=== PATIENT | male | born 1965 | race Caucasian/White ===

== ENCOUNTER 2017-11-23 19:12 | Emergency (ER) | payer BC, SELFPAY ==
--- NOTE | 2017-11-23 19:29 | XR_ITS ---
XR shoulder LT min 2V HISTORY: Post traumatic pain ITS.REASON: FELL OFF LADDER ORDERING PHYSICIAN: Tyshawn Pike PATIENT AGE: 52 years COMPARISON: None FINDINGS: No fracture or dislocation. No lytic or blastic change. There is normal mineralization. Superior bony spur versus old fracture at the tip of the clavicle at the AC joint. There is bowing of the distal clavicle inferiorly which may be due to an old fracture. IMPRESSION: 1. No acute finding. 2. Possible old clavicular fracture.
[2017-11-23 22:43] VITALS: BP 123/71; PULSE 60; RESP 20; TEMP 36.7; O2SAT 97; BMI 25.4
--- NOTE | 2017-11-23 23:13 | HMH.EDUTC ---
[facility] [place] Disposition Clinical Impression: Sprain of left shoulder Qualifiers: Encounter type: initial encounter Shoulder sprain type: unspecified sprain Qualified Code(s): S43.402A - Unspecified sprain of left shoulder joint, initial encounter Disposition: Home, Self-Care Condition on Discharge: Good Instructions: How to Use a Sling, How To Perform RICE (Rest, Ice, Compress, Elevate), DI for Shoulder Sprain Additional Instructions: * use/movement as tolerated. If painful, stop. Remember what we discussed about frozen shoulder. ROM important but if pain, could indicate more damage. Means follow up more important. * Rest * ice 15-20 mins 3-4 times a day * sling for support * Ibuprofen every 6 hours as needed for pain and inflammation. If you need something more, you can take tylenol every 4 hours as needed as long as your primary care provider has told you it is ok to take both. Referrals: Raffaele Escalante MD [Primary Care Provider] - (IMMEDIATELY for new or worsening symptoms OR no noticeable improvement over the next 3-4 days) Time of Disposition: 23:30 Medical Decision Making Vital Signs: 11/23/17 22:43 Temperature 98.1 F Temperature Source Temporal Artery Scan Pulse Rate [Right Radial] 60 Respiratory Rate 20 Blood Pressure [Right Arm] 123/71 Blood Pressure Mean [Right Arm] 88 Blood Pressure Source [Right Arm] Automatic Cuff Blood Pressure Position [Right Arm] Sitting 02 Sat by Pulse Oximetry 97 Oxygen Delivery Method Room Air Orders (Tests/Meds): ORDERS Category Date Time Status Shoulder XR left minimum 2 views [XR shoulder LT min 2V Exams 11/23/17 19:29 Taken ] Stat - Radiology Data #1 Image(s): Shoulder Image Reviewed: Yes I have reviewed radiologist's interpretation Preliminary Findings: Normal/NAD vrad - Graeme Inquiry Pt receiving controlled substance: No [facility] [place] HPI - General Stated complaint: ao [id number] @1730 injured left arm Time Seen by Provider: 11/23/17 23:13 Mode of Arrival: Family Vehicle Source of Information: Patient Limitations: No Limitations Description of Symptoms (Recalled from Triage Doc. by RN): PT STATES HE FELL 4 FT FROM A LADDER AND C/O LEFT SHOULDER PAIN. PT DENIES NECK,HEAD,ABDOMINAL PAIN. HEENT Symptoms (Recalled from RN notes): No Resp Symptoms (Recalled from RN notes): No Skin Symptoms (Recalled from RN notes): No MS Symptoms (Recalled from RN notes): Yes (LEFT SHOULDER PAIN) Functional Status (Recalled from RN notes): NA - History of Present Illness Provider Complaint: c/o left shoulder pain since falling approx 4 foot off a ladder out in the yard. Reports shoulder started to tip and he landed on left side. Denies hitting head. No neck, head, abdomen, back pain. Only shoulder. No pain at rest. pain only with rom. No treatment before arrival. - Related Data Allergies Allergy/AdvReac Type Severity Reaction Status Date / Time Penicillins Allergy Unknown I-HIVES Unverified 09/28/17 14:36 - Worker's Comp Is this a Worker's Comp case?: No [facility] History I have reviewed the patient's past medical history: Yes (denies PMHx, reports healthy. Last saw PCP one year ago) Medical History: Denies:: Cancer, Diabetes Mellitus Type 1, Diabetes Mellitus Type 2, Hypertension, MRSA Other Surgeries: Yes: No Previous Surgery Amputation: No Fractures: No - *Social History Smoking Status: Never smoker Alcohol Intake: never - Psychiatric History Expresses thoughts of harming self/others: None Suicide Plan Description: No Plan ROS Obtained: Yes Systems reviewed as appropriate & no additional complaints - Constitutional Constitutional: Denies fever(s) - Cardiovascular Cardiovascular: Denies chest pain - Respiratory Respiratory: No dyspnea - Gastrointestinal Gastrointestingal: Denies: abdominal pain - Musculoskeletal Musculoskeletal: Reports as per HPI, Denies abnormal gait, Denies back pain, Denies joint swelling, Reports limited range of motion ( due
--- NOTE | 2017-11-23 23:28 | ED_ITS ---
[facility] [place] Disposition Clinical Impression: Sprain of left shoulder Qualifiers: Encounter type: initial encounter Shoulder sprain type: unspecified sprain Qualified Code(s): S43.402A - Unspecified sprain of left shoulder joint, initial encounter Disposition: Home, Self-Care Condition on Discharge: Good Instructions: How to Use a Sling, How To Perform RICE (Rest, Ice, Compress, Elevate), DI for Shoulder Sprain Additional Instructions: * use/movement as tolerated. If painful, stop. Remember what we discussed about frozen shoulder. ROM important but if pain, could indicate more damage. Means follow up more important. * Rest * ice 15-20 mins 3-4 times a day * sling for support * Ibuprofen every 6 hours as needed for pain and inflammation. If you need something more, you can take tylenol every 4 hours as needed as long as your primary care provider has told you it is ok to take both. Referrals: Raffaele Escalante MD [Primary Care Provider] - (IMMEDIATELY for new or worsening symptoms OR no noticeable improvement over the next 3-4 days) Time of Disposition: 23:30 Medical Decision Making Vital Signs: 11/23/17 22:43 Temperature 98.1 F Temperature Source Temporal Artery Scan Pulse Rate [Right Radial] 60 Respiratory Rate 20 Blood Pressure [Right Arm] 123/71 Blood Pressure Mean [Right Arm] 88 Blood Pressure Source [Right Arm] Automatic Cuff Blood Pressure Position [Right Arm] Sitting 02 Sat by Pulse Oximetry 97 Oxygen Delivery Method Room Air Orders (Tests/Meds): ORDERS Category Date Time Status Shoulder XR left minimum 2 views [XR shoulder LT min 2V Exams 11/23/17 19:29 Taken ] Stat - Radiology Data #1 Image(s): Shoulder Image Reviewed: Yes I have reviewed radiologist's interpretation Preliminary Findings: Normal/NAD vrad - Graeme Inquiry Pt receiving controlled substance: No [facility] [place] HPI - General Stated complaint: ao [id number] @1730 injured left arm Time Seen by Provider: 11/23/17 23:13 Mode of Arrival: Family Vehicle Source of Information: Patient Limitations: No Limitations Description of Symptoms (Recalled from Triage Doc. by RN): PT STATES HE FELL 4 FT FROM A LADDER AND C/O LEFT SHOULDER PAIN. PT DENIES NECK,HEAD,ABDOMINAL PAIN. HEENT Symptoms (Recalled from RN notes): No Resp Symptoms (Recalled from RN notes): No Skin Symptoms (Recalled from RN notes): No MS Symptoms (Recalled from RN notes): Yes (LEFT SHOULDER PAIN) Functional Status (Recalled from RN notes): NA - History of Present Illness Provider Complaint: c/o left shoulder pain since falling approx 4 foot off a ladder out in the yard. Reports shoulder started to tip and he landed on left side. Denies hitting head. No neck, head, abdomen, back pain. Only shoulder. No pain at rest. pain only with rom. No treatment before arrival. - Related Data Allergies Allergy/AdvReac Type Severity Reaction Status Date / Time Penicillins Allergy Unknown I-HIVES Unverified 09/28/17 14:36 - Worker's Comp Is this a Worker's Comp case?: No [facility] History I have reviewed the patient's past medical history: Yes (denies PMHx, reports healthy. Last saw PCP one year ago) Medical History: Denies:: Cancer, Diabetes Mellitus Type 1, Diabetes Mellitus Type 2, Hypertension, MRSA Other Surgeries: Yes: No Previous Surgery Amputation: No Fractures: No - *Social History Smoking Status: Ne
[2017-11-23 23:30] VITALS: BP 118/75; PULSE 62; RESP 18; TEMP 36.7; O2SAT 98
== END 2017-11-23 23:31 | disposition home or self-care (01) ==
PROVIDERS: Emergency Provider Nurse Practitioner Family; Family Provider Family Medicine; PCP Family Medicine
DX: S43.402A Unspecified sprain of left shoulder joint, initial encounter (principal); W11.XXXA Fall on and from ladder, initial encounter; Y92.017 Garden or yard in single-family (private) house as the place of occurrence of the external cause; Z88.0 Allergy status to penicillin
CPT/HCPCS: 73030; 99202

== ENCOUNTER 2019-07-12 12:29 | Outpatient (CLI) | payer BC, SELFPAY ==
[2019-07-12 12:50] LABS: Basophils % 0.1 % (0.1-2.0); Eosinophils % 0.1 % (0.1-12.0); Hematocrit 42.6 % (42.0-52.0); Hemoglobin 13.5 g/dL (14.1-18.0); Lymphocytes % 4.1 % (10-50); Mean Corpuscular HGB Conc 31.6 g/dL (31.8-35.4); Mean Corpuscular Hemoglobin 29.7 pg (27.0-31.2); Mean Corpuscular Volume 93.9 fl (80-94); Mean Platelet Volume 7.9 fl (7.4-10.4); Monocytes # 0.6 K/mm3 (0.1-1.0); Monocytes % 2.4 % (1.7-9.3); Neutrophils # 23.5 K/mm3 (1.8-7.8); Neutrophils % 93.3 % (37.0-80.0); Platelet Count 161 K/mm3 (142-424); Red Blood Count 4.54 M/mm3 (4.60-6.20); Red Cell Distribution Width 14.3 % (11.5-17.5); White Blood Count 25.2 K/mm3 (4.8-10.8)
[2019-07-12 13:01] LABS: MANUAL DIFFERENTIAL MANUAL DIFFERENTIAL (MANUAL DIFF)
[2019-07-12 13:16] LABS: Lymphocytes % 6 % (10-50); Monocytes % 1 % (2-9); Neutrophils % 93 % (42-76); Total Cells Counted 100
[2019-07-12 13:17] LABS: Platelet Estimate Normal; RBC Morphology Normal
== END 2019-07-12 15:45 | disposition home or self-care (01) ==
LOC: LAB.DROPOF 12:30 → INF 15:15
PROVIDERS: PCP Family Medicine; Referring Provider Internal Medicine; Visit Provider Internal Medicine
DX: Z45.2 Encounter for adjustment and management of vascular access device (principal)
CPT/HCPCS: 85007; 85025; 96523

== ENCOUNTER 2019-11-13 16:08 | Outpatient (CLI) | payer BC, SELFPAY ==
--- NOTE | 2019-11-13 16:15 | PC.NURSE ---
1615-changed right chest permacath dressing using sterile technique; rn and pt both wore masks;rn took off old dressing;donned sterile gloves;cleansed area and site with chloraprep; applied new bandaid to top suture; applied new stat loc, algidex patch, and covered site with sorba view window dressing and dated dressing; pt discharged home.
== END 2019-11-13 16:25 | disposition home or self-care (01) ==
LOC: INF 16:08
PROVIDERS: Visit Provider Internal Medicine
DX: Z45.2 Encounter for adjustment and management of vascular access device (principal); Z48.00 Encounter for change or removal of nonsurgical wound dressing
CPT/HCPCS: 96523

== ENCOUNTER → 2021-03-10 14:15 | Outpatient (CLI) | payer BC, SELFPAY ==
--- NOTE | 2021-03-10 18:00 | PC.NURSE ---
spoke with patient to notify him of positive covid results. Informed him colonoscopy would be cancelled. i informed him i would notify dr. venegas's office in the AM and they would notify him of reschedule date.
== END ==
PROVIDERS: PCP Family Medicine; Visit Provider Surgery
DX: Z11.52 Encounter for screening for COVID-19 (principal); U07.1 COVID-19; Z01.812 Encounter for preprocedural laboratory examination; Z12.11 Encounter for screening for malignant neoplasm of colon
CPT/HCPCS: U0003

== ENCOUNTER 2021-04-02 06:32 | Day surgery (SDC) | payer BC, SELFPAY ==
[2021-03-04 12:15] VITALS: BMI 32.5
[2021-04-02 06:49] VITALS: BP 163/103; PULSE 100; RESP 18; TEMP 36.3; O2SAT 95
--- NOTE | 2021-04-02 07:04 | P.PN_ITS ---
[facility] Anesthesia Checklist - Patient Identification Patient Identification: Arm Band - Structural Data Admitted From: Home Planned Operative Procedure/s: Colonoscopy Consent for Planned Operative Procedure(s) Verified: Yes - NPO Status Verified Time NPO: 00:00 - Airway Assessment C-Spine Mobility Assessed: Yes TMJ Mobility Assessed: Yes Dentition: Good Dentition - Neurological Assessment Level of Consciousness: Awake Hx Seizures: No Numbness or tingling in extremities: No - Anesthesia Plan Anesthesia Risk discussed: Yes Anesthesia Plan: Verified ASA Class: III Anesthesia Type: MAC [facility] History I have reviewed the patient's past medical history: Yes Medical History: Reports:: Cancer (lymphoma), Gastroesophageal Reflux Disease(GERD), Hypertension Denies:: Diabetes Mellitus Type 1, Diabetes Mellitus Type 2, Internal Pacemaker, MRSA, Seizures *Have you ever received a pneumonia vaccine?: Yes *Have you received a flu vaccine this season?: Yes Other Medical History: Reports: Other (Hx of PE - On Xarelto - Stopped 5 days ago) Anesthesia experience/problems:: N/V Laterality Cases: Left: Arthroscopy Shoulder Other Surgeries: Yes: No Previous Surgery, Colonoscopy. No: Pacemaker Amputation: No Fractures: No - *Social History Last grade of school completed: High school graduate Smoking Status: Never smoker Alcohol Intake: never Substance Use Type: denies use *Occupational Status:: employed Housing: house Household Members: spouse *Travel in the last 8 weeks: None Family Hx:: Cancer
--- NOTE | 2021-04-02 07:44 | HMH.SCOPE ---
- Procedure: Date: 04/02/21 Patient Date of :: 1965 Procedure Performed:: Colonoscopy to terminal ileum with biopsy Indications:: Patient is a 55-year-old male who presents for follow-up colonoscopy. He is under the care of Dr. Pearson. I had previously performed colonoscopy on him on 09/30/2016 as an initial screen. His father did have colorectal cancer in his early 80s. Patient states that he is past due. He did have a small rectal polyp at the time of his colonoscopy. 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 He is also on Xarelto for pulmonary embolism. He denies any change in his bowel habits or rectal bleeding. Performing Provider:: Taj Neves MD Referring Provider:: Tru Pearson MD Sedation:: MAC sedation Procedure:: Patient was taken to endoscopy procedure room. He was positioned in lateral decubitus position. Adequate intravenous sedation was achieved with anesthesia titration of propofol. Variable stiffness Olympus colonoscope was inserted via the anus and advanced to the cecum. Colonic preparation was good. Ileocecal valve and appendiceal orifice were clearly identified. Colonoscope was advanced very briefly short distance into the ileocecal valve which appeared unremarkable. Within the cecum there was some minor mucosal atypical appearing pigmentation. Biopsy was obtained. Colonoscope was withdrawn through the remainder of the colon with careful surveillance. He had a few sigmoid diverticuli. Retroflexion within the rectum revealed no evidence of any pathologic internal hemorrhoids. Colonoscope was withdrawn. Findings:: Patchy mucosal pigmentation of the cecum likely inconsequential, biopsy performed Rare diverticuli sigmoid colon Recommendations:: Likely repeat colonoscopy 5 years given prior history of polyp and family history of colon cancer Complications:: None immediate Estimated blood obtained (mL): 1
[2021-04-02 07:45] VITALS: BP 86/54; PULSE 86; RESP 16; TEMP 36.3; O2SAT 94
[2021-04-02 07:55] VITALS: BP 90/55; PULSE 74; RESP 16; O2SAT 95
[2021-04-02 08:05] VITALS: BP 96/58; PULSE 80; RESP 16; O2SAT 96
[2021-04-02 08:15] VITALS: BP 94/64; PULSE 77; RESP 16; O2SAT 94
[2021-04-02 08:45] VITALS: BP 96/57; PULSE 72; RESP 18; O2SAT 93
== END 2021-04-02 08:45 | disposition home or self-care (01) ==
LOC: OUTP 06:34
PROVIDERS: PCP Family Medicine; Visit Provider Surgery
PROC: 0DJD8ZZ Inspection of Lower Intestinal Tract, Via Natural or Artificial Opening Endoscopic (ICD-10-PCS; CPT 45380; principal; 2021-04-02 07:30)
DX: Z12.11 Encounter for screening for malignant neoplasm of colon (principal); K57.30 Diverticulosis of large intestine without perforation or abscess without bleeding; K63.9 Disease of intestine, unspecified; Z87.19 Personal history of other diseases of the digestive system; Z80.0 Family history of malignant neoplasm of digestive organs; Z86.711 Personal history of pulmonary embolism; Z79.01 Long term (current) use of anticoagulants; Z85.72 Personal history of non-Hodgkin lymphomas; K21.9 Gastro-esophageal reflux disease without esophagitis; I10 Essential (primary) hypertension; Z87.39 Personal history of other diseases of the musculoskeletal system and connective tissue; Z88.0 Allergy status to penicillin
CPT/HCPCS: 45380

== ENCOUNTER → 2021-09-17 12:40 | Outpatient (CLI) | payer BC, SELFPAY | PROVIDERS: PCP Family Medicine; Visit Provider Nurse Practitioner | DX: Z20.822 Contact with and (suspected) exposure to COVID-19 (principal) | CPT/HCPCS: C9803; U0003; U0005 ==

== ENCOUNTER → 2022-04-28 15:27 | Outpatient (CLI) | payer BC, SELFPAY ==
[2022-04-28 16:27] LABS: Basophils # 0.1 K/mm3 (0-0.2); Basophils % 0.6 % (0.1-2.0); Eosinophils # 0.1 K/mm3 (0.0-0.4); Eosinophils % 0.9 % (0.1-12.0); Hematocrit 41.8 % (42.0-52.0); Hemoglobin 14.1 g/dL (14.1-18.0); Lymphocytes # 1.9 K/mm3 (0.7-4.5); Lymphocytes % 22.9 % (10-50); Mean Corpuscular HGB Conc 33.8 g/dL (31.8-35.4); Mean Corpuscular Hemoglobin 30.6 pg (27.0-31.2); Mean Corpuscular Volume 90.6 fl (80-94); Monocytes # 0.5 K/mm3 (0.1-1.0); Monocytes % 6.1 % (1.7-9.3); Neutrophils # 5.7 K/mm3 (1.8-7.8); Neutrophils % 69.5 % (37.0-80.0); Platelet Count 196 K/mm3 (142-424); Red Blood Count 4.61 M/mm3 (4.60-6.20); Red Cell Distribution Width 14.1 % (11.5-17.5); White Blood Count 8.2 K/mm3 (4.8-10.8)
[2022-04-28 17:15] LABS: Alanine Aminotransferase 34 U/L (12-78); Albumin Level 3.6 g/dl (3.5-5.0); Albumin/Globulin Ratio 1.4 (1.1-1.8); Alkaline Phosphatase 94 U/L (38-126); Anion Gap 9.9 mEq/L (5-15); Aspartate Amino Transferase 23 U/L (17-59); Blood Urea Nitrogen 18 mg/dl (9-20); Calcium 9.2 mg/dl (8.4-10.2); Carbon Dioxide 30 mmol/L (22.0-30.0); Chloride 98 mmol/L (98-107); Estimated Glomerular Filt Rate 87 ml/min (>60); GFR (African American) 106 ML/MIN (>60); Globulin 2.6 g/dL (1.3-3.2); Glucose 253 mg/dl (74-100); Lactate Dehydrogenase 210 U/L (313-618); Potassium 3.9 mmoL/L (3.5-5.1); Sodium 134 mmol/L (136-145); Total Protein,Serum 6.2 g/dl (6.3-8.2)
[2022-04-28 17:16] LABS: Bilirubin,Total < 0.1 mg/dl (0.2-1.3)
== END ==
PROVIDERS: Nurse Practitioner Family; PCP Family Medicine; Visit Provider Internal Medicine
DX: C83.30 Diffuse large B-cell lymphoma, unspecified site (principal)
CPT/HCPCS: 36415; 80053; 83615; 85025

== ENCOUNTER 2022-07-19 16:47 | Emergency (ER) | payer BC, SELFPAY ==
[2022-07-19 17:20] VITALS: BP 165/102; PULSE 67; RESP 16; TEMP 37.7; O2SAT 97; BMI 32.5
--- NOTE | 2022-07-19 17:26 | EXP.UTC ---
Discharge Plan Disposition Patient Disposition: Home, Self-Care Condition: Good Prescriptions Prescriptions: New azithromycin [Zithromax] 250 mg tablet 250 mg PO UD DOSE PK Qty: 6 0RF Rx Instructions: Take two (2) tablets today, then one (1) tablet days #2 thru #5 benzonatate [benzonatate] 100 mg capsule 100 mg PO TIDP PRN (Reason: Cough) Qty: 30 0RF No Action metoprolol tartrate 25 mg tablet 25 mg PO DAILY Label Comments: TAKE 1 TABLET BY MOUTH TWICE DAILY losartan 50 mg tablet 50 mg PO DAILY Label Comments: TAKE 1 TABLET BY MOUTH EVERY DAY rivaroxaban 20 mg tablet 20 mg PO DAILY Label Comments: TAKE 1 TABLET BY MOUTH EVERY DAY IN THE EVENING sodium,potassium,mag sulfates 177 ML recon soln See Rx Instructions PO .COMPLEX Rx Instructions: DILUTE; drink full amount early evening before AND next morning at least 2 hr before procedure; follow w 960 mL water PO Referrals Follow up/Referrals: Nahid Pearson MD [Primary Care Provider] - See instructions Activity Restrictions/Add. Instructions Additional Instructions/Restrictions: Drink plenty of fluids. Take tylenol or ibuprofen for pain or fever. Take the medications as directed. Follow up with your regular doctor. GO TO THE ER FOR ANY WORSENING SYMPTOMS Quarantine until you know the results of your covid-19 test. Notify your school or workplace of your results and follow their instructions regarding return to work/school. Clinical Impressions Clinical Impression: Viral syndrome, Sinusitis Instructions Patient Instructions: DI for Viral Syndrome, Coronavirus Disease 2019, Preventing the Spread of Coronavirus Discharge Instructions Discharge ED Provider: Bill Storm [facility] General Stated complaint: COVID TEST Mode of Arrival: Ambulatory Source of Information: Patient Limitations: No Limitations Time Seen by Provider: 07/19/22 17:26 HEENT Symptoms (Recalled from RN notes): Yes Resp Symptoms (Recalled from RN notes): Yes Skin Symptoms (Recalled from RN notes): No MS Symptoms (Recalled from RN notes): No Functional Status (Recalled from RN notes): n/a History of Present Illness Provider Complaint: pt comes in with c/o sneezing, fever. symptoms began yesterday. Related Data Home Medications Medication Instructions Recorded Confirmed losartan 50 mg tablet 50 mg PO DAILY bp 02/28/21 02/28/21 metoprolol tartrate 25 mg tablet 25 mg PO DAILY bp 02/28/21 02/28/21 rivaroxaban 20 mg tablet 20 mg PO DAILY Blood thinner 02/28/21 02/28/21 sodium,potassium,mag sulfates 17.5 See Rx Instructions PO .COMPLEX 04/02/21 gram-3.13 gram-1.6 gram oral soln prep Previous Rx's Medication Instructions Recorded azithromycin 250 mg tablet 250 mg PO UD DOSE PK #6 tabs 07/19/22 (Zithromax) benzonatate 100 mg capsule 100 mg PO TIDP PRN Cough #30 caps 07/19/22 Allergies Allergy/AdvReac Type Severity Reaction Status Date / Time Penicillins Allergy Unknown I-HIVES Verified 07/19/22 17:23 Worker's Comp Is this a Worker's Comp case?: No PFSH PFSH Social History Smoking Status: Never smoker second hand exposure: No alcohol intake: never substance use type: denies use current occupational status: employed Travel in the last 8 weeks: None household members: spouse housing: house current occupation: [employer] current occupational exposures/hazards: No caffeine: Yes ROS Obtained: Yes All systems reviewed & no additional complaints except as documented Constitutional Constitutional: Reports chills and Reports fever(s) Eyes Eyes: Denies eye discharge ENT Ears, Nose, Mouth, and Throat: Reports as per HPI Cardiovascular Cardiovascular: Denies chest pain Respiratory Respiratory: Denies chest congestion and Reports cough Gastrointestinal Gastrointestingal: Reports nausea; Denies abdominal pain, const
[2022-07-19 18:01] VITALS: BP 165/102; PULSE 67; RESP 16; TEMP 37.2
== END 2022-07-19 18:02 | disposition home or self-care (01) ==
PROVIDERS: Emergency Provider Nurse Practitioner Family; PCP Family Medicine
DX: U07.1 COVID-19 (principal); J32.9 Chronic sinusitis, unspecified
CPT/HCPCS: 99212; C9803; G0463; U0003; U0005

== ENCOUNTER → 2022-08-08 08:48 | Outpatient (CLI) | payer BC, SELFPAY ==
[2022-08-08 10:35] LABS: Hemoglobin A1C 9.9 % (4.0-6.0)
[2022-08-08 10:51] LABS: Chloride 100 mmol/L (98-107); Potassium 4.2 mmoL/L (3.5-5.1); Sodium 139 mmol/L (136-145)
[2022-08-08 10:54] LABS: Alanine Aminotransferase 33 U/L (12-78); Albumin Level 3.9 g/dl (3.5-5.0); Albumin/Globulin Ratio 1.5 (1.1-1.8); Alkaline Phosphatase 110 U/L (38-126); Anion Gap 11.2 mEq/L (5-15); Aspartate Amino Transferase 25 U/L (17-59); Bilirubin,Total 0.3 mg/dl (0.2-1.3); Blood Urea Nitrogen 21 mg/dl (9-20); Calcium 8.4 mg/dl (8.4-10.2); Carbon Dioxide 32 mmol/L (22.0-30.0); Chol/HDL Ratio 4.4 (1-3.5); Cholesterol 211 mg/dl (140-200); Estimated Glomerular Filt Rate 87 ml/min (>60); GFR (African American) 106 ML/MIN (>60); Globulin 2.6 g/dL (1.3-3.2); Glucose 250 mg/dl (74-100); HDL Cholesterol 48 mg/dl (40-60); Total Protein,Serum 6.5 g/dl (6.3-8.2); Triglycerides 81 mg/dl (30-150); VLDL Cholesterol 16 mg/dL (0-40)
[2022-08-08 11:05] LABS: Direct LDL Cholesterol 132.39 mg/dL (100-129)
== END ==
PROVIDERS: PCP Family Medicine; Visit Provider Family Medicine
DX: E11.9 Type 2 diabetes mellitus without complications (principal); E78.5 Hyperlipidemia, unspecified
CPT/HCPCS: 36415; 80053; 80061; 83036

== ENCOUNTER 2022-08-19 18:30 | Emergency (ER) | payer BC, SELFPAY ==
--- NOTE | 2022-08-19 18:34 | EXP.UTC ---
Discharge Plan Disposition Patient Disposition: Home, Self-Care Condition: Good Prescriptions Prescriptions: No Action metoprolol tartrate 25 mg tablet 25 mg PO DAILY Label Comments: TAKE 1 TABLET BY MOUTH TWICE DAILY losartan 50 mg tablet 50 mg PO DAILY Label Comments: TAKE 1 TABLET BY MOUTH EVERY DAY rivaroxaban 20 mg tablet 20 mg PO DAILY Label Comments: TAKE 1 TABLET BY MOUTH EVERY DAY IN THE EVENING azithromycin [Zithromax] 250 mg tablet 250 mg PO UD DOSE PK Qty: 6 0RF Rx Instructions: Take two (2) tablets today, then one (1) tablet days #2 thru #5 benzonatate [benzonatate] 100 mg capsule 100 mg PO TIDP PRN (Reason: Cough) Qty: 30 0RF sodium,potassium,mag sulfates 177 ML recon soln See Rx Instructions PO .COMPLEX Rx Instructions: DILUTE; drink full amount early evening before AND next morning at least 2 hr before procedure; follow w 960 mL water PO Referrals Follow up/Referrals: Nahid Pearson MD [Primary Care Provider] - See instructions Activity Restrictions/Add. Instructions Additional Instructions/Restrictions: Drink plenty of fluids. Take tylenol for pain or fever. Follow up with your regular doctor. GO TO THE ER FOR ANY WORSENING SYMPTOMS Clinical Impressions Clinical Impression: Exposure to viral disease Instructions Patient Instructions: DI for Viral Syndrome Discharge ED Provider: Bill Storm [facility] General Stated complaint: RSV,poss Flue Time Seen by Provider: 08/19/22 19:47 History of Present Illness Provider Complaint: He denies any symptoms. He has a new grand baby that he is going to see and he doesn't want to pack rsv in on it. Related Data Home Medications Medication Instructions Recorded Confirmed losartan 50 mg tablet 50 mg PO DAILY bp 02/28/21 02/28/21 metoprolol tartrate 25 mg tablet 25 mg PO DAILY bp 02/28/21 02/28/21 rivaroxaban 20 mg tablet 20 mg PO DAILY Blood thinner 02/28/21 02/28/21 sodium,potassium,mag sulfates 17.5 See Rx Instructions PO .COMPLEX 04/02/21 gram-3.13 gram-1.6 gram oral soln prep Previous Rx's Medication Instructions Recorded azithromycin 250 mg tablet 250 mg PO UD DOSE PK #6 tabs 07/19/22 (Zithromax) benzonatate 100 mg capsule 100 mg PO TIDP PRN Cough #30 caps 07/19/22 Allergies Allergy/AdvReac Type Severity Reaction Status Date / Time Penicillins Allergy Unknown I-HIVES Verified 08/19/22 19:56 [facility] Social History Smoking Status: Never smoker second hand exposure: No alcohol intake: never substance use type: denies use current occupational status: employed Travel in the last 8 weeks: None household members: spouse housing: house current occupation: [employer] current occupational exposures/hazards: No caffeine: Yes ROS Obtained: Yes All systems reviewed & no additional complaints except as documented Constitutional Constitutional: Denies chills and Denies fever(s) Eyes Eyes: Denies eye discharge ENT Ears, Nose, Mouth, and Throat: Denies dizziness, Denies otalgia and Denies sore throat Cardiovascular Cardiovascular: Denies chest pain Respiratory Respiratory: Denies shortness of breath, Denies chest congestion, Denies cough, Denies stridor and Denies wheezing Gastrointestinal Gastrointestingal: Denies nausea or vomiting Musculoskeletal Musculoskeletal: Reports system reviewed and no additional complaints, except as documented and Denies arthralgias Integumentary/Breasts Skin/Breast: Denies rash Neurologic Neurologic: Denies dizziness and Denies paresthesias Allergic/Immunologic Allergic/Immunologic: Denies wheezing Physical Exam General General appearance: alert and in no apparent distress Head Head exam: atraumatic, normocephalic and normal inspection Eye Eye exam: Present normal appearance, PERRL and EOMI ENT ENT exam: Present normal exam, normal or
[2022-08-19 19:54] LABS: Adenovirus,PCR Not Detected (NotDetected); Bordetella Pertussis Not Detected (NotDetected); Chlamydophila Pneumoniae, PCR Not Detected (NotDetected); Coronavirus 19, PCR Not Detected (NotDetected); Coronavirus 229E Not Detected (NotDetected); Coronavirus NL63 Not Detected (NotDetected); Coronavirus OC43 Not Detected (NotDetected); Coronovirus HKU1,PCR Not Detected (NotDetected); Human Metapneumovirus Not Detected (NotDetected); Influenza A, PCR Not Detected (NotDetected); Influenza AH1, 2009 Not Detected (NotDetected); Influenza AH1, PCR Not Detected (NotDetected); Influenza AH3,PCR Not Detected (NotDetected); Influenza B, PCR Not Detected (NotDetected); Mycoplasma Pneumoniae, PCR Not Detected (NotDetected); Parainfluenza 1, PCR Not Detected (NotDetected); Parainfluenza 2, PCR Not Detected (NotDetected); Parainfluenza 3, PCR Not Detected (NotDetected); Respiratory Syncytial Virus Not Detected (NotDetected); Rhinovirus/Enterovirus Not Detected (NotDetected)
[2022-08-19 19:55] VITALS: BP 164/93; PULSE 110; RESP 19; TEMP 37.5; O2SAT 96; BMI 32.5
[2022-08-19 19:58] VITALS: BP 164/93; PULSE 110; RESP 19; TEMP 37.5
[2022-08-20 17:48] LABS: Parainfluenza 4, PCR Detected (NotDetected)
== END 2022-08-19 20:00 | disposition home or self-care (01) ==
PROVIDERS: Emergency Provider Nurse Practitioner Family; PCP Family Medicine
DX: Z20.822 Contact with and (suspected) exposure to COVID-19 (principal)
CPT/HCPCS: 87581; 87632; 87798; 99212; C9803; G0463; U0003; U0005

== ENCOUNTER → 2022-10-26 15:54 | Outpatient (CLI) | payer BC, SELFPAY ==
[2022-10-26 17:05] LABS: Basophils # 0.1 K/mm3 (0-0.2); Basophils % 0.5 % (0.1-2.0); Eosinophils # 0.1 K/mm3 (0.0-0.4); Eosinophils % 0.6 % (0.1-12.0); Hematocrit 44.2 % (42.0-52.0); Hemoglobin 14.3 g/dL (14.1-18.0); Lymphocytes # 2.6 K/mm3 (0.7-4.5); Lymphocytes % 24.2 % (10-50); Mean Corpuscular HGB Conc 32.3 g/dL (31.8-35.4); Mean Corpuscular Hemoglobin 29.6 pg (27.0-31.2); Mean Corpuscular Volume 91.8 fl (80-94); Mean Platelet Volume 8.1 fl (7.4-10.4); Monocytes # 0.6 K/mm3 (0.1-1.0); Monocytes % 5.7 % (1.7-9.3); Neutrophils # 7.3 K/mm3 (1.8-7.8); Platelet Count 230 K/mm3 (142-424); Red Blood Count 4.81 M/mm3 (4.60-6.20); Red Cell Distribution Width 14.7 % (11.5-17.5); White Blood Count 10.6 K/mm3 (4.8-10.8)
[2022-10-26 17:35] LABS: Alanine Aminotransferase 36 U/L (12-78); Albumin/Globulin Ratio 1.6 (1.1-1.8); Alkaline Phosphatase 90 U/L (38-126); Aspartate Amino Transferase 24 U/L (17-59); Bilirubin,Total 0.2 mg/dl (0.2-1.3); Blood Urea Nitrogen 22 mg/dl (9-20); Calcium 8.9 mg/dl (8.4-10.2); Carbon Dioxide 30 mmol/L (22.0-30.0); Chloride 100 mmol/L (98-107); Estimated Glomerular Filt Rate 87 ml/min (>60); GFR (African American) 105 ML/MIN (>60); Globulin 2.5 g/dL (1.3-3.2); Glucose 193 mg/dl (74-100); Lactate Dehydrogenase 213 U/L (313-618); Sodium 138 mmol/L (136-145); Total Protein,Serum 6.5 g/dl (6.3-8.2)
[2022-10-26 17:53] LABS: Anion Gap 11.8 mEq/L (5-15); Potassium 3.8 mmoL/L (3.5-5.1)
== END ==
PROVIDERS: PCP Family Medicine; Visit Provider Internal Medicine
DX: C83.30 Diffuse large B-cell lymphoma, unspecified site (principal)
CPT/HCPCS: 36415; 80053; 83615; 85025

== ENCOUNTER → 2023-02-18 16:44 | Outpatient (CLI) | payer BC, SELFPAY ==
--- NOTE | 2023-02-18 16:48 | XR_ITS ---
PROCEDURE INFORMATION: Exam: XR Chest Exam date and time: 02/18/2023 4:50 PM Age: 57 years old Clinical indication: Cough TECHNIQUE: Imaging protocol: Radiologic exam of the chest. Views: 2 views. COMPARISON: CR XR CHEST 2V 06/19/2019 8:08 PM FINDINGS: Lungs: No evidence of pneumonia or interstitial edema. Pleural spaces: Unremarkable. No pleural effusion. No pneumothorax. Heart/Mediastinum: Unremarkable. No cardiomegaly. Bones/joints: Unremarkable. IMPRESSION: No evidence of pneumonia or interstitial edema.
== END ==
PROVIDERS: PCP Family Medicine; Visit Provider Family Medicine
DX: R05.9 Cough, unspecified (principal)
CPT/HCPCS: 71046

== ENCOUNTER → 2023-04-19 15:52 | Outpatient (CLI) | payer BC, SELFPAY ==
[2023-04-19 16:24] LABS: Basophils % 0.4 % (0.1-2.0); Eosinophils # 0.1 K/mm3 (0.0-0.4); Hemoglobin 14.6 g/dL (14.1-18.0); Lymphocytes # 2.5 K/mm3 (0.7-4.5); Lymphocytes % 23.5 % (10-50); Mean Corpuscular HGB Conc 32.3 g/dL (31.8-35.4); Mean Corpuscular Hemoglobin 28.9 pg (27.0-31.2); Mean Corpuscular Volume 89.5 fl (80-94); Mean Platelet Volume 8.4 fl (7.4-10.4); Monocytes # 0.6 K/mm3 (0.1-1.0); Monocytes % 5.7 % (1.7-9.3); Neutrophils # 7.3 K/mm3 (1.8-7.8); Neutrophils % 69.4 % (37.0-80.0); Platelet Count 215 K/mm3 (142-424); Red Blood Count 5.03 M/mm3 (4.60-6.20); Red Cell Distribution Width 14.4 % (11.5-17.5); White Blood Count 10.5 K/mm3 (4.8-10.8)
[2023-04-19 16:35] LABS: Alanine Aminotransferase 40 U/L (12-78); Albumin/Globulin Ratio 1.3 (1.1-1.8); Alkaline Phosphatase 105 U/L (38-126); Anion Gap 10.6 mEq/L (5-15); Aspartate Amino Transferase 31 U/L (17-59); Bilirubin,Total 0.3 mg/dl (0.2-1.3); Blood Urea Nitrogen 18 mg/dl (9-20); Calcium 9.1 mg/dl (8.4-10.2); Carbon Dioxide 30 mmol/L (22.0-30.0); Chloride 99 mmol/L (98-107); Estimated Glomerular Filt Rate 100 ml/min (>60); GFR (African American) 121 ML/MIN (>60); Globulin 3.1 g/dL (1.3-3.2); Glucose 167 mg/dl (74-100); Lactate Dehydrogenase 173 U/L (313-618); Potassium 3.6 mmoL/L (3.5-5.1); Sodium 136 mmol/L (136-145); Total Protein,Serum 7.1 g/dl (6.3-8.2)
== END ==
PROVIDERS: PCP Family Medicine; Visit Provider Internal Medicine
DX: C83.30 Diffuse large B-cell lymphoma, unspecified site (principal)
CPT/HCPCS: 36415; 80053; 83615; 85025

== ENCOUNTER 2023-10-22 15:23 | Outpatient (CLI) | payer BC, SELFPAY ==
--- OUTSIDE RECORDS SUMMARY | 2023-10-22 15:27 | XMS_ITS | Continuity of Care Document ---
Author Name Unknown Organization [facility] Address [address] [place] [id number] Care Team Providers Care Coremaker Pipe Name Role Phone CATALINO FLORES (REF) Primary Care Physician Encounter [facility] [id number] Date(s): 11/15/19 - 12/08/[address] [id number] [place] Encounter Diagnosis CRIMINAL INVESTIGATOR lymphoma(Discharge Diagnosis) - 12/07/19 Discharge Disposition: IP Self Care / Home Attending Physician: WENDY GOMEZ MD-ONC Admitting Physician: WENDY GOMEZ MD-ONC Referring Physician: DEVONTE, SELF REFERRED Allergies, Adverse Reactions, Alerts Substance Reaction Severity Status penicillin Active Assessment and Plan Extracted from: Title:BMT: Discharge Note Author:LILLI NEGRON NP-ONC Date:12/08/19 Hospital Course Mr. Pitts is a 54-year-old male with primary CRIMINAL INVESTIGATOR Lymphoma who was admitted on 11/15/19 for BEAM+ Auto HSCT.??He received 4.7 x 10^6 CD34/kg on 11/21/2019. ? He tolerated his hospitalization well without major issues. He developed a neutropenic fever on 11/27/19,??blood cultures??positive for??E.coli and staph epi (likely contaminant). He was treated with Cefepime, Bactrim, and Meropenem inpatient and switched to Ertapenem outpatient to complete 14 day coverage since negative cultures on 11/29. ? He did develop a rash that has not spread at time of discharge. At first thought to be due to medication, but might be engraftment related.??On triamcinolone cream. Patient C. diff positive on 12/07/19 and initiated on??PO Vancomycin. ? Patient will be discharged with 1 Liter Normal Saline to infuse daily by home health. He will have a clinic follow up on 12/11/19. Significant Findings See hospital Course Procedures and Treatment Provided Stem Cell Infusion Infusion Adverse Reaction: No side effects occurred (11/21/19) Infusion Checklist: Hematopoietic cell infusion orders complete, IV fluids, pre-medications administered as ordered, Oxygen and emergency medications readily available, Procedural benefits and potential side effects reviewed with patient, Attending Physician available during infusion, Consent verified (11/21/19) Infusion Product Source: Autologous, HPC - A (Apheresis Product) (11/21/19) Infusion Start Time: 11/21/19 12:14:00 (11/21/19) Infusion Stop Time: 11/21/19 12:56:00 (11/21/19) Stem Cell Unit ID Number: =[id number] (11/21/19) Stem Cell Volume Given: 200 mL (11/21/19) Total CD 34+ Administered: 4.7 (11/21/19) Discharge Plan Mr. 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 ?? Primary CRIMINAL INVESTIGATOR lymphoma. He??is status post??6 cycles of MVP-R in CR (done at ). An MRI was performed on 10/27/2019 that was consistent with a CR. On 11/06/19??total collection yielded 4.7 x 10^6 CD34+ cells/kg. Admitted 11/15/19 for BEAM+Auto HSCT. He received 4.7 x 10^6 CD34+ stem cells/kg on 11/21/2019. Currently T+17. ? Cytopenias. Pancytopenia related to chemotherapy.?? Counts recovering as expected post transplant.?? We will monitor and transfuse for Hgb less than 7 and platelets less than 10k per BMT protocol. ?? Treatment Related toxicities a. Maculopapular rash/? Drug rash/ ? Engraftment rash.??Appeared on 12/02, and spread on??12/04. Cefepime discontinued and alternative antibiotics used. ??Triamcinolone cream ordered on 12/06.?? Improving.?? Continue to monitor. ?? Immunosuppression.?? Patient is immunosuppressed due to chemotherapy. a. Antiviral. Continue Acyclovir 800 mg BID for viral prophylaxis. b.??E.??Coli??Bacteremia 11/27/2019. Repeat cultures negative on 11/29, 12/02, and 12/05.?? Treated with Cefepime, changed to Bactrim given skin rash.?? Further changed to meropenem on 12/05??given continued fevers and discharged on ertapenem to complete 14 day course post negative cultures (complete 12/12/19).? c. C.diff. 12/07/19. Started on 14 day course of oral Vancomycin 125 mg Q6 hours, which he will continue through 12/20/19. ?? Metabolic a. Hydration.?? Will be discharged on IVFs: 1L NS daily. b. Hypokalemia. Continue KCl 40 mEq PO BID. ?? Cardiac a. A. fib.?? Patient currently on metoprolol, started by . Admission EKG NSR, left ventricular hypertrophy and with Qtc of 445. EKG on 11/21/19??QTC 434. ?? Sub-segmental Pulmonary Embolism.?? Was??on anticoagulation which was discontinued??when platelets dropped below 50k??on 11/24/19.? Follow-Up:?? Patient will return to clinic on Wednesday12/11/19 for labs and MD visit. Patient Discharge Condition VSS.?? Ambulatory.?? Patient is feeling well this morning with no acute complaints.?? Appetite is stable and he is eating and drinking well with no nausea or vomiting.?? Reports continued diarrhea every 2-3 hours over night accompanied by abdominal pain.?? Mild fatigue today given sleep interruptions over night.?? Anxious to get home and out of the hospital. Discharge Disposition ?Home with Home Infusion Patient discharged to home (local placement) with home IVFs and antibiotics.?? He will return to clinic on Wednesday12/11/19 for labs and MD visit. Extracted from: Title:BMT: CRIMINAL INVESTIGATOR Lymphoma, LANCE M+Auto HSCT (T+16) Author:BHARAT SIMON NP-BMT Date:12/07/19 Extracted from: Title:BMT: CRIMINAL INVESTIGATOR Lymphoma, LANCE M+Auto HSCT (T+15) Author:BHARAT SIMON NP-BMT Date:12/06/19 Extracted from: Title:BMT: CRIMINAL INVESTIGATOR Lymphoma, LANCE M+Auto HSCT (T+14) Author:BHARAT SIMON NP-BMT Date:12/05/19 Addendum by TEVIN NORRIS MD-ONC on December 05, 2019 17:09:10 EST Attending: Patient seen and examined with SILICATOR and agree with assessment and plan above.?? Day??14 post BEAM PBSCT for CRIMINAL INVESTIGATOR lymphoma and doing well??with rising counts??and febrile (no new cultures and new rash could be source of fever)??and have stopped cefepime for evolving rash and continue prophylactic acyclovir and add two more days of Bactrim to cover previous E Coli bacteremia.?? ANC 800??today off G-CSF.?? He is??stronger with oral intake improving.?? Lungs clear with regular cardiac rhythm and benign abdomen without focal tenderness.?? Further evolving trunk and extremity rash (not painful or pruritic).?? Line appears well.?? Off anticoagulation for previous PE with thrombocytopenia.?? Transfuse as per BMT protocol.?? Have discussed issues with patient and his and expect discharge mid week if afebrile and rash improving.?? Full Code.?? RVBE Extracted from: Title:BMT: CRIMINAL INVESTIGATOR Lymphoma, LANCE M+Auto HSCT (T+13) Author:BHARAT SIMON NP-BMT Date:12/04/19 Mr. 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 He is currently admitted for BEAM+ Auto HSCT. ?? #Heme/Onc Primary CRIMINAL INVESTIGATOR lymphoma. He??is status post??6 cycles of MVP-R in CR(done at ). An MRI was performed on 10/27/2019 that was consistent with a CR. On 11/06/19??total collection yielded 4.7 x 10^6 CD34+ cells/kg. He is currently admitted for his BEAM+Auto HSCT. He received 4.7 x 10^6 CD34/kg on 11/21/2019. He is T+13 today. ? Cytopenias. We will monitor and transfuse for Hgb less than 7 and platelets less than 10k. Granix will be used on T+3(11/24) for assistance with count recovery. Discontinued Granix on 12/03. ?? Treatment Related toxicities a. Mucositis Prophylaxis.??Patient will perform frequent mouth rinses. b. Nausea/Vomiting. Zofran and IV Compazine PRN available. ?? c. Diarrhea, improved. C.diff negative on 11/24,loperamide PRN. Changed to Lomotil on 11/28. d. ? Drug rash. Appeared on 12/02. Spread on Wednesday morning. Patient was changed off cefepime to oral Bactrim. PRN Benadryl. ? #ID/Prophylaxis a. Antiviral. Acyclovir 800mg BID initiated on admission. b. Antifungal. Patient on fluconazole since 11/24. c. Neutropenic Fever 11/27/2019. TMAX 101.2. Blood, fungal and urine cultures drawn. Blood cultures with??3/4 growth, one lumen with e.coli and one lumen with staph.epi, one with gram pos cocci. Recultures ordered for 11/29 and are negative to date. Cultures obtained again on 12/02 and negative to date.?? Chest xray done(11/27) negative from pneumonia, improved pulmonary edema. Levaquin discontinued and patient started on cefepime. Urine culture negative. Added vancomycin??night of 11/27, discontinued on 12/01. Cefepime was stopped 12/03 and patient monitored, did have fever, patient placed back on cefepime and should continue until 12/06 for treatment of previous blood stream infection. Patient placed on Bactrim PO to complete course. ?? #Fluids, Electrolytes, and Nutrition Patient??is currently on??1 liter Normal Saline??daily. Electrolytes will be replaced per BMT protocol. Nutrition is decreased??at this point, will continue to monitor. He continues to eat small and frequent meals. ?? a. Hypokalemia. Potassium Chloride started 40meq BID. ? #Cardiac a.?Afib/ Hypertension.Patient currently on metoprolol, started by . Admission EKG NSR, left ventricular hypertrophy and with Qtc of 445. EKG on 11/21/19??QTC 434. b. Hypertension, improved. Likely due to fluid overload. Amlodipine 10mg was started on 11/20, discontinued on 12/04. ? #Sub-segmental Pulmonary Embolism ?? Was??on anticoagulation discontinued upon count drop with autologous stem cell transplant plt<50k, discontinued on 11/24. ? #DVT/ VTE Prophylaxis Patient is currently ambulatory at this point and he??was treatment for a PE, which??stopped??on 11/24. Continue to monitor. Addendum by TEVIN NORRIS MD-ONC on December 04, 2019 13:50:41 EST Attending: Patient seen and examined with SILICATOR and agree with assessment and plan above.?? Day??13 post BEAM PBSCT for CRIMINAL INVESTIGATOR lymphoma and doing well??with rising counts??and febrile (likely related to engraftment)??and have stopped cefepime for evolving rash and continue prophylactic acyclovir and add three more days of Bactrim to cover previous E Coli bacteremia.?? ANC 1400??today.?? Previous staph isolated in blood culture was likely contaminant.?? He is??stronger with oral intake improving.?? Lungs clear with regular cardiac rhythm and benign abdomen without focal tenderness.?? Evolving trunk and extremity rash (not painful or pruritic).?? Line appears well.?? Off anticoagulation for previous PE with thrombocytopenia.?? Transfuse as per BMT protocol.?? Have discussed issues with patient and his and expect discharge mid week.?? Full Code.?? RVBE Extracted from: Title:BMT: CRIMINAL INVESTIGATOR Lymphoma, LANCE M+Auto HSCT (T+12) Author:MUKESH MURRAY NP-ONC Date:12/03/19 CRIMINAL INVESTIGATOR lymphoma Orders: potassium chloride, 40 mEq, Oral, ER Tab, 1-Time, Routine, Start 12/03/19 9:00:00 EST, Stop 12/03/19 9:00:00 EST prochlorperazine, 10 mg, Oral, Tab, Q6H, PRN for Nausea/Vomiting, Routine, Start 12/02/19 8:59:00 EST Mr. 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 He is currently admitted for BEAM+ Auto HSCT. ?? #Heme/Onc Primary CRIMINAL INVESTIGATOR lymphoma. He??is status post??6 cycles of MVP-R in CR(done at ). An MRI was performed on 10/27/2019 that was consistent with a CR. On 11/06/19??total collection yielded 4.7 x 10^6 CD34+ cells/kg. He is currently admitted for his BEAM+Auto HSCT. He received 4.7 x 10^6 CD34/kg on 11/21/2019. He is T+12 today. ? Cytopenias. We will monitor and transfuse for Hgb less than 7 and platelets less than 10k. Granix will be used on T+3(11/24) for assistance with count recovery. ANC 12/02 500 ?? Treatment Related toxicities a. Mucositis Prophylaxis.??Patient will perform frequent mouth rinses. b. Nausea/Vomiting. Scheduled Zofran and IV Compazine PRN available. c. Diarrhea, stable. Lomotil. ?? #ID/Prophylaxis a. Antiviral. Acyclovir 800mg BID initiated on admission. b. Antifungal. Patient on fluconazole since 11/24. c. Neutropenic Fever 11/27/2019 & 12/02. Blood cultures - 11/29 NGTD x 3 days, 12/03/2019 pending.?? Will discontinue cefepime. ?? #Fluids, Electrolytes, and Nutrition Patient??is currently on??1L NS daily. Electrolytes will be replaced per BMT protocol. CTM. a. Hypokalemia. Kdur started 40meq BID. ?? #Cardiac a.?Afib/ Hypertension Patient currently on metoprolol, started by . Admission EKG NSR, left ventricular hypertrophy and with Qtc of 445. EKG on 11/21/19??QTC 434. b. Hypertension. Amlodipine 10mg. Tapering at discharge. ?? #Sub-segmental Pulmonary Embolism Off AC for previous PE with thrombocytopenia. ?? #DVT/ VTE Prophylaxis Patient is currently ambulatory at this point and he is on treatment for a PE, which??stopped??on 11/24. CTM. Addendum by TEVIN NORRIS MD-ONC on December 03, 2019 23:13:50 EST Attending: Patient seen and examined with SILICATOR and agree with assessment and plan above.?? Day??12 post BEAM PBSCT for CRIMINAL INVESTIGATOR lymphoma and doing well??with rising counts??and febrile (likely related to engraftment)??and will stop cefepime and continue prophylactic acyclovir.?? ANC 1200??today on G-CSF last day today.?? Previous staph isolated in blood culture was likely contaminant.?? He is??stronger with oral intake improving.?? Lungs clear with regular cardiac rhythm and benign abdomen without focal tenderness.?? Line appears well.?? Off anticoagulation for previous PE with thrombocytopenia.?? Transfuse as per BMT protocol.?? Have discussed issues with patient and his and expect discharge early next week.?? Full Code.?? RVBE Extracted from: Title:BMT: CRIMINAL INVESTIGATOR Lymphoma, LANCE M+Auto HSCT (T+) Author:MUKESH MURRAY NP-ONC Date:12/02/19 CRIMINAL INVESTIGATOR lymphoma ?? Mr. 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 He is currently admitted for BEAM+ Auto HSCT. ?? #Heme/Onc Primary CRIMINAL INVESTIGATOR lymphoma. He??is status post??6 cycles of MVP-R in CR(done at ). An MRI was performed on 10/27/2019 that was consistent with a CR. On 11/06/19??total collection yielded 4.7 x 10^6 CD34+ cells/kg. He is currently admitted for his BEAM+Auto HSCT. He received 4.7 x 10^6 CD34/kg on 11/21/2019. He is T+11 today. ? Cytopenias. We will monitor and transfuse for Hgb less than 7 and platelets less than 10k. Granix will be used on T+3(11/24) for assistance with count recovery. ANC 12/02 500 ?? Treatment Related toxicities a. Mucositis Prophylaxis.??Patient will perform frequent mouth rinses. b. Nausea/Vomiting. Scheduled Zofran and ??IV Compazine PRN available. c. Diarrhea, stable. C.diff negative on 11/24, loperamide PRN. Changed to Lomotil on 11/28. ?? #ID/Prophylaxis a. Antiviral. Acyclovir 800mg BID initiated on admission. b. Antifungal. Patient on fluconazole since 11/24. c. Neutropenic Fever 11/27/2019. Blood cultures redrawn - 11/29 NGTD. Urine cx negative. Continue cefepime. ?? #Fluids, Electrolytes, and Nutrition Patient??is currently on??1L NS daily. Electrolytes will be replaced per BMT protocol. CTM. a. Hypokalemia. Kdur started 40meq BID. ?? #Cardiac a.?Afib/ Hypertension Patient currently on metoprolol, started by . Admission EKG NSR, left ventricular hypertrophy and with Qtc of 445. EKG on 11/21/19??QTC 434. b. Hypertension. Amlodipine 10mg. Tapering at discharge. ?? #Sub-segmental Pulmonary Embolism Off AC for previous PE with thrombocytopenia. ?? #DVT/ VTE Prophylaxis Patient is currently ambulatory at this point and he is on treatment for a PE, which??stopped??on 11/24. CTM. Addendum by TEVIN NORRIS MD-ONC on December 02, 2019 21:26:47 EST Attending: Patient seen and examined with SILICATOR and agree with assessment and plan above.?? Day??11 post BEAM PBSCT for CRIMINAL INVESTIGATOR lymphoma and doing well??with rising counts??afebrile on cefepime??with prophylactic acyclovir/fluconazole.?? ANC 500??today on G-CSF.?? Previous staph isolated in blood culture was likely contaminant.?? He is??stronger with improved??oral intake but poor albumin and oral intake improving.?? Lungs clear with regular cardiac rhythm and benign abdomen without focal tenderness.?? Line appears well.?? Off anticoagulation for previous PE with thrombocytopenia.?? Transfuse as per BMT protocol.?? Have discussed issues with patient and his and expect discharge early next week.?? Full Code.?? RVBE Extracted from: Title:BMT: CRIMINAL INVESTIGATOR Lymphoma, LANCE M+Auto HSCT (T+10) Author:BHARAT SIMON NP-BMT Date:12/01/19 Addendum by TEVIN NORRIS MD-ONC on December 01, 2019 16:08:04 EST Attending: Patient seen and examined with SILICATOR and agree with assessment and plan above.?? Day??10 post BEAM PBSCT for CRIMINAL INVESTIGATOR lymphoma and doing well??with rising counts??afebrile on cefepime/vanc (will stop vanc today)??with prophylactic acyclovir/fluconazole.?? Await??ANC over 500??on G-CSF.?? Previous staph isolated in blood culture was likely contaminant.?? He is??stronger with improved??oral intake but poor albumin and will enforce intake with supplements.?? Lungs clear with regular cardiac rhythm and benign abdomen without focal tenderness.?? Line appears well.?? Off anticoagulation for previous PE with thrombocytopenia.?? Transfuse as per BMT protocol.?? Good oral care without significant mucositis.?? Have discussed issues with patient and his .?? Full Code.?? RVBE Extracted from: Title:BMT: CRIMINAL INVESTIGATOR Lymphoma, LANCE M+Auto HSCT (T+9) Author:BHARAT SIMON SILICATOR-BMT Date:11/30/19 Addendum by TEVIN NORRIS MD-ONC on November 30, 2019 14:34:49 EST Attending: Patient seen and examined with SILICATOR and agree with assessment and plan above.?? Day??9 post BEAM PBSCT for CRIMINAL INVESTIGATOR lymphoma and doing well despite previous bacteremia with E. Coli, now afebrile on cefepime/vanc with prophylactic acyclovir/fluconazole.?? Await count recovery over the next??24-36 hours on G-CSF.?? Also with staph epi in blood culture but unclear if that is contaminant.?? He is weak but well and afebrile with some oral intake but poor albumin and will enforce intake with supplements.?? Lungs clear with regular cardiac rhythm and benign abdomen without focal tenderness.?? Line appears well.?? Off anticoagulation for previous PE with thrombocytopenia.?? Transfuse as per BMT protocol.?? Good oral care without significant mucositis.?? Have discussed issues with patient and his .?? Full Code.?? RVBE Extracted from: Title:BMT: CRIMINAL INVESTIGATOR Lymphoma, LANCE M+Auto HSCT (T+8) Author:BHARAT SIMON SILICATOR-BMT Date:11/29/19 Addendum by TEVIN NORRIS MD-ONC on November 29, 2019 12:45:51 EST Attending: Patient seen and examined with SILICATOR and agree with assessment and plan above.?? Day 8 post BEAM PBSCT for CRIMINAL INVESTIGATOR lymphoma and doing well despite bacteremia with E. Coli, now afebrile on cefepime/vanc with prophylactic acyclovir/fluconazole.?? Await count recovery over the next 48 hours on G-CSF.?? Also with staph epi in blood culture but unclear if that is contaminant.?? He is weak but well and afebrile with some oral intake.?? Lungs clear with regular cardiac rhythm and benign abdomen without focal tenderness.?? Line appears well.?? Off anticoagulation for previous PE with thrombocytopenia.?? Transfuse as per BMT protocol.?? Good oral care without significant mucositis.?? Have discussed issues with patient and his .?? Full Code.?? RVBE Extracted from: Title:BMT: CRIMINAL INVESTIGATOR Lymphoma, LANCE M+Auto HSCT (T+7) Author:BHARAT SIMON NP-BMT Date:11/28/19 Addendum by MICHELLE ROLLINS -O NC on December 06, 2019 15:45:05 EST ?? HPI: primary CRIMINAL INVESTIGATOR lymphoma undergoing auto transplant. I performed a history and villela and critical portions of the physical examination of the patient and discussed the management with the PA. I reviewed the PA? s note and agree with the documented findings and plan of care except where noted??in my addendum. My physical exams as following: Vital signs as documented above HEENT: Pupils are equally round and reactive to light. Oropharynx clear without lesions. Mucous membranes are moist. Neck is supple. No masses. Lymphatic: No pathologically enlarged lymphadenopathy. Chest: Bilateral breath sounds clear to auscultation. Symmetric chest rise. Cardiovascular: Regular rate and rhythm; S1, S2; no murmurs, gallops, or rubs Abdomen: Non-tender. Non-distended. No hepatosplenomegaly. Extremities: 1+ swelling but no clubbing and cyanosis Skin: No rashes or lesions noted. Neuromuscular skeleton:??Alert and oriented X 4,??Non-focal. The patient ambulates with a steady gait??and speech coherence.?? Plan: Patient is under critical care and monitoring due to high??risk of fatal infection and bleeding. Actively managing his high risk of opportunistic infection and pending for engraftment. ?? Extracted from: Title:BMT: CRIMINAL INVESTIGATOR Lymphoma, LANCE M+Auto HSCT (T+6) Author:BHARAT SIMON NP-BMT Date:11/27/19 Addendum by CORI SIMON NP-BMT on November 27, 2019 12:56:14 EST Patient BMP reviewed from 1200. Initiated 1 liter bolus daily, ( total of 2L per day). PO Potassium started 40meq BID, will receive 20meq KCL (IV). BMP at 1800. Addendum by MICHELLE ROLLINS -O [place] on December 06, 2019 13:12:08 EST HPI: primary CRIMINAL INVESTIGATOR lymphoma undergoing auto transplant now. ?? I performed a history and villela and critical portions of the physical examination of the patient and discussed the management with the PA. I reviewed the PA? s note and agree with the documented findings and plan of care except where noted??in my addendum. My physical exams as following: Vital signs as documented above HEENT: Pupils are equally round and reactive to light. Oropharynx clear without lesions. Mucous membranes are moist. Neck is supple. No masses. Lymphatic: No pathologically enlarged lymphadenopathy. Chest: Bilateral breath sounds clear to auscultation. Symmetric chest rise. Cardiovascular: Regular rate and rhythm; S1, S2; no murmurs, gallops, or rubs Abdomen: Non-tender. Non-distended. No hepatosplenomegaly. Extremities: 1+ swelling but no clubbing and cyanosis Skin: No rashes or lesions noted. Neuromuscular skeleton:??Alert and oriented X 4,??Non-focal. The patient ambulates with a steady gait??and speech coherence.?? Plan: Patient is under critical care and monitoring due to high??risk of fatal infection and bleeding. Active josse-transplant care. ? Extracted from: Title:BMT: CRIMINAL INVESTIGATOR Lymphoma, LANCE M+Auto HSCT (T+5) Author:MUKESH MURRAY NP-ONC Date:11/26/19 CRIMINAL INVESTIGATOR lymphoma Orders: loperamide, 2 mg, Oral, Cap, Q6H, PRN for Diarrhea, Routine, Start 11/25/19 12:49:00 EST Mr. 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 He is currently admitted for BEAM+ Auto HSCT. ?? #Heme/Onc Primary CRIMINAL INVESTIGATOR lymphoma. He??is status post??6 cycles of MVP-R in CR(done at ). An MRI was performed on 10/27/2019 that was consistent with a CR. On 11/06/19??total collection yielded 4.7 x 10^6 CD34+ cells/kg. He is currently admitted for his BEAM+Auto HSCT. He received 4.7 x 10^6 CD34/kg on 11/21/2019. He is T+5 today. ? Cytopenias. We will monitor and transfuse for Hgb less than 7 and platelets less than 10k. Granix will be used on T+3(11/24) for assistance with count recovery. ?? Treatment Related toxicities a. Mucositis Prophylaxis.??Today, Melphalan infusion patient will ingest ice chips prior,during, and after infusion. He will perform frequent mouth rinses. b. Nausea/Vomiting Prophylaxis. Patient will be started on olanzapine x7 days beginning with chemotherapy. He will have scheduled Zofran and ??IV Compazine PRN available as well. c. Diarrhea. C.diff pending, will initiate loperamide if negative. ?? #ID/Prophylaxis a. Antiviral. Acyclovir 800mg BID initiated on admission. He??was started on??fluconazole and Levaquin when he became neutropenic on 11/24/2019. ?? #Fluids, Electrolytes, and Nutrition Patient??is currently on??Normal Saline 1 liter daily. Electrolytes will be replaced per BMT protocol. Nutrition is adequate at this point, will continue to monitor. ?? #Cardiac a.?Afib/ Hypertension Patient currently on metoprolol for this, started by . Admission EKG NSR, left ventricular hypertrophy and with Qtc of 445. Will check another EKG on 11/21/19??to confirm??the QTC dose not elongate further, it was 434. b. Hypertension. Likely due to fluid overload. Amlodipine 10mg was started on 11/20 with plans of tapering off at discharge. ?? #Sub-segmental Pulmonary Embolism Currently on anticoagulation with plan to discontinue upon count drop with autologous stem cell transplant plt<50k. Will receive 11/24 am??dose and then be discontinued. ?? #DVT/ VTE Prophylaxis Patient is currently ambulatory at this point and he is on treatment for a PE, which??stopped when plts <50k. 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 I performed a history and villela and critical portions of the physical examination of the patient and discussed the management with the PA. I reviewed the PA? s note and agree with the documented findings and plan of care except where noted??in my addendum. My physical exams as following: Vital signs as documented above HEENT: Pupils are equally round and reactive to light. Oropharynx clear without lesions. Mucous membranes are moist. Neck is supple. No masses. Lymphatic: No pathologically enlarged lymphadenopathy. Chest: Bilateral breath sounds clear to auscultation. Symmetric chest rise. Cardiovascular: Regular rate and rhythm; S1, S2; no murmurs, gallops, or rubs Abdomen: Non-tender. Non-distended. No hepatosplenomegaly. Extremities: 1+ swelling but no clubbing and cyanosis Skin: No rashes or lesions noted. Neuromuscular skeleton:??Alert and oriented X 4,??Non-focal. The patient ambulates with a steady gait??and speech coherence.?? Plan: Patient is under critical care and monitoring due to high??risk of fatal infection and bleeding. Extremely high risk of fatal opportunistic infection and multiple organ failure. Extracted from: Title:BMT: CRIMINAL INVESTIGATOR Lymphoma, LANCE M+Auto HSCT (T+4) Author:MUKESH MURRAY NP-ONC Date:11/25/19 CRIMINAL INVESTIGATOR lymphoma ?? Mr. 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 He is currently admitted for BEAM+ Auto HSCT. ?? #Heme/Onc Primary CRIMINAL INVESTIGATOR lymphoma. He??is status post??6 cycles of MVP-R in CR(done at ). An MRI was performed on 10/27/2019 that was consistent with a CR. On 11/06/19??total collection yielded 4.7 x 10^6 CD34+ cells/kg. He is currently admitted for his BEAM+Auto HSCT. He received 4.7 x 10^6 CD34/kg on 11/21/2019. He is T+4 today. ? Cytopenias. We will monitor and transfuse for Hgb less than 7 and platelets less than 10k. Granix will be used on T+3(11/24) for assistance with count recovery. ?? Treatment Related toxicities a. Mucositis Prophylaxis.??Today, Melphalan infusion patient will ingest ice chips prior,during, and after infusion. He will perform frequent mouth rinses. b. Nausea/Vomiting Prophylaxis. Patient will be started on olanzapine x7 days beginning with chemotherapy. He will have scheduled Zofran and ??IV Compazine PRN available as well. c. Diarrhea. C.diff pending, will initiate loperamide if negative. ?? #ID/Prophylaxis a. Antiviral. Acyclovir 800mg BID initiated on admission. He??was started on??fluconazole and Levaquin when he became neutropenic on 11/24/2019. ?? #Fluids, Electrolytes, and Nutrition Patient??is currently on??Normal Saline 1 liter daily. Electrolytes will be replaced per BMT protocol. Nutrition is adequate at this point, will continue to monitor. ?? #Cardiac a.?Afib/ Hypertension Patient currently on metoprolol for this, started by . Admission EKG NSR, left ventricular hypertrophy and with Qtc of 445. Will check another EKG on 11/21/19??to confirm??the QTC dose not elongate further, it was 434. b. Hypertension. Likely due to fluid overload. Amlodipine 10mg was started on 11/20 with plans of tapering off at discharge. ?? #Sub-segmental Pulmonary Embolism Currently on anticoagulation with plan to discontinue upon count drop with autologous stem cell transplant plt<50k. Will receive 11/24 am??dose and then be discontinued. ?? #DVT/ VTE Prophylaxis Patient is currently ambulatory at this point and he is on treatment for a PE, which??stopped when plts <50k. ??Will continue to monitor. Addendum by MICHELLE ROLLINS -O NC on December 06, 2019 15:46:51 EST HPI: primary CRIMINAL INVESTIGATOR lymphoma undergoing auto transplant. I performed a history and villela and critical portions of the physical examination of the patient and discussed the management with the PA. I reviewed the PA? s note and agree with the documented findings and plan of care except where noted??in my addendum. My physical exams as following: Vital signs as documented above HEENT: Pupils are equally round and reactive to light. Oropharynx clear without lesions. Mucous membranes are moist. Neck is supple. No masses. Lymphatic: No pathologically enlarged lymphadenopathy. Chest: Bilateral breath sounds clear to auscultation. Symmetric chest rise. Cardiovascular: Regular rate and rhythm; S1, S2; no murmurs, gallops, or rubs Abdomen: Non-tender. Non-distended. No hepatosplenomegaly. Extremities: 1+ swelling but no clubbing and cyanosis Skin: No rashes or lesions noted. Neuromuscular skeleton:??Alert and oriented X 4,??Non-focal. The patient ambulates with a steady gait??and speech coherence.?? Plan: Patient is under critical care and monitoring due to high??risk of fatal infection and bleeding. Actively managing his high risk of opportunistic infection and pending for engraftment. Extracted from: Title:BMT: CRIMINAL INVESTIGATOR Lymphoma, LANCE M+Auto HSCT (T+3) Author:BHARAT SIMON NP-BMT Date:11/24/19 Addendum by MICHELLE ROLLINS -O NC on December 06, 2019 15:46:31 EST HPI: primary CRIMINAL INVESTIGATOR lymphoma undergoing auto transplant. I performed a history and villela and critical portions of the physical examination of the patient and discussed the management with the PA. I reviewed the PA? s note and agree with the documented findings and plan of care except where noted??in my addendum. My physical exams as following: Vital signs as documented above HEENT: Pupils are equally round and reactive to light. Oropharynx clear without lesions. Mucous membranes are moist. Neck is supple. No masses. Lymphatic: No pathologically enlarged lymphadenopathy. Chest: Bilateral breath sounds clear to auscultation. Symmetric chest rise. Cardiovascular: Regular rate and rhythm; S1, S2; no murmurs, gallops, or rubs Abdomen: Non-tender. Non-distended. No hepatosplenomegaly. Extremities: 1+ swelling but no clubbing and cyanosis Skin: No rashes or lesions noted. Neuromuscular skeleton:??Alert and oriented X 4,??Non-focal. The patient ambulates with a steady gait??and speech coherence.?? Plan: Patient is under critical care and monitoring due to high??risk of fatal infection and bleeding. Actively managing his high risk of opportunistic infection and pending for engraftment. Extracted from: Title:BMT: CRIMINAL INVESTIGATOR Lymphoma, LANCE M+Auto HSCT (T+2) Author:BHARAT SIMON NP-BMT Date:11/23/19 Addendum by MICHELLE ROLLINS -O [place] on December 06, 2019 15:46:42 EST HPI: primary CRIMINAL INVESTIGATOR lymphoma undergoing auto transplant. I performed a history and villela and critical portions of the physical examination of the patient and discussed the management with the PA. I reviewed the PA? s note and agree with the documented findings and plan of care except where noted??in my addendum. My physical exams as following: Vital signs as documented above HEENT: Pupils are equally round and reactive to light. Oropharynx clear without lesions. Mucous membranes are moist. Neck is supple. No masses. Lymphatic: No pathologically enlarged lymphadenopathy. Chest: Bilateral breath sounds clear to auscultation. Symmetric chest rise. Cardiovascular: Regular rate and rhythm; S1, S2; no murmurs, gallops, or rubs Abdomen: Non-tender. Non-distended. No hepatosplenomegaly. Extremities: 1+ swelling but no clubbing and cyanosis Skin: No rashes or lesions noted. Neuromuscular skeleton:??Alert and oriented X 4,??Non-focal. The patient ambulates with a steady gait??and speech coherence.?? Plan: Patient is under critical care and monitoring due to high??risk of fatal infection and bleeding. Actively managing his high risk of opportunistic infection and pending for engraftment. Extracted from: Title:BMT: CRIMINAL INVESTIGATOR Lymphoma, LANCE M+Auto HSCT (T+1) Author:BHARAT SIMON NP-BMT Date:11/22/19 Addendum by MICHELLE ROLLINS -O [place] on November 22, 2019 20:33:51 EST CRIMINAL INVESTIGATOR lymphoma s/p auto day 1 ?? I performed a history and villela and critical portions of the physical examination of the patient and discussed the management with the PA. I reviewed the PA? s note and agree with the documented findings and plan of care except where noted??in my addendum. My physical exams as following: Vital signs as documented above HEENT: Pupils are equally round and reactive to light. Oropharynx clear without lesions. Mucous membranes are moist. Neck is supple. No masses. Lymphatic: No pathologically enlarged lymphadenopathy. Chest: Bilateral breath sounds clear to auscultation. Symmetric chest rise. Cardiovascular: Regular rate and rhythm; S1, S2; no murmurs, gallops, or rubs Abdomen: Non-tender. Non-distended. No hepatosplenomegaly. Extremities: 1+ swelling but no clubbing and cyanosis Skin: No rashes or lesions noted. Neuromuscular skeleton:??Alert and oriented X 4,??Non-focal. The patient ambulates with a steady gait??and speech coherence.?? Plan: Patient is under critical care and monitoring due to high??risk of fatal infection and bleeding. We discussed about post transplant care. ?? Extracted from: Title:BMT: CRIMINAL INVESTIGATOR Lymphoma, LANCE M+Auto HSCT (T-0) Author:BHARAT SIMON NP-BMT Date:11/21/19 Addendum by WENDY GOMEZ MD-ONC on December 05, 2019 09:33:39 EST BMT Attending: Pt was independently seen, examined and discussed in details with SILICATOR/PA/Fellow. I reviewed the note and agree with the assessment and plan. 54yo WM with primary CRIMINAL INVESTIGATOR lymphopma admitted for BEAM autologous stem cell transplantation T-0 11/21/19. Patient has no complaints today aside from stated above. Lungs clear to auscultation, heart RRR, abdomen soft non-tender, no LE edema. Labs reviewed.??Received Conditioning regimen per protocol. Counselled on nutritional optimization, physical activity and oral care. Transfuse blood products and correct electrolytes per BMT protocols. MH Extracted from: Title:BMT: CRIMINAL INVESTIGATOR Lymphoma, LANCE M+Auto HSCT (T-1) Author:BHARAT SIMON NP-BMT Date:11/20/19 Addendum by WENDY GOMEZ MD-ONC on December 05, 2019 09:33:31 EST BMT Attending: Pt was independently seen, examined and discussed in details with SILICATOR/PA/Fellow. I reviewed the note and agree with the assessment and plan. 54yo WM with primary CRIMINAL INVESTIGATOR lymphopma admitted for BEAM autologous stem cell transplantation T-0 11/21/19. Patient has no complaints today aside from stated above. Lungs clear to auscultation, heart RRR, abdomen soft non-tender, no LE edema. Labs reviewed. Continue Conditioning regimen per protocol. Counselled on nutritional optimization, physical activity and oral care. Transfuse blood products and correct electrolytes per BMT protocols. MH Extracted from: Title:BMT: CRIMINAL INVESTIGATOR Lymphoma, LANCE M+Auto HSCT (T-2) Author:SUSAN CORTÉS NP-Onc Date:11/19/19 Mr. 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 He is currently admitted for BEAM+ Auto HSCT. ?? #Heme/Onc Primary CRIMINAL INVESTIGATOR lymphoma. He??is status post??6 cycles of MVP-R in CR(done at ). An MRI was performed on 10/27/2019 that was consistent with a CR. On 11/06/19??total collection yielded 4.7 x 10^6 CD34+ cells/kg. He is currently admitted for his BEAM+Auto HSCT. He is T-2 today. ? Cytopenias. We will monitor and transfuse for Hgb less than 7 and platelets less than 10k. Granix will be used on T+3 for assistance with count recovery. ?? Treatment Related toxicities a. Mucositis Prophylaxis. On day of Melphalan infusion patient will ingest ice chips prior,during, and after infusion. He will perform frequent mouth rinses. b. Nausea/Vomiting Prophylaxis. Patient will be started on olanzapine x7 days beginning with chemotherapy. He will have IV Compazine PRN available as well. ?? #ID/Prophylaxis a. Antiviral. Acyclovir 800mg BID initiated on admission. He will receive fluconazole and Levaquin when he is neutropenic (ANC less than 500) ?? #Fluids, Electrolytes, and Nutrition IVF at 125 ml/hr while chemotherapy is infusing, otherwise should be off. Electrolytes will be replaced per BMT protocol. Nutrition is adequate at this point, will continue to monitor. a. Hypokalemia. Patient replaced with Potassium Chloride PO 40meq 1 time on 11/17/19. ?? #?Afib/ Hypertension Patient currently on metoprolol for this, started by . Admission EKG NSR, left ventricular hypertrophy and with Qtc of 445. Will check another EKG on 11/20/19??to confirm??the QTC dose not elongate further. ?? #Sub-segmental Pulmonary Embolism Currently on anticoagulation with plan to discontinue upon count drop with autologous stem cell transplant plt<50k. ?? #DVT/ VTE Prophylaxis Patient is currently ambulatory at this point and he is on treatment for a PE. Will continue to monitor. Addendum by WENDY GOMEZ MD-ONC on December 05, 2019 09:33:00 EST BMT Attending: Pt was independently seen, examined and discussed in details with SILICATOR/PA/Fellow. I reviewed the note and agree with the assessment and plan. 54yo WM with primary CRIMINAL INVESTIGATOR lymphopma admitted for BEAM autologous stem cell transplantation T-0 11/21/19. Patient has no complaints today aside from stated above. Lungs clear to auscultation, heart RRR, abdomen soft non-tender, no LE edema. Labs reviewed. Continue Conditioning regimen per protocol. Counselled on nutritional optimization, physical activity and oral care. Transfuse blood products and correct electrolytes per BMT protocols. MH Extracted from: Title:BMT: CRIMINAL INVESTIGATOR Lymphoma, LANCE M+Auto HSCT (T-3) Author:SUSAN CORTÉS, SILICATOR-Onc Date:11/18/19 Mr. 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 He is currently admitted for BEAM+ Auto HSCT. ?? #Heme/Onc Primary CRIMINAL INVESTIGATOR lymphoma. He??is status post??6 cycles of MVP-R in CR(done at ). An MRI was performed on 10/27/2019 that was consistent with a CR. On 11/06/19??total collection yielded 4.7 x 10^6 CD34+ cells/kg. He is currently admitted for his BEAM+Auto HSCT. He is T-3 today. ? Cytopenias. We will monitor and transfuse for Hgb less than 7 and platelets less than 10k. Granix will be used on T+3 for assistance with count recovery. ?? Treatment Related toxicities a. Mucositis Prophylaxis. On day of Melphalan infusion patient will ingest ice chips prior,during, and after infusion. He will perform frequent mouth rinses. b. Nausea/Vomiting Prophylaxis. Patient will be started on olanzapine x7 days beginning with chemotherapy. He will have IV Compazine PRN available as well. ?? #ID/Prophylaxis a. Antiviral. Acyclovir 800mg BID initiated on admission. He will receive fluconazole and Levaquin when he is neutropenic (ANC less than 500) ?? #Fluids, Electrolytes, and Nutrition IVF at 125 ml/hr while chemotherapy is infusing, otherwise should be KVO. Electrolytes will be replaced per BMT protocol. Nutrition is adequate at this point, will continue to monitor. a. Hypokalemia. Patient replaced with Potassium Chloride PO 40meq 1 time on 11/17/19. ?? #?Afib/ Hypertension Patient currently on metoprolol for this, started by . Admission EKG NSR, left ventricular hypertrophy and with Qtc of 445. Will check another EKG on 11/20/19??to confirm??the QTC dose not elongate further. ?? #Sub-segmental Pulmonary Embolism Currently on anticoagulation with plan to discontinue upon count drop with autologous stem cell transplant plt<50k. ?? #DVT/ VTE Prophylaxis Patient is currently ambulatory at this point and he is on treatment for a PE. Will continue to monitor. Addendum by WENDY GOMEZ MD-ONC on November 18, 2019 17:07:26 EST BMT Attending: Pt was independently seen, examined and discussed in details with SILICATOR/PA/Fellow. I reviewed the note and agree with the assessment and plan. 54yo WM with primary CRIMINAL INVESTIGATOR lymphopma admitted for BEAM autologous stem cell transplantation. Patient has no complaints today aside from stated above. Lungs clear to auscultation, heart RRR, abdomen soft non-tender, no LE edema. Labs reviewed. Continue Conditioning regimen per protocol. Counselled on nutritional optimization, physical activity and oral care. Transfuse blood products and correct electrolytes per BMT protocols. MH Extracted from: Title:BMT: CRIMINAL INVESTIGATOR Lymphoma, LANCE M+Auto HSCT (T-4) Author:BHARAT SIMON NP-BMT Date:11/17/19 Addendum by WENDY GOMEZ MD-ONC on November 18, 2019 17:07:20 EST BMT Attending: Pt was independently seen, examined and discussed in details with SILICATOR/PA/Fellow. I reviewed the note and agree with the assessment and plan. 54yo WM with primary CRIMINAL INVESTIGATOR lymphopma admitted for BEAM autologous stem cell transplantation. Patient has no complaints today aside from stated above. Lungs clear to auscultation, heart RRR, abdomen soft non-tender, no LE edema. Labs reviewed. Continue Conditioning regimen per protocol. Counselled on nutritional optimization, physical activity and oral care. Transfuse blood products and correct electrolytes per BMT protocols. MH Extracted from: Title:BMT: CRIMINAL INVESTIGATOR Lymphoma, LANCE M+Auto HSCT (T-5) Author:BHARAT SIMON NP-BMT Date:11/16/19 Addendum by WENDY GOMEZ MD-ONC on November 18, 2019 17:07:13 EST BMT Attending: Pt was independently seen, examined and discussed in details with SILICATOR/PA/Fellow. I reviewed the note and agree with the assessment and plan. 54yo WM with primary CRIMINAL INVESTIGATOR lymphopma admitted for BEAM autologous stem cell transplantation. Patient has no complaints today aside from stated above. Lungs clear to auscultation, heart RRR, abdomen soft non-tender, no LE edema. Labs reviewed. Continue Conditioning regimen per protocol. Counselled on nutritional optimization, physical activity and oral care. Transfuse blood products and correct electrolytes per BMT protocols. Future Appointments Appointment Date:12/11/2019 02:00:00 PM Scheduled Provider: Location:[facility] Infusion Appointment Type:ONC [facility] Lab Visit [facility] Appointment Date:12/11/2019 02:30:00 PM Scheduled Provider: Location:[facility] Clinic Appointment Type:ONC Provider Visit [facility] Future Scheduled Tests Laboratory* [facility] CMP Comprehensive Metabolic Panel 12/11/19 * [facility] CMP Comprehensive Metabolic Panel 11/07/19 * [facility] CMP Comprehensive Metabolic Panel 11/08/19 * [facility] CMP Comprehensive Metabolic Panel 11/09/19 * [facility] CMP Comprehensive Metabolic Panel 11/10/19 * [facility] Magnesium Level 12/11/19 * [facility] Magnesium Level 11/07/19 * [facility] Magnesium Level 11/08/19 * [facility] Magnesium Level 11/09/19 * [facility] Magnesium Level 11/10/19 * [facility] CBC w/ Auto Diff 12/11/19 * [facility] CBC w/ Auto Diff 11/07/19 * [facility] CBC w/ Auto Diff 11/08/19 * [facility] CBC w/ Auto Diff 11/09/19 * [facility] CBC w/ Auto Diff 11/10/19 * CD34 11/07/19 * CD34 11/08/19 * CD34 11/09/19 * CD34 11/10/19 Medications acyclovir 400 mg oral tablet 800 mg 2 Tab, Oral, Tab, BID, X 30 Day(s), # 120 Tab, 1 Refill(s), Pharmacy: [facility], , 12/07/19 8:49:00 EST, CLINICALHEIGHT, 92.9, kg, 11/15/19 9:10:00 EST, CLINICALWEIGHT, 182.88 Start Date: 12/07/19 Stop Date: 02/05/20 Status: Ordered Metoprolol Tartrate 25 mg oral tablet 25 mg 1 Tab, Oral, Tab, BID, # 60 Tab, 0 Refill(s), Pharmacy: [facility], , 12/07/19 8:49:00 EST, CLINICALHEIGHT, 92.9, kg, 11/15/19 9:10:00 EST, CLINICALWEIGHT, 182.88 Start Date: 12/07/19 Status: Ordered NaCl 0.9% bolus 0 Refill(s) Start Date: 12/07/19 Status: Ordered potassium chloride 20 mEq oral tablet, extended release 40 mEq 2 Tab, Oral, ER Tab, BID, # 120 Tab, 0 Refill(s), Pharmacy: [facility], , 12/07/19 8:49:00 EST, CLINICALHEIGHT, 92.9, kg, 11/15/19 9:10:00 EST, CLINICALWEIGHT, 182.88 Start Date: 12/07/19 Stop Date: 01/06/20 Status: Ordered prochlorperazine 5 mg oral tablet 5 mg 1 Tab, Oral, Tab, Q6H, PRN Nausea/Vomiting, X 21 Day(s), # 100 Tab, 0 Refill(s), Pharmacy: [facility], , 12/07/19 8:49:00 EST, CLINICALHEIGHT, 92.9, kg, 11/15/19 9:10:00 EST,CLINICALWEIGHT, 182.88 Start Date: 12/07/19 Stop Date: 12/28/19 Status: Ordered triamcinolone 0.1% topical ointment 1 Application, Topical, Oint, Q8H, # 60 Gram, 0 Refill(s), Pharmacy: [facility], , 12/07/19 8:49:00 EST, CLINICALHEIGHT, 92.9, kg, 11/15/19 9:10:00 EST, CLINICALWEIGHT, 182.88 Start Date: 12/07/19 Status: Ordered vancomycin 125 mg oral capsule 125 mg 1 Cap, Oral, Cap, Q6H, X 13 Day(s), # 52 Cap, 0 Refill(s), Pharmacy: [facility], , 12/07/19 8:49:00 EST, CLINICALHEIGHT, 92.9, kg, 11/15/19 9:10:00 EST, CLINICALWEIGHT, 182.88 Start Date: 12/07/19 Stop Date: 12/20/19 Status: Ordered Mental Status 12/08/19 Level of Consciousness Alert, Awake Orientation Oriented x 4 Neurologic Assessment WDL WDL Pupils Equal, Round, Reactive to Light Y es Pupil Description, Left Regular, Round Pupil Reaction, Left Brisk Pupil Size, Left 3 Pupil Description, Right Regular, Round Pupil Reaction, Right Brisk Pupil Size, Right 3 Affect/Behavior Appropriate, Calm, Cooperative 12/08/19 Left Upper Extremity Sensation Intact Right Upper Extremity Sensation Intact Left Lower Extremity Sensation Intact Right Lower Extremity Sensation Intact 12/07/19 Speech Clear 12/05/19 Sensation, Neurological Left upper extre mity sensation, Right upper extremity sensation, Left lower extremity sensation, Right lower extremities sensation 12/04/19 Facial Symmetry Symmetric 12/03/19 Strength, Neuro Left upper extremity strength, Right upper extremity strength, Left lower extremity strength, Right lower extremity strength Left Upper Extremity Strength Full stren gth Right Upper Extremity Strength Full stre ngth Left Lower Extremity Strength Full stren gth Right Lower Extremity Strength Full stre ngth Procedures Procedure Date Related Diagnosis Body Site Status PICC line 2017 Completed Rotator cuff repair 2016 Com pleted Colonoscopy 2014 Completed 1L shoulder Results Laboratory List Name Date [facility] Basic Metabolic Panel 12/08/19 CBC w/ Auto Diff 12/08/19 Hepatic Function Panel 12/08/19 Magnesium Level 12/08/19 Phosphorus Level 12/08/19 .Differential Manual 12/08/19 C Difficile Antigen/Toxin 12/07/19 .Automated Differential 12/07/19 ABORh 12/07/19 Antibody Screen 12/07/19 [facility] Basic Metabolic Panel 12/07/19 CBC w/ Auto Diff 12/07/19 Magnesium Level 12/07/19 PT/INR Prothrombin Time 12/07/19 PTT 12/07/19 Phosphorus Level 12/07/19 .RBC Morphology 12/07/19 Fungitell, Serum-LC 12/06/19 Galactomannan AG/Aspergillus, Blood 12/06 CMV PCR Quant 12/06/19 Platelet Product Order 12/06/19 .Differential Manual 12/06/19 [facility] Basic Metabolic Panel 12/06/19 CBC w/ Auto Diff 12/06/19 Hepatic Function Panel 12/06/19 Magnesium Level 12/06/19 Phosphorus Level 12/06/19 .Differential Manual 12/05/19 .Differential Manual 12/04/19 Hepatic Function Panel 12/04/19 PT/INR Prothrombin Time 12/04/19 PTT 12/04/19 RBC Product Ready 12/02/19 ABORh 12/02/19 Antibody Screen 12/02/19 Red Blood Cells Product Order 12/02/19 .Differential Manual 12/02/19 .Differential Manual 12/01/19 Vancomycin Level Trough 11/30/19 Platelet Product Order 11/30/19 .Automated Differential 11/30/19 PT/INR Prothrombin Time 11/30/19 PTT 11/30/19 Vancomycin Level Trough 11/29/19 .Automated Differential 11/29/19 Lactic Acid Level 11/27/19 Urinalysis w Microscopic 11/27/19 .Urinalysis Microscopic 11/27/19 C Difficile Antigen/Toxin 11/24/19 Viral Respiratory Panel PCR 11/15/19 .Urinalysis Microscopic 11/15/19 Urinalysis w Culture if Indicated 11/15/19 ABORh 11/15/19 Antibody Screen 11/15/19 LDH Lactate Dehydrogenase 11/15/19 Uric Acid 11/15/19 Most recent to oldest [Reference Range]: 1 2 3 nRBC [1-5] 0 *LOW* (12/07/19 4:07 AM) Fungitell-LC*[id number] [<80 pg/mL] <31 pg/mL 1 *NA* (12/06/19 11:46 AM) Chlamydia pneumoniae PCR [Negative] Negative (11/15/19 3:14 PM) Human Rhinovirus/Enterovirus [Negative] Negative (11/15/19 3:14 PM) Influenza A H1 - 2009 [Negative] Negative (11/15/19 3:14 PM) Sodium Level [135-143 mmol/L] 136 mmol/L (12/08/19 4:18 AM) 135 mmol/L (12/07/19 4:07 AM) 134 mmol/L *LOW* (12/06/19 2:38 AM) Potassium Level [3.7-5.0 mmol/L] 3.6 mmol/L *LOW* (12/08/19 4:18 AM) 4.2 mmol/L (12/07/19 4:07 AM) 3.9 mmol/L (12/06/19 2:38 AM) Chloride Level [100-108 mmol/L] 106 mmol/L (12/08/19 4:18 AM) 106 mmol/L (12/07/19 4:07 AM) 105 mmol/L (12/06/19 2:38 AM) Carbon Dioxide Level [22.0-30.0 mmol/L] 25.0 mmol/L (12/08/19 4:18 AM) 23.0 mmol/L (12/07/19 4:07 AM) 24.0 mmol/L (12/06/19 2:38 AM) Anion Gap [2.0-11.0] 5.0 (12/08/19 4:18 AM) 6.0 (12/07/19 4:07 AM) 5.0 (12/06/19 2:38 AM) WBC [4.1-10.8 x10(3)/uL] 1.6 x10(3)/uL 2 *CRIT* (12/08/19 4:18 AM) 1.3 x10(3)/uL 3 *CRIT* (12/07/19 4:07 AM) 0.8 x10(3)/uL 4 *CRIT* (12/06/19 2:38 AM) RBC [4.37-5.74 x10(6)/uL] 2.39 x10(6)/uL *LOW* (12/08/19 4:18 AM) 2.42 x10(6)/uL *LOW* (12/07/19 4:07 AM) 2.54 x10(6)/uL *LOW* (12/06/19 2:38 AM) Hct [40.1-51.0 %] 20.9 % *LOW* (12/08/19 4:18 AM) 21.3 % *LOW* (12/07/19 4:07 AM) 22.2 % *LOW* (12/06/19 2:38 AM) Hgb [13.7-17.5 Gram/dL] 7.4 Gram/dL *LOW* (12/08/19 4:18 AM) 7.4 Gram/dL *LOW* (12/07/19 4:07 AM) 7.8 Gram/dL *LOW* (12/06/19 2:38 AM) Platelet Count [140-370 x10(3)/uL] 20 x10(3)/uL 5 *CRIT* (12/08/19 4:18 AM) 21 x10(3)/uL 6 *CRIT* (12/07/19 4:07 AM) 9 x10(3)/uL 7 *CRIT* (12/06/19 2:38 AM) MCH [25.6-32.2 pg] 30.7 pg (12/08/19 4:18 AM) 30.6 pg (12/07/19 4:07 AM) 30.7 pg (12/06/19 2:38 AM) MCHC [32.3-36.5 Gram/dL] 35.2 Gram/dL (12/08/19 4:18 AM) 34.8 Gram/dL (12/07/19 4:07 AM) 35.2 Gram/dL (12/06/19 2:38 AM) MCV [79.0-92.2 fL] 87.2 fL (12/08/19 4:18 AM) 88.0 fL (12/07/19 4:07 AM) 87.2 fL (12/06/19 2:38 AM) ABO/Rh O POS *Unknown* (12/07/19 4:07 AM) O POS *Unknown* (12/02/19 4:52 AM) O POS *Unknown* (11/15/19 9:33 AM) Antibody Screen Negative ABSC (12/07/19 4:07 AM) Negative ABSC (12/02/19 4:52 AM) Negative ABSC (11/15/19 9:33 AM) Plt Product Ready Platelet Ready (12/06/19 4:24 AM) RBC Product Ready Done Charted (12/02/19 8:00 AM) RBC Ready (12/02/19 4:42 AM) Bilirubin Total [0.4-1.3 mg/dL] 0.2 mg/dL *LOW* (12/08/19 4:18 AM) 0.5 mg/dL (12/06/19 2:38 AM) 0.5 mg/dL (12/04/19 3:31 AM) A/G Ratio [1.0-1.8] 1.0 (12/08/19 4:18 AM) 1.0 (12/06/19 2:38 AM) 0.8 *LOW* (12/04/19 3:31 AM) ALT [<=32 Units/Liter] 29 Units/Liter (12/08/19 4:18 AM) 27 Units/Liter (12/06/19 2:38 AM) 33 Units/Liter *HI* (12/04/19 3:31 AM) AST [12-38 Units/Liter] 25 Units/Liter (12/08/19 4:18 AM) 18 Units/Liter (12/06/19 2:38 AM) 19 Units/Liter (12/04/19 3:31 AM) Globulin 2 *NA* (12/08/19 4:18 AM) 2 *NA* (12/06/19 2:38 AM) 3 *NA* (12/04/19 3:31 AM) Alk Phos [34-106 Units/Liter] 41 Units/Liter (12/08/19 4:18 AM) 40 Units/Liter (12/06/19 2:38 AM) 52 Units/Liter (12/04/19 3:31 AM) Bilirubin Direct [0.0-0.2 mg/dL] <0.1 mg/dL (12/08/19 4:18 AM) <0.1 mg/dL (12/06/19 2:38 AM) <0.1 mg/dL (12/04/19 3:31 AM) Bun/Creatinine [6.0-22.0] 9.6 (12/08/19 4:18 AM) 13.7 (12/07/19 4:07 AM) 13.0 (12/06/19 2:38 AM) Calcium Level [8.4-10.2 mg/dL] 7.4 mg/dL *LOW* (12/08/19 4:18 AM) 7.3 mg/dL *LOW* (12/07/19 4:07 AM) 7.4 mg/dL *LOW* (12/06/19 2:38 AM) eGFR [>=60 mL/min/1.73m2] 101 mL/min/1.73m2 (12/08/19 4:18 AM) 92 mL/min/1.73m2 (12/07/19 4:07 AM) 69 mL/min/1.73m2 (12/06/19 2:38 AM) eGFR NonAfrican [>=60 mL/min/1.73m2] 84 mL/min/1.73m2 (12/08/19 4:18 AM) 76 mL/min/1.73m2 (12/07/19 4:07 AM) 57 mL/min/1.73m2 *LOW* (12/06/19 2:38 AM) Glucose Level [70-110 mg/dL] 129 mg/dL *HI* (12/08/19 4:18 AM) 109 mg/dL (12/07/19 4:07 AM) 108 mg/dL (12/06/19 2:38 AM) Magnesium Level [1.7-2.3 mg/dL] 1.7 mg/dL (12/08/19 4:18 AM) 2.0 mg/dL (12/07/19 4:07 AM) 1.8 mg/dL (12/06/19 2:38 AM) Ur RBC [None /HPF] 0-4 /HPF (11/27/19 3:38 AM) 0-4 /HPF (11/15/19 11:48 AM) Blood Urea Nitrogen [6-20 mg/dL] 9 mg/dL (12/08/19 4:18 AM) 14 mg/dL (12/07/19 4:07 AM) 17 mg/dL (12/06/19 2:38 AM) INR 1.1 *NA* (12/07/19 4:07 AM) 1.2 *NA* (12/04/19 3:31 AM) 1.1 *NA* (11/30/19 3:51 AM) Lactate Dehydrogenase [100-242 Units/Liter] 219 Units/Liter (11/15/19 9:33 AM) Slide Review MANDIFF *NA* (12/08/19 4:18 AM) Scan *NA* (12/07/19 4:07 AM) MANDIFF *NA* (12/06/19 2:38 AM) Eos % [0.7-6.0 %] 0.3 % *LOW* (12/07/19 4:07 AM) Eos % [0.7-6.0] DNI *NA* (11/30/19 3:51 AM) DNI *NA* (11/29/19 3:50 AM) Urine Nitrite [Negative mg/dL] Negative mg/dL (11/27/19 3:38 AM) Negative mg/dL (11/15/19 11:48 AM) Urine Leukocyte Esterase [Negative] Negative (11/27/19 3:38 AM) Negative (11/15/19 11:48 AM) Winkler # [0.2-1.4 x10(3)/uL] 0.2 x10(3)/uL (12/07/19 4:07 AM) Winkler # [0.2-1.4] DNI *NA* (11/30/19 3:51 AM) DNI *NA* (11/29/19 3:50 AM) Eos # [0.0-0.6 x10(3)/uL] 0.0 x10(3)/uL (12/07/19 4:07 AM) Eos # [0.0-0.6] DNI *NA* (11/30/19 3:51 AM) DNI *NA* (11/29/19 3:50 AM) Urine Appearance [Clear] Clear (11/27/19 3:38 AM) Clear (11/15/19 11:48 AM) Influenza A [Negative] Negative (11/15/19 3:14 PM) Urine Glucose Dipstick [Negative mg/dL] Negative mg/dL (11/27/19 3:38 AM) Negative mg/dL (11/15/19 11:48 AM) Mycoplasma pneumoniae by PCR [Negative] Negative (11/15/19 3:14 PM) Winkler % [5.0-12.5 %] 18.2 % *HI* (12/07/19 4:07 AM) Winkler % [5.0-12.5] DNI *NA* (11/30/19 3:51 AM) DNI *NA* (11/29/19 3:50 AM) Phosphorus [2.7-4.7 mg/dL] 2.9 mg/dL (12/08/19 4:18 AM) 3.5 mg/dL (12/07/19 4:07 AM) 4.5 mg/dL (12/06/19 2:38 AM) Urine Blood Dipstick [Negative mg/dL] Small mg/dL *ABN* (11/27/19 3:38 AM) Negative mg/dL (11/15/19 11:48 AM) Lactic Acid Level [0.5-2.2 mmol/L] 0.5 mmol/L (11/27/19 9:17 AM) Myelo Percent Man [0.0-0.0 %] 1.0 % *HI* (12/08/19 4:18 AM) 1.0 % *HI* (12/05/19 4:00 AM) 1.0 % *HI* (12/04/19 3:31 AM) ALYC # [0.8-3.2 thou/cmm] 0.2 thou/cmm *LOW* (12/08/19 4:18 AM) 0.1 thou/cmm *LOW* (12/06/19 2:38 AM) 0.1 thou/cmm *LOW* (12/05/19 4:00 AM) Baso % [0.0-3.0 %] 0.4 % (12/07/19 4:07 AM) Baso % [0.0-3.0] DNI *NA* (11/30/19 3:51 AM) DNI *NA* (11/29/19 3:50 AM) PTT [23.3-33.2 Second(s)] 32.0 Second(s) (12/07/19 4:07 AM) 27.8 Second(s) (12/04/19 3:31 AM) 30.2 Second(s) (11/30/19 3:51 AM) Schistocytes Occasional *NA* (12/07/19 4:07 AM) Occasional *NA* (12/04/19 3:31 AM) Urine Type U CleanCatch (11/27/19 3:38 AM) Uric Acid [3.8-8.4 mg/dL] 6.3 mg/dL (11/15/19 9:33 AM) Band Percent Man 6.8 *NA* (12/06/19 2:38 AM) 4.0 *NA* (12/05/19 4:00 AM) 29.5 *NA* (12/04/19 3:31 AM) Urine Urobilinogen Dipstick [0.2-2.0 mg/dL] <2.0 mg/dL (11/27/19 3:38 AM) <2.0 mg/dL (11/15/19 11:48 AM) Hypochromia 1+ *NA* (12/02/19 3:25 AM) RBC Morphology [Normal] See Report *NA* (12/08/19 4:18 AM) See Report *NA* (12/07/19 4:07 AM) See Report *NA* (12/06/19 2:38 AM) Baso # [0.0-0.3 x10(3)/uL] 0.0 x10(3)/uL (12/07/19 4:07 AM) Baso # [0.0-0.3] DNI *NA* (11/30/19 3:51 AM) DNI *NA* (11/29/19 3:50 AM) Urine Protein Dipstick [Negative mg/dL] Trace mg/dL *ABN* (11/27/19 3:38 AM) Negative mg/dL (11/15/19 11:48 AM) Dohle Bodies Occasional *NA* (12/05/19 4:00 AM) Occasional *NA* (12/02/19 3:25 AM) 1+ (12/01/19 4:18 AM) RDW [11.7-15.2 %] 14.2 % (12/08/19 4:18 AM) 14.8 % (12/07/19 4:07 AM) 14.3 % (12/06/19 2:38 AM) Influenza B [Negative] Negative (11/15/19 3:14 PM) Ur Squamous Epithelial Cells [None /HPF] 0-4 /HPF (11/27/19 3:38 AM) Urine Color [Yellow] Yellow (11/27/19 3:38 AM) Yellow (11/15/19 11:48 AM) Ur WBC [None /HPF] 0-4 /HPF (11/27/19 3:38 AM) 0-4 /HPF (11/15/19 11:48 AM) Urine Ketones Dipstick [Negative mg/dL] Negative mg/dL (11/27/19 3:38 AM) Negative mg/dL (11/15/19 11:48 AM) ANC # [1.7-6.0 x10(3)/uL] 1.2 x10(3)/uL *LOW* (12/08/19 4:18 AM) 0.6 x10(3)/uL *LOW* (12/06/19 2:38 AM) 0.8 x10(3)/uL *LOW* (12/05/19 4:00 AM) Toxic Granulation 1+ *NA* (12/05/19 4:00 AM) Winkler Percent Man [5.0-12.5 %] 9.8 % (12/08/19 4:18 AM) 9.7 % (12/06/19 2:38 AM) 3.9 % *LOW* (12/05/19 4:00 AM) Neut % [34.0-69.5 %] 66.1 % (12/07/19 4:07 AM) Neut % [34.0-69.5] DNI 8 *NA* (11/30/19 3:51 AM) DNI 9 *NA* (11/29/19 3:50 AM) PT [9.7-11.5 Second(s)] 11.9 Second(s) *HI* (12/07/19 4:07 AM) 12.6 Second(s) *HI* (12/04/19 3:31 AM) 11.4 Second(s) (11/30/19 3:51 AM) Ovalocytes Occasional *NA* (12/08/19 4:18 AM) Occasional *NA* (12/07/19 4:07 AM) Occasional *NA* (12/04/19 3:31 AM) Vancomycin Trough [10.0-20.0 mcg/mL] 16.7 mcg/mL (11/30/19 7:36 PM) 6.2 mcg/mL *LOW* (11/29/19 10:15 AM) Baso Percent Man [0.0-2.0 %] 1.0 % (12/08/19 4:18 AM) 1.9 % (12/06/19 2:38 AM) 0.0 % (12/05/19 4:00 AM) Protein Total [6.3-8.2 Gram/dL] 4.2 Gram/dL *LOW* (12/08/19 4:18 AM) 4.4 Gram/dL *LOW* (12/06/19 2:38 AM) 5.0 Gram/dL *LOW* (12/04/19 3:31 AM) Reactive Lymph 1.0 % *NA* (12/08/19 4:18 AM) 1.0 % *NA* (12/06/19 2:38 AM) 0.9 % *NA* (12/04/19 3:31 AM) Neut # [1.7-6.0 x10(3)/uL] 0.8 x10(3)/uL *LOW* (12/07/19 4:07 AM) Neut # [1.7-6.0] DNI *NA* (11/30/19 3:51 AM) DNI *NA* (11/29/19 3:50 AM) Ur Mucous Present *NA* (11/27/19 3:38 AM) Present *NA* (11/15/19 11:48 AM) Neutrophil Percent Man [34.0-69.5 %] 72.5 % *HI* (12/08/19 4:18 AM) 68.0 % (12/06/19 2:38 AM) 80.2 % *HI* (12/05/19 4:00 AM) Eos Percent Man [0.7-6.0 %] 0.0 % *LOW* (12/08/19 4:18 AM) 0.0 % *LOW* (12/06/19 2:38 AM) 0.0 % *LOW* (12/05/19 4:00 AM) Anisocytosis 1+ *NA* (12/06/19 2:38 AM) Albumin Level [3.6-4.7 Gram/dL] 2.0 Gram/dL *LOW* (12/08/19 4:18 AM) 2.1 Gram/dL *LOW* (12/06/19 2:38 AM) 2.4 Gram/dL *LOW* (12/04/19 3:31 AM) Urine pH Dipstick [5.0-9.0] 5.5 (11/27/19 3:38 AM) 6.0 (11/15/19 11:48 AM) Lymph % [20.0-53.0 %] 15.0 % *LOW* (12/07/19 4:07 AM) Lymph % [20.0-53.0] DNI *NA* (11/30/19 3:51 AM) DNI *NA* (11/29/19 3:50 AM) Platelet Ct Estimate Decreased *NA* (12/08/19 4:18 AM) Decreased *NA* (12/07/19 4:07 AM) Decreased *NA* (12/06/19 2:38 AM) [place] Percent Man [0.0-0.0 %] 1.0 % *HI* (12/08/19 4:18 AM) 2.0 % *HI* (12/05/19 4:00 AM) 2.9 % *HI* (12/04/19 3:31 AM) Teardrop Cells Occasional *NA* (12/04/19 3:31 AM) Occasional *NA* (12/01/19 4:18 AM) Urine Bilirubin Dipstick [Negative mg/dL] Negative mg/dL (11/27/19 3:38 AM) Negative mg/dL (11/15/19 11:48 AM) Urine Specific Industry [1.001-1.030] 1.023 (11/27/19 3:38 AM) 1.022 (11/15/19 11:48 AM) Plasmacyte Percent Man 1.0 % *NA* (12/01/19 4:18 AM) Analy Cells Occasional *NA* (12/07/19 4:07 AM) Lymph # [0.8-3.2 x10(3)/uL] 0.2 x10(3)/uL *LOW* (12/07/19 4:07 AM) Lymph # [0.8-3.2] DNI *NA* (11/30/19 3:51 AM) DNI *NA* (11/29/19 3:50 AM) MPV [8.7-12.0 fL] 9.2 fL (12/08/19 4:18 AM) 8.7 fL (12/07/19 4:07 AM) 9.8 fL (12/06/19 2:38 AM) Poikilocytosis 1+ *NA* (12/06/19 2:38 AM) 1+ *NA* (12/04/19 3:31 AM) Lymph Percent Man [20.0-53.0 %] 13.7 % *LOW* (12/08/19 4:18 AM) 12.6 % *LOW* (12/06/19 2:38 AM) 8.9 % *LOW* (12/05/19 4:00 AM) NRBC [0-0] 1 *HI* (12/08/19 4:18 AM) 1 *HI* (12/06/19 2:38 AM) Influenza A H3 [Negative] Negative (11/15/19 3:14 PM) Parainfluenza 3 [Negative] Negative (11/15/19 3:14 PM) Influenza A H1 [Negative] Negative (11/15/19 3:14 PM) Human Metapneumovirus [Negative] Negative (11/15/19 3:14 PM) Parainfluenza 1 [Negative] Negative (11/15/19 3:14 PM) Parainfluenza 2 [Negative] Negative (11/15/19 3:14 PM) Adenovirus [Negative] Negative (11/15/19 3:14 PM) Creatinine Level [0.64-1.27 mg/dL] 0.94 mg/dL (12/08/19 4:18 AM) 1.02 mg/dL (12/07/19 4:07 AM) 1.31 mg/dL *HI* (12/06/19 2:38 AM) # of Units 1 *NA* (12/06/19 4:24 AM) 1 *NA* (12/02/19 4:42 AM) 1 *NA* (11/30/19 4:31 AM) Urine Type. U CleanCatch *NA* (11/15/19 11:48 AM) C. Difficile Result [Negative] Positive 10 *ABN* (12/07/19 9:06 AM) Negative (11/24/19 9:22 AM) RSV-A [Negative] Negative (11/15/19 3:14 PM) RSV-B [Negative] Negative (11/15/19 3:14 PM) Galactomannan AG/Aspergillus, Blood [Negative] Negative (12/06/19 11:46 AM) Parainfluenza 4 [Negative] Negative (11/15/19 3:14 PM) Coronavirus [Negative] Negative (11/15/19 3:14 PM) CMV DNA PCR [Not Detected] Not Detected (12/06/19 10:55 AM) 1Result Comment: Interpretation: The Fungitell assay does not detect certain fungal species such as the genus Cryptococcus (Dorian et al. 1991) which produces very low levels of (1-3)-Guxo-R-Aufaii. The assay also does not detect the Zygomycetes such as Absidia, Mucor and Rhizopus (Damon et al. 1994) which are not known to produce (1-3)-Pljp-D-Siuegi. In addition, the yeast phase of Blastomyces dermatitidis produces little (1-3)-Pqze-G-Rcmlje and may not be detected by the assay (Adriano et al. 2007). Reference Range: Less than 60 pg/mL. Glucan values of less than 60 pg/mL are interpreted as negative. Glucan values of 60 to 79 pg/mL are interpreted as indeterminate, and suggest a possible fungal infection. Additional sampling and testing of sera is required to interpret the results. Glucan values of greater than or equal to 80 pg/mL are interpreted as positive. Due to the potential for environmental contamination when transferred to pour-off tubes, which can lead to false positive results, interpret positive results from samples provided in pour-off tubes with caution. Results should be used in conjunction with clinical findings, and should not form the sole basis for a diagnosis or treatment decision. The Fungitell test is approved or cleared for in vitro diagnostic use by the [place] Food and Drug Administration. Modifications to the approved package insert have been made and the performance characteristics for these modifications were determined by [facility]. If sample result is greater than 500 pg/mL, physician may order a titer of the sample. Please contact [facility] if you would like to order a retest of this sample to obtain an actual value. Samples are held for 1 week after initial testing date. Performed At: [facility] [address] [place] [address] [id number] Krystian Silveira PhD Ph:[phone] 2Result Comment: Critical Result Previously Called 3Result Comment: Critical Result Previously Called 4Result Comment: Critical Result Previously Called 5Result Comment: Critical Result PLT:20 Called to and read back by: AMARA PRIETO at: 12/08/2019 04:37:30 by:[email or web address] 6Result Comment: Critical Result PLT:21 Called to and read back by: LEORA JACOBS at: 12/07/2019 04:35:57 by:GERALDO 7Result Comment: Critical Result PLT:9 Called to and read back by: JESSI XAVIER at: 12/06/2019 04:12:16 by:LAZARO 8Result Comment: Differential Not Indicated, WBC <0.5 9Result Comment: Differential Not Indicated, WBC <0.5 10Result Comment: tt Maira by ps on at [id number] Orders for Microbiology Reports Name Date Giardia/Cryptosporidium Antigen 12/06/19 Culture Blood 12/05/19 Culture Fungus Blood 12/05/19 Culture Blood 12/05/19 Culture Fungus Blood 12/05/19 Culture Blood 12/02/19 Culture Blood 12/02/19 Culture Blood 11/29/19 Culture Blood 11/29/19 Culture Blood 11/27/19 Microbiology Reports (Most Recent Ten) TEST:Giardia/Cryptosporidium Antigen STATUS:Auth (Verified) BODY SITE: SOURCE:Stool COLLECTED DATE/TIME:12/06/19 2:40 PM FINAL REPORT Negative for Giardia lamblia Antigen Negative for Cryptosporidium Antigen STAIN REPORT Lot #: [id number] Internal QC Result: Pass TEST:Blood Culture STATUS:Order in Progress BODY SITE: SOURCE:Blood COLLECTED DATE/TIME:12/05/19 12:46 AM PRELIMINARY REPORT No growth at 3 days. TEST:Fungus Culture Blood STATUS:Order in Progress BODY SITE:Antecubital Fossa SOURCE:Blood COLLECTED DATE/TIME:12/05/19 12:45 AM PRELIMINARY REPORT No Fungal Growth To Date TEST:Fungus Culture Blood STATUS:Order in Progress BODY SITE: SOURCE:Blood COLLECTED DATE/TIME:12/05/19 12:39 AM PRELIMINARY REPORT No Fungal Growth To Date TEST:Blood Culture STATUS:Order in Progress BODY SITE: SOURCE:Blood COLLECTED DATE/TIME:12/05/19 12:39 AM PRELIMINARY REPORT No growth at 3 days. TEST:Blood Culture STATUS:Auth (Verified) BODY SITE: SOURCE:Blood COLLECTED DATE/TIME:12/02/19 9:15 PM FINAL REPORT No growth at 5 days. TEST:Blood Culture STATUS:Auth (Verified) BODY SITE: SOURCE:Blood COLLECTED DATE/TIME:12/02/19 9:12 PM FINAL REPORT No growth at 5 days. TEST:Blood Culture STATUS:Auth (Verified) BODY SITE: SOURCE:Blood COLLECTED DATE/TIME:11/29/19 4:38 AM FINAL REPORT No growth at 5 days. TEST:Blood Culture STATUS:Auth (Verified) BODY SITE: SOURCE:Blood COLLECTED DATE/TIME:11/29/19 3:50 AM FINAL REPORT No growth at 5 days. TEST:Blood Culture STATUS:Auth (Verified) BODY SITE: SOURCE:Blood COLLECTED DATE/TIME:11/27/19 4:50 AM FINAL REPORT Positive Blood Culture Staphylococcus epidermidis Oxacillin resistant: Resistance to oxacillin indicates resistance to other beta- lactam antibiotics and inhibitor combinations (pip/tazo, ampicillin/sulbactam, etc). STAIN REPORT Gram Positive Cocci In Clusters suggestive of Staphylococcus Growth in 3 of 4 blood culture sets. Called results to ncik sandoval rn rv Results read back and verified. ORGANISM:Staphylococcus epidermidis Radiology Reports * Exam Date Time Procedure Performing Provider Status 11/27/19 4:10 AM CR Chest 1 Vw Portable Ramu Miller, DRUG SAFETY PHYSICIAN; Auth (Verified) Notes: (CR Chest 1 Vw Portable) Reason For Exam: Fever REPORT Chest Radiography ACCESSION NUMBER: [id number] DATE: 11/27/2019 3:05 AM PROVIDED INDICATION: Fever COMPARISON: Chest radiograph dated 11/18/2019. TECHNIQUE: Portable supine AP radiograph of the chest. FINDINGS: Right-sided internal jugular approach dual lumen catheter terminates in the right atrium. Low lung volume exam. Bibasilar linear streaky opacities with significant interval improvement of diffuse pulmonary edema. No evidence of pneumothorax. Cardiomediastinal silhouette is unchanged from prior study. No new bony abnormalities. IMPRESSION: Interval improvement of diffuse pulmonary edema with bibasilar subsegmental atelectasis I, the attending/teaching physician, have personally reviewed, discussed, and supervised this radiological examination with the resident and this report reflects my agreement. Signed by Robert Blair M.D. on 11/27/2019 2:18 PM Final Dictated by: SALLY DAVENPORT RES - RAD Dictated DT/TM: 11/27/2019 2:18 pm Interpreted and electronically signed by: ROBERT BLAIR -RAD Signed DT/TM: 11/27/2019 2:18 pm * Exam Date Time Procedure Performing Provider Status 11/18/19 9:08 AM CR Chest 1 Vw Portable NICOLE MAYORGA RAD TECH; Auth (Verified) Notes: (CR Chest 1 Vw Portable) Reason For Exam: Shortness Of Breath REPORT ACCESSION NUMBER: [id number] DATE: 11/18/2019 8:41 AM EXAMINATION: CR Chest 1 Vw Portable PROVIDED INDICATION: Shortness Of Breath COMPARISON: AP portable chest dated 10/30/2019 TECHNIQUE: AP upright portable chest FINDINGS: AP upright portable chest demonstrates replacement of the right PICC line with a right internal jugular Shiley catheter with the tip in the right atrium. There has been interval developmentof diffuse bilateral interstitial opacities with thickened interlobular septa most prominent in theperiphery of the left lung, which is consistent with pulmonary interstitial edema.. There are bibasilar airspace opacities may be the beginning of alveolar edema, but a be the result of superimposed bibasilar atelectasis. IMPRESSION: Pulmonary interstitial edema with basilar alveolar edema or possibly superimposed bibasilar atelectasis. Signed by Robert Blair M.D. on 11/18/2019 10:59 AM Final Dictated by: ROBERT BLAIR -RAD Dictated DT/TM: 11/18/2019 10:59 am Interpreted and electronically signed by: ROBERT BLAIR -RAD Signed DT/TM: 11/18/2019 10:59 am Vital Signs Most recent to oldest [Reference Range]: 1 2 3 [place] Motor Response Obey commands (12/08/19 8:00 AM) Obey commands (12/08/19 2:00 AM) Obey commands (12/07/19 8:00 PM) [place] Verbal Response Oriented (12/08/19 8:00 AM) Oriented (12/08/19 2:00 AM) Oriented (12/07/19 8:00 PM) Mal Eye Opening Response Spontaneous (12/08/19 8:00 AM) Spontaneous (12/08/19 2:00 AM) Spontaneous (12/07/19 8:00 PM) [place] Coma Score 15 (12/08/19 8:00 AM) 15 (12/08/19 2:00 AM) 15 (12/07/19 8:00 PM) Temperature Source Oral (12/08/19 8:00 AM) Oral (12/08/19 4:00 AM) Oral (12/07/19 11:00 PM) Temperature Mode Celsius (12/08/19 8:00 AM) Celsius (12/08/19 4:00 AM) Celsius (12/07/19 11:00 PM) Temperature, Fahrenheit [96.8-99.7 Deg F] 99.1 Deg F (12/07/19 4:08 AM) 98.2 Deg F (12/06/19 11:47 PM) 99.1 Deg F (12/02/19 12:31 PM) Temperature, Celsius [35.2-38.1 Deg C] 36.6 Deg C (12/08/19 8:00 AM) 36.6 Deg C (12/08/19 4:00 AM) 36.7 Deg C (12/07/19 11:00 PM) Clinical Temperature, F 98.1 Deg F (12/07/19 11:00 PM) 98.2 Deg F (12/07/19 8:00 PM) 98.2 Deg F (12/07/19 4:00 PM) Clinical Temperature, C 37.3 Deg C (12/07/19 4:08 AM) 36.8 Deg C (12/06/19 11:47 PM) 37.3 Deg C (12/02/19 12:31 PM) Pulse Method Pulse Oximetry (12/08/19 8:00 AM) Pulse Oximetry (12/06/19 8:00 PM) Pulse Oximetry (12/06/19 4:00 PM) Pulse Rhythm Regular (12/01/19 7:33 AM) Regular (11/21/19 7:19 AM) Regular (11/21/19 7:19 AM) Heart Rate, Apical [60-100 bpm] 90 bpm (12/08/19 9:23 AM) 102 bpm *HI* (12/07/19 8:49 PM) 87 bpm (12/07/19 9:08 AM) Peripheral Pulse Rate [60-100 bpm] 97 bpm (12/07/19 7:54 AM) 98 bpm (12/07/19 4:08 AM) 107 bpm *HI* (12/06/19 11:47 PM) Heart Rate Monitored [60-100 bpm] 90 bpm (12/08/19 8:00 AM) 92 bpm (12/08/19 4:00 AM) 94 bpm (12/07/19 11:00 PM) Respiratory Rate [14-20 Breaths/Min] 18 Breaths/Min (12/08/19 8:00 AM) 18 Breaths/Min (12/08/19 4:00 AM) 18 Breaths/Min (12/07/19 11:00 PM) Blood Pressure Location Arm, right upper (12/08/19 8:00 AM) Arm, right upper (12/08/19 4:00 AM) Arm, right upper (12/07/19 11:00 PM) Blood Pressure Source Non-Invasive BP Device (12/08/19 8:00 AM) Non-Invasive BP Device (12/08/19 4:00 AM) Non-Invasive BP Device (12/07/19 11:00 PM) Blood Pressure Position Supine (12/08/19 8:00 AM) Supine (12/08/19 4:00 AM) Supine (12/07/19 11:00 PM) Blood Pressure [90-140/60-90 mmHg] 119/71mmHg (12/08/19 8:00 AM) 121/74mmHg (12/08/19 4:00 AM) 127/70mmHg (12/07/19 11:00 PM) Mean Arterial Pressure (MAP)-BMDI 83 (12/08/19 8:00 AM) 85 (12/08/19 4:00 AM) 89 (12/07/19 11:00 PM) Oxygen Saturation [94-100 %] 94 % (12/08/19 8:00 AM) 92 % *LOW* (12/08/19 4:00 AM) 91 % *LOW* (12/07/19 11:00 PM) Oxygen Therapy Mode Room air (12/08/19 8:00 AM) Room air (12/08/19 4:00 AM) Room air (12/07/19 11:00 PM) Oxygen Flow Rate 2 Liter/Min (12/03/19 8:00 AM) 2 Liter/Min (12/03/19 3:00 AM) 2 Liter/Min (12/02/19 11:13 PM) FiO2 Nursing 21 % (11/19/19 8:49 PM) 21 % (11/19/19 8:41 AM) 21 % (11/15/19 11:51 AM) Height Source Stated (12/07/19 9:00 AM) Stated (12/05/19 9:00 AM) Stated (12/04/19 9:00 AM) Height Entry Format [place] (12/07/19 9:00 AM) [place] (12/05/19 9:00 AM) [place] (12/04/19 9:00 AM) Height/Length, SURINAMESE (ft) 6 ft (12/07/19 9:00 AM) 6 ft (12/05/19 9:00 AM) 6 ft (12/04/19 9:00 AM) Height/Length SURINAMESE 0 Inch (12/07/19 9:00 AM) 0 Inch (12/05/19 9:00 AM) 0 Inch (12/04/19 9:00 AM) CLINICALHEIGHT 182.88 cm (12/07/19 9:00 AM) 182.88 cm (12/05/19 9:00 AM) 182.88 cm (12/04/19 9:00 AM) Weight Source Standing scale (11/15/19 8:34 AM) Weight Entry Format Metric, kilograms (11/15/19 8:34 AM) Weight METRIC kg 92.9 kg (11/15/19 8:34 AM) CLINICALWEIGHT 92.9 kg (11/15/19 8:34 AM) Body Surface Area (BSA) 2.15 m2 (11/15/19 8:34 AM) Body Mass Index [19-24 kg/m2] 27.8 kg/m2 *HI* (11/15/19 8:34 AM) Routine Weight Source Standing scale (12/07/19 9:00 AM) Standing scale (12/05/19 9:00 AM) Standing scale (12/04/19 9:00 AM) Routine Weight, Kilograms 89.7 kg (12/07/19 9:00 AM) 88.8 kg (12/05/19 9:00 AM) 89.2 kg (12/04/19 9:00 AM) Routine Weight Calculation 89.7 kg (12/07/19 9:00 AM) 88.8 kg (12/05/19 9:00 AM) 89.2 kg (12/04/19 9:00 AM) Body Surface Area (BSA), Routine 2.12 m2 (12/07/19 9:00 AM) 2.11 m2 (12/05/19 9:00 AM) 2.12 m2 (12/04/19 9:00 AM) [place] Body Weight 77 kg (11/15/19 8:34 AM) Social History Social History Type Response Smoking Status Never smoker entered on: 11/06/19 Sex Hospital Discharge Instructions Patient Education 12/08/2019 10:50:22 BMT- Discharge Instructions (2018) (CUSTOM) Your next clinic appointment is: December 11, 2019 at 2:00 p.m. Your lead rider is: Dr. Wendy Gomez and can be reached in the outpatient clinic at [phone] Wednesday through Wednesday form 8:00am to 4:30pm. Your call will be returned by the end of the day, after all patients in the clinic have been seen. If your problem is urgent, please identify this when you call or contact the on-call provider. AFTER HOURS EMERGENCY CONTACT An on-call provider is available 24 hours a day for urgent problems that occur after hours, on weekends, and on holidays. You can reach the on-call provider by cell at [phone] Examples of reasons to reach the on-call provider include: ??? Fever of 100.4??F or greater ??? Bleeding from the nose, gums, IV site, or other site that does not stop after 5 minutes of holding steady pressure ??? New shortness of breath or chest pain (Call 601 if severe) ??? Uncontrolled nausea, vomiting, or diarrhea more than three times in a 24 hour period ??? Non-urgent problems should be addressed with your lead rider during business hours. ??? We are only able to refill prescriptions or prescribe pain medicine Wednesday through Wednesday from 8:00am to 4:30pm; please contact your lead rider regarding prescription issues. ACTIVITY ??? You have no activity restrictions. You may engage in any activities you feel well enough to perform. ??? Your platelets are still low. Until your platelet count is over 50,000 without transfusions, you should not: Drive Have sexual intercourse Shave with a razor Lift items weighing more than 10 pounds Blow your nose forcefully Use a toothbrush (use a cloth or sponge toothette instead) ??? Your white blood cell count is still low and/or you are on medicines to suppress your immune system. Until we instruct you otherwise, you should: Avoid crowds or family/friends who might be ill Wear a mask while coming in and out of the clinic and whenever in crowds Check your temperature daily at about the same time and whenever you feel ill; call immediately if your fever is 101?? or greater Do not do yard work, work in the soil, or care for houseplants Use condoms for sexual intercourse Avoid exposure to children who have received live virus vaccines (MMR, varicella) for 4 to 6 weeks Do not clean up children???s waste or change diapers Do not clean up after pets or farm animals If you have more than one bathroom in your house, use one for your own private use if possible ??? Do not schedule travel without discussing it with us first. We want to help you make sure any trips you take are as safe as possible. ??? Please get clearance from us before making any plans to return to work. DIET See Current Departmental Dietary Recommendation CATHETER/SITE CARE ??? You have a: ?? Sky ??? You will need catheter site care on return to clinic ??? The catheter needs to be flushed: ?? daily ??? You should not shower or allow the catheter to become wet ??? If bleeding occurs or the catheter is accidentally pulled out, hold firm, uninterrupted pressure t the site for 5 minutes before rechecking for bleeding. If it is still bleeding, hold pressure for 5 more minutes. When bleeding stops, apply a clean dressing or bandaid to the site and contact your provider. If bleeding persists after 10 minutes of holding steady pressure, continue to apple pressure and contact your provider or the on-call provider as soon as possible. MEDICINES ??? Do not take medicines we have not prescribed without discussing them with our provider, especially medicines for pain or cold/flu symptom relief. Many of these contain aspirin (acetyl salicylic acid), ibuprofen (Advil, Motrin), or acetaminophen (Tylenol), which are often restricted. If you are unsure, check the ingredient list of any store bought medicines for these ingredients before taking them. ??? Prescribed medications, including drug, dose/schedule, purpose, side effects reviewed with patient and/or caregivers, who verbalize understanding of the regimen. ??? Medication list provided. Follow Up Care 11/15/2019 08:34:14 With:LORI ALEXANDRE Address: [address] [place] [phone] [place] [phone]- When:12/11/2019 14:00:00 Comments:[facility] - MD appt.
--- OUTSIDE RECORDS SUMMARY | 2023-10-22 15:27 | XMS_ITS | Continuity of Care Document ---
Author Name Unknown Organization [facility] Address [address] [place] [address]- Care Team Providers Care Product Development Name Role Phone KATE WH[address]NEY DR Primary Care Physician Encounter [facility] [id number] Date(s): 11/11/19 - 12/09/19 [facility] [address] [place] [address]- [facility] Encounter Diagnosis Non-Hodgkin lymphoma, unspecified, lymph nodes of head, face, and neck(Final) - 11/11/19 Oral mucositis (ulcerative) due to antineoplastic therapy(Final) - 11/11/19 Adverse effect of antineoplastic and immunosuppressive drugs, initial encounter (Final) - 11/11/19 Nausea with vomiting, unspecified(Final) - 11/11/19 Unspecified atrial fibrillation(Final) - 11/11/19 Essential (primary) hypertension(Final) - 11/11/19 SINGLE SUBSEGMENTAL PULMON EMBLSM W/O ACUTE COR PULMONALE(Final) - 11/11/19 Acute embolism and thrombosis of unspecified deep veins of unspecified lower extremity(Final) - 11/11/19 group home (current) use of anticoagulants(Final) - 11/11/19 Discharge Disposition: OP Self Care or Home Attending Physician: BETH HEWITT MD-[facility] Admitting Physician: BETH HEWITT MD-[facility] Referring Physician: BETH HEWITT MD-[facility] Allergies, Adverse Reactions, Alerts Substance Reaction Severity Status penicillin Active Assessment and Plan Future Appointments Appointment Date:12/11/2019 02:00:00 PM Scheduled Provider: Location:[facility] Appointment Type:[facility] LUDY Lab Visit [facility] Appointment Date:12/11/2019 02:30:00 PM Scheduled Provider: Location:[facility] Appointment Type:[facility] Provider Visit [facility] Future Scheduled Tests Laboratory* [facility] Comprehensive Metabolic Panel 12/11/19 * [facility] [...] Day(s), # 120 Tab, 1 Refill(s), Pharmacy: [facility], , 12/07/19 8:49:00 EST, CLINICALHEIGHT, 92.9, kg, 11/15/19 9:10:00 EST, CLINICALWEIGHT, 182.88 Start Date: 12/07/19 Stop Date: 02/05/20 Status: Ordered Metoprolol Tartrate 25 mg oral tablet 25 mg 1 Tab, Oral, Tab, BID, # 60 Tab, 0 Refill(s), Pharmacy: [facility], , 12/07/19 8:49:00 EST, CLINICALHEIGHT, 92.9, kg, 11/15/19 9:10:00 EST, CLINICALWEIGHT, 182.88 Start Date: 12/07/19 Status: Ordered NaCl 0.9% bolus 0 Refill(s) Start Date: 12/07/19 Status: Ordered potassium chloride 20 mEq oral tablet, extended release 40 mEq 2 Tab, Oral, ER Tab, BID, # 120 Tab, 0 Refill(s), Pharmacy: [facility], , 12/07/19 8:49:00 EST, CLINICALHEIGHT, 92.9, kg, 11/15/19 9:10:00 EST, CLINICALWEIGHT, 182.88 Start Date: 12/07/19 Stop Date: 01/06/20 Status: Ordered prochlorperazine 5 mg oral tablet 5 mg 1 Tab, Oral, Tab, Q6H, PRN Nausea/Vomiting, X 21 Day(s), # 100 Tab, 0 Refill(s), Pharmacy: [facility], , 12/07/19 8:49:00 EST, CLINICALHEIGHT, 92.9, kg, 11/15/19 9:10:00 EST,CLINICALWEIGHT, 182.88 Start Date: 12/07/19 Stop Date: 12/28/19 Status: Ordered triamcinolone 0.1% topical ointment 1 Application, Topical, Oint, Q8H, # 60 Gram, 0 Refill(s), Pharmacy: [facility], , 12/07/19 8:49:00 EST, CLINICALHEIGHT, 92.9, kg, 11/15/19 9:10:00 EST, CLINICALWEIGHT, 182.88 Start Date: 12/07/19 Status: Ordered vancomycin 125 mg oral capsule 125 mg 1 Cap, Oral, Cap, Q6H, X 13 Day(s), # 52 Cap, 0 Refill(s), Pharmacy: [facility], , 12/07/19 8:49:00 EST, CLINICALHEIGHT, 92.9, kg, 11/15/19 9:10:00 EST, CLINICALWEIGHT, 182.88 Start Date: 12/07/19 Stop Date: 12/20/19 Status: Ordered Procedures Procedure Date Related Diagnosis Body Site Status PICC line 2017 Completed Rotator cuff repair 2016 Com pleted Colonoscopy 2014 Completed 1L shoulder Social History Social History Type Response Smoking Status Never smoker entered on: 11/06/19 Sex
--- OUTSIDE RECORDS SUMMARY | 2023-10-22 15:27 | XMS_ITS | Continuity of Care Document ---
Author Name Unknown Organization [facility] Infusion Address [address] [place] [address]- Care Team Providers Care Security Engineer Name Role Phone PHY, NO Primary Care Physician [phone] PHY, NO Primary Care Physician KENIA BRISENO Primary Care Physician CATALINO FLORES (REF) Primary Care Physician CATALINO FLORES (REF) Primary Care Physician Encounter [facility] [id number] Date(s): 07/19/20 - 08/10/20 [facility] Infusion [address] [place] [address]- [facility] Encounter Diagnosis EMERGENCY CARE TECH lymphoma(Discharge Diagnosis) - 07/24/20 Diffuse large B-cell lymphoma, unspecified site(Final) - 07/19/20 Essential (primary) hypertension(Final) - 07/19/20 Unspecified atrial fibrillation(Final) - 07/19/20 Personal history of pulmonary embolism(Final) - 07/19/20 Disorder of brain, unspecified(Final) - 07/19/20 jail (current) use of anticoagulants(Final) - 07/19/20 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 Age:??54 Years? Sex:??Male? :??1965 Hx of EMERGENCY CARE TECH lymphoma T+125 day s post BEAM Auto Mr. Pitts presents to clinic for evaluation of EMERGENCY CARE TECH lymphoma, status post Auto SCT. He feels well today with no acute complaints. 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 Denies any recent fevers, chills, night sweats, cough, shortness of breath or chest pain. ?? EMERGENCY CARE TECH Lymphoma History Mr. Pitts was in his excellent health until he developed gradual onset of increasing headaches in May 2019, after progressing for 2 to 3 weeks he developed some noticeable confusion. ??His work colleagues contacted his family concerned and asked that he be evaluated. ??He presented to [facility] emergency room on June 19, 2019. ??Imaging studies demonstrated a brain mass and he was promptly transferred to [facility] emergency room. ??He was evaluated by neurosurgery and admitted to the hospital with a large left frontal brain mass. ??CT scan of his head June 20, 2019 demonstrated a right frontal mass with??accompanying edema. ??MRI of the head June 20, 2019 showed measured the frontal mass at 4.0 x 3.3 x 4.5 cm in size. ??CT chest abdomen pelvis June 20, 2019 showed no evidence of other masses or concern for malignancy. ??CT scan of cervical spine showed negative for any abnormality on 06/20/2019. ??On 06/22/2019 Mr. Pitts underwent left frontal brain mass biopsy. ??Pathology demonstrated diffuse large B-cell lymphoma, non-germinal center subtype, c-MYC??positive with a high proliferation index. ??Tumor cells were positive for CD20, BCL 6, BCL-2, MUM1 and c-MYC.?? He was discharged from the hospital on 06/23/2019 with close follow-up while awaiting pathology results. ??He presented to the emergency department the very next day with worsening nausea. ??He was placed on steroids with clinical improvement in his symptoms. ??Repeat CT scan showed no significant change. ?? .??Hong presented [facility] [place] for initial appointment on 07/03/2019 for his newly diagnosed primary EMERGENCY CARE TECH diffuse large B-cell lymphoma, triple expresser. ?? On 07/07/2019 Cycle 1 day 1 of dexamethasone, methotrexate, vincristine, leucovorin was initiated(MVP).??This was done as inpatient and Rituxan was infused on 07/19/2019. ?? He was admitted for cycle 2-day 1 of MVP? R on 07/21/2019 Rituxan was infused on 08/02/19.?? Cycle 3 was on 08/04/2019, cycle 4 was on 08/16/2019, cycle 5 was on 09/18/2019.??Mr. Pitts was admitted for cycle #6 of MVP at [facility]. Of note methotrexate dosing was 3.5 g/m?? IV on day 1, vincristine 1.4 mg/m?? with a max dose of 2.8 mg on day 1, procarbazine 100 mg/m?? on days 1 through 7 of cycles to 3 and 5 only giving. ??Rituxan 500 mg/m?? IV once per cycle. ??Of note patient only required G-CSF for 2 days each cycle prior to his count fully recovering. ? Patient was planned to be worked up for autologous stem cell transplantation however due to insurance lack of coverage at [facility] patient was referred to us for consideration for consolidative autologous stem cell transplant. ?? Mr. Pitts presented on 10/12/2019 for initial consultation at [facility] bone marrow transplant clinic.? On, 10/27/2019 MRI Brain reported There is an area of signal abnormality likely representing some leukomalacia in the left frontal lobe suspicious for treated disease with some cystic change. Within this area there is mild ill-defined enhancement causing no apparent mass effect and with associated gradient echo low signal as well as T2 and T2 FLAIR low signal which is suspected to represent treatment change although minimal residual lymphoma cannot be entirely excluded but is considered much less likely. Direct comparison to prior outside imaging is recommended to evaluate for interval change.?? This is consistent with CR. ?? On 11/06/19??total collection yielded 4.7 x 10^6 CD34+ cells/kg. ?? He was admitted on 11/15/2019 for BEAM+Auto HSCT. He received 4.7 x 10^6 CD34/kg on 11/21/2019. He tolerated his hospitalization well without major issues. He developed a neutropenic fever on 11/27/19,??blood cultures??positive for??E.coli and staph epi (likely contaminant). He was treated with Cefepime, Bactrim, and Meropenem inpatient and switched to Ertapenem outpatient to complete 14 day coverage since negative cultures on 11/29. He did develop a rash that has not spread at time of discharge. At first thought to be due to medication, but might be engraftment related.??On triamcinolone cream. Patient C. diff positive on 12/07/19 and finished a course of??PO Vancomycin. ?? Bone marrow biopsy??on 12/21/2019 showed??normocellular bone marrow (40%) with active trilineage hematopoiesis. see comment. There is no definitive immunophenotypic evidence of involvement by acute leukemia, increase in blasts, T or B non- Hodgkin lymphoma by flow cytometry. MRI Brain on 12/28/2019??showed no evidence of disease. ?? Problem List/Past Medical History Primary EMERGENCY CARE TECH lymphoma Subsegmental PE ?? Procedure/Surgical History Right frontal mass biopsy ?? 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 ?? Family History Father with CRC in his 80s at 83yo Mother with hemorrhagic stroke at 87yo Sister healthy A complete (13-point) review of systems was obtained and is negative except per Interval History and History of Present Illness. T:??36.8?C ?? T:??98.3?F ??(Oral)?? TMIN:??36.8?C ?? TMAX:??98.3?F ??(Oral)?? HR:??76??(Peripheral)?? RR:??18?? BP:??141/87?? SpO2:??95%?? WT:??106.42??kg?? BMI:??31.8?? General: The patient is in no acute distress, alert and oriented x3. ?? HEENT: Sclerae anicteric. Pupils are equally round and reactive to light. Oropharynx clear without lesions. Mucous membranes are moist. Neck: Supple. No masses. No tenderness or swelling noted. Lymphatic: No lymphadenopathy. Respiratory: Bilateral breath sounds clear to auscultation. Symmetric chest rise. Cardiovascular: Regular rate and rhythm; S1, S2. Abdomen: Non-tender. Non-distended. No hepatosplenomegaly. Extremities: No cyanosis or??edema. Skin: No rashes or lesions noted. Neurologic: Nonfocal. The patient ambulates with a steady gait. Mr. Pitts is a 54-year-old C aucasian male with primary EMERGENCY CARE TECH lymphoma status post 6 cycles of MVP? R at followed by??BEAM+ Auto HSCT (T-0 11/21/2019). ?? Primary EMERGENCY CARE TECH lymphoma. Status post??6 cycles of MVP-R in CR (done at ). MRI 10/27/2019 consistent with a CR. Underwent BEAM+Auto HSCT with T-0 on 11/21/19, receiving 4.7 x 10^6 CD34+ stem cells/kg. Bone marrow biopsy??on 12/21/19 with??normocellular marrow with trilineage hematopoiesis. MRI on 12/28/2019??negative.??Today is T+246. Plan for MRI of the brain at prior to 1-year visit including bone marrow biopsy and immunizations??in November 2020. ?? Immunosuppression.??Patient is immunosuppressed due to chemotherapy and post transplant status. a. Antiviral. Continue Acyclovir 800 mg BID for viral prophylaxis. ?? Cardiac a. A. fib.??Patient currently on metoprolol and Xarelto, managed by . ?? Hypertension. Continue lisinopril. ?? Sub-segmental Pulmonary Embolism. Completed course of anticoagulation x 3 months.? Follow-Up:??Patient will return to clinic in November 2020 for 1 year work up including bone marrow biopsy and 12 month immunizations. Home Medications (4) Active acyclovir 800 mg oral tablet??800 mg = 1 Tab, Oral, BID lisinopril 10 mg oral tablet??, Oral, Daily Metoprolol Tartrate 25 mg oral tablet??25 mg = 1 Tab, Oral, BID Xarelto 20 mg oral tablet??20 mg = 1 Tab, Oral, QPM penicillin CBC Results (Current Encount er/Past 24 Hours) ? WBC 7.2 x10(3)/uL 07/24/2020 10:00 Hct 41.9 % 07/24/2020 10:00 Hgb 14.1 Gram/dL 07/24/2020 10:00 Platelet Count 182 x10(3)/uL 07/24/2020 10:00 ?? CMP Results (Current Encounter/Past 24 Hours) ? Globulin 3 ??NA 07/24/2020 10:21 A/G Ratio 1.4 07/24/2020 10:21 eGFR 85 mL/min/1.73m2 07/24/2020 10:21 eGFR NonAfrican 70 mL/min/1.73m2 07/24/2020 10:21 Creatinine Level 1.09 mg/dL 07/24/2020 10:21 Protein Total 7.0 Gram/dL 07/24/2020 10:21 Bun/Creatinine 19.3 07/24/2020 10:21 Sodium Level 140 mmol/L 07/24/2020 10:21 Potassium Level 4.0 mmol/L 07/24/2020 10:21 Chloride Level 104 mmol/L 07/24/2020 10:21 Carbon Dioxide Level 25.0 mmol/L 07/24/2020 10:21 Anion Gap 11.0 07/24/2020 10:21 Alk Phos 80 Units/Liter 07/24/2020 10:21 ALT 25 Units/Liter 07/24/2020 10:21 AST 22 Units/Liter 07/24/2020 10:21 Blood Urea Nitrogen 21 mg/dL??HI 07/24/2020 10:21 Glucose Level 126 mg/dL??HI 07/24/2020 10:21 Albumin Level 4.1 Gram/dL 07/24/2020 10:21 Bilirubin Total 0.5 mg/dL 07/24/2020 10:21 Calcium Level 9.3 mg/dL 07/24/2020 10:21 ?? Future Appointments Appointment Date:11/13/2020 09:00:00 AM Scheduled Provider: Location:[facility] Appointment Type:ONC LUDY Lab Visit [facility] Appointment Date:11/13/2020 09:30:00 AM Scheduled Provider:BETH HEWITT MD-ONC Location:[facility] Appointment Type:[facility]C Bone Marrow Biopsy [facility] Appointment Date:11/13/2020 10:45:00 AM Scheduled Provider: Location:[facility] Infusion Appointment Type:ONC Treatment [facility] Scheduled Tests Laboratory* [facility] CMP Comprehensive Metabolic Panel 01/04/20 * [facility] CMP Comprehensive Metabolic Panel 01/11/20 * [facility] CMP Comprehensive Metabolic Panel 12/21/19 * [facility] CMP Comprehensive Metabolic Panel 11/07/19 * [facility] CMP Comprehensive Metabolic Panel 11/08/19 * [facility] CMP Comprehensive Metabolic Panel 11/09/19 * [facility] CMP Comprehensive Metabolic Panel 11/10/19 * [facility] Magnesium Level 11/07/19 * [facility] Magnesium Level 11/08/19 * [facility] Magnesium Level 11/09/19 * [facility] Magnesium Level 11/10/19 * [facility] CBC w/ Auto Diff 12/21/19 * [facility] CBC w/ Auto Diff 11/07/19 * [facility] CBC w/ Auto Diff 11/08/19 * [facility] CBC w/ Auto Diff 11/09/19 * [facility] CBC w/ Auto Diff 11/10/19 * [facility] LDH Lactate Dehydrogenase 12/21/19 * Testosterone, Free, Direct-LC 11/13/20 * Urinalysis w Culture if Indicated 11/13/20 * Hemoglobin A1C 11/13/20 * Ferritin Level 11/13/20 * Lipid Panel 11/13/20 * TSH Thyroid Stimulating Hormone 11/13/20 * Vitamin D 25 Hydroxy 11/14/20 * CD34 11/07/19 * CD34 11/08/19 * CD34 11/09/19 * CD34 11/10/19 Medications acyclovir 800 mg oral tablet 800 mg 1 Tab, Oral, Tab, BID, X 30 Day(s), # 60 Tab, 4 Refill(s), Pharmacy: [facility] #[id number], , 03/25/20 14:36:00 EDT, CLINICALHEIGHT, 102.5, kg, 03/25/20 14:36:00 EDT, CLINICALWEIGHT, 182.88 Start Date: 04/15/20 Stop Date: 09/12/20 Status: Ordered lisinopril 10 mg oral tablet mg Tab, Oral, Daily, 0 Refill(s) Start Date: 05/07/20 Status: Ordered Metoprolol Tartrate 25 mg oral tablet 25 mg 1 Tab, Oral, Tab, BID, # 60 Tab, 5 Refill(s), Pharmacy: [facility] #[id number], cm, 03/25/20 14:36:00 EDT, CLINICALHEIGHT, 102.5, kg, 03/25/20 14:36:00 EDT, CLINICALWEIGHT, 182.88 Start Date: 07/05/20 Status: Ordered Xarelto 20 mg oral tablet 20 mg 1 Tab, Oral, Tab, QPM Start Date: 07/24/20 Status: Ordered Problem List Condition Effective Dates Status Health Status Inform ant Clostridium difficile infection(Confirmed) 12/07/19 Active patient HTN (hypertension)(Confirmed) Active Lymphoma(Confirmed) Active PE (pulmonary thromboembolism)(Confirmed) Active Procedures Procedure Date Related Diagnosis Body Site Status PICC line 2017 Completed Rotator cuff repair 2016 Com pleted Colonoscopy 2014 Completed 1L shoulder Results Laboratory List Name Date [facility] CBC w/ Auto Diff 07/24/20 [facility] CMP Comprehensive Metabolic Panel .Automated Differential 07/24/20 Most recent to oldest [Reference Range]: 1 nRBC [1-5] 0 *LOW* (07/24/20 9:47 AM) Sodium Level [135-143 mmol/L] 140 mmol/L (07/24/20 9:47 AM) Potassium Level [3.7-5.0 mmol/L] 4.0 mmo l/L (07/24/20 9:47 AM) Chloride Level [100-108 mmol/L] 104 mmol /L (07/24/20 9:47 AM) Carbon Dioxide Level [22.0-30.0 mmol/L] 25.0 mmol/L (07/24/20 9:47 AM) Anion Gap [2.0-11.0] 11.0 (07/24/20 9:47 AM) WBC [4.1-10.8 x10(3)/uL] 7.2 x10(3)/uL (07/24/20 9:47 AM) RBC [4.37-5.74 x10(6)/uL] 4.43 x10(6)/uL (07/24/20 9:47 AM) Hct [40.1-51.0 %] 41.9 % (07/24/20 9:47 AM) Hgb [13.7-17.5 Gram/dL] 14.1 Gram/dL (07/24/20 9:47 AM) Platelet Count [140-370 x10(3)/uL] 182 x 10(3)/uL (07/24/20 9:47 AM) MCH [25.6-32.2 pg] 31.7 pg (07/24/20:47 AM) MCHC [32.3-36.5 Gram/dL] 33.6 Gram/dL (07/24/20:47 AM) MCV [79.0-92.2 fL] 94.5 fL *HI* (07/24/20:47 AM) Bilirubin Total [0.4-1.3 mg/dL] 0.5 mg/d L (07/24/20:47 AM) A/G Ratio [1.0-1.8] 1.4 (07/24/20:47 AM) ALT [<=32 Units/Liter] 25 Units/Liter (07/24/20:47 AM) AST [12-38 Units/Liter] 22 Units/Liter (07/24/20:47 AM) Globulin 3 *NA* (07/24/20:47 AM) Alk Phos [34-106 Units/Liter] 80 Units/L iter (07/24/20:47 AM) Bun/Creatinine [6.0-22.0] 19.3 (07/24/20:47 AM) Calcium Level [8.4-10.2 mg/dL] 9.3 mg/dL (07/24/20 9:47 AM) eGFR [>=60 mL/min/1.73m2] 85 mL/ min/1.73m2 (07/24/20:47 AM) eGFR NonAfrican [>=60 mL/min/1.73m2] 70 mL/min/1.73m2 (07/24/20:47 AM) Glucose Level [70-110 mg/dL] 126 mg/dL *HI* (07/24/20:47 AM) Blood Urea Nitrogen [6-20 mg/dL] 21 mg/d L *HI* (07/24/20:47 AM) Slide Review None *NA* (07/24/20 9:47 AM) Eos % [0.7-6.0 %] 1.2 % (07/24/20 9:47 AM) [place] # [0.2-1.4 x10(3)/uL] 0.6 x10(3)/uL (07/24/20 9:47 AM) Eos # [0.0-0.6 x10(3)/uL] 0.1 x10(3)/uL (07/24/20 9:47 AM) [place] % [5.0-12.5 %] 8.0 % (07/24/20 9:47 AM) Baso % [0.0-3.0 %] 0.5 % (07/24/20 9:47 AM) Baso # [0.0-0.3 x10(3)/uL] 0.0 x10(3)/uL (07/24/20 9:47 AM) RDW [11.7-15.2 %] 14.9 % (07/24/20 9:47 AM) Neut % [34.0-69.5 %] 79.3 % *HI* (07/24/20 9:47 AM) Protein Total [6.3-8.2 Gram/dL] 7.0 Gram /dL (07/24/20 9:47 AM) Neut # [1.7-6.0 x10(3)/uL] 5.7 x10(3)/uL (07/24/20 9:47 AM) Albumin Level [3.6-4.7 Gram/dL] 4.1 Gram /dL (07/24/20 9:47 AM) Lymph % [20.0-53.0 %] 11.0 % *LOW* (07/24/20 9:47 AM) Lymph # [0.8-3.2 x10(3)/uL] 0.8 x10(3)/u L (07/24/20 9:47 AM) MPV [8.7-12.0 fL] 7.8 fL *LOW* (07/24/20 9:47 AM) Creatinine Level [0.64-1.27 mg/dL] 1.09 mg/dL (07/24/20 9:47 AM) Vital Signs Most recent to oldest [Reference Range]: 1 Temperature Source Oral (07/24/20 9:41 AM) Temperature Mode Fahrenheit (07/24/20 9:41 AM) Temperature, Fahrenheit [96.8-99.7 Deg F ] 98.3 Deg F (07/24/20 9:41 AM) Clinical Temperature, C 36.8 Deg C (07/24/20 9:41 AM) Pulse Method Pulse Oximetry (07/24/20 9:41 AM) Pulse Rhythm Regular (07/24/20 9:41 AM) Peripheral Pulse Rate [60-100 bpm] 76 bp m (07/24/20 9:41 AM) Respiratory Rate [14-20 Breaths/Min] 18 Breaths/Min (07/24/20 9:41 AM) Blood Pressure Location Arm, left upper (07/24/20 9:41 AM) Blood Pressure Source Non-Invasive BP De vice (07/24/20 9:41 AM) Blood Pressure Position Sitting (07/24/20 9:41 AM) Blood Pressure [90-140/60-90 mmHg] 141/8 7mmHg *HI* (07/24/20 9:41 AM) Oxygen Saturation [94-100 %] 95 % (07/24/20 9:41 AM) Height Source Stated (07/24/20 9:41 AM) Height Entry Format [place] (07/24/20 9:41 AM) Height/Length, DUTCH (ft) 6 ft (07/24/20 9:41 AM) Height/Length DUTCH 0 Inch (07/24/20 9:41 AM) CLINICALHEIGHT 182.88 cm (07/24/20 9:41 AM) Weight Source Standing scale (07/24/20 9:41 AM) Weight Entry Format Pounds (07/24/20 9:41 AM) Weight Filipino lb 234 lb (07/24/20 9:41 AM) Weight [place]ino oz 2 oz (07/24/20 9:41 AM) CLINICALWEIGHT 106.42 kg (07/24/20 9:41 AM) Body Surface Area (BSA) 2.28 m2 (07/24/20 9:41 AM) Body Mass Index [19-24 kg/m2] 31.8 kg/m2 *HI* (07/24/20 9:41 AM) [place] Body Weight 77 kg (07/24/20 9:41 AM) Social History Social History Type Response Smoking Status Never smoker entered on: 11/06/19 Sex
--- OUTSIDE RECORDS SUMMARY | 2023-10-22 15:27 | XMS_ITS | Continuity of Care Document ---
Author Name Unknown Organization [facility] Address [address] [place] [id number] Care Team Providers Care Biosolids Management Technician Name Role Phone PHY, NO Primary Care Physician [phone] PHY, NO Primary Care Physician [phone] KENIA BRISENO Primary Care Physician CATALINO FLORES (REF) Primary Care Physician CATALINO FLORES (REF) Primary Care Physician Encounter [facility] [id number] Date(s): 02/28/20 - 03/25/[address] [address] [place] Discharge Disposition: OP Self Care or Home Attending Physician: BETH HEWITT MD-ONC Admitting Physician: BETH HEWITT MD-ONC Referring Physician: BETH HEWITT MD-ONC Allergies, Adverse Reactions, Alerts Substance Reaction Severity Status penicillin Active Assessment and Plan Future Appointments Appointment Date:05/20/2020 02:00:00 PM Scheduled Provider: Location:[facility] Appointment Type:ONC LUDY Lab Visit [facility] Appointment Date:05/20/2020 02:30:00 PM Scheduled Provider: Location:[facility] Appointment Type:ONC Provider Visit [facility] Future Scheduled Tests Laboratory* [facility] CMP Comprehensive Metabolic Panel 01/04/20 * [facility] CMP Comprehensive Metabolic Panel 01/11/20 * [facility] CMP Comprehensive Metabolic Panel 05/20/20 * [facility] CMP Comprehensive Metabolic Panel 12/21/19 * [facility] CMP Comprehensive Metabolic Panel 11/07/19 * [facility] CMP Comprehensive Metabolic Panel 11/08/19 * [facility] CMP Comprehensive Metabolic Panel 11/09/19 * [facility] CMP Comprehensive Metabolic Panel 11/10/19 * [facility] Magnesium Level 11/07/19 * [facility] Magnesium Level 11/08/19 * [facility] Magnesium Level 11/09/19 * [facility] Magnesium Level 11/10/19 * [facility] CBC w/ Auto Diff 05/20/20 * [facility] CBC w/ Auto Diff 12/21/19 * [facility] CBC w/ Auto Diff 11/07/19 * [facility] CBC w/ Auto Diff 11/08/19 * [facility] CBC w/ Auto Diff 11/09/19 * [facility] CBC w/ Auto Diff 11/10/19 * [facility] LDH Lactate Dehydrogenase 12/21/19 * CD34 11/07/19 * CD34 11/08/19 * CD34 11/09/19 * CD34 11/10/19 Medications acyclovir 800 mg oral tablet 800 mg 1 Tab, Oral, BID Start Date: 02/28/20 Status: Ordered dapsone 100 mg oral tablet 100 mg 1 Tab, Oral, Daily, # 30 Tab, 3 Refill(s), Pharmacy: [facility] #[id number], , 02/28/20 10:08:00 EDT, CLINICALHEIGHT, 99.8, kg, 02/28/20 10:08:00 EDT, CLINICALWEIGHT, 182.88 Start Date: 03/07/20 Status: Ordered Metoprolol Tartrate 25 mg oral tablet 25 mg 1 Tab, Oral, Tab, BID, # 60 Tab, 5 Refill(s), Pharmacy: [facility] #[id number], , 12/21/19 10:38:00 EDT, CLINICALHEIGHT, 91.64, kg, 12/21/19 10:38:00 EDT, CLINICALWEIGHT, 182.88 Start Date: 01/05/20 Status: Ordered Problem List Condition Effective Dates [...]
--- OUTSIDE RECORDS SUMMARY | 2023-10-22 15:27 | XMS_ITS | Continuity of Care Document ---
Author Name Unknown Organization [facility] Address [address] [place] [address]- Care Team Providers Care Tailor [employer] W[employer] Name Role Phone PHY, NO Primary Care Physician [phone] PHY, NO Primary Care Physician [phone] KENIA BRISENO Primary Care Physician CATALINO FLORES (REF) Primary Care Physician ( [phone] CATALINO FLORES (REF) Primary Care Physician ( [phone] Encounter [facility] [id number] Date(s): 04/10/20 - 05/10/20 [facility] [address] [place] [address] Encounter Diagnosis Diffuse large B-cell lymphoma, unspecified site(Final) - 04/10/20 Essential (primary) hypertension(Final) - 04/10/20 Unspecified atrial fibrillation(Final) - 04/10/20 Disorder of brain, unspecified(Final) - 04/10/20 Personal history of pulmonary embolism(Final) - 04/10/20 Allergy status to penicillin(Final) - 04/10/20 Discharge Disposition: OP Self Care or Home Attending Physician: BETH HEWITT MD-ONC Admitting Physician: BETH HEWITT MD-ONC Referring Physician: BETH HEWITT MD-ONC Allergies, Adverse Reactions, Alerts Substance Reaction Severity Status penicillin Active Assessment and Plan Future Appointments Appointment Date:06/12/2020 03:30:00 PM Scheduled Provider: Location:[facility] Appointment Type:ONC LUDY Lab Visit [facility] Appointment Date:06/12/2020 04:00:00 PM Scheduled Provider: Location:[facility] Appointment Type:ONC Provider Visit [facility] Future Scheduled Tests Laboratory* [facility] CMP Comprehensive Metabolic Panel 01/04/20 * [facility] CMP Comprehensive Metabolic Panel 01/11/20 * [facility] CMP Comprehensive Metabolic Panel 9/2/20 * [facility] CMP Comprehensive Metabolic Panel 12/21/19 * [facility] CMP Comprehensive Metabolic Panel 11/07/19 * [facility] CMP Comprehensive Metabolic Panel 11/08/19 * [facility] CMP Comprehensive Metabolic Panel 11/09/19 * [facility] CMP Comprehensive Metabolic Panel 11/10/19 * [facility] Magnesium Level 11/07/19 * [facility] Magnesium Level 11/08/19 * [facility] Magnesium Level 11/09/19 * [facility] Magnesium Level 11/10/19 * [facility] CBC w/ Auto Diff 06/12/20 * [facility] CBC w/ Auto Diff 12/21/19 [...] Day(s), # 60 Tab, 4 Refill(s), Pharmacy: [facility] #[id number], , 03/25/20 14:36:00 EDT, CLINICALHEIGHT, 102.5, kg, 03/25/20 14:36:00 EDT, CLINICALWEIGHT, 182.88 Start Date: 04/15/20 Stop Date: 09/12/20 Status: Ordered dapsone 100 mg oral tablet 100 mg 1 Tab, Oral, Daily, # 30 Tab, 3 Refill(s), Pharmacy: [facility] #[id number], , 02/28/20 10:08:00 EDT, CLINICALHEIGHT, 99.8, kg, 02/28/20 10:08:00 EDT, CLINICALWEIGHT, 182.88 Start Date: 03/07/20 Status: Ordered lisinopril 10 mg oral tablet mg Tab, Oral, Daily, 0 Refill(s) Start Date: 05/07/20 Status: Ordered Metoprolol Tartrate 25 mg oral tablet 25 mg 1 Tab, Oral, Tab, BID, # 60 Tab, 5 Refill(s), Pharmacy: [facility] #[id number], , 12/21/19 10:38:00 EDT, CLINICALHEIGHT, 91.64, kg, 12/21/19 10:38:00 EDT, CLINICALWEIGHT, 182.88 Start Date: 01/05/20 Status: Ordered Xarelto 15 mg oral tablet 15 mg 1 Tab, Oral, Tab, QPM, # 30 Tab, 0 Refill(s) Start Date: 05/07/20 Status: Ordered Problem List Condition Effective Dates [...]
--- OUTSIDE RECORDS SUMMARY | 2023-10-22 15:27 | XMS_ITS | Continuity of Care Document ---
Author Name Unknown Organization [facility] Infusion Address [address] [id number]- Care Team Providers Care Shoe Sewing Machine Operator And Tender Name Role Phone PHY, NO Primary Care Physician [phone] PHY, NO Primary Care Physician KENIA BRISENO Primary Care Physician CATALINO FLORES (REF) Primary Care Physician CATALINO FLORES (REF) Primary Care Physician Encounter [facility] [id number] Date(s): 06/11/20 - 07/10/20 [facility] Infusion [address], [place] [address] Discharge Disposition: OP Self Care or Home Attending Physician: BETH HEWITT MD-ONC Admitting Physician: BETH HEWITT MD-ONC Referring Physician: BETH HEWITT MD-ONC Allergies, Adverse Reactions, Alerts Substance Reaction Severity Status penicillin Active Assessment and Plan Extracted from: Title:Telehealth Progress Note Author:MARCELO HEWITT MD-ONC Date:06/12/20 Patient:??DARRICK PITTS? Age:??54 Years? Sex:??Male? :??1965 The patient was located at [facility] and I was located at?? the [facility] ??for this telemedicine/telephone encounter. We utilized?? [employer] ??conferencing telehealth software for the encounter and the patient was able to hear?? and see ??each other simultaneously in real time. I introduced myself and verified the patient's identity. I explained how the telemedicine visit will occur. I advised the patient that technology-related delays and breaches of privacy are potential risks with conducting the encounter via telemedicine. I also advised the patient that at any point they may terminate the telemedicine encounter and withdraw consent for receiving care via telemedicine without affecting the ability to receive future care from us, and I may also terminate the telemedicine encounter if I determine that an in-person visit is more appropriate for the condition(s) for which treatment is sought. Having covered these considerations, the patient verbally acknowledged them and gave consent for the use of telemedicine in the patient's care. ? Mr. Pitts was in his excellent health until he developed gradual onset of increasing headaches in May 2019, after progressing for 2 to 3 weeks he developed some noticeable confusion. ??His work colleagues contacted his family concerned and asked that he be evaluated. ??He presented to [facility] emergency room on June 19, 2019. ??Imaging studies demonstrated a brain mass and he was promptly transferred to [facility] emergency room. ??He was evaluated by neurosurgery [...] CT scan showed no significant change. ?? .?Ana presented [facility] for initial appointment on 07/03/2019 for his newly diagnosed primary SCHEDULING MANAGER diffuse large B-cell lymphoma, triple expresser. ?? [...] admitted for cycle #[address] [facility]. Of note methotrexate dosing was 3.5 g/m?? [...] due to insurance lack of coverage at [facility] patient was referred to us for consideration for consolidative autologous stem cell transplant. ?? Mr. Pitts presented on 10/12/2019 for initial consultation at [facility] bone marrow transplant clinic.? On, 10/27/2019 [...] disease. ?? Problem List/Past Medical History Primary SCHEDULING MANAGER lymphoma Subsegmental PE ?? Procedure/Surgical History Right frontal mass biopsy ?? 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 ?? Family History Father with CRC in his 80s at 83yo Mother with hemorrhagic stroke at 87yo Sister healthy ??Review of Systems ??A complete (13-point) review of systems was obtained and is negative except per Interval History and History of Present Illness. ? Mr. Pitts is a 54-year-old C aucasian male with primary SCHEDULING MANAGER lymphoma status post 6 cycles of MVP? R at followed by??BEAM+ Auto HSCT (T-0 11/21/2019). ?? Primary SCHEDULING MANAGER lymphoma. Status post??6 cycles of MVP-R in CR (done at ). MRI 10/27/2019 consistent with a CR. Underwent BEAM+Auto HSCT with T-0 on 11/21/19, receiving 4.7 x 10^6 CD34+ stem cells/kg. Bone marrow biopsy??on 12/21/19 with??normocellular marrow with trilineage hematopoiesis. MRI on 03/25/2020 negative. Repeat MRI in Jnuary 2020. Continue to follow up with Dr. Dempsey. ?? Cytopenias. Neutropenia resolved off Bactrim. ?? Immunosuppression.??Patient is immunosuppressed due to chemotherapy and post transplant status. a. Antiviral. Continue Acyclovir 800 mg BID for viral prophylaxis. b. PCP Prophylaxis. Bactrim discontinued due to neutropenia. G6PD checked and WNL. D/C Dapsone. ?? Cardiac a. A. fib.?? Patient currently on metoprolol, started by . Admission EKG NSR, left ventricular hypertrophy and with Qtc of 445. EKG on 11/21/19??QTC 434. ?? Hypertension. on Lisinopril 10mg PO Daily. ?? Sub-segmental Pulmonary Embolism. Completed course of anticoagulation x 3months.? Follow-Up:??Patient will return to clinic in??6weeks for MD visit and labs. No qualifying data available Home Medications (5) Active acyclovir 800 mg oral tablet??800 mg = 1 Tab, Oral, BID dapsone 100 mg oral tablet??100 mg = 1 Tab, Oral, Daily lisinopril 10 mg oral tablet??, Oral, Daily Metoprolol Tartrate 25 mg oral tablet??25 mg = 1 Tab, Oral, BID Xarelto 15 mg oral tablet??15 mg = 1 Tab, Oral, QPM penicillin No qualifying data available No qualifying data available. Coagulation Results (Current Encounter/Past 24 Hours) No Coagulation Results Found (Past 24 Hours) No qualifying data available. Future Appointments Appointment Date:07/24/2020 09:00:00 AM Scheduled Provider: Location:[facility] Infusion Appointment Type:ONC LUDY Lab Visit [facility] Appointment Date:07/24/2020 09:30:00 AM Scheduled Provider: Location:[facility] Appointment Type:ONC Provider Visit [facility] Future Scheduled Tests Laboratory* [facility] CMP Comprehensive Metabolic Panel 01/04/20 * [facility] CMP Comprehensive Metabolic Panel 01/11/20 * [facility] CMP Comprehensive Metabolic Panel 12/21/19 * [facility] CMP Comprehensive Metabolic Panel 11/07/19 * [facility] CMP Comprehensive Metabolic Panel 11/08/19 * [facility] CMP Comprehensive Metabolic Panel 11/09/19 * [facility] CMP Comprehensive Metabolic Panel 11/10/19 * [facility] Magnesium Level 11/07/19 * [facility] Magnesium Level 11/08/19 * [facility] Magnesium Level 11/09/19 * [facility] Magnesium Level 11/10/19 * [facility] CBC w/ Auto Diff 12/21/19 * [facility] CBC w/ Auto Diff 11/07/19 * [facility] CBC w/ Auto Diff 11/08/19 * [facility] CBC w/ Auto Diff 11/09/19 * [facility] CBC w/ Auto Diff 11/10/19 * [facility] LDH Lactate Dehydrogenase 12/21/19 * CD34 11/07/19 * CD34 11/08/19 * CD34 11/09/19 * CD34 11/10/19 Medications acyclovir 800 mg oral tablet 800 mg 1 Tab, Oral, Tab, BID, X 30 Day(s), # 60 Tab, 4 Refill(s), Pharmacy: [facility] #[id number], , 03/25/20 14:36:00 EDT, CLINICALHEIGHT, 102.5, kg, 03/25/20 14:36:00 EDT, CLINICALWEIGHT, 182.88 Start Date: 04/15/20 Stop Date: 09/12/20 Status: Ordered dapsone 100 mg oral tablet 100 mg 1 Tab, Oral, Daily, # 30 Tab, 3 Refill(s), Pharmacy: [facility] #[id number], , 02/28/20 10:08:00 EDT, CLINICALHEIGHT, 99.8, kg, 02/28/20 10:08:00 EDT, CLINICALWEIGHT, 182.88 Start Date: 03/07/20 Status: Ordered lisinopril 10 mg oral tablet mg Tab, Oral, Daily, 0 Refill(s) Start Date: 05/07/20 Status: Ordered Metoprolol Tartrate 25 mg oral tablet 25 mg 1 Tab, Oral, Tab, BID, # 60 Tab, 5 Refill(s), Pharmacy: [facility] #[id number], , 03/25/20 14:36:00 EDT, CLINICALHEIGHT, 102.5, kg, 03/25/20 14:36:00 EDT, CLINICALWEIGHT, 182.88 Start Date: 07/05/20 Status: Ordered Xarelto 15 mg oral tablet [...]
--- OUTSIDE RECORDS SUMMARY | 2023-10-22 15:27 | XMS_ITS | Continuity of Care Document ---
Author Name Unknown Organization [facility] Infusion Address [address] [place] [address]- Care Team Providers Care Morgue Technician Name Role Phone PHY, NO Primary Care Physician PHY, NO Primary Care Physician KENIA BRISENO Primary Care Physician CATALINO FLORES (REF) Primary Care Physician CATALINO FLORES (REF) Primary Care Physician Encounter [facility] Date(s): 03/11/20 - 04/09/20 [facility] Infusion [address] [place], [place] [id number] Encounter Diagnosis Diffuse large B-cell lymphoma, unspecified site(Final) - 03/11/20 Essential (primary) hypertension(Final) - 03/11/20 Unspecified atrial fibrillation(Final) - 03/11/20 Disorder of brain, unspecified(Final) - 03/11/20 Personal history of pulmonary embolism(Final) - 03/11/20 Allergy status to penicillin(Final) - 03/11/20 Discharge Disposition: OP Self Care or Home Attending Physician: BETH HEWITT MD-ONC Admitting Physician: BETH HEWITT MD-ONC Referring Physician: BETH HEWITT MD-ONC Allergies, Adverse Reactions, Alerts Substance Reaction Severity Status penicillin Active Assessment and Plan Extracted from: Title:LINUX PROGRAMMER Lymphoma; Auto T+125 Author:GUERO COSTA NNARLETH, ELECTRICIAN THIRD- Date:03/25/20 Patient:??DARRICK PITTS? Age:??54 Years? Sex:??Male? :??1965 Hx of LINUX PROGRAMMER lymphoma T+125 day s post BEAM Auto Mr. Pitts presents to clinic for evaluation of LINUX PROGRAMMER lymphoma, status post Auto SCT. He feels well today with no acute complaints. Will have brain MRI following appointment. No recent fevers, chills, night sweats, cough, shortness of breath or chest pain. ?? LINUX PROGRAMMER Lymphoma History Mr. Pitts was in his excellent health until he developed gradual onset of increasing headaches in May 2019, after progressing for 2 to 3 weeks he developed some noticeable confusion. ??His work colleagues contacted his family concerned and asked that he be evaluated. ??He presented to [facility] emergency room on June 19, 2019. ??Imaging studies demonstrated a brain mass and he was promptly transferred to [facility] emergency room. ??He was evaluated by [...] ??Repeat CT scan showed no significant change. ?Hong presented [facility] for initial appointment on 07/03/2019 for his newly diagnosed primary LINUX PROGRAMMER diffuse large B-cell lymphoma, triple expresser. ?? [...] admitted for cycle #6 of MVP at [facility]. Of note methotrexate dosing was 3.5 [...] due to insurance lack of coverage at [facility] patient was referred to us for consideration for consolidative autologous stem cell transplant. ?? Mr. Pitts presented on 10/12/2019 for initial consultation at [facility] bone marrow transplant clinic.? On, 10/27/2019 [...] disease. ?? Problem List/Past Medical History Primary LINUX PROGRAMMER lymphoma Subsegmental PE ?? Procedure/Surgical History Right frontal mass biopsy ?? 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 ?? Family History Father with CRC in his 80s at 83yo Mother with hemorrhagic stroke at 87yo Sister healthy A complete (13-point) review of systems was obtained and is negative except per Interval History and History of Present Illness. T:??36.6?C ?? T:??97.9?F ??(Oral)?? TMIN:??36.6?C ?? TMAX:??97.9?F ??(Oral)?? HR:??95??(Peripheral)?? RR:??20?? BP:??172/106?? SpO2:??95%?? WT:??102.5??kg?? BMI:??30.6?? General: The patient is in no acute [...] a 54-year-old C aucasian male with primary LINUX PROGRAMMER lymphoma status post 6 cycles of MVP? R at followed by??BEAM+ Auto HSCT (T-0 11/21/2019). ?? Primary LINUX PROGRAMMER lymphoma. Status post??6 cycles of MVP-R in CR (done at ). MRI 10/27/2019 consistent with a CR. Underwent BEAM+Auto HSCT with T-0 on 11/21/19, receiving 4.7 x 10^6 CD34+ stem cells/kg. Bone marrow biopsy??on 12/21/19 with??normocellular marrow with trilineage hematopoiesis. MRI on 12/28/2019??negative.??Today is T+125. Repeat MRI scheduled for after clinic appointment. Will follow-up on results. Continue to follow up with Dr. Dempsey. ?? Cytopenias. Neutropenia resolved off Bactrim. ?? Immunosuppression.??Patient is immunosuppressed due to chemotherapy and post transplant status. a. Antiviral. Continue Acyclovir 800 mg BID for viral prophylaxis. b. PCP Prophylaxis. Bactrim discontinued due to neutropenia. G6PD checked and WNL. Will continue Dapsone until 6 months post transplant. ?? Cardiac a. A. fib.?? Patient currently on metoprolol, started by . Admission EKG NSR, left ventricular hypertrophy and with Qtc of 445. EKG on 11/21/19??QTC 434. ?? Hypertension. BP elevated today, previously normal. Will have it monitored by Dr. Dempsey. ?? Sub-segmental Pulmonary Embolism. Completed course of anticoagulation x 3months.? Follow-Up:??Patient will return to clinic in 2 months for MD visit and labs. Home Medications (3) Active acyclovir 800 mg oral tablet??800 mg = 1 Tab, Oral, BID dapsone 100 mg oral tablet??100 mg = 1 Tab, Oral, Daily Metoprolol Tartrate 25 mg oral tablet??25 mg = 1 Tab, Oral, BID penicillin CBC Results (Current Encount er/Past 24 Hours) ? WBC 5.6 x10(3)/uL 03/25/2020 14:54 Hct 39.3 %??LOW 03/25/2020 14:54 Hgb 13.2 Gram/dL??LOW 03/25/2020 14:54 Platelet Count 169 x10(3)/uL 03/25/2020 14:54 ?? CMP Results (Current Encounter/Past 24 Hours) ? eGFR 78 mL/min/1.73m2 03/25/2020 15:12 Globulin 3 ??NA 03/25/2020 15:12 A/G Ratio 1.3 03/25/2020 15:12 Bun/Creatinine 16.9 03/25/2020 15:12 eGFR NonAfrican 64 mL/min/1.73m2 03/25/2020 15:12 Protein Total 6.6 Gram/dL 03/25/2020 15:12 Creatinine Level 1.18 mg/dL 03/25/2020 15:12 Sodium Level 141 mmol/L 03/25/2020 15:12 Potassium Level 3.5 mmol/L??LOW 03/25/2020 15:12 Chloride Level 106 mmol/L 03/25/2020 15:12 Carbon Dioxide Level 27.0 mmol/L 03/25/2020 15:12 Anion Gap 8.0 03/25/2020 15:12 Alk Phos 80 Units/Liter 03/25/2020 15:12 ALT 21 Units/Liter 03/25/2020 15:12 AST 25 Units/Liter 03/25/2020 15:12 Blood Urea Nitrogen 20 mg/dL 03/25/2020 15:12 Glucose Level 172 mg/dL??HI 03/25/2020 15:12 Albumin Level 3.9 Gram/dL 03/25/2020 15:12 Bilirubin Total 0.6 mg/dL 03/25/2020 15:12 Calcium Level 8.8 mg/dL 03/25/2020 15:12 Addendum by BETH HEWITT MD-ONC on March 27, 2020 12:56:45 EDT BMT Attending: Pt was independently seen, examined and discussed in details with ELECTRICIAN THIRD/PA/Fellow. I reviewed the note and agree with the assessment and plan. 54yo WM with PCNSL in CR after 6cycles of MVP-R admitted for BEAM Auto-HSCT T-0 11/21/19. Patient has no complaints today. 13-points review of systems performed and negative except as above. Lungs clear to auscultation, heart RRR, abdomen soft non-tender, no LE edema. Labs reviewed.?? I reviewed MRI with continued TYRONE. Continue surveillance with MRI in 6months. A-fib rate/rhythm controlled on metoprolol. Correct hypokalemia. Counselled on nutritional optimization, physical activity and oral care. Transfuse blood products and correct electrolytes per BMT protocols. C/w Dapsone. Followup??on T+180 in May.?? Future Appointments Appointment Date:05/20/2020 02:00:00 PM Scheduled Provider: Location:[facility] Infusion Appointment Type:ONC LUDY Lab Visit [facility] Appointment Date:05/20/2020 02:30:00 PM Scheduled Provider: Location:[facility] Appointment Type:ONC Provider Visit [facility] Future Scheduled Tests Laboratory* [facility] CMP [...] Daily, # 30 Tab, 3 Refill(s), Pharmacy: [facility] #[id number], , 02/28/20 10:08:00 EDT, CLINICALHEIGHT, 99.8, kg, 02/28/20 10:08:00 EDT, CLINICALWEIGHT, 182.88 Start Date: 03/07/20 Status: Ordered Metoprolol Tartrate 25 mg oral tablet 25 mg 1 Tab, Oral, Tab, BID, # 60 Tab, 5 Refill(s), Pharmacy: [facility] #[id number], cm, 12/21/19 10:38:00 EDT, CLINICALHEIGHT, 91.64, kg, 12/21/19 [...] 1L shoulder Results Laboratory List Name Date [facility] CBC w/ Auto Diff 03/25/20 [facility] CMP Comprehensive Metabolic Panel .Automated Differential 03/25/20 Most recent to oldest [Reference Range]: 1 nRBC [1-5] 0 *LOW* (03/25/20 2:26 PM) Sodium Level [135-143 mmol/L] 141 mmol/L (03/25/20 2:26 PM) Potassium Level [3.7-5.0 mmol/L] 3.5 mmo l/L *LOW* (03/25/20 2:26 PM) Chloride Level [100-108 mmol/L] 106 mmol /L (03/25/20 2:26 PM) Carbon Dioxide Level [22.0-30.0 mmol/L] 27.0 mmol/L (03/25/20 2:26 PM) Anion Gap [2.0-11.0] 8.0 (03/25/20 2:26 PM) WBC [4.1-10.8 x10(3)/uL] 5.6 x10(3)/uL (03/25/20 2:26 PM) RBC [4.37-5.74 x10(6)/uL] 4.23 x10(6)/uL *LOW* (03/25/20 2:26 PM) Hct [40.1-51.0 %] 39.3 % *LOW* (03/25/20 2: PM) Hgb [13.7-17.5 Gram/dL] 13.2 Gram/dL *LOW* (03/25/20: PM) Platelet Count [140-370 x10(3)/uL] 169 x 10(3)/uL (03/25/20 2: PM) MCH [25.6-32.2 pg] 31.2 pg (03/25/20: PM) MCHC [32.3-36.5 Gram/dL] 33.6 Gram/dL (03/25/20: PM) MCV [79.0-92.2 fL] 92.9 fL *HI* (03/25/20: PM) Bilirubin Total [0.4-1.3 mg/dL] 0.6 mg/d L (03/25/20: PM) A/G Ratio [1.0-1.8] 1.3 (03/25/20: PM) ALT [<=32 Units/Liter] 21 Units/Liter (03/25/20: PM) AST [12-38 Units/Liter] 25 Units/Liter (03/25/20: PM) Globulin 3 *NA* (03/25/20: PM) Alk Phos [34-106 Units/Liter] 80 Units/L iter (03/25/20 2: PM) Bun/Creatinine [6.0-22.0] 16.9 (03/25/20: PM) Calcium Level [8.4-10.2 mg/dL] 8.8 mg/dL (03/25/20: PM) eGFR [>=60 mL/min/1.73m2] 78 mL/ min/1.73m2 (03/25/20 2: PM) eGFR NonAfrican [>=60 mL/min/1.73m2] 64 mL/min/1.73m2 (03/25/20 2: PM) Glucose Level [70-110 mg/dL] 172 mg/dL *HI* (03/25/20: PM) Blood Urea Nitrogen [6-20 mg/dL] 20 mg/d L (03/25/20 2:26 PM) Slide Review None *NA* (03/25/20 2:26 PM) Eos % [0.7-6.0 %] 1.5 % (03/25/20 2:26 PM) [place] # [0.2-1.4 x10(3)/uL] 0.5 x10(3)/uL (03/25/20 2:26 PM) Eos # [0.0-0.6 x10(3)/uL] 0.1 x10(3)/uL (03/25/20 2:26 PM) [place] % [5.0-12.5 %] 8.8 % (03/25/20 2:26 PM) Baso % [0.0-3.0 %] 0.3 % (03/25/20 2:26 PM) Baso # [0.0-0.3 x10(3)/uL] 0.0 x10(3)/uL (03/25/20 2:26 PM) RDW [11.7-15.2 %] 15.4 % *HI* (03/25/20 2:26 PM) Neut % [34.0-69.5 %] 76.3 % *HI* (03/25/20 2:26 PM) Protein Total [6.3-8.2 Gram/dL] 6.6 Gram /dL (03/25/20 2:26 PM) Neut # [1.7-6.0 x10(3)/uL] 4.2 x10(3)/uL (03/25/20 2:26 PM) Albumin Level [3.6-4.7 Gram/dL] 3.9 Gram /dL (03/25/20 2:26 PM) Lymph % [20.0-53.0 %] 13.1 % *LOW* (03/25/20 2:26 PM) Lymph # [0.8-3.2 x10(3)/uL] 0.7 x10(3)/u L *LOW* (03/25/20 2:26 PM) MPV [8.7-12.0 fL] 7.7 fL *LOW* (03/25/20 2:26 PM) Creatinine Level [0.64-1.27 mg/dL] 1.18 mg/dL (03/25/20 2:26 PM) Vital Signs Most recent to oldest [Reference Range]: 1 Temperature Source Oral (03/25/20 2:36 PM) Temperature Mode Fahrenheit (03/25/20 2:36 PM) Temperature, Fahrenheit [96.8-99.7 Deg F ] 97.9 Deg F (03/25/20 2:36 PM) Clinical Temperature, C 36.6 Deg C (03/25/20 2:36 PM) Pulse Method Pulse Oximetry (03/25/20 2:36 PM) Pulse Rhythm Regular (03/25/20 2:36 PM) Peripheral Pulse Rate [60-100 bpm] 95 bp m (03/25/20 2:36 PM) Respiratory Rate [14-20 Breaths/Min] 20 Breaths/Min (03/25/20 2:36 PM) Blood Pressure Location Arm, left upper (03/25/20 2:36 PM) Blood Pressure Source Non-Invasive BP De vice (03/25/20 2:36 PM) Blood Pressure Position Sitting (03/25/20 2:36 PM) Blood Pressure [90-140/60-90 mmHg] 172/1 06mmHg *HI* (03/25/20 2:36 PM) Oxygen Saturation [94-100 %] 95 % (03/25/20 2:36 PM) Height Source Stated (03/25/20 2:36 PM) Height Entry Format [place] (03/25/20 2:36 PM) Height/Length, GREEK (ft) 6 ft (03/25/20 2:36 PM) Height/Length GREEK 0 Inch (03/25/20 2:36 PM) CLINICALHEIGHT 182.88 cm (03/25/20 2:36 PM) Weight Source Standing scale (03/25/20 2:36 PM) Weight Entry Format Pounds (03/25/20 2:36 PM) Weight [place] lb 225 lb (03/25/20 2:36 PM) Weight [place] oz 8 oz (03/25/20 2:36 PM) CLINICALWEIGHT 102.5 kg (03/25/20 2:36 PM) Body Surface Area (BSA) 2.24 m2 (03/25/20 2:36 PM) Body Mass Index [19-24 kg/m2] 30.6 kg/m2 *HI* (03/25/20 2:36 PM) [place] Body Weight 77 kg (03/25/20 2:36 PM) Social History Social History Type Response Smoking Status Never smoker entered on: 11/06/19 Sex
--- OUTSIDE RECORDS SUMMARY | 2023-10-22 15:27 | XMS_ITS | Continuity of Care Document ---
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) - 10/31/19 Diffuse large B-cell lymphoma, unspecified site(Final) - 10/11/19 SINGLE SUBSEGMENTAL PULMON EMBLSM W/O ACUTE COR PULMONALE(Final) - 10/11/19 senior care (current) use of anticoagulants(Final) - 10/11/19 Allergy status to penicillin(Final) - 10/11/19 Autologous donor, stem cells(Final) - 10/11/19 Discharge Disposition: OP Self Care or Home Attending Physician: BETH HEWITT MD-ONC Admitting Physician: BETH HEWITT MD-ONC Referring Physician: BETH HEWITT MD-ONC Allergies, Adverse Reactions, Alerts Substance Reaction Severity Status penicillin Active Assessment and Plan Diagnostic Tests Pending * Chromosome Analysis Heme [facility] 10/30/19 * FISH DNA [facility] 10/30/19 * Smear Preparation Bone Marrow 10/30/19 * Toxoplasma gondii Ab, IgG, Qn-LC 10/30/19 Future Scheduled Tests Laboratory* [facility] CMP Comprehensive Metabolic Panel 11/07/19 * [facility] CMP Comprehensive Metabolic Panel 11/08/19 * [facility] CMP Comprehensive Metabolic Panel 11/09/19 * [facility] CMP Comprehensive Metabolic Panel 11/10/19 * [facility] Magnesium Level 11/07/19 * [facility] Magnesium Level 11/08/19 * [facility] Magnesium Level 11/09/19 * [facility] Magnesium Level 11/10/19 * [facility] CBC w/ Auto Diff 11/07/19 * [facility] CBC w/ Auto Diff 11/08/19 * [facility] CBC w/ Auto Diff 11/09/19 * [facility] CBC w/ Auto Diff 11/10/19 * CD34 11/07/19 * CD34 11/08/19 * CD34 11/09/19 * CD34 11/10/19 Medications acyclovir 400 mg oral tablet 400 mg 1 Tab, Oral, TID, 0 Refill(s) Start Date: 10/17/19 Status: Ordered enoxaparin 80 mg/0.8 mL injectable solution 80 mg 0.8 mL, SubCutaneous, Solution, Q12H, # 11 mL, 0 Refill(s) Start Date: 10/17/19 Stop Date: 10/24/19 Status: Ordered fluconazole 200 mg oral tablet 400 mg 2 Tab, Oral, Tab, Daily, When ANC < 500 Start Date: 10/30/19 Status: Ordered lactulose 10 g/15 mL oral syrup 10 Gram 15 mL, Oral, Daily, PRN as needed for constipation Start Date: 10/30/19 Status: Ordered levoFLOXacin 500 mg oral tablet 500 mg 1 Tab, Oral, Tab, [id number], When ANC < 500 Start Date: 10/30/19 Status: Ordered loratadine 10 mg oral tablet mg Tab, Oral, Daily, 0 Refill(s) Start Date: 11/06/19 Status: Ordered Metoprolol Tartrate 25 mg oral tablet 25 mg 1 Tab, Oral, BID, 0 Refill(s) Start Date: 10/17/19 Status: Ordered MiraLax 1 Packet, Oral, Powder, Daily, PRN Constipation Start Date: 10/30/19 Status: Ordered prochlorperazine 5 mg oral tablet 5 mg 1 Tab, Oral, Q6H, PRN Nausea/Vomiting, 0 Refill(s) Start Date: 10/17/19 Status: Ordered promethazine 25 mg oral tablet 25 mg 1 Tab, Oral, Q6H, PRN Constipation Start Date: 10/30/19 Status: Ordered Senna 8.6 mg oral tablet 17.2 mg 2 Tab, Oral, Tab, Daily, PRN as needed for constipation Start Date: 10/30/19 Status: Ordered sulfamethoxazole-trimethoprim 800 mg-160 mg oral tablet See Instructions, 1 BID on Sat/Sun, 0 Refill(s) Start Date: 10/17/19 Status: Ordered Procedures Procedure Date Related Diagnosis Body Site Status PICC line 2017 Completed Rotator cuff repair 2016 Com pleted Colonoscopy 2015 Completed 1L shoulder Results Laboratory List Name Date CBC no Diff (Hemogram) 11/06/19 CD34 11/06/19 .Urinalysis Microscopic 10/30/19 Urinalysis w Culture if Indicated 0 Urine Drugs of Abuse 10/30/19 .Automated Differential 10/30/19 ABORh 10/30/19 Antibody Screen 10/30/19 [facility] CBC w/ Auto Diff 10/30/19 CMP Comprehensive Metabolic Panel 0 CMV Ab Total, BMT 10/30/19 CMV Antibody IgG 10/30/19 CMV Antibody IgM 10/30/19 EBV Antibody IgG 10/30/19 EBV Antibody IgM 10/30/19 Hemoglobin Electrophoresis 10/30/19 Herpes IgG Antibody 10/30/19 Herpes Simplex 1/2 IgM AB 10/30/19 Immunoglobulin Panel IgG IgA IgM 10/30/19 LDH Lactate Dehydrogenase 10/30/19 Magnesium Level 10/30/19 PT/INR Prothrombin Time 10/30/19 PTT 10/30/19 Phosphorus Level 10/30/19 Pretransfusion Workup, BMT 10/30/19 Toxoplasma Antibody IgG 10/30/19 Uric Acid 10/30/19 Viral Respiratory Panel PCR (Viral Resp. Panel (Non-Stat) includes Influenza) 10/30/19 Most recent to oldest [Reference Range]: 1 2 nRBC [1-5] 0 *LOW* (10/30/19 9:06 AM) Chlamydia pneumoniae PCR [Negative] Nega tive (10/30/19 9:06 AM) Human Rhinovirus/Enterovirus [Negative] Negative (10/30/19 9:06 AM) Influenza A H1 - 2009 [Negative] Negativ e (10/30/19 9:06 AM) Sodium Level [135-143 mmol/L] 137 mmol/L (10/30/19 9:06 AM) Potassium Level [3.7-5.0 mmol/L] 4.2 mmo l/L (10/30/19 9:06 AM) Chloride Level [100-108 mmol/L] 105 mmol /L (10/30/19 9:06 AM) Carbon Dioxide Level [22.0-30.0 mmol/L] 24.0 mmol/L (10/30/19 9:06 AM) Anion Gap [2.0-11.0] 8.0 (10/30/19 9:06 AM) WBC [4.1-10.8 x10(3)/uL] 31.4 x10(3)/uL *HI* (11/06/19 5:00 PM) 4.7 x10(3)/uL (10/30/19 9:06 AM) RBC [4.37-5.74 x10(6)/uL] 3.95 x10(6)/uL *LOW* (11/06/19 5:00 PM) 4.04 x10(6)/uL *LOW* (10/30/19 9:06 AM) Hct [40.1-51.0 %] 36.8 % *LOW* (11/06/19 5:00 PM) 38.2 % *LOW* (10/30/19 9:06 AM) Hgb [13.7-17.5 Gram/dL] 12.5 Gram/dL *LOW* (11/06/19 5:00 PM) 13.0 Gram/dL *LOW* (10/30/19 9:06 AM) Platelet Count [140-370 x10(3)/uL] 145 x 10(3)/uL (11/06/19 5:00 PM) 247 x10(3)/uL (10/30/19 9:06 AM) MCH [25.6-32.2 pg] 31.7 pg (11/06/19 5:00 PM) 32.1 pg (10/30/19 9:06 AM) MCHC [32.3-36.5 Gram/dL] 34.1 Gram/dL (11/06/19 5:00 PM) 33.9 Gram/dL (10/30/19 9:06 AM) MCV [79.0-92.2 fL] 93.1 fL *HI* (11/06/19 5:00 PM) 94.6 fL *HI* (10/30/19 9:06 AM) ABO/Rh O POS *Unknown* (10/30/19 9:06 AM) Antibody Screen Negative ABSC (10/30/19 9:06 AM) Bilirubin Total [0.4-1.3 mg/dL] 0.4 mg/d L (10/30/19 9:06 AM) A/G Ratio [1.0-1.8] 1.2 (10/30/19 9:06 AM) ALT [<=32 Units/Liter] 34 Units/Liter *HI* (10/30/19 9:06 AM) AST [12-38 Units/Liter] 22 Units/Liter (10/30/19 9:06 AM) Globulin 3 *NA* (10/30/19 9:06 AM) Alk Phos [34-106 Units/Liter] 53 Units/L iter (10/30/19 9:06 AM) Bun/Creatinine [6.0-22.0] 17.6 (10/30/19 9:06 AM) Calcium Level [8.4-10.2 mg/dL] 9.0 mg/dL (10/30/19 9:06 AM) CMV IgG [Negative] Negative (10/30/19 9:06 AM) CMV IgM [Negative] Negative (10/30/19 9:06 AM) eGFR [>=60 mL/min/1.73m2] 92 mL/ min/1.73m2 (10/30/19 9:06 AM) eGFR NonAfrican [>=60 mL/min/1.73m2] 76 mL/min/1.73m2 (10/30/19 9:06 AM) Glucose Level [70-110 mg/dL] 96 mg/dL (10/30/19 9:06 AM) UDS Amp [Negative] Negative (10/30/19 11:07 AM) UDS Marcelina [Negative] Negative (10/30/19 11:07 AM) UDS Benzo [Negative] Negative (10/30/19 11:07 AM) UDS Buddy [Negative] Negative (10/30/19 11:07 AM) UDS Meth [Negative] Negative (10/30/19 11:07 AM) UDS Opi [Negative] Negative (10/30/19 11:07 AM) UDS Oxy [Negative] Negative (10/30/19 11:07 AM) UDS THC [Negative] Negative (10/30/19 11:07 AM) Magnesium Level [1.7-2.3 mg/dL] 2.0 mg/d L (10/30/19 9:06 AM) Ur RBC [None /HPF] 0-4 /HPF (10/30/19 11:07 AM) Blood Urea Nitrogen [6-20 mg/dL] 18 mg/d L (10/30/19 9:06 AM) Immunoglobulin A [80-450 mg/dL] 164 mg/d L (10/30/19 9:06 AM) INR 1.0 *NA* (10/30/19 9:06 AM) Immunoglobulin M [46-304 mg/dL] <25 mg/d L *LOW* (10/30/19 9:06 AM) Sickle Cell [Negative] Negative (10/30/19 9:06 AM) Lactate Dehydrogenase [100-242 Units/Lit er] 190 Units/Liter (10/30/19 9:06 AM) Slide Review None *NA* (10/30/19 9:06 AM) Eos % [0.7-6.0 %] 2.3 % (10/30/19 9:06 AM) Urine Nitrite [Negative mg/dL] Negative mg/dL (10/30/19 11:07 AM) Buprenorphine Screen, Urine [Negative] N egative (10/30/19 11:07 AM) Urine Leukocyte Esterase [Negative] Nega tive (10/30/19 11:07 AM) [place] # [0.2-1.4 x10(3)/uL] 0.5 x10(3)/uL (10/30/19 9:06 AM) Eos # [0.0-0.6 x10(3)/uL] 0.1 x10(3)/uL (10/30/19 9:06 AM) Urine Appearance [Clear] Clear (10/30/19 11:07 AM) Influenza A [Negative] Negative (10/30/19 9:06 AM) Urine Glucose Dipstick [Negative mg/dL] Negative mg/dL (10/30/19 11:07 AM) Mycoplasma pneumoniae by PCR [Negative] Negative (10/30/19 9:06 AM) [place] % [5.0-12.5 %] 11.7 % (10/30/19 9:06 AM) Phosphorus [2.7-4.7 mg/dL] 3.8 mg/dL (10/30/19 9:06 AM) Urine Blood Dipstick [Negative mg/dL] Ne gative mg/dL (10/30/19 11:07 AM) Baso % [0.0-3.0 %] 0.7 % (10/30/19 9:06 AM) PTT [23.3-33.2 Second(s)] 26.8 Second(s) (10/30/19 9:06 AM) Uric Acid [3.8-8.4 mg/dL] 5.0 mg/dL (10/30/19 9:06 AM) Urine Urobilinogen Dipstick [0.2-2.0 mg/ dL] <2.0 mg/dL (10/30/19 11:07 AM) Baso # [0.0-0.3 x10(3)/uL] 0.0 x10(3)/uL (10/30/19 9:06 AM) Urine Protein Dipstick [Negative mg/dL] Negative mg/dL (10/30/19 11:07 AM) RDW [11.7-15.2 %] 14.3 % (11/06/19 5:00 PM) 13.9 % (10/30/19 9:06 AM) Influenza B [Negative] Negative (10/30/19 9:06 AM) Urine Color [Yellow] Yellow (10/30/19 11:07 AM) Ur WBC [None /HPF] 0-4 /HPF (10/30/19 11:07 AM) Urine Ketones Dipstick [Negative mg/dL] Negative mg/dL (10/30/19 11:07 AM) Neut % [34.0-69.5 %] 66.9 % (10/30/19 9:06 AM) PT [9.7-11.5 Second(s)] 10.3 Second(s) (10/30/19 9:06 AM) Protein Total [6.3-8.2 Gram/dL] 6.2 Gram /dL *LOW* (10/30/19 9:06 AM) Neut # [1.7-6.0 x10(3)/uL] 3.1 x10(3)/uL (10/30/19 9:06 AM) Ur Sperm Present *ABN* (10/30/19 11:07 AM) Albumin Level [3.6-4.7 Gram/dL] 3.6 Gram /dL (10/30/19 9:06 AM) Urine pH Dipstick [5.0-9.0] 6.5 (10/30/19 11:07 AM) Lymph % [20.0-53.0 %] 18.4 % *LOW* (10/30/19 9:06 AM) Urine Bilirubin Dipstick [Negative mg/dL ] Negative mg/dL (10/30/19 11:07 AM) Immunoglobulin G [750-1560 mg/dL] 553 mg /dL *LOW* (10/30/19 9:06 AM) Urine Specific [place] [1.001-1.030] 1.0 16 (10/30/19 11:07 AM) Lymph # [0.8-3.2 x10(3)/uL] 0.9 x10(3)/u L (10/30/19 9:06 AM) MPV [8.7-12.0 fL] 6.9 fL *LOW* (11/06/19 5:00 PM) 7.5 fL *LOW* (10/30/19 9:06 AM) Influenza A H3 [Negative] Negative (10/30/19 9:06 AM) Parainfluenza 3 [Negative] Negative (10/30/19 9:06 AM) Influenza A H1 [Negative] Negative (10/30/19 9:06 AM) Human Metapneumovirus [Negative] Negativ e (10/30/19 9:06 AM) Parainfluenza 1 [Negative] Negative (10/30/19 9:06 AM) Parainfluenza 2 [Negative] Negative (10/30/19 9:06 AM) Adenovirus [Negative] Negative (10/30/19 9:06 AM) Creatinine Level [0.64-1.27 mg/dL] 1.02 mg/dL (10/30/19 9:06 AM) Urine Type. U CleanCatch *NA* (10/30/19 11:07 AM) EBV IgG [Negative] Positive *ABN* (10/30/19 9:06 AM) EBV IgM [Negative] Negative (10/30/19 9:06 AM) RSV-A [Negative] Negative (10/30/19 9:06 AM) RSV-B [Negative] Negative (10/30/19 9:06 AM) HSV IgG [Negative] Negative (10/30/19 9:06 AM) HSV IgM 1/2 [Negative] Negative (10/30/19 9:06 AM) Toxoplasma IgG [Negative] Positive *ABN* (10/30/19 9:06 AM) Hgb Elect Interp See Image (10/30/19 9:06 AM) CMV Ab Total See Report (10/30/19 9:06 AM) Pretransfusion Workup BMT See Report (10/30/19 9:06 AM) Parainfluenza 4 [Negative] Negative (10/30/19 9:06 AM) Coronavirus [Negative] Negative (10/30/19 9:06 AM) CD34 Date Tested 11/06/19 1628 *NA* (11/06/19 12:39 PM) CD34 Comments PBSC - [id number] *NA* (11/06/19 12:39 PM) CD45+ Viability % 99.80 % *NA* (11/06/19 12:39 PM) CD34+ Viability % 98.68 % *NA* (11/06/19 12:39 PM) Viable CD34+ % of Viable CD45+ 0.70 % *NA* (11/06/19 12:39 PM) CD 34 Received Date/Time 10/30/19 1535 *NA* (11/06/19 12:39 PM) Orders for Microbiology Reports Name Date Culture BMTL Trans Prod Check 11/07/19 Microbiology Reports TEST:Culture BMTL Trans Prod Check STATUS:Order in Progress BODY SITE: SOURCE:Bone Marrow Transplant Product COLLECTED DATE/TIME:11/07/19 7:28 AM PRELIMINARY REPORT No growth at 2 days. Vital Signs Most recent to oldest [Reference Range]: 1 2 3 Temperature Source Oral (11/06/19 5:00 PM) Oral (11/06/19 12:08 PM) Oral (11/06/19 7:58 AM) Temperature Mode Celsius (11/06/19 5:00 PM) Celsius (11/06/19 12:08 PM) Celsius (11/06/19 7:58 AM) Temperature, Celsius [35.2-38.1 Deg C] 36.9 Deg C (11/06/19 5:00 PM) 36.5 Deg C (11/06/19 12:08 PM) 36.5 Deg C (11/06/19 7:58 AM) Clinical Temperature, F 98.4 Deg F (11/06/19 5:00 PM) 97.7 Deg F (11/06/19 12:08 PM) 97.7 Deg F (11/06/19 7:58 AM) Pulse Method Pulse Oximetry (11/06/19 5:00 PM) Pulse Oximetry (11/06/19 12:08 PM) Pulse Oximetry (11/06/19 7:58 AM) Pulse Rhythm Regular (11/04/19 9:05 AM) Regular (11/02/19 8:00 AM) Heart Rate, Apical [60-100 bpm] 68 bpm (10/30/19 8:35 AM) 73 bpm (10/12/19 11:34 AM) Peripheral Pulse Rate [60-100 bpm] 96 bpm (11/06/19 5:00 PM) 85 bpm (11/06/19 12:08 PM) 101 bpm *HI* (11/06/19 7:58 AM) Respiratory Rate [14-20 Breaths/Min] 16 Breaths/Min (11/06/19 5:00 PM) 16 Breaths/Min (11/06/19 12:08 PM) 16 Breaths/Min (11/06/19 7:58 AM) Blood Pressure Location Arm, left upper (11/06/19 5:00 PM) Arm, left upper (11/06/19 12:08 PM) Arm, left upper (11/06/19 7:58 AM) Blood Pressure Source Non-Invasive BP Device (11/06/19 5:00 PM) Non-Invasive BP Device (11/06/19 12:08 PM) Non-Invasive BP Device (11/06/19 7:58 AM) Blood Pressure Position Sitting (11/06/19 5:00 PM) Sitting (11/06/19 12:08 PM) Sitting (11/06/19 7:58 AM) Blood Pressure [90-140/60-90 mmHg] 146/73mmHg *HI* (11/06/19 5:00 PM) 145/86mmHg *HI* (11/06/19 12:08 PM) 144/81mmHg *HI* (11/06/19 7:58 AM) Oxygen Saturation [94-100 %] 99 % (11/06/19 5:00 PM) 99 % (11/06/19 12:08 PM) 95 % (11/06/19 7:58 AM) Oxygen Therapy Mode Room air (11/06/19 5:00 PM) Room air (11/06/19 12:08 PM) Room air (11/06/19 7:58 AM) Height Source Measured (11/06/19 7:41 AM) Measured (11/03/19 7:55 AM) Measured (11/02/19 8:00 AM) Height Entry Format Metric (11/06/19 7:41 AM) Metric (11/03/19 7:55 AM) Metric (11/02/19 8:00 AM) Height/Length METRIC 182 cm (11/06/19 7:41 AM) 182 cm (11/03/19 7:55 AM) 182 cm (11/02/19 8:00 AM) CLINICALHEIGHT 182 cm (11/06/19 7:41 AM) 182 cm (11/03/19 7:55 AM) 182 cm (11/02/19 8:00 AM) Weight Source Standing scale (11/02/19 8:00 AM) Standing scale (10/30/19 8:35 AM) Standing scale (10/12/19 11:34 AM) Weight Entry Format Metric, kilograms (11/02/19 8:00 AM) Metric, kilograms (10/30/19 8:35 AM) Metric, kilograms (10/12/19 11:34 AM) Weight METRIC kg 94.7 kg (11/02/19 8:00 AM) 94.65 kg (10/30/19 8:35 AM) 96.5 kg (10/12/19 11:34 AM) CLINICALWEIGHT 94.7 kg (11/02/19 8:00 AM) 94.65 kg (10/30/19 8:35 AM) 96.5 kg (10/12/19 11:34 AM) Body Surface Area (BSA) 2.16 m2 (11/02/19 8:00 AM) 2.16 m2 (10/30/19 8:35 AM) 2.18 m2 (10/12/19 11:34 AM) Body Mass Index [19-24 kg/m2] 28.6 kg/m2 *HI* (11/02/19 8:00 AM) 28.6 kg/m2 *HI* (10/30/19 8:35 AM) 29.1 kg/m2 *HI* (10/12/19 11:34 AM) Routine Weight Source Standing scale (11/06/19 7:41 AM) Standing scale (11/03/19 7:55 AM) Routine Weight, Kilograms 95 kg (11/06/19 7:41 AM) 95.3 kg (11/03/19 7:55 AM) Routine Weight Calculation 95 kg (11/06/19 7:41 AM) 95.3 kg (11/03/19 7:55 AM) Body Surface Area (BSA), Routine 2.16 m2 (11/06/19 7:41 AM) 2.17 m2 (11/03/19 7:55 AM) [place] Body Weight 76 kg (11/02/19 8:00 AM) 76 kg (10/30/19 8:35 AM) 76 kg (10/12/19 11:34 AM) Social History Social History Type Response Smoking Status Never smoker entered on: 11/06/19 Sex
--- OUTSIDE RECORDS SUMMARY | 2023-10-22 15:28 | XMS_ITS | Continuity of Care Document ---
Author Name Unknown Organization [facility] Address [address] [place] [id number] Care Team Providers Care Playground Monitor Name Role Phone PHY, NOT LISTED Primary Care Physician Unavailab le Encounter [facility] [id number] Date(s): 10/12/19 - 10/30/[address] [address] [place] [employer] Discharge Disposition: OP Self Care or Home Attending Physician: BETH HEWITT MD-ONC Admitting Physician: BETH HEWITT MD-ONC Referring Physician: BETH HEWITT MD-ONC Allergies, Adverse Reactions, Alerts Substance Reaction Severity Status penicillin Active Assessment and Plan Future Appointments Appointment Date:11/06/2019 08:00:00 AM Scheduled Provider: Location:[facility] Vascular Radiology Appointment Type:XA Perm Cath Placement [facility] Future Scheduled Tests Radiology* XA Perm Cath Placement 11/06/19 Medications acyclovir 400 mg oral tablet 400 [...] tablet 500 mg 1 Tab, Oral, Tab, [id number], When ANC < 500 Start Date: 10/30/19 Status: Ordered Metoprolol Tartrate 25 mg oral [...] 0 Refill(s) Start Date: 10/17/19 Status: Ordered Results Radiology Reports * Exam Date Time Procedure Performing Provider Status 10/30/19 1:51 PM CR Chest 2 Vws Francisco Cortés Radiologi c Technologist; Auth (Verified) Notes: (CR Chest 2 [facility]) Reason For Exam: lymphoma,pre-treatment REPORT ACCESSION NUMBER: [id number] DATE: 10/30/2019 1:47 PM EXAMINATION: CR Chest 2 [facility] PROVIDED INDICATION: lymphoma,pre-treatment COMPARISON: None TECHNIQUE: PA and lateral chest FINDINGS: PA and lateral chest were taken with low lung volume. Right PICC line is in the superior vena cava above the cavoatrial junction. The lungs are clear. The cardiac, hilar, and mediastinal contours are normal with no evidence of hilar or mediastinal adenopathy. IMPRESSION: 1. The PICC line is in the superior vena cava above the cavoatrial junction. 2. No evidence of hilar or mediastinal adenopathy. 3. No active cardiopulmonary disease. Signed by Robert Blair M.D. on 10/30/2019 1:57 PM Final Dictated by: ROBERT BLAIR -RAD Dictated DT/TM: 10/30/2019 1:57 pm Interpreted and electronically signed by: ROBERT BLAIR -RAD Signed DT/TM: 10/30/2019 1:57 pm
--- OUTSIDE RECORDS SUMMARY | 2023-10-22 15:28 | XMS_ITS | Continuity of Care Document ---
Author Name Unknown Organization [facility] Address [address] [place] [address]- Care Team Providers Care Open Tenter Operator Name Role Phone PHY, NO Primary Care Physician PHY, NO Primary Care Physician KENIA BRISENO Primary Care Physician CATALINO FLORES (REF) Primary Care Physician ( [phone] CATALINO FLORES (REF) Primary Care Physician Encounter [facility] [id number] Date(s): 04/16/21 - 04/24/21 [facility] [address] [place] [address]- Discharge Disposition: OP Self Care or Home Attending Physician: BETH HEWITT MD-ONC Admitting Physician: BETH HEWITT MD-ONC Referring Physician: BETH HEWITT MD-ONC Allergies, Adverse Reactions, Alerts Substance Reaction Severity Status penicillin Active Assessment and Plan Future Appointments Appointment Date:11/19/2021 10:30:00 AM Scheduled Provider: Location:[facility] Appointment Type:ONC LUDY Lab Visit [facility] Appointment Date:11/19/2021 11:00:00 AM Scheduled Provider: Location:[facility] Appointment Type:ONC Provider Visit [facility] Future Scheduled Tests Laboratory* [facility] CMP Comprehensive Metabolic Panel 04/28/21 * [facility] CMP Comprehensive Metabolic Panel 11/19/21 * [facility] CBC w/ Auto Diff 04/28/21 * [facility] CBC w/ Auto Diff 11/19/21 * [facility] LDH Lactate Dehydrogenase 04/28/21 * Urinalysis w Microscopic 01/13/21 Immunizations Given and Recorded Vaccine Date Status Refusal Reason tetanus/diphtheria/pertussis, acel(Tdap) 11/12/20 Given poliovirus vaccine, inactivated 11/12/20 Given pneumococcal 13-valent vaccine 11/12/20 Given hepatitis B adult vaccine 11/12/20 Given haemophilus b conjugate (PRP-T) vaccine 11/12/20 G iven Medications acyclovir 800 mg oral tablet 1 Tab, Oral, BID, # 60 Tab, 0 Refill(s), Pharmacy: [facility] #[id number], , 11/12/20 9:57:00 EST, CLINICALHEIGHT, 111.02, kg, 11/12/20 9:57:00 EST, CLINICALWEIGHT, 182.88 Start Date: 01/27/21 Status: Ordered lisinopril 10 mg oral tablet mg Tab, Oral, Daily, 0 Refill(s) Start Date: 05/07/20 Status: Ordered Metoprolol Tartrate 25 mg oral tablet 25 mg 1 Tab, Oral, Tab, BID, # 60 Tab, 5 Refill(s), Pharmacy: [facility] #[id number], , 03/25/20 14:36:00 EDT, CLINICALHEIGHT, 102.5, kg, [...]
--- OUTSIDE RECORDS SUMMARY | 2023-10-22 15:28 | XMS_ITS | Continuity of Care Document ---
Author Name Unknown Organization [facility] In[facility] Address [address] [place] [address]- Care Team Providers Care Loan Operations Specialist Name Role Phone KATE WHITNEY DR Primary Care Physician [phone] KENIA BRISENO Primary Care Physician CATALINO FLORES (REF) Primary Care Physician CATALINO FLORES (REF) Primary Care Physician Encounter [facility] M[facility]HA [id number] Date(s): 02/23/20 - 03/10/20 [facility] [address] [place] [address]- [place] Encounter Diagnosis Diffuse large B-cell lymphoma, extranodal and solid organ sites(Final) - 02/23/20 Stem cells transplant status(Final) - 02/23/20 Personal history of antineoplastic chemotherapy(Final) - 02/23/20 Neutropenia, unspecified(Final) - 02/23/20 Unspecified atrial fibrillation(Final) - 02/23/20 Personal history of pulmonary embolism(Final) - 02/23/20 Other cue selector (current) drug therapy(Final) - 02/23/20 Discharge Disposition: OP Self Care or Home Attending Physician: BETH HEWITT MD-ONC Admitting Physician: BETH HEWITT MD-ONC Referring Physician: BETH HEWITT MD-ONC Allergies, Adverse Reactions, Alerts Substance Reaction Severity Status penicillin Active Assessment and Plan Extracted from: Title:DIRECTOR OF CONTRACTS Lymphoma; Auto T+99 days Author:LIDNY COSTA NP- Date:02/28/20 Mr. 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 ?? Primary DIRECTOR OF CONTRACTS lymphoma. Status post??6 cycles of MVP-R in CR (done at ). MRI 10/27/2019 consistent with a CR. Underwent BEAM+Auto HSCT with T-0 on 11/21/19, receiving 4.7 x 10^6 CD34+ stem cells/kg. Bone marrow biopsy??on 12/21/19 with??normocellular marrow with trilineage hematopoiesis. MRI on 12/28/2019??negative.??Today is T+99. Plan to repeat an MRI brain in 1 month (3 months since last scan). Continue to follow up with Dr. Dempsey. ?? Cytopenias. Neutropenia noted today with ANC of 300. Counts on 02/07 normal. Counts last week with Dr. Dempsey showed ANC of 800. Will start on prophylaxis Levaquin and fluconazole. Will hold Bactrim this weekend and have repeat labs locally in 1 week. G6PD checked today and pending. If neutropenia improves off Bactrim, will start Dapsone. ?? Immunosuppression.??Patient is immunosuppressed due to chemotherapy and post transplant status. a. Antiviral. Continue Acyclovir 800 mg BID for viral prophylaxis. b. PCP Prophylaxis. Currently on Bactrim DS on Sa/Kowalski. Due to neutropenia, will hold this weekend. G6PD ordered and pending. ?? Cardiac a. A. fib.?? Patient currently on metoprolol, started by . Admission EKG NSR, left ventricular hypertrophy and with Qtc of 445. EKG on 11/21/19??QTC 434. ?? Sub-segmental Pulmonary Embolism. Completed course of anticoagulation x 3months.? Follow-Up:??Patient will return to clinic in 1 month for MD visit, labs, and MRI brain. Continue weekly labs locally. Addendum by BETH HEWITT MD-ONC on February 28, 2020 14:56:01 EDT BMT Attending: Pt was independently seen, examined and discussed in details with ORTHOPHOTO TECH/DRAFTSMAN/PA/Fellow. I reviewed the note and agree with the assessment and plan. 54yo WM with PCNSL in CR after 6cycles of MVP-R admitted for BEAM Auto-HSCT T-0 11/21/19. Patient has no complaints today and afebrile and skin rash completely resolved. 13-points review of systems performed and negative except as above. Lungs clear to auscultation, heart RRR, abdomen soft non-tender, no LE edema. Labs reviewed.?? A-fib rate/rhythm controlled on metoprolol. Correct hypokalemia. Counselled on nutritional optimization, physical activity and oral care. Transfuse blood products and correct electrolytes per BMT protocols. With developing leukopenia/neutropenia, weekly labs and d/c Bactrim. Followup in clinic in 1month. If counts continue to worsen will use Granix.?? Future Appointments Appointment Date:03/25/2020 02:00:00 PM Scheduled Provider: Location:[facility] In[facility] Appointment Type:ONC LUDY Lab Visit [facility] Appointment Date:03/25/2020 02:30:00 PM Scheduled Provider:BETH HEWITT MD-ONC Location:[facility] Appointment Type:ONC Provider Visit [facility] Appointment Date:03/25/2020 04:00:00 PM Scheduled Provider: Location:[facility] MRI Appointment Type:MRI Brain [facility] Future Scheduled Tests Laboratory* [facility] CMP Comprehensive Metabolic Panel 01/04/20 * [facility] CMP Comprehensive Metabolic Panel 01/11/20 * [facility] CMP Comprehensive Metabolic Panel 03/25/20 * [facility] CMP Comprehensive Metabolic Panel 12/21/19 * [facility] CMP Comprehensive Metabolic Panel 11/07/19 * [facility] CMP Comprehensive Metabolic Panel 11/08/19 * [facility] CMP Comprehensive Metabolic Panel 11/09/19 * [facility] CMP Comprehensive Metabolic Panel 11/10/19 * [facility] Magnesium Level 11/07/19 * [facility] Magnesium Level 11/08/19 * [facility] Magnesium Level 11/09/19 * [facility] Magnesium Level 11/10/19 * [facility] CBC w/ Auto Diff 03/25/20 * [facility] CBC w/ Auto Diff 12/21/19 * [facility] CBC w/ Auto Diff 11/07/19 * [facility] CBC w/ Auto Diff 11/08/19 * [facility] CBC w/ Auto Diff 11/09/19 * [facility] CBC w/ Auto Diff 11/10/19 * [facility] LDH Lactate Dehydrogenase 12/21/19 * CD34 11/07/19 * CD34 11/08/19 * CD34 11/09/19 * CD34 11/10/19 Radiology* MRI Brain WO W 03/25/20 Medications acyclovir 800 mg oral tablet 800 mg 1 Tab, Oral, BID Start Date: 02/28/20 Status: Ordered dapsone 100 mg oral tablet 100 mg 1 Tab, Oral, Daily, # 30 Tab, 3 Refill(s), Pharmacy: [facility] #[id number], , 02/28/20 10:08:00 EDT, CLINICALHEIGHT, 99.8, kg, 02/28/20 10:08:00 EDT, CLINICALWEIGHT, 182.88 Start Date: 03/07/20 Status: Ordered fluconazole 200 mg oral tablet 400 mg 2 Tab, Oral, Daily, take only when neutropenic per MD, # 60 Tab, 1 Refill(s), Pharmacy: [facility] #[id number], , 02/28/20 10:08:00 EDT, CLINICALHEIGHT, 99.8, kg, 02/28/20 10:08:00 EDT,CLINICALWEIGHT, 182.88 Start Date: 02/28/20 Status: Ordered Levaquin 500 mg oral tablet 500 mg 1 Tab, Oral, Tab, Daily, take only when neutropenic per MD, # 14 Tab, 1 Refill(s), Pharmacy:[facility] #[id number], , 02/28/20 10:08:00 EDT, CLINICALHEIGHT, 99.8, kg, 02/28/20 10:08:00EDT, CLINICALWEIGHT, 182.88 Start Date: 02/28/20 Status: Ordered Metoprolol Tartrate 25 mg oral tablet 25 mg 1 Tab, Oral, Tab, BID, # 60 Tab, 5 Refill(s), Pharmacy: [facility] #[id number], , 12/21/19 10:38:00 EDT, CLINICALHEIGHT, 91.64, kg, [...] Name Date [facility] CBC w/ Auto Diff 02/28/20 [facility] CMP Comprehensive Metabolic Panel Miscellaneous Test LC 02/28/20 .Differential Manual 02/28/20 Most recent to oldest [Reference Range]: 1 Test Code 294579 *NA* (02/28/20 10:06 AM) LC Test Name G6PD *NA* (02/28/20 10:06 AM) LC Test Result COMMENT 1 *NA* (02/28/20 10:06 AM) Sodium Level [135-143 mmol/L] 139 mmol/L (02/28/20 10:06 AM) Potassium Level [3.7-5.0 mmol/L] 4.0 mmo l/L (02/28/20 10:06 AM) Chloride Level [100-108 mmol/L] 109 mmol /L *HI* (02/28/20 10:06 AM) Carbon Dioxide Level [22.0-30.0 mmol/L] 23.0 mmol/L (02/28/20 10:06 AM) Anion Gap [2.0-11.0] 7.0 (02/28/20 10:06 AM) WBC [4.1-10.8 x10(3)/uL] 1.3 x10(3)/uL 2 *CRIT* (02/28/20 10:06 AM) RBC [4.37-5.74 x10(6)/uL] 4.00 x10(6)/uL *LOW* (02/28/20 10:06 AM) Hct [40.1-51.0 %] 38.2 % *LOW* (02/28/20 10:06 AM) Hgb [13.7-17.5 Gram/dL] 13.0 Gram/dL *LOW* (02/28/20 10:06 AM) Platelet Count [140-370 x10(3)/uL] 170 x 10(3)/uL (02/28/20 10:06 AM) MCH [25.6-32.2 pg] 32.6 pg *HI* (02/28/20 10:06 AM) MCHC [32.3-36.5 Gram/dL] 34.1 Gram/dL (02/28/20 10:06 AM) MCV [79.0-92.2 fL] 95.4 fL *HI* (02/28/20 10:06 AM) Bilirubin Total [0.4-1.3 mg/dL] 0.6 mg/d L (02/28/20 10:06 AM) A/G Ratio [1.0-1.8] 1.4 (02/28/20 10:06 AM) ALT [<=32 Units/Liter] 20 Units/Liter (02/28/20 10:06 AM) AST [12-38 Units/Liter] 19 Units/Liter (02/28/20 10:06 AM) Globulin 3 *NA* (02/28/20 10:06 AM) Alk Phos [34-106 Units/Liter] 77 Units/L iter (02/28/20 10:06 AM) Bun/Creatinine [6.0-22.0] 23.1 *HI* (02/28/20 10:06 AM) Calcium Level [8.4-10.2 mg/dL] 8.5 mg/dL (02/28/20 10:06 AM) eGFR [>=60 mL/min/1.73m2] 86 mL/ min/1.73m2 (02/28/20 10:06 AM) eGFR NonAfrican [>=60 mL/min/1.73m2] 71 mL/min/1.73m2 (02/28/20 10:06 AM) Glucose Level [70-110 mg/dL] 99 mg/dL (02/28/20 10:06 AM) Blood Urea Nitrogen [6-20 mg/dL] 25 mg/d L *HI* (02/28/20 10:06 AM) Slide Review MANDIFF *NA* (02/28/20 10:06 AM) ALYC # [0.8-3.2 thou/cmm] 0.5 thou/cmm *LOW* (02/28/20 10:06 AM) RBC Morphology [Normal] Normal (02/28/20 10:06 AM) RDW [11.7-15.2 %] 16.4 % *HI* (02/28/20 10:06 AM) ANC # [1.7-6.0 x10(3)/uL] 0.3 x10(3)/uL *LOW* (02/28/20 10:06 AM) [place] Percent Man [5.0-12.5 %] 32.0 % *HI* (02/28/20 10:06 AM) Baso Percent Man [0.0-2.0 %] 2.0 % (02/28/20 10:06 AM) Protein Total [6.3-8.2 Gram/dL] 6.8 Gram /dL (02/28/20 10:06 AM) Neutrophil Percent Man [34.0-69.5 %] 22. 0 % *LOW* (02/28/20 10:06 AM) Eos Percent Man [0.7-6.0 %] 2.0 % (02/28/20 10:06 AM) Albumin Level [3.6-4.7 Gram/dL] 4.1 Gram /dL (02/28/20 10:06 AM) Platelet Ct Estimate Adequate *NA* (02/28/20 10:06 AM) MPV [8.7-12.0 fL] 7.6 fL *LOW* (02/28/20 10:06 AM) Lymph Percent Man [20.0-53.0 %] 42.0 % (02/28/20 10:06 AM) Creatinine Level [0.64-1.27 mg/dL] 1.08 mg/dL (02/28/20 10:06 AM) 1Result Comment: Test Ordered: [id number] G6PD,Qn,Bld and Red Cell Count RBC 4.01 [L ] x10E6/uL Reference Range: 4.14-5.80 G-6-PD, Quant 318 Units of Measure: U/10E12 RBC Reference Range: 146-376 When decreased, G-6-PD, Quant. values are associated with acute hemolytic anemia when deficient individuals are exposed to oxidative stress, such as with certain medications (e.g., primaquine), infection, or ingestion of liliana beans. Caution: In patients with acute hemolysis (e.g., abnormally low RBC values), testing for G-6-PD may be falsely normal because older erythrocytes with a higher enzyme deficiency have been hemolyzed. Young erythrocytes and reticulocytes have normal or near-normal enzyme activity. Normal values of G-6-PD may be measured for several weeks following a hemolytic event. Performed At: [facility] [id number] Duarte Hurtado PhD Ph:[phone] Performed At: [facility] [id number] Ed Shell MD Ph:[phone] 2Result Comment: Critical Result WBC:1.3 Called to and read back by MARAH ALEXANDRE at: 02/28/2020 10:21:10 by:QUINCY Vital Signs Most recent to oldest [Reference Range]: 1 Temperature Mode Fahrenheit (02/28/20 10:02 AM) Temperature, Fahrenheit [96.8-99.7 Deg F ] 98.4 Deg F (02/28/20 10:02 AM) Pulse Method Pulse Oximetry (02/28/20 10:02 AM) Heart Rate Monitored [60-100 bpm] 84 bpm (02/28/20 10:02 AM) Respiratory Rate [14-20 Breaths/Min] 20 Breaths/Min (02/28/20 10:02 AM) Blood Pressure Location Arm, left upper (02/28/20 10:02 AM) Blood Pressure Source Non-Invasive BP De vice (02/28/20 10:02 AM) Blood Pressure Position Sitting (02/28/20 10:02 AM) Blood Pressure [90-140/60-90 mmHg] 137/9 7mmHg (02/28/20 10:02 AM) Mean Arterial Pressure (MAP)-BMDI 107 (02/28/20 10:02 AM) Oxygen Saturation [94-100 %] 96 % (02/28/20 10:02 AM) Oxygen Therapy Mode Room air (02/28/20 10:02 AM) Height Entry Format [place] (02/28/20 10:08 AM) Height/Length, PRYDEINIG (ft) 6 ft (02/28/20 10:08 AM) Height/Length PRYDEINIG 0 Inch (02/28/20 10:08 AM) CLINICALHEIGHT 182.88 cm (02/28/20 10:08 AM) Weight Source Standing scale (02/28/20 10:08 AM) Weight Entry Format Metric, kilograms (02/28/20 10:08 AM) Weight METRIC kg 99.8 kg (02/28/20 10:08 AM) CLINICALWEIGHT 99.8 kg (02/28/20 10:08 AM) Body Surface Area (BSA) 2.22 m2 (02/28/20 10:08 AM) Body Mass Index [19-24 kg/m2] 29.8 kg/m2 *PR* (02/28/20 10:08 AM) Routine Weight, Kilograms 99.8 kg (02/28/20 10:03 AM) [place] Body Weight 77 kg (02/28/20 10:08 AM) Social History Social History Type Response Smoking Status Never smoker entered on: 11/06/19 Sex
--- OUTSIDE RECORDS SUMMARY | 2023-10-22 15:28 | XMS_ITS | Continuity of Care Document ---
Author Name Unknown Organization [facility] Address [address] [place] [id number] Care Team Providers Care Student Driving Instructor Name Role Phone PHY, NOT LISTED Primary Care Physician Unavailab le Encounter [facility] [id number] Date(s): 10/18/19 - 10/27/[address] [id number] M-DISC Discharge Disposition: OP Self Care or Home Attending Physician: BETH HEWITT MD-ONC Admitting Physician: BETH HEWITT MD-ONC Referring Physician: BETH HEWITT MD-ONC Allergies, Adverse Reactions, Alerts Substance Reaction Severity Status penicillin Active Assessment and Plan Future Appointments Appointment Date:10/30/2019 08:30:00 AM Scheduled Provider:BETH HEWITT MD-ONC Location:[facility] Clinic Appointment Type:ONC Bone Marrow Biopsy [facility] Appointment Date:10/30/2019 09:00:00 AM Scheduled Provider:BETH HEWITT MD-ONC Location:[facility] Clinic Appointment Type:ONC Provider Visit [facility] Appointment Date:10/30/2019 09:30:00 AM Scheduled Provider: Location:[facility] Clinic Appointment Type:ONC Education/Consent [facility] Appointment Date:10/30/2019 10:30:00 AM Scheduled Provider: Location:[facility] Infusion Appointment Type:ONC LUDY Lab Visit [facility] Appointment Date:10/30/2019 12:15:00 PM Scheduled Provider: Location:[facility] Diagnostic Appointment Type:CP EKG [facility] Appointment Date:10/30/2019 12:30:00 PM Scheduled Provider: Location:[facility] Diagnostic Appointment Type:CP Echocardiogram [facility] Appointment Date:10/30/2019 01:30:00 PM Scheduled Provider: Location:[facility] Diagnostic Appointment Type:CP Pulmonary Function Test Complete [facility] Appointment Date:11/06/2019 08:00:00 AM Scheduled Provider: Location:[facility] Vascular Radiology Appointment Type:XA Perm Cath Placement [facility] Future Scheduled Tests Laboratory* [facility] CBC w/ Auto Diff 10/30/19 * Viral Respiratory Panel PCR 10/30/19 * CMV Antibody IgG 10/30/19 * CMV Antibody IgM 10/30/19 * EBV Antibody IgG 10/30/19 * EBV Antibody IgM 10/30/19 * Antibody Screen 10/30/19 * Toxoplasma gondii Ab, IgG, Qn-LC 10/30/19 * Herpes IgG Antibody 10/30/19 * Toxoplasma Antibody IgG 10/30/19 * Herpes Simplex 1/2 IgM AB 10/30/19 * Immunoglobulin Panel IgG IgA IgM 10/30/19 * Urinalysis w Culture if Indicated 10/30/19 * Urine Drugs of Abuse 10/30/19 * CMP Comprehensive Metabolic Panel 10/30/19 * LDH Lactate Dehydrogenase 10/30/19 * Magnesium Level 10/30/19 * PT/INR Prothrombin Time 10/30/19 * PTT 10/30/19 * Phosphorus Level 10/30/19 * Uric Acid 10/30/19 * ABORh 10/30/19 * CMV Ab Total, BMT 10/30/19 * Hemoglobin Electrophoresis 10/30/19 Radiology* XA Perm Cath Placement 11/06/19 * EC 2D Echo Complete 10/30/19 Medications acyclovir 400 mg oral tablet 400 mg 1 Tab, Oral, TID, 0 Refill(s) Start Date: 10/17/19 Status: Ordered enoxaparin 80 mg/0.8 mL injectable solution 80 mg 0.8 mL, SubCutaneous, Solution, Q12H, # 11 mL, 0 Refill(s) Start Date: 10/17/19 Stop Date: 10/24/19 Status: Ordered Metoprolol Tartrate 25 mg oral tablet 25 mg 1 Tab, Oral, BID, 0 Refill(s) Start Date: 10/17/19 Status: Ordered prochlorperazine 5 mg oral tablet 5 mg 1 Tab, Oral, TID, PRN Nausea/Vomiting, 0 Refill(s) Start Date: 10/17/19 Status: Ordered sulfamethoxazole-trimethoprim 800 mg-160 mg oral tablet See Instructions, 1 BID on Sat/Sun, 0 Refill(s) Start Date: 10/17/19 Status: Ordered
--- OUTSIDE RECORDS SUMMARY | 2023-10-22 15:28 | XMS_ITS | Continuity of Care Document ---
Author Name Unknown Organization [facility] Address [address] [place] [address]- Care Team Providers Care Cashier Assistant Name Role Phone CATALINO FLORES (REF) Primary Care Physician KATE WHITNEY DR Primary Care Physician [phone] KENIA BRISENO Primary Care Physician CATALINO FLORES (REF) Primary Care Physician CATALINO FLORES (REF) Primary Care Physician Encounter [facility] [id number] Date(s): 04/24/21 - 11/19/21 [facility] Clinic [address] [place] [address]- Discharge Disposition: OP Self Care or Home Attending Physician: BETH HEWITT MD-ONC Admitting Physician: BETH HEWITT MD-ONC Referring Physician: BETH HEWITT MD-ONC Allergies, Adverse Reactions, Alerts Substance Reaction Severity Status penicillin Active Assessment and Plan Future Scheduled Tests Laboratory* Urinalysis w Microscopic 01/13/21 * [facility] CMP Comprehensive Metabolic Panel 04/28/21 * [facility] CBC w/ Auto Diff 04/28/21 * [facility] LDH Lactate Dehydrogenase 04/28/21 Immunizations Given and Recorded Vaccine Date Status Refusal Reason tetanus/diphtheria/pertussis, acel(Tdap) 11/12/20 Given poliovirus vaccine, inactivated 11/12/20 Given pneumococcal 13-valent vaccine 11/12/20 Given hepatitis B adult vaccine 11/12/20 Given haemophilus b conjugate (PRP-T) vaccine 11/12/20 G iven Medications losartan 50 mg oral tablet 50 mg 1 Tab, Oral, Tab, Daily, 0 Refill(s) Start Date: 11/19/21 Status: Ordered Metoprolol Tartrate 25 mg oral tablet 25 mg 1 Tab, Oral, Tab, BID, # 60 Tab, 5 Refill(s), Pharmacy: [facility] #[id number], cm, 03/25/20 14:36:00 EDT, CLINICALHEIGHT, 102.5, kg, [...] 1L shoulder Results Laboratory List Name Date .Automated Differential 11/19/21 [facility] CBC w/ Auto Diff 11/19/21 [facility] CMP Comprehensive Metabolic Panel 11/19/21 Most recent to oldest [Reference Range]: 1 nRBC [1-5] 0 *LOW* (11/19/21 9:58 AM) Sodium Level [135-143 mmol/L] 135 mmol/L (11/19/21 9:58 AM) Potassium Level [3.7-5.0 mmol/L] 4.1 mmo l/L (11/19/21 9:58 AM) Chloride Level [100-108 mmol/L] 99 mmol/ L *LOW* (11/19/21 9:58 AM) Carbon Dioxide Level [22.0-30.0 mmol/L] 27.0 mmol/L (11/19/21 9:58 AM) Anion Gap [2.0-11.0] 9.0 (11/19/21 9:58 AM) WBC [4.1-10.8 x10(3)/uL] 6.6 x10(3)/uL (11/19/21 9:58 AM) RBC [4.37-5.74 x10(6)/uL] 4.48 x10(6)/uL (11/19/21 9:58 AM) Hct [40.1-51.0 %] 40.8 % (11/19/21 9:58 AM) Hgb [13.7-17.5 Gram/dL] 13.8 Gram/dL (11/19/21 9:58 AM) Platelet Count [140-370 x10(3)/uL] 175 x 10(3)/uL (11/19/21 9:58 AM) MCH [25.6-32.2 pg] 30.7 pg (11/19/21 9:58 AM) MCHC [32.3-36.5 Gram/dL] 33.8 Gram/dL (11/19/21 9:58 AM) MCV [79.0-92.2 fL] 90.9 fL (11/19/21 9:58 AM) Bilirubin Total [0.4-1.3 mg/dL] 0.5 mg/d L (11/19/21 9:58 AM) A/G Ratio [1.0-1.8] 1.2 (11/19/21 9:58 AM) ALT [<=32 Units/Liter] 37 Units/Liter *HI* (11/19/21 9:58 AM) AST [12-38 Units/Liter] 23 Units/Liter (11/19/21 9:58 AM) Globulin 3 *NA* (11/19/21 9:58 AM) Alk Phos [34-106 Units/Liter] 95 Units/L iter (11/19/21 9:58 AM) Bun/Creatinine [6.0-22.0] 19.3 (11/19/21 9:58 AM) Calcium Level [8.4-10.2 mg/dL] 8.6 mg/dL (11/19/21 9:58 AM) eGFR [>=60 mL/min/1.73m2] 81 mL/ min/1.73m2 (11/19/21 9:58 AM) eGFR NonAfrican [>=60 mL/min/1.73m2] 66 mL/min/1.73m2 (11/19/21 9:58 AM) Glucose Level [70-110 mg/dL] 237 mg/dL *HI* (11/19/21 9:58 AM) Blood Urea Nitrogen [6-20 mg/dL] 22 mg/d L *HI* (11/19/21 9:58 AM) Slide Review None *NA* (11/19/21 9:58 AM) Eos % [0.7-6.0 %] 1.2 % (11/19/21 9:58 AM) [place] # [0.2-1.4 x10(3)/uL] 0.6 x10(3)/uL (11/19/21 9:58 AM) Eos # [0.0-0.6 x10(3)/uL] 0.1 x10(3)/uL (11/19/21 9:58 AM) [place] % [5.0-12.5 %] 8.5 % (11/19/21 9:58 AM) Baso % [0.0-3.0 %] 0.7 % (11/19/21 9:58 AM) Baso # [0.0-0.3 x10(3)/uL] 0.0 x10(3)/uL (11/19/21 9:58 AM) RDW [11.7-15.2 %] 15.2 % (11/19/21 9:58 AM) Neut % [34.0-69.5 %] 72.8 % *HI* (11/19/21 9:58 AM) Protein Total [6.3-8.2 Gram/dL] 6.7 Gram /dL (11/19/21 9:58 AM) Neut # [1.7-6.0 x10(3)/uL] 4.8 x10(3)/uL (11/19/21 9:58 AM) Albumin Level [3.6-4.7 Gram/dL] 3.7 Gram /dL (11/19/21 9:58 AM) Lymph % [20.0-53.0 %] 16.8 % *LOW* (11/19/21 9:58 AM) Lymph # [0.8-3.2 x10(3)/uL] 1.1 x10(3)/u L (11/19/21 9:58 AM) MPV [8.7-12.0 fL] 7.8 fL *LOW* (11/19/21 9:58 AM) Creatinine Level [0.64-1.27 mg/dL] 1.14 mg/dL (11/19/21 9:58 AM) Vital Signs Most recent to oldest [Reference Range]: 1 Temperature Source Oral (11/19/21 10:11 AM) Temperature Mode Fahrenheit (11/19/21 10:11 AM) Temperature, Fahrenheit [96.8-99.7 Deg F ] 98 Deg F (11/19/21 10:11 AM) Clinical Temperature, C 36.7 Deg C (11/19/21 10:11 AM) Pulse Rhythm Regular (11/19/21 10:11 AM) Peripheral Pulse Rate [60-100 bpm] 87 bp m (11/19/21 10:11 AM) Respiratory Rate [14-20 Breaths/Min] 20 Breaths/Min (11/19/21 10:11 AM) Blood Pressure Location Arm, left upper (11/19/21 10:11 AM) Blood Pressure Source Non-Invasive BP De vice (11/19/21 10:11 AM) Blood Pressure [90-140/60-90 mmHg] 153/8 1mmHg *HI* (11/19/21 10:11 AM) Oxygen Saturation [94-100 %] 96 % (11/19/21 10:11 AM) Oxygen Therapy Mode Room air (11/19/21 10:11 AM) Height Source Measured (11/19/21 10:11 AM) Height Entry Format [place] (11/19/21 10:11 AM) Height/Length, NAMIBIAN (ft) 6 ft (11/19/21 10:11 AM) Height/Length [place]AM[place] 0 Inch (11/19/21 10:11 AM) CLINICALHEIGHT 182.88 cm (11/19/21 10:11 AM) Weight Source Standing scale (11/19/21 10:11 AM) Weight Entry Format Pounds (11/19/21 10:11 AM) Weight [place] lb 248 lb (11/19/21 10:11 AM) CLINICALWEIGHT 112.73 kg (11/19/21 10:11 AM) Body Surface Area (BSA) 2.34 m2 (11/19/21 10:11 AM) Body Mass Index [19-24 kg/m2] 33.7 kg/m2 *HI* (11/19/21 10:11 AM) [place] Body Weight 77 kg (11/19/21 10:11 AM) Social History Social History Type Response Smoking Status Never smoker entered on: 11/06/19 Sex
--- OUTSIDE RECORDS SUMMARY | 2023-10-22 15:28 | XMS_ITS | Continuity of Care Document ---
Author Name Unknown Organization [facility] Address [address] [place] [id number] Care Team Providers Care Typists Supervisor Name Role Phone CATALINO FLORES (REF) Primary Care Physician DEVONTE, KATE JONES Primary Care Physician [phone] KENIA BRISENO Primary Care Physician CATALINO FLORES (REF) Primary Care Physician CATALINO FLORES (REF) Primary Care Physician Encounter [facility] [id number] Date(s): 10/13/21 - 11/19/[address] [address] [place] Discharge Disposition: OP Self Care or Home Attending Physician: BETH HEWITT MD-ONC Admitting Physician: BETH HEWITT MD-ONC Referring Physician: BETH HEWITT MD-ONC Allergies, Adverse Reactions, Alerts Substance Reaction Severity Status penicillin Active Assessment and Plan Future Scheduled Tests Laboratory* Urinalysis w Microscopic 01/13/21 * [facility] CMP Comprehensive Metabolic Panel 04/28/21 * [facility] CBC w/ Auto Diff 04/28/21 * [facility] LDH Lactate Dehydrogenase 04/28/21 Immunizations Given and [...] BID, # 60 Tab, 5 Refill(s), [id number], cm, 03/25/20 14:36:00 EDT, CLINICALHEIGHT, 102.5, kg, [...] pleted Colonoscopy 2014 Completed 1L shoulder Results Radiology Reports * Exam Date Time Procedure Performing Provider Status 11/19/21 9:26 AM MRI Brain WO W ZAYRA RODRIGUEZ, MRI TE CH; Auth (Verified) Notes: (MRI Brain WO W) Reason For Exam: 2 year eval REPORT ACCESSION NUMBER: [id number] DATE: 11/19/2021 8:30 AM EXAMINATION: MRI Brain WO W PROVIDED INDICATION: 2 year eval COMPARISON: MR brain 11/12/2020 TECHNIQUE: Precontrast axial T1-weighted, T2 turbo spin-echo, T2 gradient echo, T2 FLAIR, diffusion-weighted images an ADC maps with 4 mm thickness. Postcontrast 4 mm Sagittal, axial and coronal T1-weighted images. Additional postcontrast MPR sequences included 15 milliliters of Multihance gadolinium contrast were injected IV without adverse sequela. FINDINGS: Major finds: Apical left frontal manjit hole is again demonstrated with treatment tract. Susceptibility extends from the manjit hole involves the forceps minor anterior corpus callosum, genu, and right left medial gyrus rectus and left medial orbital gyrus with associated ex vacuo dilatation left frontal horn. FLAIR sequences demonstrate gliosis particularly involving the superior middle frontal gyrus into the right left gyrus rectus and medial left orbital gyrus. Postcontrast study fails to demonstrate any abnormal enhancement. These changes look comparable to prior study of 11/12/2020. Other findings: Noted DWI sequence abnormality. Brainstem cerebellum unremarkable. There is mild prominence of the lateral ventricles particularly the left frontal horn and cerebral sulci. No mass. Orbits retrobulbar structures normal. Sella parasellar region normal. Normal flow voids present. Midline structures intact. Postcontrast study demonstrates normal enhancement of the arterial and venous structures. Skull base normal. Paranasal sinuses temporal bones demonstrate normal signal void. IMPRESSION: 1. Manjit hole left frontal lobe with posttreatment changes involving superior middle left frontal lobe, forceps minor, anterior genu, right left gyrus rectus, and left medial orbital gyrus. The biopsytract and peripheral gliosis is stable compared to prior studies. 2. No abnormal residual or recurrent tumor. 3. Generalized cerebellar and cerebral atrophy with slight left frontal ex vacuo dilatation and thinning of the anterior genu and body of the corpus callosum. Signed by Finn Ludwig M.D. on 11/19/2021 10:01 AM Final Dictated by: FINN LUDWIG JR, MD-RAD Dictated DT/TM: 11/19/2021 10:01 am Interpreted and electronically signed by: FINN LUDWIG JR, MD-RAD Signed DT/TM: 11/19/2021 10:01 am Social History Social History Type Response Smoking Status Never smoker entered on: 11/06/19 Sex Note * FINN LUDWIG JR, MD-RAD: PERFORM, VERIFY, VERIFY Event Display: Report Authored Date: [id number] ACCESSION NUMBER: [id number] DATE: 11/19/2021 8:30 AM EXAMINATION: MRI Brain WO W PROVIDED INDICATION: 2 year eval COMPARISON: MR brain 11/12/2020 TECHNIQUE: Precontrast axial T1-weighted, T2 turbo spin-echo, T2 gradient echo, T2 FLAIR, diffusion-weighted images an ADC maps with 4 mm thickness. Postcontrast 4 mm Sagittal, axial and coronal T1-weighted images. Additional postcontrast MPR sequences included 15 milliliters of Multihance gadolinium contrast were injected IV without adverse sequela. FINDINGS: Major finds: Apical left frontal manjit hole is again demonstrated with treatment tract. Susceptibility extends from the manjit hole involves the forceps minor anterior corpus callosum, genu, and right left medial gyrus rectus and left medial orbital gyrus with associated ex vacuo dilatation left frontal horn. FLAIR sequences demonstrate gliosis particularly involving the superior middle frontal gyrus into the right left gyrus rectus and medial left orbital gyrus. Postcontrast study fails to demonstrate any abnormal enhancement. These changes look comparable to prior study of 11/12/2020. Other findings: Noted DWI sequence abnormality. Brainstem cerebellum unremarkable. There is mild prominence of the lateral ventricles particularly the left frontal horn and cerebral sulci. No mass. Orbits retrobulbar structures normal. Sella parasellar region normal. Normal flow voids present. Midline structures intact. Postcontrast study demonstrates normal enhancement of the arterial and venous structures. Skull base normal. Paranasal sinuses temporal bones demonstrate normal signal void.
--- OUTSIDE RECORDS SUMMARY | 2023-10-22 15:28 | XMS_ITS | Continuity of Care Document ---
Author Name Unknown Organization [facility] Address [address] [place] [address]- Care Team Providers Care Supervisor [employer]ing [employer] St[employer] Name Role Phone PHY, NO Primary Care Physician PHY, NO Primary Care Physician KENIA BRISENO Primary Care Physician CATALINO FLORES (REF) Primary Care Physician CATALINO FLORES (REF) Primary Care Physician Encounter [facility] [id number] Date(s): 11/04/20 - 11/10/20 [facility] [address] [place] [address]- Discharge Disposition: OP Self Care or Home Attending Physician: BETH HEWITT MD-ONC Admitting Physician: BETH HEWITT MD-ONC Referring Physician: BETH HEWITT MD-ONC Allergies, Adverse Reactions, Alerts Substance Reaction Severity Status penicillin Active Assessment and Plan Future Appointments Appointment Date:11/12/2020 08:00:00 AM Scheduled Provider: Location:[facility] MRI Appointment Type:MRI Brain [facility] Appointment Date:11/12/2020 09:00:00 AM Scheduled Provider: Location:[facility] Appointment Type:ONC LUDY Lab Visit [facility] Appointment Date:11/12/2020 09:30:00 AM Scheduled Provider:BETH HEWITT MD-ONC Location:[facility] Appointment Type:ONC Bone Marrow Biopsy [facility] Appointment Date:11/12/2020 11:00:00 AM Scheduled Provider: Location:[facility] Appointment Type:ONC Treatment [facility] Future Scheduled Tests Laboratory* [facility] CMP [...] Lactate Dehydrogenase 12/21/19 * Testosterone, Free, Direct-LC 11/12/20 * Urinalysis w Culture if Indicated 11/12/20 * Hemoglobin A1C 11/12/20 * Ferritin Level 11/12/20 * Lipid Panel 11/12/20 * TSH Thyroid Stimulating Hormone 11/12/20 * CD34 11/07/19 * CD34 11/08/19 * CD34 11/09/19 * CD34 11/10/19 Radiology* MRI Brain WO W 11/12/20 Medications acyclovir 800 mg oral tablet 800 mg 1 Tab, Oral, BID, # 60 Tab, 4 Refill(s), Pharmacy: [facility] #[id number], , 209:41:00 EDT, CLINICALHEIGHT, 106.42, kg, 07/24/20 9:41:00 EDT, CLINICALWEIGHT, 182.88 Start Date: 09/18/20 Status: Ordered lisinopril 10 mg oral tablet mg Tab, Oral, Daily, 0 Refill(s) Start Date: 05/07/20 Status: Ordered Metoprolol Tartrate 25 mg oral tablet 25 mg 1 Tab, Oral, Tab, BID, # 60 Tab, 5 Refill(s), Pharmacy: [facility] #[id number], , 03/25/20 14:36:00 EDT, CLINICALHEIGHT, 102.5, kg, [...]
--- OUTSIDE RECORDS SUMMARY | 2023-10-22 15:28 | XMS_ITS | Continuity of Care Document ---
Author Name Unknown Organization [facility] Address [address] [place] [id number] Care Team Providers Care Seed Cone Picker Name Role Phone LINDY COSTA Primary Care Physician KATE WHITNEY DR Primary Care Physician [phone] KENIA BRISENO Primary Care Physician CATALINO FLORES (REF) Primary Care Physician CATALINO FLORES (REF) Primary Care Physician Encounter [facility] [id number] Date(s): 09/04/20 - 11/12/[address] [address] [place] Discharge Disposition: OP Self Care or Home Attending Physician: LINDY COSTA NP- Admitting Physician: LINDY COSTA NP- Referring Physician: LINDY COSTA NP- Allergies, Adverse Reactions, Alerts Substance Reaction Severity Status penicillin Active Assessment and Plan Future Appointments Appointment Date:01/13/2021 03:30:00 PM Scheduled Provider: Location:[facility] Appointment Type:ONC Provider Visit [facility] Future Scheduled Tests Laboratory* [facility] CMP Comprehensive [...] 11/08/19 * CD34 11/09/19 * CD34 11/10/19 Immunizations Given and Recorded Vaccine Date Status Refusal Reason tetanus/diphtheria/pertussis, acel(Tdap) 11/12/20 Given poliovirus vaccine, inactivated 11/12/20 Given pneumococcal 13-valent vaccine 11/12/20 Given hepatitis B adult vaccine 11/12/20 Given haemophilus b conjugate (PRP-T) vaccine 11/12/20 G iven Medications acyclovir 800 mg oral tablet 800 mg 1 Tab, Oral, BID, # 60 Tab, 4 Refill(s), Pharmacy: [facility] #[id number], , 209:41:00 EDT, CLINICALHEIGHT, 106.42, kg, 07/24/20 9:41:00 EDT, CLINICALWEIGHT, 182.88 Start Date: 09/18/20 Status: Ordered lisinopril 10 mg oral tablet mg Tab, Oral, Daily, 0 Refill(s) Start Date: 05/07/20 Status: Ordered Metoprolol Tartrate 25 mg oral tablet 25 mg 1 Tab, Oral, Tab, BID, # 60 Tab, 5 Refill(s), Pharmacy: [facility] #[id number], , 03/25/20 14:36:00 EDT, CLINICALHEIGHT, 102.5, kg, [...] 1L shoulder Results Laboratory List Name Date :Creatinine POC 11/12/20 Most recent to oldest [Reference Range]: 1 eGFR POC [59-100 mL/Min] >60 mL/Min (11/12/20 8:47 AM) Creatinine POC [0.60-1.30 mg/dL] 1.09 mg /dL (11/12/20 8:47 AM) Radiology Reports * Exam Date Time Procedure Performing Provider Status 11/12/20 9:31 AM MRI Brain WO W MARQUIS PARRISH, TILE MOLDER HAND; Auth (Verified) Notes: (MRI Brain WO W) Reason For Exam: hx of VARNISH FINISHER lymphoma REPORT ACCESSION NUMBER: [id number] DATE: 11/12/2020 8:35 AM EXAMINATION: MRI Brain WO W PROVIDED INDICATION: hx of VARNISH FINISHER lymphoma COMPARISON: MR brain 03/25/2020 TECHNIQUE: Multiplanar multisequence MR imaging of the brain performed without and with 20 cc of MultiHance FINDINGS: Major findings: Left frontal manjit hole again demonstrated with susceptibility underlying left lowerand in the anterior corpus callosum genu and adjacent posterior right and left gyrus rectus and posterior portions of the medial orbital gyrus. These changes are greater on left than right. The gliosis and susceptibility associated with mild encephalomalacic changes of these gyri and anterior genu is well. No enhancement is demonstrated. These changes look comparable to 03/25/2020. Other findings: No diffusion scan abnormalities. There are no other gradient abnormalities demonstrated in the remaining cerebrum cerebellum. There is mild prominence of cerebral sulci. Brainstem unremarkable. Generalized mild prominence of the cerebral ventricles and sulci. No mass or hemorrhage. Orbits and retrobulbar structures normal. Sella parasellar region normal. Normal arterial flow voids present. Midline structures intact. Pituitary normal. There is generalized thinning of the genu, stable. Skull base unremarkable. Minimal mucosal thickening maxillary sinus and anterior ethmoid complex. Temporal bones demonstrate normal signal void. IMPRESSION: 1. Manjit hole noted left frontal lobe with posttreatment changes involving the superior and middle lobes of the left frontal lobe, forceps minor, anterior genu corpus callosum, as well as the posterior aspects of both right and left gyrus rectus and medial orbital gyrus. The gliosis and biopsy cavity is stable. 2. no abnormal residual or recurrent enhancement. 3. Generalized cerebellar and cerebral atrophy with generalized thinning of corpus callosum Signed by Finn Eller M.D. on 11/12/2020 10:05 AM Social History Social History Type Response Smoking Status Never smoker entered on: 11/06/19 Sex
--- OUTSIDE RECORDS SUMMARY | 2023-10-22 15:28 | XMS_ITS | Continuity of Care Document ---
Author Name Unknown Organization [facility] Address [address] [place] [address]- Care Team Providers Care Hse Specialist Name Role Phone PHY, NO Primary Care Physician [phone] PHY, NO Primary Care Physician KENIA BRISENO Primary Care Physician CATALINO FLORES (REF) Primary Care Physician ( [phone] CATALINO FLORES (REF) Primary Care Physician ( [phone] Encounter [facility] [id number] Date(s): 11/11/20 - 12/08/20 [facility] [address] [place] [address]- [place] Encounter Diagnosis Diffuse large B-cell lymphoma, lymph nodes of head, face, and neck(Final) - 11/11/20 Elevated blood-pressure reading, without diagnosis of hypertension(Final) - 11/11/20 Body mass index [BMI] 33.0-33.9, adult(Final) - 11/11/20 Other specified abnormal findings of blood chemistry(Final) - 11/11/20 Disorder of bilirubin metabolism, unspecified(Final) - 11/11/20 Other abnormal glucose(Final) - 11/11/20 Other abnormality of red blood cells(Final) - 11/11/20 Other elevated white blood cell count(Final) - 11/11/20 Lymphocytopenia(Final) - 11/11/20 Hyperlipidemia, unspecified(Final) - 11/11/20 Pure hypercholesterolemia, unspecified(Final) - 11/11/20 Encounter for immunization(Final) - 11/11/20 Discharge Disposition: OP Self Care or Home Attending Physician: BETH HEWITT MD-ONC Admitting Physician: BETH HEWITT MD-ONC Referring Physician: HEGAZI, MOHAMED, MD-ONC Allergies, Adverse Reactions, Alerts Substance Reaction Severity Status penicillin Active Assessment and Plan Future Appointments Appointment Date:01/13/2021 09:00:00 AM Scheduled Provider: Location:[facility] Appointment Type:ONC Treatment [facility] Appointment Date:01/13/2021 09:00:00 AM Scheduled Provider: Location:[facility] Appointment Type:ONC LUDY Lab Visit [facility] Appointment Date:01/13/2021 09:30:00 AM Scheduled Provider:BETH HEWITT MD-ONC Location:[facility] Appointment Type:ONC Provider Visit [facility] Future Scheduled Tests Laboratory* [facility] CMP Comprehensive [...] * [facility] LDH Lactate Dehydrogenase 12/21/19 * Urinalysis w Microscopic 01/13/21 * CD34 11/07/19 * CD34 11/08/19 * [...] BID, # 60 Tab, 4 Refill(s), Pharmacy: [facility] #[id number], , :41:00 EDT, CLINICALHEIGHT, 106.42, kg, 07/24/20 9:41:00 EDT, CLINICALWEIGHT, 182.88 Start Date: 09/18/20 Status: Ordered lisinopril 10 mg oral tablet mg Tab, Oral, Daily, 0 Refill(s) Start Date: 05/07/20 Status: Ordered Metoprolol Tartrate 25 mg oral tablet 25 mg 1 Tab, Oral, Tab, BID, # 60 Tab, 5 Refill(s), Pharmacy: [facility] #[id number], cm, 03/25/20 14:36:00 EDT, CLINICALHEIGHT, 102.5, kg, 03/25/20 14:36:00 EDT, CLINICALWEIGHT, 182.88 Start Date: 07/05/20 Status: Ordered Xarelto 20 mg oral tablet 20 mg 1 Tab, Oral, Tab, QPM Start Date: 07/24/20 Status: Ordered Mental Status 11/12/20 Neurologic Assessment WDL WDL Problem List Condition Effective Dates Status Health Status Inform ant Clostridium difficile infection(Confirmed) 12/07/19 Active patient HTN (hypertension)(Confirmed) Active Lymphoma(Confirmed) Active PE (pulmonary thromboembolism)(Confirmed) Active Procedures Procedure Date Related Diagnosis Body Site Status PICC line 2017 Completed Rotator cuff repair 2016 Com pleted Colonoscopy 2014 Completed 1L shoulder Results Laboratory List Name Date [facility] CBC w/ Auto Diff 11/12/20 [facility] CMP Comprehensive Metabolic Panel 11/12/20 [facility] LDH Lactate Dehydrogenase 11/12/20 Ferritin Level 11/12/20 Hemoglobin A1C 11/12/20 Lipid Panel 11/12/20 TSH Thyroid Stimulating Hormone 11/12/20 Testosterone, Free, Direct-LC 11/12/20 .Automated Differential 11/12/20 Most recent to oldest [Reference Range]: 1 nRBC [1-5] 0 *LOW* (11/12/20 10:09 AM) Free Testost Direct-LC*[id number] [7.2-24.0 pg/mL] 5.5 pg/mL 1 *LOW* (11/12/20 10:09 AM) Sodium Level [135-143 mmol/L] 138 mmol/L (11/12/20 10:09 AM) Potassium Level [3.7-5.0 mmol/L] 4.2 mmo l/L (11/12/20 10:09 AM) Chloride Level [100-108 mmol/L] 101 mmol /L (11/12/20 10:09 AM) Carbon Dioxide Level [22.0-30.0 mmol/L] 26.0 mmol/L (11/12/20 10:09 AM) Anion Gap [2.0-11.0] 11.0 (11/12/20 10:09 AM) WBC [4.1-10.8 x10(3)/uL] 7.8 x10(3)/uL (11/12/20 10:09 AM) RBC [4.37-5.74 x10(6)/uL] 4.54 x10(6)/uL (11/12/20 10:09 AM) Hct [40.1-51.0 %] 42.3 % (11/12/20 10:09 AM) Hgb [13.7-17.5 Gram/dL] 13.9 Gram/dL (11/12/20 10:09 AM) Platelet Count [140-370 x10(3)/uL] 204 x 10(3)/uL (11/12/20 10:09 AM) MCH [25.6-32.2 pg] 30.6 pg (11/12/20 10:09 AM) MCHC [32.3-36.5 Gram/dL] 32.8 Gram/dL (11/12/20 10:09 AM) MCV [79.0-92.2 fL] 93.3 fL *HI* (11/12/20 10:09 AM) Bilirubin Total [0.4-1.3 mg/dL] 0.3 mg/d L *LOW* (11/12/20 10:09 AM) Hgb A1C [4.8-5.9 %] 6.4 % *HI* (11/12/20 10:09 AM) A/G Ratio [1.0-1.8] 1.3 (11/12/20 10:09 AM) ALT [<=32 Units/Liter] 26 Units/Liter (11/12/20 10:09 AM) AST [12-38 Units/Liter] 14 Units/Liter (11/12/20 10:09 AM) Globulin 3 *NA* (11/12/20 10:09 AM) Alk Phos [34-106 Units/Liter] 101 Units/ Liter (11/12/20 10:09 AM) eAVG Glucose 137 mg/dL *NA* (11/12/20 10:09 AM) Bun/Creatinine [6.0-22.0] 19.8 (11/12/20 10:09 AM) Calcium Level [8.4-10.2 mg/dL] 9.2 mg/dL (11/12/20 10:09 AM) Cholesterol Tot [120-200 mg/dL] 212 mg/d L *HI* (11/12/20 10:09 AM) Cholesterol HDL [29-71 mg/dL] 53 mg/dL (11/12/20 10:09 AM) Cholesterol LDL Calculation [0.0-130.0 m g/dL] 141.2 mg/dL *HI* (11/12/20 10:09 AM) Cholesterol VLDL Calculation 18 mg/dL *NA* (11/12/20 10:09 AM) Cholesterol/HDL Ratio [0.00-4.99 Ratio] 4.00 Ratio (11/12/20 10:09 AM) eGFR [>=60 mL/min/1.73m2] 83 mL/ min/1.73m2 (11/12/20 10:09 AM) eGFR NonAfrican [>=60 mL/min/1.73m2] 69 mL/min/1.73m2 (11/12/20 10:09 AM) Ferritin Level [7-350 ng/mL] 103 ng/mL (11/12/20 10:09 AM) Glucose Level [70-110 mg/dL] 108 mg/dL (11/12/20 10:09 AM) TSH [0.50-5.70 uIU/mL] 2.14 uIU/mL (11/12/20 10:09 AM) Blood Urea Nitrogen [6-20 mg/dL] 22 mg/d L *HI* (11/12/20 10:09 AM) Lactate Dehydrogenase [100-242 Units/Lit er] 169 Units/Liter (11/12/20 10:09 AM) Slide Review None *NA* (11/12/20 10:09 AM) Eos % [0.7-6.0 %] 0.8 % (11/12/20 10:09 AM) Triglyceride [10-190 mg/dL] 89 mg/dL (11/12/20 10:09 AM) Kay # [0.2-1.4 x10(3)/uL] 0.7 x10(3)/uL (11/12/20 10:09 AM) Eos # [0.0-0.6 x10(3)/uL] 0.1 x10(3)/uL (11/12/20 10:09 AM) Kay % [5.0-12.5 %] 8.5 % (11/12/20 10:09 AM) Baso % [0.0-3.0 %] 0.7 % (11/12/20 10:09 AM) Baso # [0.0-0.3 x10(3)/uL] 0.1 x10(3)/uL (11/12/20 10:09 AM) RDW [11.7-15.2 %] 15.0 % (11/12/20 10:09 AM) Neut % [34.0-69.5 %] 76.0 % *HI* (11/12/20 10:09 AM) Protein Total [6.3-8.2 Gram/dL] 7.1 Gram /dL (11/12/20 10:09 AM) Neut # [1.7-6.0 x10(3)/uL] 6.0 x10(3)/uL (11/12/20 10:09 AM) Albumin Level [3.6-4.7 Gram/dL] 4.0 Gram /dL (11/12/20 10:09 AM) Lymph % [20.0-53.0 %] 14.0 % *LOW* (11/12/20 10:09 AM) LDL/HDL Ratio 2.66 Ratio *NA* (11/12/20 10:09 AM) Lymph # [0.8-3.2 x10(3)/uL] 1.1 x10(3)/u L (11/12/20 10:09 AM) MPV [8.7-12.0 fL] 7.8 fL *LOW* (11/12/20 10:09 AM) Creatinine Level [0.64-1.27 mg/dL] 1.11 mg/dL (11/12/20 10:09 AM) 1Result Comment: Performed At: [facility] [id number] Ed Shell MD Ph:[phone] Vital Signs Most recent to oldest [Reference Range]: 1 Temperature Source Oral (11/12/20 9:57 AM) Temperature Mode Fahrenheit (11/12/20 9:57 AM) Temperature, Fahrenheit [96.8-99.7 Deg F ] 98.3 Deg F (11/12/20 9:57 AM) Clinical Temperature, C 36.8 Deg C (11/12/20 9:57 AM) Pulse Method Pulse Oximetry (11/12/20 9:57 AM) Pulse Rhythm Regular (11/12/20 9:57 AM) Peripheral Pulse Rate [60-100 bpm] 91 bp m (11/12/20 9:57 AM) Respiratory Rate [14-20 Breaths/Min] 18 Breaths/Min (11/12/20 9:57 AM) Blood Pressure Location Arm, left upper (11/12/20 9:57 AM) Blood Pressure Source Non-Invasive BP De vice (11/12/20 9:57 AM) Blood Pressure Position Sitting (11/12/20 9:57 AM) Blood Pressure [90-140/60-90 mmHg] 155/8 3mmHg *HI* (11/12/20 9:57 AM) Oxygen Saturation [94-100 %] 96 % (11/12/20 9:57 AM) Height Source Stated (11/12/20 9:57 AM) Height Entry Format [place] (11/12/20 9:57 AM) Height/Length, [place] (ft) 6 ft (11/12/20 9:57 AM) Height/Length [place] 0 Inch (11/12/20 9:57 AM) CLINICALHEIGHT 182.88 cm (11/12/20 9:57 AM) Weight Source Standing scale (11/12/20 9:57 AM) Weight Entry Format Pounds (11/12/20 9:57 AM) Weight [place] lb 244 lb (11/12/20 9:57 AM) Weight [place] oz 4 oz (11/12/20 9:57 AM) CLINICALWEIGHT 111.02 kg (11/12/20 9:57 AM) Body Surface Area (BSA) 2.32 m2 (11/12/20 9:57 AM) Body Mass Index [19-24 kg/m2] 33.2 kg/m2 *HI* (11/12/20 9:57 AM) Acme Body Weight 77 kg (11/12/20 9:57 AM) Social History Social History Type Response Smoking Status Never smoker entered on: 11/06/19 Sex
--- OUTSIDE RECORDS SUMMARY | 2023-10-22 15:28 | XMS_ITS | Continuity of Care Document ---
Author Name Unknown Organization [facility] Address [address] [place] [address]- Care Team Providers Care Vp Rheumatology Name Role Phone PHY, NO Primary Care Physician [phone] PHY, NO Primary Care Physician KENIA BRISENO Primary Care Physician CATALINO FLORES (REF) Primary Care Physician CATALINO FLORES (REF) Primary Care Physician Encounter [facility] [id number] Date(s): 12/09/20 - 01/08/21 [facility] [address] [place] [address]- [place] Encounter Diagnosis Diffuse large B-cell lymphoma, lymph nodes of head, face, and neck(Final) - 12/09/20 Elevated blood-pressure reading, without diagnosis of hypertension(Final) - 12/09/20 Body mass index [BMI] 33.0-33.9, adult(Final) - 12/09/20 Other specified abnormal findings of blood chemistry(Final) - 12/09/20 Disorder of bilirubin metabolism, unspecified(Final) - 12/09/20 Other abnormal glucose(Final) - 12/09/20 Other abnormality of red blood cells(Final) - 12/09/20 Other elevated white blood cell count(Final) - 12/09/20 Lymphocytopenia(Final) - 12/09/20 Hyperlipidemia, unspecified(Final) - 12/09/20 Pure hypercholesterolemia, unspecified(Final) - 12/09/20 Encounter for immunization(Final) - 12/09/20 Discharge Disposition: OP Self Care or Home Attending Physician: BETH HEWITT MD-ONC Admitting Physician: BETH HEWITT MD-ONC Referring Physician: BETH HEWITT MD-ONC Allergies, Adverse Reactions, Alerts Substance Reaction Severity Status penicillin Active Assessment and Plan Future Appointments Appointment Date:03/17/2021 09:00:00 AM Scheduled Provider: Location:[facility] Appointment Type:ONC LUDY Lab Visit [facility] Appointment Date:03/17/2021 09:30:00 AM Scheduled Provider:BETH HEWITT MD-ONC Location:[facility] Appointment Type:ONC Provider Visit [facility] Future Scheduled Tests Laboratory* [facility] CMP [...] BID, # 60 Tab, 4 Refill(s), Pharmacy: [facility] #[id number], , 209:41:00 EDT, CLINICALHEIGHT, 106.42, kg, 07/24/20 9:41:00 EDT, CLINICALWEIGHT, 182.88 Start Date: 09/18/20 Status: Ordered lisinopril 10 mg oral tablet mg Tab, Oral, Daily, 0 Refill(s) Start Date: 05/07/20 Status: Ordered Metoprolol Tartrate 25 mg oral tablet 25 mg 1 Tab, Oral, Tab, BID, # 60 Tab, 5 Refill(s), Pharmacy: [facility] #[id number], cm, 03/25/20 14:36:00 EDT, CLINICALHEIGHT, 102.5, kg, [...]
--- OUTSIDE RECORDS SUMMARY | 2023-10-22 15:28 | XMS_ITS | Continuity of Care Document ---
Author Name Unknown Organization [facility] Infusion Address [address] [place] [address]- Care Team Providers Care Spray Blender Name Role Phone PHY, NO Primary Care Physician PHY, NO Primary Care Physician KENIA BRISENO Primary Care Physician CATALINO FLORES (REF) Primary Care Physician CATALINO FLORES (REF) Primary Care Physician Encounter [facility] [id number] Date(s): 08/11/20 - 09/09/20 [facility] Infusion [address] [place] [address]- [facility] Encounter Diagnosis Diffuse large B-cell lymphoma, unspecified site(Final) - 08/11/20 Essential (primary) hypertension(Final) - 08/11/20 Unspecified atrial fibrillation(Final) - 08/11/20 Personal history of pulmonary embolism(Final) - 08/11/20 Disorder of brain, unspecified(Final) - 08/11/20 jail (current) use of anticoagulants(Final) - 08/11/20 Other academic interventionist (current) drug therapy(Final) - 08/11/20 Allergy status to penicillin(Final) - 08/11/20 Stem cells transplant status(Final) - 08/11/20 Discharge Disposition: OP Self Care or Home Attending Physician: BETH HEWITT MD-ONC Admitting Physician: BETH HEWITT MD-ONC Referring Physician: BETH HEWITT MD-ONC Allergies, Adverse Reactions, Alerts Substance Reaction Severity Status penicillin Active Assessment and Plan Future Appointments Appointment Date:11/12/2020 08:00:00 AM Scheduled Provider: Location:[facility] MRI Appointment Type:MRI Brain [facility] Appointment Date:11/12/2020 09:00:00 AM Scheduled Provider: Location:[facility] Infusion Appointment Type:ONC LUDY Lab Visit [facility] Appointment Date:11/12/2020 09:30:00 AM Scheduled Provider:BTEH HEWITT MD-ONC Location:[facility] Appointment Type:ONC Bone Marrow Biopsy [facility] Appointment Date:11/12/2020 11:00:00 AM Scheduled Provider: Location:[facility] Infusion Appointment Type:ONC Treatment [facility] Scheduled Tests Laboratory* [facility] CMP Comprehensive Metabolic [...] * TSH Thyroid Stimulating Hormone 11/12/20 * Vitamin D 25 Hydroxy 11/13/20 * CD34 11/07/19 * CD34 11/08/19 * CD34 11/09/19 * CD34 11/10/19 Radiology* MRI Brain WO W 11/12/20 Medications acyclovir 800 mg oral tablet 800 mg 1 Tab, Oral, Tab, BID, X 30 Day(s), # 60 Tab, 4 Refill(s), Pharmacy: [facility] #[id number], , 03/25/20 14:36:00 EDT, CLINICALHEIGHT, 102.5, kg, 03/25/20 14:36:00 EDT, CLINICALWEIGHT, 182.88 Start Date: 04/15/20 Stop Date: 09/12/20 Status: Ordered lisinopril 10 mg oral tablet mg Tab, Oral, Daily, 0 Refill(s) Start Date: 05/07/20 Status: Ordered Metoprolol Tartrate 25 mg oral tablet 25 mg 1 Tab, Oral, Tab, BID, # 60 Tab, 5 Refill(s), Pharmacy: [facility] #[id number], cm, 03/25/20 14:36:00 EDT, CLINICALHEIGHT, 102.5, kg, [...]
--- OUTSIDE RECORDS SUMMARY | 2023-10-22 15:28 | XMS_ITS | Continuity of Care Document ---
Author Name Unknown Organization [facility] Address [address] [place] [address]- Care Team Providers Care Call Center Team Leader Name Role Phone KATE WHITNEY DR Primary Care Physician KENIA BRISENO Primary Care Physician CATALINO FLORES (REF) Primary Care Physician CATALINO FLORES (REF) Primary Care Physician Encounter [facility] MESHA [id number] Date(s): 01/10/20 - 02/08/20 [facility] [address] [id number]- [place] Encounter Diagnosis Disorder of brain, unspecified(Final) - 01/10/20 Stem cells transplant status(Final) - 01/10/20 Antineoplastic chemotherapy induced pancytopenia(Final) - 01/10/20 Adverse effect of antineoplastic and immunosuppressive drugs, subsequent encounter(Final) - 01/10/20 Sepsis due to Escherichia coli [E. 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) - 01/31/20 Discharge Disposition: OP Self Care or Home Attending Physician: BETH HEWITT MD-ONC Admitting Physician: BETH HEWITT MD-ONC Referring Physician: BETH HEWITT MD-ONC Allergies, Adverse Reactions, Alerts Substance Reaction Severity Status penicillin Active Assessment and Plan Future Appointments Appointment Date:02/28/2020 10:00:00 AM Scheduled Provider: Location:[facility] Infusion Appointment Type:ONC LUDY Lab Visit [facility] Appointment Date:02/28/2020 10:30:00 AM Scheduled Provider: Location:[facility] Appointment Type:ONC Provider Visit [facility] Future Scheduled Tests Laboratory* [facility] CMP Comprehensive Metabolic Panel 01/04/20 * [facility] CMP Comprehensive Metabolic Panel 01/11/20 * [facility] CMP Comprehensive Metabolic Panel 02/28/20 * [facility] CMP Comprehensive Metabolic Panel 12/21/19 * [facility] CMP Comprehensive Metabolic Panel 11/07/19 * [facility] CMP Comprehensive Metabolic Panel 11/08/19 * [facility] CMP Comprehensive Metabolic Panel 11/09/19 * [facility] CMP Comprehensive Metabolic Panel 11/10/19 * [facility]CC Magnesium Level 11/07/19 * [facility] Magnesium Level 11/08/19 * [facility] Magnesium Level 11/09/19 * [facility] Magnesium Level 11/10/19 * [facility] CBC w/ Auto Diff 02/28/20 * [facility] CBC w/ Auto Diff 12/21/19 * [facility] CBC w/ Auto Diff 11/07/19 * [facility] CBC w/ Auto Diff 11/08/19 * [facility] CBC w/ Auto Diff 11/09/19 * [facility] CBC w/ Auto Diff 11/10/19 * [facility] LDH Lactate Dehydrogenase 12/21/19 * CD34 11/07/19 * CD34 11/08/19 * CD34 11/09/19 * CD34 11/10/19 Medications Bactrim DS 800 mg-160 mg oral tablet 1 Tab, Oral, Tab, SaSuBID, 1 tab twice daily on Saturdays and Sundays only., # 16 Tab, 5 Refill(s) Start Date: 12/21/19 Status: Ordered Metoprolol Tartrate 25 mg oral tablet 25 mg 1 Tab, Oral, Tab, BID, # 60 Tab, 5 Refill(s), Pharmacy: [facility] #[id number], , 12/21/19 10:38:00 EDT, CLINICALHEIGHT, 91.64, kg, [...]
--- OUTSIDE RECORDS SUMMARY | 2023-10-22 15:28 | XMS_ITS | Continuity of Care Document ---
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 coli](Final) - 12/10/19 Enterocolitis due to Clostridium difficile, not specified as recurrent(Final) - 12/10/19 Hypokalemia(Final) - 12/10/19 Unspecified atrial fibrillation(Final) - 12/10/19 Personal history of pulmonary embolism(Final) - 12/10/19 Discharge Disposition: OP Self Care or Home Attending Physician: BETH HEWITT MD-ONC Admitting Physician: BETH HEWITT MD-ONC Referring Physician: BETH HEWITT MD-ONC Allergies, Adverse Reactions, Alerts Substance Reaction Severity Status penicillin Active Assessment and Plan Future Appointments Appointment Date:01/17/2020 09:30:00 AM Scheduled Provider:BETH HEWITT MD-ONC Location:[facility] Clinic Appointment Type:ONC Provider Visit [facility] Diagnostic Tests Pending * Smear Preparation Bone Marrow 12/21/19 Future Scheduled Tests Laboratory* [facility] CMP Comprehensive [...] 11/08/19 * CD34 11/09/19 * CD34 11/10/19 Referrals to Other Providers , referred to: IR Referred by: BETH HEWITT MD-ONC Medications acyclovir 400 mg oral tablet 800 mg 2 Tab, Oral, Tab, BID, X 30 Day(s), # 120 Tab, 1 Refill(s), Pharmacy: [facility], , 12/07/19 8:49:00 EST, CLINICALHEIGHT, 92.9, kg, 11/15/19 9:10:00 EST, CLINICALWEIGHT, 182.88 Start Date: 12/07/19 Stop Date: 02/05/20 Status: Ordered Bactrim DS 800 mg-160 mg oral tablet 1 Tab, Oral, Tab, SaSuBID, 1 tab twice daily on Saturdays and Sundays only., # 16 Tab, 5 Refill(s) Start Date: 12/21/19 Status: Ordered Metoprolol Tartrate 25 mg oral tablet 25 mg 1 Tab, Oral, Tab, BID, # 60 Tab, 5 Refill(s), Pharmacy: [facility] #[id number], , 12/21/19 10:38:00 EDT, CLINICALHEIGHT, 91.64, kg, 12/21/19 10:38:00 EDT, CLINICALWEIGHT, 182.88 Start Date: 01/05/20 Status: Ordered potassium chloride 20 mEq oral tablet, extended release 40 mEq 2 Tab, Oral, ER Tab, Daily, # 60 Tab, 5 Refill(s), Pharmacy: [facility] #[id number], cm, 12/21/19 10:38:00 EDT, CLINICALHEIGHT, 91.64, kg, [...] Name Date [facility] CBC w/ Auto Diff 12/14/19 [facility] CMP Comprehensive Metabolic Panel 12/14/19 BCC Magnesium Level 12/14/19 .Differential Manual 12/14/19 [facility] CBC w/ Auto Diff 12/11/19 [facility] CMP Comprehensive Metabolic Panel 12/11/19 [facility] Magnesium Level 12/11/19 .Differential Manual 12/11/19 Most recent to oldest [Reference Range]: 1 2 Sodium Level [135-143 mmol/L] 137 mmol/L (12/14/19 3:02 PM) 141 mmol/L (12/11/19 2:30 PM) Potassium Level [3.7-5.0 mmol/L] 4.0 mmo l/L (12/14/19 3:02 PM) 4.5 mmol/L (12/11/19 2:30 PM) Chloride Level [100-108 mmol/L] 104 mmol /L (12/14/19 3:02 PM) 106 mmol/L (12/11/19 2:30 PM) Carbon Dioxide Level [22.0-30.0 mmol/L] 25.0 mmol/L (12/14/19 3:02 PM) 25.0 mmol/L (12/11/19 2:30 PM) Anion Gap [2.0-11.0] 8.0 (12/14/19 3:02 PM) 10.0 (12/11/19 2:30 PM) WBC [4.1-10.8 x10(3)/uL] 4.4 x10(3)/uL (12/14/19 3:02 PM) 3.4 x10(3)/uL *LOW* (12/11/19 2:30 PM) RBC [4.37-5.74 x10(6)/uL] 2.87 x10(6)/uL *LOW* (12/14/19 3:02 PM) 2.84 x10(6)/uL *LOW* (12/11/19 2:30 PM) Hct [40.1-51.0 %] 25.5 % *LOW* (12/14/19 3:02 PM) 25.7 % *LOW* (12/11/19 2:30 PM) Hgb [13.7-17.5 Gram/dL] 9.0 Gram/dL *LOW* (12/14/19 3:02 PM) 8.6 Gram/dL *LOW* (12/11/19 2:30 PM) Platelet Count [140-370 x10(3)/uL] 79 x1 0(3)/uL *LOW* (12/14/19 3:02 PM) 54 x10(3)/uL *LOW* (12/11/19 2:30 PM) MCH [25.6-32.2 pg] 31.4 pg (12/14/19 3:02 PM) 30.4 pg (12/11/19 2:30 PM) MCHC [32.3-36.5 Gram/dL] 35.2 Gram/dL (12/14/19 3:02 PM) 33.5 Gram/dL (12/11/19 2:30 PM) MCV [79.0-92.2 fL] 89.2 fL (12/14/19 3:02 PM) 90.6 fL (12/11/19 2:30 PM) Bilirubin Total [0.4-1.3 mg/dL] 0.6 mg/d L (12/14/19 3:02 PM) 0.3 mg/dL *LOW* (12/11/19 2:30 PM) A/G Ratio [1.0-1.8] 1.0 (12/14/19 3:02 PM) 0.9 *LOW* (12/11/19 2:30 PM) ALT [<=32 Units/Liter] 45 Units/Liter *HI* (12/14/19 3:02 PM) 43 Units/Liter *HI* (12/11/19 2:30 PM) AST [12-38 Units/Liter] 26 Units/Liter (12/14/19 3:02 PM) 31 Units/Liter (12/11/19 2:30 PM) Globulin 3 *NA* (12/14/19 3:02 PM) 3 *NA* (12/11/19 2:30 PM) Alk Phos [34-106 Units/Liter] 67 Units/L iter (12/14/19 3:02 PM) 49 Units/Liter (12/11/19 2:30 PM) Bun/Creatinine [6.0-22.0] 14.0 (12/14/19 3:02 PM) 16.7 (12/11/19 2:30 PM) Calcium Level [8.4-10.2 mg/dL] 8.4 mg/dL (12/14/19 3:02 PM) 8.1 mg/dL *LOW* (12/11/19 2:30 PM) eGFR [>=60 mL/min/1.73m2] 103 mL /min/1.73m2 (12/14/19 3:02 PM) 115 mL/min/1.73m2 (12/11/19 2:30 PM) eGFR NonAfrican [>=60 mL/min/1.73m2] 85 mL/min/1.73m2 (12/14/19 3:02 PM) 95 mL/min/1.73m2 (12/11/19 2:30 PM) Glucose Level [70-110 mg/dL] 114 mg/dL *HI* (12/14/19 3:02 PM) 121 mg/dL *HI* (12/11/19 2:30 PM) Magnesium Level [1.7-2.3 mg/dL] 1.8 mg/d L (12/14/19 3:02 PM) 1.9 mg/dL (12/11/19 2:30 PM) Blood Urea Nitrogen [6-20 mg/dL] 13 mg/d L (12/14/19 3:02 PM) 14 mg/dL (12/11/19 2:30 PM) Slide Review MANDIFF *NA* (12/14/19 3:02 PM) MANDIFF *NA* (12/11/19 2:30 PM) ALYC # [0.8-3.2 thou/cmm] 0.9 thou/cmm (12/14/19 3:02 PM) 1.3 thou/cmm (12/11/19 2:30 PM) Hypochromia 1+ *NA* (12/11/19 2:30 PM) RBC Morphology [Normal] See Report *NA* (12/14/19 3:02 PM) See Report *NA* (12/11/19 2:30 PM) RDW [11.7-15.2 %] 14.7 % (12/14/19 3:02 PM) 14.6 % (12/11/19 2:30 PM) ANC # [1.7-6.0 x10(3)/uL] 2.7 x10(3)/uL (12/14/19 3:02 PM) 1.3 x10(3)/uL *LOW* (12/11/19 2:30 PM) Mckenzie Percent Man [5.0-12.5 %] 16.0 % *HI* (12/14/19 3:02 PM) 21.0 % *HI* (12/11/19 2:30 PM) Ovalocytes Occasional *NA* (12/14/19 3:02 PM) Occasional *NA* (12/11/19 2:30 PM) Baso Percent Man [0.0-2.0 %] 0.0 % (12/14/19 3:02 PM) 2.0 % (12/11/19 2:30 PM) Protein Total [6.3-8.2 Gram/dL] 5.5 Gram /dL *LOW* (12/14/19 3:02 PM) 5.5 Gram/dL *LOW* (12/11/19 2:30 PM) Neutrophil Percent Man [34.0-69.5 %] 62. 0 % (12/14/19 3:02 PM) 38.0 % (12/11/19 2:30 PM) Eos Percent Man [0.7-6.0 %] 1.0 % (12/14/19 3:02 PM) 0.0 % *LOW* (12/11/19 2:30 PM) Anisocytosis 1+ *NA* (12/14/19 3:02 PM) Albumin Level [3.6-4.7 Gram/dL] 2.9 Gram /dL *LOW* (12/14/19 3:02 PM) 2.8 Gram/dL *LOW* (12/11/19 2:30 PM) Platelet Ct Estimate Decreased *NA* (12/14/19 3:02 PM) Decreased *NA* (12/11/19 2:30 PM) MPV [8.7-12.0 fL] 9.3 fL (12/14/19 3:02 PM) 9.6 fL (12/11/19 2:30 PM) Lymph Percent Man [20.0-53.0 %] 21.0 % (12/14/19 3:02 PM) 39.0 % (12/11/19 2:30 PM) NRBC [0-0] 1 *HI* (12/14/19 3:02 PM) 2 *HI* (12/11/19 2:30 PM) Creatinine Level [0.64-1.27 mg/dL] 0.93 mg/dL (12/14/19 3:02 PM) 0.84 mg/dL (12/11/19 2:30 PM) Vital Signs Most recent to oldest [Reference Range]: 1 2 3 Mal Motor Response Obey commands (12/21/19 10:00 AM) Mal Verbal Response Oriented (12/21/19 10:00 AM) [place] Eye Opening Response Spontaneous (12/21/19 10:00 AM) [place] Coma Score 15 (12/21/19 10:00 AM) Temperature Source Oral (12/21/19 10:00 AM) Oral (12/14/19 3:08 PM) Temperature Mode Celsius (12/21/19 10:00 AM) Celsius (12/14/19 3:08 PM) Celsius (12/11/19 2:12 PM) Temperature, Celsius [35.2-38.1 Deg C] 37.2 Deg C (12/21/19 10:00 AM) 36.4 Deg C (12/14/19 3:08 PM) 36.3 Deg C (12/11/19 2:12 PM) Clinical Temperature, F 99 Deg F (12/21/19 10:00 AM) 97.5 Deg F (12/14/19 3:08 PM) 97.3 Deg F (12/11/19 2:12 PM) Pulse Method Pulse Oximetry (12/21/19 10:00 AM) Doppler (12/14/19 3:08 PM) Pulse Rhythm Regular (12/14/19 3:08 PM) Heart Rate, Apical [60-100 bpm] 107 bpm *HI* (12/11/19 2:12 PM) Peripheral Pulse Rate [60-100 bpm] 114 bpm *HI* (12/21/19 10:00 AM) 76 bpm (12/14/19 3:08 PM) Respiratory Rate [14-20 Breaths/Min] 18 Breaths/Min (12/21/19 10:00 AM) 18 Breaths/Min (12/14/19 3:08 PM) 20 Breaths/Min (12/11/19 2:12 PM) Blood Pressure Location Arm, right upper (12/21/19 10:00 AM) Arm, right upper (12/14/19 3:08 PM) Blood Pressure Source Non-Invasive BP De vice (12/21/19 10:00 AM) Doppler (12/14/19 3:08 PM) Blood Pressure Position Sitting (12/21/19 10:00 AM) Sitting (12/14/19 3:08 PM) Blood Pressure [90-140/60-90 mmHg] 130/80mmHg (12/21/19 10:00 AM) 124/82mmHg (12/14/19 3:08 PM) 102/77mmHg (12/11/19 2:12 PM) Mean Arterial Pressure (MAP)-BMDI 96 (12/21/19 10:00 AM) Oxygen Saturation [94-100 %] 96 % (12/21/19 10:00 AM) 97 % (12/14/19 3:08 PM) 98 % (12/11/19 2:12 PM) Oxygen Therapy Mode Room air (12/21/19 10:00 AM) Height Source Chart (12/14/19 3:08 PM) Height Entry Format [place] (12/14/19 3:08 PM) [place] (12/11/19 2:12 PM) Height/Length, AUSTRIAN (ft) 6 ft (12/14/19 3:08 PM) 6 ft (12/11/19 2:12 PM) Height/Length AUSTRIAN 0 Inch (12/14/19 3:08 PM) 0 Inch (12/11/19 2:12 PM) CLINICALHEIGHT 182.88 cm (12/14/19 3:08 PM) 182.88 cm (12/11/19 2:12 PM) Weight Source Standing scale (12/14/19 3:08 PM) Standing scale (12/11/19 2:12 PM) Weight Entry Format Metric, kilograms (12/14/19 3:08 PM) Metric, kilograms (12/11/19 2:12 PM) Weight METRIC kg 91.1 kg (12/14/19 3:08 PM) 89.58 kg (12/11/19 2:12 PM) CLINICALWEIGHT 91.1 kg (12/14/19 3:08 PM) 89.58 kg (12/11/19 2:12 PM) Body Surface Area (BSA) 2.13 m2 (12/14/19 3:08 PM) 2.12 m2 (12/11/19 2:12 PM) Body Mass Index [19-24 kg/m2] 27.2 kg/m2 *HI* (12/14/19 3:08 PM) 26.8 kg/m2 *HI* (12/11/19 2:12 PM) [place] Body Weight 77 kg (12/14/19 3:08 PM) 77 kg (12/11/19 2:12 PM) Social History Social History Type Response Smoking Status Never smoker entered on: 11/06/19 Sex Reason for Referral , referred to: IR Referred by: BETH HEWITT MD-ONC
--- OUTSIDE RECORDS SUMMARY | 2023-10-22 15:28 | XMS_ITS | Continuity of Care Document ---
Author Name Unknown Organization [facility] Address [address] [place] [address]- Care Team Providers Care Company Pilot Name Role Phone PHY, NO Primary Care Physician PHY, NO Primary Care Physician KENIA BRISENO Primary Care Physician CATALINO FLORES (REF) Primary Care Physician CATALINO FLORES (REF) Primary Care Physician Encounter [facility] [id number] Date(s): 06/06/20 - 06/10/20 [facility] [address] [place], [place] [address] Discharge Disposition: OP Self Care or Home Attending Physician: BETH HEWITT MD-ONC Admitting Physician: BETH HEWITT MD-ONC Referring Physician: BETH HEWITT MD-ONC Allergies, Adverse Reactions, Alerts Substance Reaction Severity Status penicillin Active Assessment and Plan Future Appointments Appointment Date:06/12/2020 03:30:00 PM Scheduled Provider: Location:[facility] Infusion Appointment Type:ONC LUDY Lab Visit [facility] Appointment Date:06/12/2020 04:00:00 PM Scheduled Provider: Location:[facility] Clinic Appointment Type:ONC Provider Visit [facility] Future Scheduled Tests Laboratory* BCC CMP Comprehensive Metabolic Panel 01/04/20 * [facility] CMP Comprehensive Metabolic Panel 01/11/20 * [facility] CMP Comprehensive Metabolic Panel 06/12/20 * [facility] CMP Comprehensive Metabolic Panel 12/21/19 [...] Day(s), # 60 Tab, 4 Refill(s), Pharmacy: [facility] #[id number], , 03/25/20 14:36:00 EDT, CLINICALHEIGHT, 102.5, kg, 03/25/20 14:36:00 EDT, CLINICALWEIGHT, 182.88 Start Date: 04/15/20 Stop Date: 09/12/20 Status: Ordered dapsone 100 mg oral tablet 100 mg 1 Tab, Oral, Daily, # 30 Tab, 3 Refill(s), Pharmacy: [facility] #[id number], , 02/28/20 10:08:00 EDT, CLINICALHEIGHT, 99.8, kg, 02/28/20 10:08:00 EDT, CLINICALWEIGHT, 182.88 Start Date: 03/07/20 Status: Ordered lisinopril 10 mg oral tablet mg Tab, Oral, Daily, 0 Refill(s) Start Date: 05/07/20 Status: Ordered Metoprolol Tartrate 25 mg oral tablet 25 mg 1 Tab, Oral, Tab, BID, # 60 Tab, 5 Refill(s), Pharmacy: [facility] #[id number], , 12/21/19 10:38:00 EDT, CLINICALHEIGHT, 91.64, kg, [...]
--- OUTSIDE RECORDS SUMMARY | 2023-10-22 15:28 | XMS_ITS | Continuity of Care Document ---
Author Name Unknown Organization [facility] Address [address] [place] [id number] Care Team Providers Care Check Examiner Name Role Phone KENIA BRISENO Primary Care Physician CATALINO FLORES (REF) Primary Care Physician CATALINO FLORES (REF) Primary Care Physician ( [phone] CATALINO FLORES (REF) Primary Care Physician ( [phone] Encounter [facility] [id number] Date(s): 12/21/19 - 12/29/[address] [address] [place] Discharge Disposition: OP Self Care or Home Attending Physician: BETH HEWITT MD-ONC Admitting Physician: BETH HEWITT MD-ONC Referring Physician: BETH HEWITT MD-ONC Allergies, Adverse Reactions, Alerts Substance Reaction Severity Status penicillin Active Assessment and Plan Future Appointments Appointment Date:01/04/2020 01:30:00 PM Scheduled Provider: Location:[facility] Infusion Appointment Type:ONC LUDY Lab Visit [facility] Appointment Date:01/04/2020 02:00:00 PM Scheduled Provider: Location:[facility] Clinic Appointment Type:ONC Provider Visit [facility] Future Scheduled Tests Laboratory* BCC [...] Day(s), # 120 Tab, 1 Refill(s), Pharmacy: [facility], , 12/07/19 8:49:00 EST, [...] BID, # 60 Tab, 0 Refill(s), Pharmacy: [facility], , 12/07/19 8:49:00 EST, CLINICALHEIGHT, 92.9, kg, 11/15/19 9:10:00 EST, CLINICALWEIGHT, 182.88 Start Date: 12/07/19 Status: Ordered potassium chloride 20 mEq oral tablet, extended release 40 mEq 2 Tab, Oral, Daily Start Date: 12/21/19 Status: Ordered Problem List Condition Effective Dates Status Health Status Inform ant Clostridium difficile infection(Confirmed) 12/07/19 Active patient HTN (hypertension)(Confirmed) Active Lymphoma(Confirmed) Active PE (pulmonary thromboembolism)(Confirmed) Active Procedures Procedure Date Related Diagnosis Body Site Status PICC line 2017 Completed Rotator cuff repair 2016 Com pleted Colonoscopy 2014 Completed 1L shoulder Results Radiology Reports * Exam Date Time Procedure Performing Provider Status 12/28/19 5:33 PM MRI Brain WO W CROW, SILKE, MRI TECHNO LOGIST; Auth (Verified) Notes: (MRI Brain WO W) Reason For Exam: 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 PROVIDED INDICATION: Central nervous system lymphoma. COMPARISON: MRI of the brain performed 10/27/2019. TECHNIQUE: Precontrast axial T1-weighted, T2 turbo spin-echo, T2 gradient echo, T2 FLAIR, diffusion-weighted images an ADC maps with 4 mm thickness. Postcontrast 4 mm Sagittal, axial and coronal T1-weighted images. 20 milliliters of Multihance gadolinium contrast were injected IV without adverse sequela. FINDINGS: Major Findings: Focal cavitary encephalomalacia is centered in the left frontal lobe with associated volume loss. Mild T2/T2 FLAIR hyperintensity located in the periventricular white matter of the left frontal lobe likely represents gliosis. Susceptibility blooming from hemosiderin deposition is scattered throughout this region and remains unchanged. Incidental and Normal Findings: White Matter: Please refer to the major findings. Sulci and ventricles: are mildly prominent. Paranasal and Mastoid Sinuses: Minimal mucosal thickening is within the right maxillary sinus antrum. Mastoid sinuses return normal signal voids. Soft Tissues, Cranium and Orbits: A left frontal bone paramedian manjit hole is unchanged. Vessels: Vascular flow voids are physiologic in appearance. Pertinent Negatives: There are no intra or extra-axial hemorrhages, masses, midline shift, acute orsubacute infarcts. IMPRESSION: 1. No evidence of local recurrence. 2. Focal encephalomalacia/gliosis and volume loss. I, the attending/teaching physician, have personally reviewed, discussed, and supervised this radiological examination with the resident and this report reflects my agreement. Signed by Tevin Thurman M.D. on 12/29/2019 4:53 PM Final Dictated by: KENIA BRISENO, DO-RAD Dictated DT/TM: 12/29/2019 4:53 pm Interpreted and electronically signed by: TEVIN THURMAN, -ALMA Signed DT/TM: 12/29/2019 4:53 pm Social History Social History Type Response Smoking Status Never smoker entered on: 11/06/19 Sex
[2023-10-22 16:15] LABS: Basophils # 0.1 K/mm3 (0-0.2); Basophils % 0.5 % (0.1-2.0); Eosinophils # 0.1 K/mm3 (0.0-0.4); Eosinophils % 1.2 % (0.1-12.0); Hematocrit 43.5 % (42.0-52.0); Hemoglobin 14.5 g/dL (14.1-18.0); Lymphocytes # 2.4 K/mm3 (0.7-4.5); Lymphocytes % 25.7 % (10-50); Mean Corpuscular HGB Conc 33.4 g/dL (31.8-35.4); Mean Corpuscular Hemoglobin 30.9 pg (27.0-31.2); Mean Corpuscular Volume 92.5 fl (80-94); Mean Platelet Volume 8.7 fl (7.4-10.4); Monocytes # 0.6 K/mm3 (0.1-1.0); Monocytes % 6.3 % (1.7-9.3); Neutrophils # 6.3 K/mm3 (1.8-7.8); Neutrophils % 66.4 % (37.0-80.0); Platelet Count 203 K/mm3 (142-424); Red Blood Count 4.71 M/mm3 (4.60-6.20); Red Cell Distribution Width 14.5 % (11.5-17.5); White Blood Count 9.5 K/mm3 (4.8-10.8)
[2023-10-22 16:21] LABS: Hemoglobin A1C 7.8 % (4.0-6.0)
[2023-10-22 16:32] LABS: Chloride 99 mmol/L (98-107); Potassium 3.8 mmoL/L (3.5-5.1); Sodium 137 mmol/L (136-145)
[2023-10-22 16:34] LABS: Alanine Aminotransferase 50 U/L (12-78); Albumin Level 3.7 g/dl (3.5-5.0); Alkaline Phosphatase 93 U/L (38-126); Aspartate Amino Transferase 33 U/L (17-59); Bilirubin,Total 0.3 mg/dl (0.2-1.3); Blood Urea Nitrogen 19 mg/dl (9-20); Estimated Glomerular Filt Rate 77 ml/min (>60); GFR (African American) 93 ML/MIN (>60)
[2023-10-22 16:35] LABS: Albumin/Globulin Ratio 1.4 (1.1-1.8); Anion Gap 7.8 mEq/L (5-15); Calcium 8.6 mg/dl (8.4-10.2); Carbon Dioxide 34 mmol/L (22.0-30.0); Cholesterol 184 mg/dl (140-200); Globulin 2.6 g/dL (1.3-3.2); Glucose 149 mg/dl (74-100); Total Protein,Serum 6.3 g/dl (6.3-8.2); Triglycerides 144 mg/dl (30-150); VLDL Cholesterol 29 mg/dL (0-40)
[2023-10-22 16:56] LABS: Direct LDL Cholesterol 108.03 mg/dL (100-129)
[2023-10-22 17:24] LABS: Chol/HDL Ratio 4.2 (1-3.5); HDL Cholesterol 44 mg/dl (40-60)
[2023-10-22 20:20] LABS: Lactate Dehydrogenase 226 U/L (313-618)
[2023-10-22 20:52] LABS: Prostate Specific Ag, Diagnost 1.82 ng/ml (0.0-4.0)
== END 2023-10-22 23:59 ==
LOC: LAB 15:25
PROVIDERS: Internal Medicine; PCP Family Medicine; Visit Provider Family Medicine
DX: I10 Essential (primary) hypertension (principal); E11.9 Type 2 diabetes mellitus without complications; E78.5 Hyperlipidemia, unspecified; R97.20 Elevated prostate specific antigen [PSA]
CPT/HCPCS: 36415; 80053; 80061; 83036; 83615; 84153; 85025

== ENCOUNTER 2024-04-26 12:57 | Outpatient (CLI) | payer BC, SELFPAY ==
[2024-04-26 14:01] LABS: Basophils # 0.1 K/mm3 (0-0.2); Basophils % 0.6 % (0.1-2.0); Eosinophils # 0.1 K/mm3 (0.0-0.4); Eosinophils % 0.8 % (0.1-12.0); Hematocrit 41.9 % (42.0-52.0); Hemoglobin 13.7 g/dL (14.1-18.0); Lymphocytes % 22.4 % (10-50); Mean Corpuscular HGB Conc 32.7 g/dL (31.8-35.4); Mean Corpuscular Hemoglobin 30.4 pg (27.0-31.2); Mean Platelet Volume 8.4 fl (7.4-10.4); Monocytes # 0.5 K/mm3 (0.1-1.0); Neutrophils # 6.2 K/mm3 (1.8-7.8); Neutrophils % 70.2 % (37.0-80.0); Platelet Count 197 K/mm3 (142-424); Red Cell Distribution Width 15.1 % (11.5-17.5); White Blood Count 8.8 K/mm3 (4.8-10.8)
[2024-04-26 14:12] LABS: Alanine Aminotransferase 46 U/L (12-78); Albumin Level 3.6 g/dl (3.5-5.0); Albumin/Globulin Ratio 1.3 (1.1-1.8); Alkaline Phosphatase 94 U/L (38-126); Aspartate Amino Transferase 35 U/L (17-59); Bilirubin,Total 0.4 mg/dl (0.2-1.3); Blood Urea Nitrogen 23 mg/dl (9-20); Calcium 9.4 mg/dl (8.4-10.2); Carbon Dioxide 31 mmol/L (22.0-30.0); Chloride 105 mmol/L (98-107); Estimated Glomerular Filt Rate 87 ml/min (>60); GFR (African American) 105 ML/MIN (>60); Globulin 2.7 g/dL (1.3-3.2); Glucose 181 mg/dl (74-100); Lactate Dehydrogenase 222 U/L (313-618); Sodium 140 mmol/L (136-145); Total Protein,Serum 6.3 g/dl (6.3-8.2)
== END 2024-04-26 23:59 | disposition home or self-care (01) ==
LOC: LAB 13:00
PROVIDERS: PCP Family Medicine; Visit Provider Internal Medicine
DX: C83.30 Diffuse large B-cell lymphoma, unspecified site (principal); C85.89 Other specified types of non-Hodgkin lymphoma, extranodal and solid organ sites
CPT/HCPCS: 36415; 80053; 83615; 85025

== ENCOUNTER 2024-08-16 06:48 | Emergency (ER) | payer BC, SELFPAY ==
[2024-08-16] VITALS (10 sets, daily range): BP systolic 142–185; BP diastolic 84–120; PULSE 99–116; RESP 15–23; TEMP 36.8; O2SAT 91–98; BMI 33.7
--- NOTE | 2024-08-16 06:50 | CT_ITS ---
FINAL REPORT CLINICAL HISTORY: seizure, hx brain tumor COMPARISON: Report available from 06/29/2019 FINDINGS: Axial images of the head were obtained without contrast. Coronal and sagittal reformatted images were also obtained.This study was performed with techniques to keep radiation doses as low as reasonably achievable (ALARA). Individualized dose reduction techniques using automated exposure control or adjustment of mA and/or kV according to the patient's size were employed. There is no evidence of intracranial hemorrhage or mass. There is bifrontal encephalomalacia present, greater on the left than on the right, consistent with the patient's history of a previous intracranial tumor. There is ex vacuo dilatation of the frontal horn of the left lateral ventricle. There is no evidence of shift of the midline structures. No abnormal extra axial fluid collection is identified. There are postoperative changes present in the left frontal calvarium. IMPRESSION: No acute intracranial abnormality. Bifrontal encephalomalacia greater on the left than on the right, with ex vacuo dilatation of the left lateral ventricle frontal horn. These findings are consistent with the patient's clinical history of a brain tumor. Reviewed, Interpreted and Dictated by Taj Stovall III, MD Transcribed by Monique Nichole Authenticated and [facility]
--- NOTE | 2024-08-16 06:58 | XR_ITS ---
FINAL REPORT CLINICAL HISTORY: new seizure COMPARISON: 02/18/2023 FINDINGS: A single portable view of the chest was obtained. Cardiomegaly is present. The mediastinum is within normal limits. There are bibasilar opacities new since the prior exam, atelectasis or pneumonia. Postoperative changes are present in the left humeral head. The bony thorax is otherwise intact. IMPRESSION: Cardiomegaly. Bibasilar opacities, new since prior exam, atelectasis or pneumonia. Reviewed, Interpreted and Dictated by Taj Stovall III, MD Transcribed by Monique Nichole Authenticated and . [facility]
--- NOTE | 2024-08-16 06:59 | ED_ITS ---
Discharge Plan Disposition Patient Disposition: Home, Self-Care Condition: Good Prescriptions Prescriptions: New levetiracetam [Keppra] 500 mg tablet 500 mg PO BID Qty: 60 1RF No Action metoprolol tartrate 25 mg tablet 50 mg PO BID Patient Comments: TAKE 1 TABLET BY MOUTH TWICE DAILY losartan 50 mg tablet 100 mg PO DAILY Patient Comments: TAKE 1 TABLET BY MOUTH EVERY DAY glimepiride 4 mg tablet 4 mg PO DAILY metformin 750 mg tablet extended release 24 hr 750 mg PO BID rosuvastatin 5 mg tablet 5 mg PO DAILY Patient Comments: TAKE 1 TABLET BY MOUTH AT BEDTIME FOR 10 DAYS aspirin [Aspir-81] 81 mg Tablet,Delayed Release (Dr/Ec) 81 mg PO DAILY Referrals Follow up/Referrals: Nahid Pearson MD [Primary Care Provider] - See instructions Activity Restrictions/Add. Instructions Additional Instructions/Restrictions: You were evaluated in the emergency department today. At this time, your scan and workup are reassuring. Please follow-up very closely outpatient with your provider care team, including your oncologist and primary care provider. I have also spoken with neurosurgery on your behalf, and I recommend very close follow-up with them. They should be contacting you over the next 24 to 48 hours to help set up an appointment. I also recommend close follow-up with a neurologist. In our health system, we have Dr. Saenz who does not take referrals from the ER, but your primary care provider can help refer you. You may also choose to follow-up with neurology instead if this is your preference. Please vegetable picker your prescription for Keppra and take twice a day as prescribed. Please see attached seizure precautions. Return to the emergency department for new or worsening symptoms. Take your medicines exactly as prescribed. Call your doctor or nurse advice line if you think you are having a problem with your medicine. Do not drive a car, operate machinery, swim, climb ladders, or do any other activity that could be dangerous to you or others until your doctor says it is safe to do so. Be sure that anyone treating you for any health problem knows that you have had a seizure and what medicines you are taking for it. Identify and avoid things that may make you more likely to have a seizure, such as lack of sleep, alcohol or drug use, stress, or not eating. If possible, take a shower instead of a bath. Having a seizure while in a bath can increase the risk of drowning. Clinical Impressions Clinical Impression: Seizure Stand Alone Forms Stand Alone Forms: Work/School Release Instructions Patient Instructions: DI for Seizure Disorder -- Adult, DI for Seizure (Not Epilepsy/Seizure Disorder) Print Language Print Language: Mozambican Discharge ED Provider: Mitchell Bacon General Adult HPI <Mitchell Bacon MD - Last Filed: 08/16/24 07:05> General Chief complaint: Seizure Stated complaint: Seizure Time Seen by Provider: 08/16/24 06:50 History of Present Illness HPI narrative: 58-year-old male with a history of hypertension and brain tumor in 2019 reportedly in remission presents to the ER for concerns of seizure. Patient has never had seizure activity before. called EMS when she felt the patient kicking in bed, she found him to be seizing with generalized tonic-clonic activity, unresponsive to her, blood coming from the mouth. Patient's seizure reportedly lasted approximately 15 to 16 minutes before spontaneously aborting. By the time EMS arrived, he was postictal but gradually improving. Patient does not remember anything that happened and only remembers waking up with EMS present. Patient did have nausea and received Zofran from EMS, he was not hypoglycemic in route. Patient arrives a GCS 15, completely oriented. He states he has no pain, discomfort, or other complaints at this time. He is slightly hypoxic but states he has no chest pain or difficulty breathing, he has not had any emesis and his nausea is resolved. He denies headache, dizziness, numbness, tingling, weakness, abdominal pain, or other associated symptoms. Patient reports he had chemo and radiation for his brain tumor and has been in remission as far as he knows. He denies any known cardiac or lung pathology. Denies substance use. No dysuria or hematuria. Related Data Home Medications ?Medication ?Instructions ?Recorded ?Confirmed losartan 50 mg tablet 100 mg PO DAILY bp 02/28/21 08/16/24 metoprolol tartrate 25 mg tablet 50 mg PO BID bp 02/28/21 08/16/24 aspirin 81 mg tablet,delayed 81 mg PO DAILY 08/16/24 08/16/24 release glimepiride 4 mg tablet 4 mg PO DAILY 08/16/24 08/16/24 metformin 750 mg tablet,extended 750 mg PO BID 08/16/24 08/16/24 release 24 hr rosuvastatin 5 mg tablet 5 mg PO DAILY 08/16/24 08/16/24 Previous Rx's ?Medication ?Instructions ?Recorded levetiracetam 500 mg tablet 500 mg PO BID #60 tabs 08/16/24 (Keppra) Allergies Allergy/AdvReac Type Severity Reaction Status Date / Time Penicillins Allergy Unknown I-HIVES Verified 08/19/22 19:56 PFSH <Mitchell Bacon MD - Last Filed: 08/16/24 07:05> [facility] Disclaimer: The information contained in this section may have been updated after the patient was seen, as this information can be updated by other users. Social History Smoking Status: Never smoker second hand exposure: No alcohol intake: never substance use type: denies use current occupational status: employed Travel in the last 8 weeks: None household members: spouse housing: house current occupation: [employer] current occupational exposures/hazards: No caffeine: Yes Other Medical History Have you received the Flu Vaccine for this season: Yes Have you received the Pneumonia Vaccine: Yes <Mitchell Bacon MD - Last Filed: 08/16/24 07:05> ROS Obtained: Yes Systems reviewed as appropriate & no additional complaints except as documented ROS per HPI Physical Exam <Mitchell Bacon MD - Last Filed: 08/16/24 07:05> General General appearance: alert and in no apparent distress Head Head exam: atraumatic and normocephalic Eye Eye exam: Present PERRL and EOMI ENT ENT exam: Present mucous membranes moist and other (No obvious intraoral injury however there is dried blood around patient's mouth) Neck Neck exam: Present normal inspection and full ROM; Absent tenderness Chest Chest inspection: Present symmetric chest wall rise; Absent tenderness Respiratory Respiratory exam: Present normal lung sounds bilaterally; Absent respiratory distress, wheezes or stridor Cardiovascular Cardiovascular exam: Present normal rhythm and tachycardia Abdominal Exam Abdominal exam: Present soft; Absent distention, tenderness, guarding or rebound Extremities Exam Extremities exam: Present full ROM; Absent tenderness or edema Neurological Exam Neurological exam: Present alert, oriented X3 and CN II-XII intact; Absent motor sensory deficit Psychiatric Psychiatric exam: Present normal affect and normal mood Skin Skin exam: Present warm and dry Medical Decision Making <Mitchell Bacon MD - Last Filed: 08/16/24 07:05> Medical Records Screening: Per USPSTF and CDC recommendations, given the prevalence of disease in our region, it is our hospital?s policy to screen for HIV and viral Hepatitis for all patients aged 18 and over and those with ongoing risk factors. Graeme Inquiry Pt receiving controlled substance: No Vital Signs: 08/16/24 06:57 08/16/24 08:08 08/16/24 08:31 Temperature 98.2 F Temperature Source Oral Pulse Rate 107 H 108 H Pulse Rate [Left Radial] 116 H Respiratory Rate 20 19 17 Blood Pressure 157/92 H 146/93 H Blood Pressure [Right Arm] 175/105 H Blood Pressure Mean 104 Blood Pressure Mean [Right Arm] 128 Blood Pressure Source [Right Arm] Automatic Cuff Blood Pressure Position [Right Arm] Sitting 02 Sat by Pulse Oximetry 91 L 93 L 98 Oxygen Delivery Method Room Air Room Air 08/16/24 09:01 08/16/24 09:03 08/16/24 09:30 Temperature Temperature Source Pulse Rate 105 H 102 H 100 H Pulse Rate [Left Radial] Respiratory Rate 23 15 17 Blood Pressure 185/120 H 175/106 H 155/109 H Blood Pressure [Right Arm] Blood Pressure Mean Blood Pressure Mean [Right Arm] Blood Pressure Source [Right Arm] Blood Pressure Position [Right Arm] 02 Sat by Pulse Oximetry 95 97 96 Oxygen Delivery Method Room Air Room Air Room Air 08/16/24 09:52 08/16/24 10:13 08/16/24 10:30 Temperature Temperature Source Pulse Rate 103 H 99 H 102 H Pulse Rate [Left Radial] Respiratory Rate 17 20 17 Blood Pressure 163/107 H 155/92 H 142/84 H Blood Pressure [Right Arm] Blood Pressure Mean Blood Pressure Mean [Right Arm] Blood Pressure Source [Right Arm] Blood Pressure Position [Right Arm] 02 Sat by Pulse Oximetry 97 96 92 L Oxygen Delivery Method Room Air Lab Data Lab Results 08/16/24 06:50: WBC 11.2 H, RBC 4.93, Hgb 15.0, Hct 45.0, MCV 91.3, MCH 30.5, MCHC 33.4, RDW 14.4, Plt Count 284, MPV 9.6, Neut % (Auto) 61.4, Lymph % (Auto) 27.6, [place] % (Auto) 8.7, Eos % (Auto) 1.3, Baso % (Auto) 1.0, Neut # (Auto) 6.9, Lymph # (Auto) 3.1, [place] # (Auto) 1.0, Eos # (Auto) 0.1, Baso # (Auto) 0.1, Sodium 138, Potassium 3.9, Chloride 101, Carbon Dioxide 20 L, Anion Gap 20.9 H, BUN 18, Creatinine 0.90, Estimated Creat Clear 143, Estimated GFR 87, Est GFR ( Amer) 105, Glucose 238 H, Lactate 4.9 H, Calcium 8.8, Total Bilirubin 0.8, AST 59, ALT 62, Alkaline Phosphatase 78, Troponin I < 0.01, Total Protein 7.8, Albumin 4.3, Globulin 3.5 H, Albumin/Globulin Ratio 1.2, Plasma/Serum Alcohol < 10 08/16/24 06:59: VBG pH 7.39, VBG pCO2 43.1, VBG pO2 100.8 H, VBG HCO3 25.3, VBG Total CO2 26.6, VBG O2 Saturation 97.8 H, VBG Base Excess 0.2, VBG Lactic Acid 4.2 H 08/16/24 07:58: Urine Color Yellow, Urine Appearance Clear, Urine pH 6.5, Ur Specific [place] 1.025, Urine Protein 3+ A, Urine Glucose (UA) 2+, Urine Ketones Negative, Urine Blood 1+ A, Urine Nitrate Negative, Urine Bilirubin Negative, Urine Urobilinogen 0.2, Ur Leukocyte Esterase Negative, Urine RBC None, Urine WBC None, Ur Squamous Epith Cells None, Urine Bacteria None, Urine Opiates Screen Negative, Urine Methadone Screen Negative, Ur Barbituates Screen Negative, Ur Phencyclidine Scrn Negative, Ur Amphetamines Screen Negative, U Benzodiazepines Scrn Negative, Urine Cocaine Screen Negative, U Marijuana (THC) Screen Negative 08/16/24 10:30: Troponin I < 0.01 08/16/24 06:50 08/16/24 06:50 Orders (Tests/Meds): ED MEDICATIONS Discontinued Medications Generic Name Dose Route Start Last Admin Trade Name Freq PRN Reason Stop Dose Admin Levetiracetam 2,000 mg/ Sodium 120 mls @ 240 mls/hr 08/16/24 06:50 08/16/24 07:00 Chloride IV 08/16/24 06:51 240 mls/hr ONCE ONE Administration Sodium Chloride 1,000 mls @ 999 mls/hr 08/16/24 06:58 08/16/24 07:00 Sod Chlor 0.9% 1000ml Bag IV 08/16/24 07:58 999 mls/hr .Q1H1M ONE Administration ORDERS Category Date Time Status CT head/brain wo con Stat Cat Scan 08/16/24 06:50 Taken CXR --portable [XR chest portable] Stat Exams 08/16/24 06:58 Taken CBC w/Auto Diff [Complete Blood Count Auto Diff] Stat Lab 08/16/24 06:50 Completed CMP [Comprehensive Metabolic Panel] Stat Lab 08/16/24 06:50 Completed Ethanol [Ethyl Alcohol] Stat Lab 08/16/24 06:50 Completed HIV (1&2) Antibody Rapid Stat Lab 08/16/24 06:50 Received Hep C Ab with Reflex to RNA Stat Lab 08/16/24 06:50 Received Lactic Acid Stat Lab 08/16/24 06:50 Completed Trop I [Troponin I] Stat Lab 08/16/24 06:50 Completed Troponin I Q3H Lab 08/16/24 10:30 Completed Troponin I Q3H Lab 08/16/24 13:00 Ordered UDS [Drug Screen,Urine] Stat Lab 08/16/24 07:58 Completed Urinalysis and Microscopic Stat Lab 08/16/24 07:58 Completed VBG [Venous Blood Gas] Stat RT 08/16/24 06:59 Completed Medical Decision Narrative: In summary, this 58-year-old male with comorbidities as described in HPI presents to the emergency department today with seizure. On initial evaluation patient is tachycardic and hypertensive but hemodynamically stable, afebrile, he reports no symptoms at this time. he was mildly hypoxic with normal pulmonary exam. Placed on 2 L nasal cannula. Suspect aspiration. Differential diagnosis includes but is not limited to seizure, intracranial bleed, intracranial mass, midline shift, hypertensive urgency/emergency, I considered stroke but patient has no neuro deficits, normal [id number] and [id number]. Also considered electrolyte abnormality, dehydration, with the hypoxia considered ACS, aspiration, pneumothorax. Based on these concerns, I ordered serum labs, ECG, CT head. ECG personally interpreted demonstrates sinus tachycardia, rate 109, normal axis, normal ME and QTc. Patient received IV Keppra load and IV fluids for treatment. Labs and imaging pending at the time of physician handoff. Patient ended off to Dr. Singh for continued management and disposition. <Sue Singh, DO - Last Filed: 08/16/24 11:13> Vital Signs: 08/16/24 06:57 08/16/24 08:08 08/16/24 08:31 Temperature 98.2 F Temperature Source Oral Pulse Rate 107 H 108 H Pulse Rate [Left Radial] 116 H Respiratory Rate 20 19 17 Blood Pressure 157/92 H 146/93 H Blood Pressure [Right Arm] 175/105 H Blood Pressure Mean 104 Blood Pressure Mean [Right Arm] 128 Blood Pressure Source [Right Arm] Automatic Cuff Blood Pressure Position [Right Arm] Sitting 02 Sat by Pulse Oximetry 91 L 93 L 98 Oxygen Delivery Method Room Air Room Air 08/16/24 09:01 08/16/24 09:03 08/16/24 09:30 Temperature Temperature Source Pulse Rate 105 H 102 H 100 H Pulse Rate [Left Radial] Respiratory Rate 23 15 17 Blood Pressure 185/120 H 175/106 H 155/109 H Blood Pressure [Right Arm] Blood Pressure Mean Blood Pressure Mean [Right Arm] Blood Pressure Source [Right Arm] Blood Pressure Position [Right Arm] 02 Sat by Pulse Oximetry 95 97 96 Oxygen Delivery Method Room Air Room Air Room Air 08/16/24 09:52 08/16/24 10:13 08/16/24 10:30 Temperature Temperature Source Pulse Rate 103 H 99 H 102 H Pulse Rate [Left Radial] Respiratory Rate 17 20 17 Blood Pressure 163/107 H 155/92 H 142/84 H Blood Pressure [Right Arm] Blood Pressure Mean Blood Pressure Mean [Right Arm] Blood Pressure Source [Right Arm] Blood Pressure Position [Right Arm] 02 Sat by Pulse Oximetry 97 96 92 L Oxygen Delivery Method Room Air Lab Data Lab Results 08/16/24 06:50: WBC 11.2 H, RBC 4.93, Hgb 15.0, Hct 45.0, MCV 91.3, MCH 30.5, MCHC 33.4, RDW 14.4, Plt Count 284, MPV 9.6, Neut % (Auto) 61.4, Lymph % (Auto) 27.6, [place] % (Auto) 8.7, Eos % (Auto) 1.3, Baso % (Auto) 1.0, Neut # (Auto) 6.9, Lymph # (Auto) 3.1, [place] # (Auto) 1.0, Eos # (Auto) 0.1, Baso # (Auto) 0.1, Sodium 138, Potassium 3.9, Chloride 101, Carbon Dioxide 20 L, Anion Gap 20.9 H, BUN 18, Creatinine 0.90, Estimated Creat Clear 143, Estimated GFR 87, Est GFR ( Amer) 105, Glucose 238 H, Lactate 4.9 H, Calcium 8.8, Total Bilirubin 0.8, AST 59, ALT 62, Alkaline Phosphatase 78, Troponin I < 0.01, Total Protein 7.8, Albumin 4.3, Globulin 3.5 H, Albumin/Globulin Ratio 1.2, Plasma/Serum Alcohol < 10 08/16/24 06:59: VBG pH 7.39, VBG pCO2 43.1, VBG pO2 100.8 H, VBG HCO3 25.3, VBG Total CO2 26.6, VBG O2 Saturation 97.8 H, VBG Base Excess 0.2, VBG Lactic Acid 4.2 H 08/16/24 07:58: Urine Color Yellow, Urine Appearance Clear, Urine pH 6.5, Ur Specific [place] 1.025, Urine Protein 3+ A, Urine Glucose (UA) 2+, Urine Ketones Negative, Urine Blood 1+ A, Urine Nitrate Negative, Urine Bilirubin Negative, Urine Urobilinogen 0.2, Ur Leukocyte Esterase Negative, Urine RBC None, Urine WBC None, Ur Squamous Epith Cells None, Urine Bacteria None, Urine Opiates Screen Negative, Urine Methadone Screen Negative, Ur Barbituates Screen Negative, Ur Phencyclidine Scrn Negative, Ur Amphetamines Screen Negative, U Benzodiazepines Scrn Negative, Urine Cocaine Screen Negative, U Marijuana (THC) Screen Negative 08/16/24 10:30: Troponin I < 0.01 Orders (Tests/Meds): ED MEDICATIONS Discontinued Medications Generic Name Dose Route Start Last Admin Trade Name Freq PRN Reason Stop Dose Admin Levetiracetam 2,000 mg/ Sodium 120 mls @ 240 mls/hr 08/16/24 06:50 08/16/24 07:00 Chloride IV 08/16/24 06:51 240 mls/hr ONCE ONE Administration Sodium Chloride 1,000 mls @ 999 mls/hr 08/16/24 06:58 08/16/24 07:00 Sod Chlor 0.9% 1000ml Bag IV 08/16/24 07:58 999 mls/hr .Q1H1M ONE Administration ORDERS Category Date Time Status CT head/brain wo con Stat Cat Scan 08/16/24 06:50 Taken CXR --portable [XR chest portable] Stat Exams 08/16/24 06:58 Taken CBC w/Auto Diff [Complete Blood Count Auto Diff] Stat Lab 08/16/24 06:50 Completed CMP [Comprehensive Metabolic Panel] Stat Lab 08/16/24 06:50 Completed Ethanol [Ethyl Alcohol] Stat Lab 08/16/24 06:50 Completed HIV (1&2) Antibody Rapid Stat Lab 08/16/24 06:50 Received Hep C Ab with Reflex to RNA Stat Lab 08/16/24 06:50 Received Lactic Acid Stat Lab 08/16/24 06:50 Completed Trop I [Troponin I] Stat Lab 08/16/24 06:50 Completed Troponin I Q3H Lab 08/16/24 10:30 Completed Troponin I Q3H Lab 08/16/24 13:00 Ordered UDS [Drug Screen,Urine] Stat Lab 08/16/24 07:58 Completed Urinalysis and Microscopic Stat Lab 08/16/24 07:58 Completed VBG [Venous Blood Gas] Stat RT 08/16/24 06:59 Completed Medical Decision Narrative: In summary, this 58-year-old male with comorbidities as described in HPI presents to the emergency department today with seizure. On initial evaluation patient is tachycardic and hypertensive but hemodynamically stable, afebrile, he reports no symptoms at this time. he was mildly hypoxic with normal pulmonary exam. Placed on 2 L nasal cannula. Suspect aspiration. Differential diagnosis includes but is not limited to seizure, intracranial bleed, intracranial mass, midline shift, hypertensive urgency/emergency, I considered stroke but patient has no neuro deficits, normal [id number] and [id number]. Also considered electrolyte abnormality, dehydration, with the hypoxia considered ACS, aspiration, pneumothorax. Based on these concerns, I ordered serum labs, ECG, CT head. ECG personally interpreted demonstrates sinus tachycardia, rate 109, normal axis, normal ME and QTc. Patient received IV Keppra load and IV fluids for treatment. Labs and imaging pending at the time of physician handoff. Patient ended off to Dr. Singh for continued management and disposition. Francisco DO: On multiple subsequent reassessments of the patient, he is alert and neurologically intact without focal deficits. Vitals are reassuring on cardiac telemetry. Labs demonstrated lactic acidosis, presumably related to seizure, as well as very mild leukocytosis. X-ray and CT scan not concerning for any acute pathology. CT scan demonstrates changes related to his prior treatment of brain mass. I power shared imaging with and had an interactive discussion with Dr. Ly in the transfer center who advised that he spoke with neurosurgery given the patient's brain lesion and neurosurgery had recommended outpatient follow- up, which they will help arrange. Ultimately given patient's [employer] history, I do feel that he would benefit from trial of antiepileptic keppra. He is agreeable to this. I did send in a prescription for him to take 500 mg twice a day. I advise that he follow-up very closely with primary care as well as oncology, neurosurgery, and neurology given his history. I gave him seizure precautions, including no driving, and strict return precautions. He was discharged after all questions were answered. Critical Care <Mitchell Bacon MD - Last Filed: 08/16/24 07:05> Critical Care Time Critical Care Time: No
[2024-08-16] MEDS: 0.9 % SODIUM CHLORIDE 1000ML 1,000 ML 999 ML IV (07:00)
[2024-08-16] MEDS: levETIRAcetam 2,000 MG in 0.9 % SODIUM CHLORIDE 100 ML 240 MG IV (07:00)
--- NOTE | 2024-08-16 07:00 | ECG_ITS ---
APPROVED REPORT Exam: Resting ECG HR:109 bpm ECG Measurements Heart Rate 109 AXES OR 149 P 37 QRSd 89 QRS -7 QT 346 T 33 QTc 410 Conclusion SINUS TACHYCARDIA POSSIBLE LEFT ATRIAL ENLARGEMENT [-0.1mV P-WAVE IN V1/V2] POSSIBLE LEFT VENTRICULAR HYPERTROPHY [VOLTAGE CRITERIA PLUS LAE OR QRS WIDENING] NONSPECIFIC ST & T-WAVE ABNORMALITY ABNORMAL ECG Electronically signed by : JIMI FUENTES, 08/16/2024 15:46:51
--- NOTE | 2024-08-16 07:14 | PC.NURSE ---
pt to CT
[2024-08-16 07:17] LABS: VBG Base Excess 0.2 mmol/L (-2.4-2.3); VBG HCO3 25.3 mmol/L (23-30); VBG Oxygen Saturation 97.8 % (50-70); VBG PCO2 43.1 mmol/L (35-51); VBG PH 7.39 mmol/L (7.31-7.41); VBG PO2 100.8 mmol/L (28-40); VBG Total CO2 26.6 mmol/L (23-27)
[2024-08-16 07:21] LABS: Lactate Venous 4.2 mmol/L (0.4-2.0)
[2024-08-16 07:29] LABS: Alanine Aminotransferase 62 U/L (12-78); Albumin Level 4.3 g/dl (3.5-5.0); Albumin/Globulin Ratio 1.2 (1.1-1.8); Alkaline Phosphatase 78 U/L (38-126); Anion Gap 20.9 mEq/L (5-15); Aspartate Amino Transferase 59 U/L (17-59); Bilirubin,Total 0.8 mg/dl (0.2-1.3); Blood Urea Nitrogen 18 mg/dl (9-20); Calcium 8.8 mg/dl (8.4-10.2); Carbon Dioxide 20 mmol/L (22.0-30.0); Chloride 101 mmol/L (98-107); Creatinine Clearance Estimated 143 mL/min (50-200); Estimated Glomerular Filt Rate 87 ml/min (>60); GFR (African American) 105 ML/MIN (>60); Globulin 3.5 g/dL (1.3-3.2); Glucose 238 mg/dl (74-100); Potassium 3.9 mmoL/L (3.5-5.1); Sodium 138 mmol/L (136-145); Total Protein,Serum 7.8 g/dl (6.3-8.2)
[2024-08-16 07:31] LABS: Ethyl Alcohol < 10 mg/dl (0-10)
[2024-08-16 07:32] LABS: Lactic Acid 4.9 mmol/L (0.7-2.1)
--- NOTE | 2024-08-16 07:53 | PC.NURSE ---
call made to radiology to [facility]are images to [facility] and make a disc.
[2024-08-16 08:02] LABS: Microscopic, Urine URINE MICROSCOPIC (MICROSCOPIC)
[2024-08-16 08:03] LABS: Basophils # 0.1 K/mm3 (0-0.2); Eosinophils # 0.1 K/mm3 (0.0-0.4); Eosinophils % 1.3 % (0.1-12.0); Lymphocytes # 3.1 K/mm3 (0.7-4.5); Lymphocytes % 27.6 % (10-50); Mean Corpuscular HGB Conc 33.4 g/dL (31.8-35.4); Mean Corpuscular Hemoglobin 30.5 pg (27.0-31.2); Mean Corpuscular Volume 91.3 fl (80-94); Mean Platelet Volume 9.6 fl (7.4-10.4); Monocytes % 8.7 % (1.7-9.3); Neutrophils # 6.9 K/mm3 (1.8-7.8); Neutrophils % 61.4 % (37.0-80.0); Platelet Count 284 K/mm3 (142-424); Red Blood Count 4.93 M/mm3 (4.60-6.20); Red Cell Distribution Width 14.4 % (11.5-17.5); White Blood Count 11.2 K/mm3 (4.8-10.8)
[2024-08-16 08:05] LABS: Appearance,Urine CLEAR (Clear); Bilirubin,Urine Negative (Negative); Blood, Urine 1+ (Negative); Color,Urine YELLOW (Yellow); Glucose,Urine (UA) 2+ (Negative); Ketones,Urine Negative (Negative); Leukocyte Esterase,Urine Negative (Negative); Nitrate,Urine Negative (Negative); PH,Urine 6.5 (5.0-8.5); Protein,Urine 3+ (Negative); Specific Gravity, Urine 1.025 (1.005-1.030); Urobilinogen,Urine 0.2 EU/dl (0.2)
[2024-08-16 08:12] LABS: Troponin I < 0.01 ng/ml (0.00-0.034)
--- NOTE | 2024-08-16 08:31 | PC.NURSE ---
call made to radiology for update on scan status of being read. nuclear radiologist states scans were sent as routine and not stat. resending images at stat.
[2024-08-16 09:04] LABS: Amphetamine/Metha Screen,Urine Negative ng/ml (<1000)
[2024-08-16 09:05] LABS: Barbiturates Screen,Urine Negative ng/ml (<200); Benzodiazepines Screen,Urine Negative ng/ml (<200)
[2024-08-16 09:07] LABS: Cannabinoid Screen,Urine Negative ng/ml (<50); Methadone Screen,Urine Negative ng/ml (<300)
[2024-08-16 09:08] LABS: Cocaine Screen,Urine Negative ng/ml (<300); Opiate Screen,Urine Negative ng/ml (<300)
[2024-08-16 09:09] LABS: Phencyclidine Screen,Urine Negative ng/ml (<25)
--- NOTE | 2024-08-16 09:37 | PC.NURSE ---
calling [facility] at this time.
--- NOTE | 2024-08-16 09:57 | PC.NURSE ---
called radiology at this time for the right images to be power shared to [facility] at this time.
[2024-08-16 11:04] LABS: Troponin I < 0.01 ng/ml (0.00-0.034)
[2024-08-16 11:20] LABS: Reflex Lactic Add Lactic Reflex
[2024-08-16 12:17] LABS: HIV (1&2) Antibody Rapid NONREACTIVE (NONREACTIVE)
[2024-08-17 07:20] LABS: HCV Ab Non Reactive (Non Reactive)
== END 2024-08-16 11:22 | disposition home or self-care (01) ==
PROVIDERS: Emergency Provider Emergency Medicine; PCP Family Medicine
DX: R56.9 Unspecified convulsions (principal)
CPT/HCPCS: 70450; 71045; 80053; 80307; 80320; 81001; 82803; 83605; 84484; 85025; 86803; 87389; 93005; 96361; 96374; 99284; G0480; J1953; J7030

== ENCOUNTER 2024-12-01 07:07 | Outpatient (CLI) | payer BC, SELFPAY ==
[2024-12-01 08:03] LABS: Chloride 97 mmol/L (98-107); Potassium 3.7 mmoL/L (3.5-5.1); Sodium 137 mmol/L (136-145)
[2024-12-01 08:06] LABS: Alanine Aminotransferase 45 U/L (12-78); Albumin/Globulin Ratio 1.6 (1.1-1.8); Alkaline Phosphatase 94 U/L (38-126); Anion Gap 9.7 mEq/L (5-15); Aspartate Amino Transferase 29 U/L (17-59); Bilirubin,Total 0.3 mg/dl (0.2-1.3); Blood Urea Nitrogen 19 mg/dl (9-20); Calcium 8.7 mg/dl (8.4-10.2); Carbon Dioxide 34 mmol/L (22.0-30.0); Cholesterol 118 mg/dl (140-200); Estimated Glomerular Filt Rate 76 ml/min (>60); GFR (African American) 93 ML/MIN (>60); Globulin 2.5 g/dL (1.3-3.2); Glucose 216 mg/dl (74-100); Total Protein,Serum 6.5 g/dl (6.3-8.2); Triglycerides 110 mg/dl (30-150); VLDL Cholesterol 22 mg/dL (0-40)
[2024-12-01 08:17] LABS: Direct LDL Cholesterol 59.45 mg/dL (100-129)
[2024-12-01 10:34] LABS: Chol/HDL Ratio 3.1 (1-3.5); HDL Cholesterol 38 mg/dl (40-60)
== END 2024-12-01 23:59 | disposition home or self-care (01) ==
LOC: LAB 07:08
PROVIDERS: PCP Family Medicine; Visit Provider Family Medicine
DX: E78.5 Hyperlipidemia, unspecified (principal); E11.9 Type 2 diabetes mellitus without complications; I10 Essential (primary) hypertension
CPT/HCPCS: 36415; 80053; 80061; 83036

== ENCOUNTER 2024-12-07 15:55 | Outpatient (CLI) | payer BC, SELFPAY ==
[2024-12-07 16:49] LABS: Basophils % 0.2 % (0.1-2.0); Eosinophils % 0.2 % (0.1-12.0); Hematocrit 38.1 % (42.0-52.0); Hemoglobin 12.6 g/dL (14.1-18.0); Lymphocytes # 1.8 K/mm3 (0.7-4.5); Lymphocytes % 31.7 % (10-50); Mean Corpuscular HGB Conc 33.1 g/dL (31.8-35.4); Mean Corpuscular Hemoglobin 29.6 pg (27.0-31.2); Mean Corpuscular Volume 89.4 fl (80-94); Mean Platelet Volume 10.7 fl (7.4-10.4); Monocytes # 0.5 K/mm3 (0.1-1.0); Monocytes % 8.5 % (1.7-9.3); Neutrophils # 3.4 K/mm3 (1.8-7.8); Neutrophils % 59.1 % (37.0-80.0); Platelet Count 166 K/mm3 (142-424); Red Blood Count 4.26 M/mm3 (4.60-6.20); Red Cell Distribution Width 13.6 % (11.5-17.5); White Blood Count 5.8 K/mm3 (4.8-10.8)
[2024-12-07 19:04] LABS: Alanine Aminotransferase 47 U/L (12-78); Albumin Level 3.6 g/dl (3.5-5.0); Albumin/Globulin Ratio 1.4 (1.1-1.8); Alkaline Phosphatase 76 U/L (38-126); Anion Gap 6.6 mEq/L (5-15); Aspartate Amino Transferase 31 U/L (17-59); Bilirubin,Total 0.2 mg/dl (0.2-1.3); Blood Urea Nitrogen 26 mg/dl (9-20); Calcium 9.1 mg/dl (8.4-10.2); Carbon Dioxide 36 mmol/L (22.0-30.0); Chloride 95 mmol/L (98-107); Estimated Glomerular Filt Rate 76 ml/min (>60); GFR (African American) 93 ML/MIN (>60); Globulin 2.5 g/dL (1.3-3.2); Glucose 135 mg/dl (74-100); Lactate Dehydrogenase 230 U/L (313-618); Potassium 3.6 mmoL/L (3.5-5.1); Sodium 134 mmol/L (136-145); Total Protein,Serum 6.1 g/dl (6.3-8.2)
== END 2024-12-07 23:59 | disposition home or self-care (01) ==
LOC: LAB 15:56
PROVIDERS: PCP Family Medicine; Visit Provider Internal Medicine
DX: C83.390 Primary central nervous system lymphoma (principal)
CPT/HCPCS: 36415; 80053; 83615; 85025

== ENCOUNTER 2025-04-27 08:32 | Outpatient (CLI) | payer BC, SELFPAY ==
--- OUTSIDE RECORDS SUMMARY | 2024-11-09 12:15 | XMS_ITS ---
Author Organization [facility] Address [address] [facility] [address] [place] [id number] Care Team Providers Care Palliative Medicine Physician Name Role Phone Andreea Pearson Primary Care Provider [phone] Allergies Allergen (clinical drug ingredient) Drug/Non Drug Allergy documented on EMR Reaction Allergy Type Onset Date Status Penicillin Unknown Drug Allergy Active Results Component Value Reference Range Notes H-Lipid Panel Reviewed date:12/01/2024 08:58:13 AM Interpretation: Performing Lab: Notes/Report: H-CMP Reviewed date:12/01/2024 08:58:38 AM Interpretation: Performing Lab: Notes/Report: H-Glycohemoglobin A1C Reviewed date:12/02/2024 11:17:24 AM Interpretation: Performing Lab: Notes/Report: REASON FOR VISIT 6 month check up, Needs labs & flu vaccine Medications Medication SIG (Take, Route, Frequency, Duration) Notes Start Date End Date Status Sildenafil Citrate 20 MG 1-2 tab(s) oral ly as directed 07/14/2021 Active Metoprolol Tartrate 50 MG 1 tab(s) Orall y 2 times a day Active Aspirin 81 81 MG 1 tablet Orally Once a day Active Rosuvastatin Calcium 5 MG 1 tablet Orall y At Bed Time Active amLODIPine Besylate-Valsartan 5-160 MG 1 tablet Orally Once a day; Duration: 30 day(s) 11/09/2024 Active Keppra 500 MG 1 tab(s) Orally ever y 12 hrs Active Glimepiride 2 MG 1 tablet with breakf ast or the first main meal of the day Orally Once a day; Duration: 30 day(s) 11/09/2024 Active metFORMIN HCl ER 750 MG 1 tab(s) Orally Two times a day Active Mounjaro 5 MG/0.5ML 5 mg Subcutaneous on ce a week 11/09/2024 Active Keppra 500 MG 1 tab(s) Orally ever y 12 hrs; Duration: 30 days Active Vital Signs Blood pressure systolic 154 mm Hg 11/09/19 25 Blood pressure diastolic 98 mm Hg 025 Heart Rate 100 /min 11/09/2024 Height 72 in 11/09/2024 Weight 253 lbs 11/09/2024 BMI 34.31 kg/m2 11/09/2024 Encounters Encounter Location Date Provider Diagnosis [facility] [address] [facility] [address] [place], [place] [id number] 11/09/2024 R Tru Pearson Essential hypertensi on I10 ; Type 2 diabetes mellitus E11.9 ; Seizure disorder G40.909 ; History of pulmonary embolus (PE) Z86.711 ; Primary ANALYSIS OR RESEARCH SAFETY 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 and Dyslipidemia E78.5 Assessments Encounter Date Diagnosis (ICD Code) Assessment Notes Treatment Notes Treatment Clinical Notes Section Notes 11/09/2024 Essential hypertension (ICD-10 - I10) 11/09/2024 Type 2 diabetes mellitus (ICD-10 - E11.9) Reinforced diet, exercise, and weight loss Reinforced diet, exercise and weight loss 11/09/2024 Seizure disorder (ICD-10 - G40.909) Keep follow-up appointment with [facility] as scheduled 11/09/2024 History of pulmonary embolus (PE) (ICD-10 - Z86.711) 11/09/2024 Primary ANALYSIS OR RESEARCH SAFETY INSPECTOR lymphoma (ICD-10 - C85.89) Continue f/u with [facility]ology 11/09/2024 Dyslipidemia (ICD-10 - E78.5) Plan Of Treatment Medication Medication Name Sig Start Date Stop Date Notes Losartan Potassium 100 MG 1 tab(s) orally once a day Metoprolol Tartrate 50 MG 1 tab(s) Orally 2 times a day Aspirin 81 81 MG 1 tablet Orally Once a day Mounjaro 2.5 MG/0.5ML INJECT 1 SYRINGE SUBCUTANEOUSLY ONCE A WEEK Rosuvastatin Calcium 5 MG 1 tablet Orally At Bed Time amLODIPine Besylate-Valsartan 5-160 MG 1 tablet Orally Once a day; Duration: 30 day(s) 11/09/2024 Keppra 500 MG 1 tab(s) Orally every 12 hrs Glimepiride 2 MG 1 tablet with breakf ast or the first main meal of the day Orally Once a day; Duration: 30 day(s) 11/09/2024 metFORMIN HCl ER 750 MG 1 tab(s) Orally Two times a day Mounjaro 5 MG/0.5ML 5 mg Subcutaneous once a week 11/09/19 25 Glimepiride 4 MG 1/2 tab(s) Orally once a day Treatment Notes Assessment Notes Type 2 diabetes mellitus Reinforced diet , exercise, and weight loss Seizure disorder Keep follow-up appoi ntment with neurology as scheduled Primary ANALYSIS OR RESEARCH SAFETY INSPECTOR lymphoma Continue f/u with [facility] oncology Next Appt Details Follow Up: 6 Months, Reason: Provider Name:Andreea Silva, 05/08/2025 04:30:00 PM, [address], [address], [place], [phone], Progress Notes * DARRICK PITTSDOB:1965 ( 59 yo M)Acc No.[id number]:11/09/2024 Progress Notes Patient: DARRICK GUZMAN Provider: Andreea Pearson M.D. :1965 A ge:59 Y S ex:Male Date:11/09/2024 Address:[address] [place] [id number] Subjective: * Chief Complaints: * 1 . 6 month check up. 2. Needs labs & flu vaccine. * HPI: E ndocrinology: Pt presents today for a 6 month check up. Pt is not fasting today. He is tolerating starting dose of Mounjaro but did not call back to increase the dose. He has not been monitoring his blood sugar at home. Admits to some dietary noncompliance and has gained weight. Does not exercise regularly. Denies : Nocturia. D enies : Polyuria. C/o dry mouth. N eurology: No further seizure activity since his last office visit. He had follow-up with neurosurgery who felt the seizure was related to scar tissue in the brain. He is scheduled for an EEG and follow-up appointment in February. * ROS: C ARDIOLOGY: no D izziness. n o C hest pain. G ASTROENTEROLOGY: no N ausea. n o V omiting. n o D iarrhea.? U ROLOGY: no D ifficulty urinating. n o B lood in urine. n o F requent urination. * Medical History: C NS-primary brain [id number]-B-[id number] Lymphoma -Followed by [facility] @ , Pulmonary embolus, Paroxysmal atrial fibrillation, Hypertension, ED, Type 2 diabetes, Seizure disorder - onset 08/16/2024. 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 * Hospitalization/Major Diagno stic Procedure: H ER-fatigue, transferred to 06/19/2019, [facility] ER - Seizure 08/16/2024. * Family History: F ather: , Colon cancer. M other: , diagnosed with Stroke. P aternal uncle: , diagnosed with Cancer. P aternal aunt: . S iblings: alive. C hildren: alive. 1 sister(s) - healthy. 1 son(s) , 1 daughter(s) - healthy. . Colon/Rectal/Thyroid Cancer. * Social History: C URRENT TOBACCO USE: No . P ast smoking status: never smoked. * Medications: T aking Aspirin 81 81 MG Tablet Delayed Release 1 tablet Orally Once a day , Taking Sildenafil Citrate 20 MG Tablet 1-2 tab(s) orally as directed , Taking Metoprolol Tartrate 50 MG Tablet 1 tab(s) Orally 2 times a day , Taking Rosuvastatin Calcium 5 MG Tablet 1 tablet Orally At Bed Time , Taking Losartan Potassium 100 MG Tablet 1 tab(s) orally once a day , Taking metFORMIN HCl ER 750 MG Tablet Extended Release 24 Hour 1 tab(s) Orally Two times a day , Taking Glimepiride 4 MG Tablet 1/2 tab(s) Orally once a day , Taking Mounjaro 2.5 MG/0.5ML Solution Auto-injector INJECT 1 SYRINGE SUBCUTANEOUSLY ONCE A WEEK , Taking Keppra 500 MG Tablet 1 tab(s) Orally every 12 hrs , Discontinued Benzonatate 100 MG Capsule 1 cap(s) orally 3 times a day , Medication List reviewed and reconciled with the patient * Allergies: P enicillin. Objective: * Vitals: W t:253, Temp:98.0, BP:154/98, HR:100, Nurse:FLYNN, Ht: 72, BMI:34.31. * Examination: C ardiology: General Appearance: p leasant, NAD. Weight g ain noted.?HEENT: s clera and conjunctiva clear, PERRLA, TM's normal, translucent. C arotid upstroke: n ormal, no bruits. H eart sounds: R RR, no murmurs, no murmurs. M urmur, click , gallop: n one. L ungs: c lear, no rales or wheezes. A bdomen: p ositive BS, soft, nontender. E xtremities: t race of edema. Assessment: * Assessment: 1. T ype 2 diabetes mellitus - E11.9 (Primary) 2 . E ssential hypertension - I10 3 . S eizure disorder - G40.909 4 . H istory of pulmonary embolus (PE) - Z86.711 5 . P rimary ANALYSIS OR RESEARCH SAFETY INSPECTOR lymphoma - C85.89 6 . D yslipidemia - E78.5 Plan: * Treatment: 2. E ssential hypertension Start amLODIPine Besylate-Valsartan Tablet, 5-160 MG, 1 tablet, Orally, Once a day, 30 day(s), 30, Refills 5; S top Losartan Potassium Tablet, 100 MG, 1 tab(s), orally, once a day; R efill Metoprolol Tartrate Tablet, 50 MG, 1 tab(s), Orally, 2 times a day, 60, Refills 5. 3. S eizure disorder Continue Keppra Tablet, 500 MG, 1 tab(s), Orally, every 12 hrs. Notes: Keep follow-up appointment with [facility] as scheduled 4. H istory of pulmonary embolus (PE) Continue Aspirin 81 Tablet Delayed Release, 81 MG, 1 tablet, Orally, Once a day. 5. P rimary ANALYSIS OR RESEARCH SAFETY INSPECTOR lymphoma Notes: Continue f/u with [facility] 6. D yslipidemia Refill Rosuvastatin Calcium Tablet, 5 MG, 1 tablet, Orally, At Bed Time, 30, Refills 5. * Labs: * L ab: H-Lipid Panel (Collection Date & Time - 12/01/2024) ?Lab: H-CMP (Collection Date & Time - 12/01/2024)* see duplicate order ?Lab: H-Glycohemoglobin A1C (Collection Date & Time - 12/02/2024)* see duplicate order * Follow Up: 6 Months * Images: Billing Information: * Visit Code: 18002 Office Visit, Est Pt., Level 4. * Procedure Codes: * Electronic signature of Andreea Pearson MD on 04/27/2025 at 08:35 AM EDT Sign off status: Pending * Provider: Andreea Pearson M.D. Date: 0 11/09/2024 Generated for Printi ng/Faxing/eTransmitting on: 0 04/27/2025 08:35 AM EDT History and Physical Notes * HPI (History of Present Illness) Category Sub-Category Detail Notes Category Not es Endocrinology Polyuria C/o dry mouth Nocturia Examination Category Sub-Category Detail Notes Category Not es Cardiology Lungs: clear, no rales or wheezes HEENT: sclera and conjuncti va clear, PERRLA, TM's normal, translucent Heart sounds: RRR, no murmurs, no murmurs Abdomen: positive BS, soft, n ontender Carotid upstroke: normal, no bruits Extremities: trace of edema Murmur, click , gallop: none General Appearance: pleasant, NAD. Weigh t gain noted
--- OUTSIDE RECORDS SUMMARY | 2024-12-08 10:15 | XMS_ITS ---
Author Organization [facility] Address [address] [facility] [address] [place] [id number] Care Team Providers Care Scourer Name Role Phone Andreea Pearson Primary Care Provider David Paredes Unavailable [phone] Allergies Allergen (clinical drug ingredient) Drug/Non Drug Allergy documented on EMR Reaction Allergy Type Onset Date Status Penicillin Unknown Drug Allergy Active REASON FOR VISIT swollen lymph nodes Medications Medication SIG (Take, Route, Frequency, Duration) Notes Start Date End Date Status Metoprolol Tartrate 50 MG 1 tab(s) Orall y 2 times a day Active Aspirin 81 81 MG 1 tablet Orally Once a day Active Mounjaro 5 MG/0.5ML INJECT 5 MG SUBCUTAN EOUSLY ONCE A WEEK; Duration: 28 Active Rosuvastatin Calcium 5 MG 1 tablet Orally At Bed Time Active amLODIPine Besylate-Valsartan 5-160 MG 1 tablet Orally Once a day; Duration: 30 day(s) 11/09/2024 Active Sildenafil Citrate 20 MG 1-2 tab(s) oral ly as directed 07/14/2021 Active Keppra 500 MG 1 tab(s) Orally ever y 12 hrs; Duration: 30 days Active Keppra 500 MG 1 tab(s) Orally ever y 12 hrs Active metFORMIN HCl ER 750 MG 1 tab(s) Orally Two times a day Active Glimepiride 2 MG 1 tablet with breakf ast or the first main meal of the day Orally Once a day; Duration: 30 day(s) 11/09/2024 Active Vital Signs Blood pressure systolic 148 mm Hg 12/08/19 25 Blood pressure diastolic 92 mm Hg 025 Heart Rate 101 /min 12/08/2024 Height 72 in 12/08/2024 Weight 248 lbs 12/08/2024 BMI 33.63 kg/m2 12/08/2024 Encounters Encounter Location Date Provider Diagnosis [facility] [address] [place] [id number] 12/08/2024 David Paredes Influenza A J 10.1 Assessments Encounter Date Diagnosis (ICD Code) Assessment Notes Treatment Notes Treatment Clinical Notes Section Notes 12/08/2024 Influenza A (ICD-10 - J10.1) fluids, rest, supportive measures for fever/symptom relief Plan Of Treatment Treatment Notes Assessment Notes Influenza A fluids, rest, suppor tive measures for fever/symptom relief Next Appt Details Follow Up: prn, Reason: Provider Name:Andreea Silva, 05/08/2025 04:30:00 PM, [address] [facility], [address], [place], [id number], Progress Notes * DARRICK PITTSDOB:1965 ( 59 yo M)Acc No.[id number]:12/08/2024 Progress Notes Patient: DARRICK GUZMAN Provider: Olga Paredes M.D. :1965 A ge:59 Y S ex:Male Date:12/08/2024 Address:[address] [place] [address] Andreea MAREKK[place] Cat, [id number] Pcp:Andreea Pearson Subjective: * Chief Complaints: * 1 . Swollen lymph nodes. * HPI: E NT/respiratory: 59 year old male presents with c/o cough P t complains of dry without any sputum production cough since Wednesday. Pt states he was dx with the flu on Wednesday and sx's have not improved . * ROS: D ERMATOLOGY: no R jonnathan. n o H anthony. G ASTROENTEROLOGY: no N ausea. n o V omiting. U ROLOGY: no D ifficulty urinating. n o B lood in urine. * Medical History: C NS-primary brain jnqkz-[id number] Lymphoma -Followed by [facility] @ , Pulmonary embolus, Paroxysmal atrial fibrillation, Hypertension, ED, Type 2 diabetes, Seizure disorder - onset 08/16/2024. 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 * Hospitalization/Major Diagno stic Procedure: H ER-fatigue, transferred to 06/19/2019, [facility] ER - Seizure 08/16/2024. * Family History: [...] status: never smoked. * Medications: T aking Sildenafil Citrate 20 MG Tablet 1-2 tab(s) orally as directed , Taking Keppra 500 MG Tablet 1 tab(s) Orally every 12 hrs , Taking Keppra 500 MG Tablet 1 tab(s) Orally every 12 hrs , Taking metFORMIN HCl ER 750 MG Tablet Extended Release 24 Hour 1 tab(s) Orally Two times a day , Taking Glimepiride 2 MG Tablet 1 tablet with breakfast or the first main meal of the day Orally Once a day , Taking Rosuvastatin Calcium 5 MG Tablet 1 tablet Orally At Bed Time , Taking amLODIPine Besylate-Valsartan 5-160 MG Tablet 1 tablet Orally Once a day , Taking Metoprolol Tartrate 50 MG Tablet 1 tab(s) Orally 2 times a day , Taking Aspirin 81 81 MG Tablet Delayed Release 1 tablet Orally Once a day , Taking Mounjaro 5 MG/0.5ML Solution Auto-injector INJECT 5 MG SUBCUTANEOUSLY ONCE A WEEK , Medication List reviewed and reconciled with the patient * Allergies: P enicillin. Objective: * Vitals: W t:248, Temp:98.5, BP:148/92, HR:101, O2 Sat:92% on RA, Nurse:gus, Ht: 72, BMI:33.63. * Examination: E NT/Respiratory: General Appearance: N AD. E yes: P ERRLA, sclera clear. O ral cavity : erythema without exudate on pharynx. N marjan : Shotty, nontender adenopathy. H eart : R RR, normal S1 S2. L ungs: c lear to auscultation bilaterally. Assessment: * Assessment: 1. I foster Flaherty - J10.1 (Primary) Plan: * Treatment: * Follow Up: p rn * Images: Billing Information: * Visit Code: 24588 Office Visit, Est Pt., Level 3. * Procedure Codes: * Electronic signature of Lashawn Paredes MD on 04/27/2025 at 08:34 AM EDT Sign off status: Pending * Provider: Olga Paredes M.D. Date: 12/08/2024 Generated for Blade cagle/Dhiraj/Estrella on: 0 04/27/2025 08:34 AM EDT History and Physical Notes * HPI (History of Present Illness) Category Sub-Category Detail Notes Category Not es ENT/respiratory cough Pt complains of dry without any sputum production cough since Wednesday. Pt states he was dx with the flu on Wednesday and sx's have not improved Examination Category Sub-Category Detail Notes Category Not es ENT/Respiratory Oral cavity : erythema without exudate on pharynx Neck : Shotty, nontender ad enopathy Heart : RRR, normal S1 S2 Lungs: clear to auscultatio n bilaterally General Appearance: NAD Eyes: PERRLA, sclera clear
--- OUTSIDE RECORDS SUMMARY | 2025-03-12 08:00 | XMS_ITS | Encounter Summary ---
Author Organization [facility] Address [address] [place] [address] Care Team Providers Care Linux Consultant Name Role Phone Nahid Pearson MD Primary Care Provider [phone] Reason for Referral * Other Medical (Routine) - Closed Specialty Diagnoses / Procedures Referred By Stephanie purdy Referred To Contact Neurology Diagnoses Symptomatic localization-related epilepsy Procedures Home-Based Ambulatory EEG Yash Bartlett MD [address] [address] Phone: tel: fax: Referral ID Status Reason Start Date Expiration Date V isits Requested Visits Authorized [id number] Closed Specialty Services Required 11/07/2024 05/09/2026 1 1 Reason for Visit * Other Medical (Routine) - Closed Specialty Diagnoses / Procedures Referred By Stephanie purdy Referred To Contact Neurology Diagnoses Symptomatic localization-related epilepsy Procedures Home-Based Ambulatory EEG Yash Bartlett MD [address] [address] Phone: tel: fax: Referral ID Status Reason Start Date Expiration Date V isits Requested Visits Authorized [id number] Closed Specialty Services Required 11/07/2024 05/09/2026 1 1 Encounter Details Date Type Department Care Team (Latest Contact Info) Description 03/12/2025 8:00 AM EDT - 03/12/2025 11:59 PM EDT Hospital Encounter [facility] Neurophysiology [address] [facility] H Room [address] [place] [address] Symptomatic localization-relate d epilepsy Discharge Disposition: Home or Self Care Social History Tobacco Use Types Packs/Day Years Used Date Smoking Tobacco: Never Smokeless Tobacco: Never Alcohol Use Standard Drinks/Week Comments Never 0 (1 standard drink = 0.6 oz pur e alcohol) PHQ-2 Answer Date Recorded Patient Health Questionnaire-2 Score 0 04/24/2025 PHQ-9 Answer Date Recorded Patient Health Questionnaire-9 Score 0 11/07/2024 Sex and Gender Information Value Date Recorded Sex Assigned at Not on file Legal Sex Male 5:56 PM EDT Gender Identity Not on file Sexual Orientation Not on file 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 Question Answer Date of Assessment Author Little interest or pleasure in doing things Not at all 04/24/2025 11:28 AM EDT Jennifer Mendoza Feeling down, depressed, or hopeless Not at all 04/24/2025 11:28 AM MONICAT Jennifer Mendoza Patient Health Questionnaire -2 Score 0 04/24/2025 11:28 AM EDT Jennifer Mendoza documented as of this encounter Medications at Time of Discharge ASPIRIN 81 MG chewable tablet Chew 1 tablet (81 mg) 1 (one) time each day. glimepiride (Amaryl) 2 MG tablet Take 1 tablet (2 mg) by mouth 1 (one) time each day before breakfast. 09/28/2023 levETIRAcetam (Keppra) 500 MG tablet Take 1 tablet (500 mg) by mouth 2 (two) times a day. metFORMIN XR (Glucophage-XR) 500 MG 24 hr tablet Take 1 tablet (500 mg) by mouth 2 (two) times a day. 10/15/2022 metFORMIN XR (Glucophage-XR) 750 MG 24 hr tablet 10/24/2024 metoprolol tartrate (Lopressor) 50 MG tablet Take 1 tablet (50 mg) by mouth 2 (two) times a day. 09/21/2023 Mounjaro 2.5 MG/0.5ML solution auto-injector solution pen-injector Inject 0.5 mL (2.5 mg) under the skin 1 (one) time per week. 08/17/2024 rosuvastatin (Crestor) 5 MG tablet Take 1 tablet (5 mg) by mouth every night. losartan (Cozaar) 100 MG tablet Take 1 tablet (100 mg) by mouth 1 (one) time each day. 09/28/2023 04/24/2025 documented as of this encounter Plan of Treatment Upcoming Encounters Date Type Department Care Team (Late st Contact Info) Description 11/01/2025 3:00 PM EST Office Visit [facility] [address] [facility], [address] [place] [phone] Yash Bartlett MD [address] [facility] [address] [place] [phone] 12/03/2025 11:30 AM EST Appointment [facility] Radiology [address] [place] [phone] 12/03/2025 3:00 PM EST Clinical Support [facility] Hematology/BMT and Cellular Therapy Program [address] [phone] 12/03/2025 3:30 PM EST Office Visit [facility] Hematology/BMT and Cellular Therapy Program [address] [phone] Kwan Dempsey MD [address] [facility] [address] [place] [phone] documented as of this encounter Procedures Procedure Name Priority Date/Time Associated Diagnosis Comments HC VEEG SET UP TAKEDOWN EDUCATION Routine 03/13/2025 7:40 AM EDT Symptomatic localization-relate d epilepsy documented in this encounter Results * Home-Based Ambulatory EEG (03/13/2025 7:40 AM EDT) Anatomical Region Laterality Modality EEG Narrative 03/19/2025 11:01 PM EDT Home-based Ambulatory Electroencephalogram Report Patient: Brett Pitts : 1965 SEX: male Referring Provider: Yash Bartlett MD EEG Reading Physician: Yash Bartlett MD Study Type: AMB 24 Hour Begin Date: 03/12/2025 Begin Time: 8:10 AM End Date: 03/13/2025 End Time: 7:40 AM Total EEG Recording Time: 23 Hours 5 Minutes Indication for study: Concern for seizures SEIZURE HISTORY: Mr. 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 On August 16, 2024, the patient had a nocturnal, presumably tonic-clonic seizure. A repeat brain MRI on August 27, 2024, demonstrated bifrontal (left > right) encephalomalacia with ex vacuo dilatation of the left lateral ventricle frontal horn, which is related to his previous history of brain tumor; however, there was no evidence of recurrent disease. TECHNICAL DESCRIPTION This is a digital EEG recorded with a portable recorder over an extended period of time without video, without sedation or sleep deprivation. A standard set of scalp electrodes was applied. Standard techniques of digital EEG were utilized throughout. Patient maintained a diary that was returned with a study to yeimi significant events. RECORD QUALITY: The record is of good technical quality for purposes of interpretation. EEG AND CLINICAL ANALYSIS REPORT: Computer-assisted ambulatory EEG monitoring since the beginning of recording showed the following. BACKGROUND: The EEG recording during wakefulness contained symmetric 9-10 Hz alpha activity in the bilateral posterior head regions. With spontaneous drowsiness, there was attenuation of the background alpha activity. Vertex waves and symmetrical spindles were noted as the patient entered light sleep. K complexes were noted in stage II sleep. DISCHARGES AND SEIZURES INTERICTAL DISCHARGES: There were no definite epileptiform discharges or interictals noted throughout the recording. CLINICAL EVENTS: During the monitoring session, the patient had no seizures. The patient did not fill out the diary. He reported no clinical events when asked by the technologists at the time of the study return. The single lead EKG channel was unremarkable. INTERPRETATION AND CLINICAL CORRELATE This computer-assisted ambulatory EEG recording demonstrated. Normal EEG background activity during wakefulness and sleep. No potentially epileptogenic abnormalities or seizure activity was recorded during this monitoring session. The original plan was to conduct a 48-hour ambulatory study; however, when the patient returned the equipment, it was discovered that the batteries had not been inserted correctly, resulting in only the first 23 hours being recorded. JONAH Matute [facility] Yash Bartlett MD NEUROLOGY ORDERABLES Final Re sult documented in this encounter Visit Diagnoses Diagnosis Symptomatic localization-related epilepsy documented in this encounter Additional Health Concerns Assessment Noted Time PHQ-9 Depression Total Score: 0 11/07/19 25 1:51 PM EST A fall risk assessment has been complete d for the patient 11/07/2024 1:52 PM EST A Body Mass Index follow-up plan has been documented for the patient 11/07/2024 2:59 PM EST documented as of this encounter Care Teams Linux Consultant Relationship Specialty Start Date End Date Nahid Pearson MD [address] [place] [address] PCP - General 02/21/21 documented as of this encounter
--- OUTSIDE RECORDS SUMMARY | 2025-03-14 07:30 | XMS_ITS | Encounter Summary ---
Author Organization [facility] Address [address] [place] [address] Care Team Providers Care Home Service Technician Name Role Phone Nahid Pearson MD Primary Care Provider +1- [phone] Encounter Details Date Type Department Care Team (Latest Contact Info) Description 03/14/2025 7:30 AM EDT - 03/14/2025 11:59 PM EDT Hospital Encounter [facility] Neurophysiology [address] [place] [address] Discharge Disposition: Home or Self Care Social History Tobacco Use Types Packs/Day Years Used Date Smoking Tobacco: Never Smokeless Tobacco: Never Alcohol Use Standard Drinks/Week Comments Never 0 (1 standard drink = 0.6 oz pur e alcohol) PHQ-2 Answer Date Recorded Patient Health Questionnaire-2 Score 0 11/07/2024 PHQ-9 Answer Date Recorded Patient Health Questionnaire-9 Score 0 11/07/2024 Sex and Gender Information Value Date Recorded Sex Assigned at Not on file Legal Sex Male 5:56 PM EDT Gender Identity Not on file Sexual Orientation Not on file 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 [place] [phone] 12/03/2025 3:00 PM EST Clinical Support [facility] Hematology/BMT and Cellular Therapy Program [address] [place] [phone] 12/03/2025 3:30 PM EST Office Visit [facility] Hematology/BMT and Cellular Therapy Program [address] [phone] Kwan Dempsey MD 800 [facility] [address] [place] [phone] documented as of this encounter Visit Diagnoses Not on filedocumented in this encounter Additional Health Concerns Assessment Noted Time PHQ-9 Depression Total Score: 0 11/07/19 25 1:51 PM EST A fall risk assessment has been complete d for the patient 11/07/2024 1:52 PM EST A Body Mass Index follow-up plan has been documented for the patient 11/07/2024 2:59 PM EST documented as of this encounter Care Teams Home Service Technician Relationship Specialty Start Date End Date Nahid Pearson MD [address] [place] [address] PCP - General 02/21/21 documented as of this encounter
--- OUTSIDE RECORDS SUMMARY | 2025-04-24 11:30 | XMS_ITS | Encounter Summary ---
Author Organization Healthcare Address [address] [place] [address] Care Team Providers Care Strip Tank Tender Name Role Phone Nahid Pearson MD Primary Care Provider +1- [phone] Reason for Visit * Reason Comments Follow-up Encounter Details Date Type Department Care Team ([facility] st Contact Info) Description 04/24/2025 11:30 AM EDT Office Visit [facility] [address] [facility], [address] [place] [address] Yash Bartlett MD [address] [place] [address] Single unprovoked seizure (CMS/HCC) (Primary Dx); Symptomatic localization-related epilepsy Social History Tobacco Use Types Packs/Day Years Used Date Smoking Tobacco: Never Smokeless Tobacco: Never Tobacco Cessation:Counseling Given: Not Answered Alcohol Use Standard Drinks/Week Comments Never 0 [...] Industry Job Start Date Job End Date 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 Question Answer Date of Assessment Author Little interest or pleasure in doing things Not at all 04/24/2025 11:28 AM EDT Jennifer Mendoza Feeling down, depressed, or hopeless Not at all 04/24/2025 11:28 AM EDT Jennifer Mendoza Patient Health Questionnaire -2 Score 0 04/24/2025 11:28 AM EDT Jennifer Mendoza documented as of this encounter Miscellaneous Notes * Progress Notes - Yash Bartlett MD - 04/24/2025 11:30 AM EDT Telehealth Statement Patient Verification Patient identity has been confirmed using name and date of ? Yes Authorizations and Agreements/Telemedicine Consent sent and consent confirmed? Yes Patient Location: Home/Other Patient confirms they are physically located in [place]? Yes Provider Location: [facility] facility Audio and video or audio only? Audio and video Total visit time: 35 minutes CHIEF COMPLAINT / REASON FOR VISIT Brett Pitts is a 59 y.o. right-handed male who presents for follow-up visit. I initially saw him on November 07, 2024. HISTORY OF PRESENT ILLNESS History information was obtained from the patient and medical records. Narrative neurological and seizure history: The patient had a gradual onset of somnolence and headaches in May 2019 that worsened over 2-3 weeks, along with some noticeable confusion and disorientation. In June 2019, he was taken to [facility] emergency room and had a head CT scan that demonstrated a left frontal masswith surrounding vasogenic edema. He was subsequently transferred to the for further evaluation. 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 He established care with Dr. [facility] at [facility] andhad six cycles of chemotherapy (Methotrexate, Procarbazine, Vincristine, Rituximab), with the last one on 10/16/2019. In November 2019, the patient underwent BEAM conditioning and autologous bone marrow transplantation at the [facility]. Since then, he had several brain MRIs, which showed resolution of the previously identified left frontal lesion with residual encephalomalacia and gliosis but no evidence of recurrent disease. On August 16, 2024, the patient had an episode during sleep concerning a seizure. According to the patient's , she woke up because he was repetitively kicking his legs in bed. She noticed bloodon the patient's pillow and found him lying on his left side with arms stiffened up, eyes opened, and rolled upwards. He was not responsive to verbal and tactile stimulation. The patient's initially thought that the shaking lasted 15-18 minutes, but when asked for details, it sounded like the convulsions subsided after a few minutes; however, the patient became somnolent and breathed heavilyafterward. He also bit his tongue. At the time of EMS arrival, the patient remained confused, and his verbal responses were incoherent. He mostly mumbled when he attempted to speak. The patient remembered waking up in the ambulance and was amnestic for the seizure. EMS took him to a local emergency room, and the blood workup demonstrated borderline leukocytosis (WBC 11.2) and lactic acidosis (LA 4.9). Head CT showed no bifrontal (left > right) encephalomalacia with ex vacuo dilatation of the left lateral ventricle frontal horn related to his previous history of brain tumor, but there were no acute intracranial abnormalities identified. He was discharged a few hours after observation and was recommended to take levetiracetam 500 mg bid. He reports being compliant with levetiracetam and has not had additional episodes concerning seizures since then. The patient's never witnessed him having episodic staring or zoning out episodeswith or without abnormal hypermotor phenomena. The patient denies paroxysmal episodes of epigastricrising sensations, dysgeusia, phantosmia, Dejavu sensations, or any particular peculiar symptoms. 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 He has no personal history of febrile seizures, meningitis/encephalitis, TBI, or family history of seizures/epilepsy. INTERVAL HISTORY At he last visit, we ordered an ambulatory EEG study for diagnostic purposes which the patient completed earlier last month. The original plan was to conduct a 48-hour ambulatory study; however, whenthe patient returned the equipment, it was discovered that the batteries had not been inserted correctly, resulting in only the first 23 hours being recorded. The recorded EEG study was largely unremarkable and no potentially epileptogenic abnormalities or seizure activity was recorded. The patient's first seizure occurred on August 16, 2024 which was nocturnal in occurrence. He hasnot had another seizure since then. He currently takes levetiracetam 500 mg twice daily, and deniesany potential side effects related to its use. Seizure Synopsis Onset: 1st seizure occurred on August 16, 2024 Epilepsy Type: Presumably focal Epilepsy Syndrome: None Etiology: Structural Risk Factors: History of WELL SURVEYING ENGINEER lymphoma Semiology Type #1 - So far, the patient has had a single nocturnal episode concerning seizure, presumably generalizedtonic-clonic in semiology, followed by lethargy, confusion, and disorientation afterward. Pertinent workup - Ambulatory EEG 03/12-03/13/25 This computer-assisted ambulatory EEG recording demonstrated. Normal EEG background activity during wakefulness and sleep. No potentially epileptogenic abnormalities or seizure activity was recorded during this monitoring session. - Brain MRI 02/07/2025 Again noted left frontal encephalomalacia and gliosis with associated susceptibility artifact. Similar periventricular T2/FLAIR signal hyperintensity predominantly surrounding the frontal horns and ex vacuo hydrocephalus of the left frontal lobe. No evidence of new or residual disease. - Brain MRI 08/27/2024 Encephalomalacia and gliosis in the left frontal lobe and right paramedian frontal lobe with hemosiderin staining. No nodular enhancement. Treatment History: Current antiseizure medications Levetiracetam 500 mg bid Problems associated with the patient's current medications include: none Previous antiseizure medications None Social History: , lives with his in [place], [place], works at [employer] Is the patient aware of driving and other safety concerns related to epilepsy: Yes The following portions of the patient's chart were reviewed in this encounter and updated as appropriate: Tobacco Allergies Meds REVIEW OF SYSTEMS As per HPI Objective No vitals could be taken as this was a telemedicine video visit. PHYSICAL EXAM On limited observational exam (due to video encounter), the patient was awake, alert, and appropriately interactive with examiner. There were no obvious ocular movement abnormalities. There was no facial asymmetry. Hearing was grossly intact. There was no dysarthria. Spontaneous movements were noted throughout the encounter. Assessment/Plan Single unprovoked seizure - Symptomatic localization-related epilepsy Primary WELL SURVEYING ENGINEER lymphoma status post chemotherapy and autologous bone marrow transplant Mr. Brett Pitts is a 59-year-old right-handed male who presents to the Epilepsy Clinic for presents for follow-up visit. In summary, the patient was diagnosed with WELL SURVEYING ENGINEER Diffuse Large B-cell Lymphoma in June 2019 and underwent six cycles of chemotherapy followed by an autologous bone marrow transplant in November 2019. Since then, he has had at least 4 brain MRIs at different intervals, all demonstrating resolution of the previously identified left frontal lesion, with residual encephalomalacia and gliosis. Importantly, the patient did not experience any seizures at the time of WELL SURVEYING ENGINEER lymphoma diagnosis, during chemotherapy, or in the post-transplant period. On August 16, 2024, he experienced a nocturnal seizure, presumed to be tonic- clonic in description. A follow-up brain MRI on August 27, 2024, showed bi frontal encephalomalacia (left > right) with ex vacuo dilatation of the left frontal horn of thelateral ventricle, consistent with prior tumor-related changes. There was no radiographic evidence of recurrent lymphoma. Bifrontal encephalomalacia likely represents a structural substrate for focal- onset seizures. Although the patient???s seizure was unprovoked, his history of prior brain injury, abnormal neuroimaging, and occurrence of a nocturnal seizure collectively confer a heightened risk for seizure recurrence. Based on these factors, he meets the diagnostic criteria for epilepsy. The ambulatory EEG performed last month was largely unremarkable and showed no epileptiform abnormalities or recorded seizure activity. Fortunately, the patient has responded well to low-dose levetiracetam monotherapy, has not experienced any further seizures, and denies any side effects related to levetiracetam use. The patient will continue levetiracetam 500 mg twice daily. I advised him to notify our office promptly if he experiences additional seizures. Should seizure frequency or severity increase, we will consider titrating the levetiracetam dose to 750 mg twice daily. The patient will return to the clinic for a follow-up visit in 6 months. I spent 35 minutes performing the following components of the encounter (on the day of the encounter): reviewing history, examining the patient, reviewing imaging and/or labs, Independently interpreting imaging results, counseling the patient, and communicating with other health nurse behavioral health care.Greater than 50% of the time spent on the encounter was face to face providing direct patient care,counseling for the patient, and care coordination. EPILEPSY COUNSELING (Precautions, Safety, Triggers, when to call 911) Precautions: -No driving for 90 days following a seizure or event with loss of consciousness as per [place] state driving laws. -No swimming or bathing alone unless someone is present who can physically pull you out of the water should a seizure occur. -Avoid standing over an open flame and stove. -Use dangerous household appliances (iron, curling iron, etc.) under supervision. -No using heavy machinery. -No climbing tall heights such as ladders. -You should not perform any activity where sudden loss of awareness or consciousness would put you or those around you in danger; this may include certain sports or exercise Safety: -Explain precautions and first aid to your family and friends as well as employers or schools. -Carry a card with your list of medications. -Do not lock doors. -Do not use electrical appliances near water. -Try to use electrical rather than gas appliances when possible and use the back burners. -Avoid sleeping on your stomach. Avoid Triggers: -Missing doses of your medication or any abrupt medication changes. Do not discontinue seizure medication on your own, as this may lead to a severe seizure. - Please contact the office for refills 2 weeks before your medication refill expires. -Stress - emotional or physical, such as an acute illness or intense activity -Sleep deprivation or change in sleeping patterns -Alcohol use (both an excessive amount or suddenly stopping after chronic use) -Substance abuse or illegal drug use -For some, bright or flashing lights -Some medications make it more likely to have seizures, especially tramadol, bupropion (Wellbutrin), benadryl, lithium, and some antibiotics. Always check with your physician before starting a new medication. During generalized seizures with shaking or stiffening of the whole body: -Do your best to stay calm and look at the clock. -If there is a warning sign or feeling, get to a safe place (lowered down to the floor) quickly -Loosen any tight clothing around the neck -Do not put anything into the mouth, do not put water on the face -Look around to ensure nothing close that can cause injury -If available, put a soft object such as a pillow or sweatshirt under the head -Stay with them until they recover back to normal. It is normal for a patient to be very sleepy, tired, and confused for minutes to a few hours. They may also complain of headaches and vomiting. Call 06-11-1 if: -Any injury was sustained -Shaking or stiffening lasts longer than 5 minutes -Patient has raxg-kr-[id number] seizures -Patient has difficulty breathing -Patient is not returning to normal -Patient is diabetic -If the patient has been ill or had a fever before the seizure -If the patient is combative or agitated after a seizure and is dangerous to themselves or others documented in this encounter Plan of Treatment Upcoming Encounters Date Type Department Care Team ([facility] st Contact Info) Description 11/01/2025 3:00 PM EST Office Visit [facility] [address] [facility], [address] [place] [phone] Yash Bartlett MD [address] [place] [phone] 12/03/2025 11:30 AM EST Appointment [facility] S Radiology [address] [place] [phone] 12/03/2025 3:00 PM EST Clinical Support [facility] Hematology/BMT and Cellular Therapy Program [address] [phone] 12/03/2025 3:30 PM EST Office Visit [facility] Hematology/BMT and Cellular Therapy Program [address] [phone] Kwan Dempsey MD 800 [facility] [address] [place] [phone] documented as of this encounter Visit Diagnoses Diagnosis Single unprovoked seizure (CMS/HCC)- Primary Symptomatic localization-related epilepsy documented in this encounter Additional Health Concerns Assessment Noted Time PHQ-9 Depression Total Score: 0 11/07/19 25 1:51 PM EST A fall risk assessment has been complete d for the patient 04/24/2025 11:28 AM EDT A Body Mass Index follow-up plan has been documented for the patient 04/25/2025 5:06 PM EDT documented as of this encounter Care Teams Strip Tank Tender Relationship Specialty Start Date End Date Nahid Pearson MD [address] [place] [address] PCP - General 02/21/21 documented as of this encounter
--- OUTSIDE RECORDS SUMMARY | 2025-04-25 10:18 | XMS_ITS ---
[facility] Address [address] [facility] [address] [facility] [address] [place] [phone] Care Team Providers Care Supermarket Manager Name Role Phone Andreea Pearson Primary Care Provider REASON FOR VISIT Message Encounters Encounter Location Date Provider Diagnosis Krystina[facility]Klaus [address] [facility] [address] [facility] [address] [place] [phone] 04/25/2025 Andreea Pearson Essential hypertensi on I10 ; Dyslipidemia E78.5 ; Type 2 diabetes mellitus E11.9 and Elevated PSA R97.20 Assessments Encounter Date Diagnosis (ICD Code) Assessment Notes Treatment Notes Treatment Clinical Notes Section Notes 04/25/2025 Essential hypertension (ICD-10 - I10) 04/25/2025 Dyslipidemia (ICD-10 - E78.5) 04/25/2025 Type 2 diabetes mellitus (ICD-10 - E11.9) 04/25/2025 Elevated PSA (ICD-10 - R97.20) Plan Of Treatment Pending Test Test Name Order Date H-Lipid Panel 04/25/2025 H-CMP 04/25/2025 H-Glycohemoglobin A1C 04/25/2025 H-PSA 04/25/2025 Next Appt Details Provider Name:Andreea Silva, 05/08/2025 04:30:00 PM, [address] [facility], [address], [place], [id number], Progress Notes * JOHNNY PITTS:1965 ( 59 yo M)Acc No.[id number]:04/25/2025 Patient: DARRICK GUZMAN :1965 A ge:59 Y S ex:Male Address:[address] [place] [address] [place], [address] Subjective: * Chief Complaints: * M essage * Medical History: * Surgical History: * Hospitalization/Major Diagno stic Procedure: * Medications: Objective: * Vitals: * Physical Examination: Assessment: * Assessment: 1. E ssential hypertension - I10 2 . D yslipidemia - E78.5 3 . T ype 2 diabetes mellitus - E11.9 4 . E levated PSA - R97.20 ? Plan: * Treatment: 2. D yslipidemia L AB: H-Lipid Panel 3. T ype 2 diabetes mellitus L AB: H-Glycohemoglobin A1C 4. E levated PSA L AB: H-PSA * Procedure Codes: * true * Date: Generated for Neoi gurjit/Dhiraj/eTransmitting on: 0 04/27/2025 08:35 AM EDT
--- OUTSIDE RECORDS SUMMARY | 2025-04-27 08:34 | XMS_ITS | Encounter Summary ---
Author Organization [facility] Address [address] 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 [place] [phone] 12/03/2025 3:00 PM EST Clinical Support [facility] Hematology/BMT and Cellular Therapy Program [address] [phone] 12/03/2025 3:30 PM EST Office Visit [facility] Hematology/BMT and Cellular Therapy Program [address] [phone] Kwan Dempsey MD 800 [facility] [address] [place] [phone] documented as of this encounter Visit Diagnoses [...] documented as of this encounter Care Teams Mining Consultant Relationship Specialty Start Date End Date Nahid Pearson MD [address] [place] [address] PCP - General 02/21/21 documented as of this encounter
--- OUTSIDE RECORDS SUMMARY | 2025-04-27 08:34 | XMS_ITS | Encounter Summary ---
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[place] [address] Not on file Not on file Not on file documented as of this encounter Plan of Treatment Upcoming Encounters Date Type Department Care Team (Late st Contact Info) Description 11/01/2025 3:00 PM EST Office Visit [facility] [address] [facility], [address] [place] [address] Yash Bartlett MD [address] [place] [phone] 12/03/2025 11:30 AM EST Appointment [facility] [address], [address] [place] [address] 12/03/2025 3:00 PM EST Clinical Support [facility] [address] [place] [phone] 12/03/2025 3:30 PM EST Office Visit [facility] [address] [place] [phone] Kwan Dempsey MD [address] [facility] [address] [place] [phone] documented as of this encounter Visit Diagnoses [...] documented as of this encounter Care Teams Back Pad Inspector Relationship Specialty Start Date End Date Nahid Pearson MD [address] [place] [address] PCP - General 02/21/21 documented as of this encounter
--- OUTSIDE RECORDS SUMMARY | 2025-04-27 08:35 | XMS_ITS | Encounter Summary ---
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 [place] [address] 12/03/2025 3:00 PM EST Clinical Support [facility] [address] [phone] 12/03/2025 3:30 PM EST Office Visit [facility] [address] [phone] Kwan Dempsey MD 800 [facility] [address] [place] [phone] documented as of this encounter Visit Diagnoses [...] documented as of this encounter Care Teams Fishing Game Warden Relationship Specialty Start Date End Date Nahid Pearson MD [address] [place] [address] PCP - General 02/21/21 documented as of this encounter
--- OUTSIDE RECORDS SUMMARY | 2025-04-27 08:35 | XMS_ITS | Patient Health Record ---
Author Organization [facility] Address [address] [facility] [address] [place] [id number] Care Team Providers Care City Assessor Name Role Phone Andreea Pearson Primary Care Provider [phone] David Paredes Unavailable [phone] Allergies Allergen (clinical drug ingredient) Drug/Non Drug Allergy documented on EMR Reaction Allergy Type Onset Date Status Penicillin Unknown Drug Allergy Active Results Component Value Reference Range Notes H-Glycohemoglobin A1C Reviewed date:12/05/2024 08:27:41 AM Interpretation:9.0 Performing Lab: Notes/Report: HGBA1C 9.0 4.0-6.0 % < 6% Non-Diabetic Level < 7% Controlled Diabetic Level > 8% Poorly Controlled Diabetic Level H-CMP Reviewed date:12/05/2024 08:27:41 AM Interpretation:cl 97, co2- 34, gluc 216 Performing Lab: Notes/Report: NA 137 136-145 mmol/L K 3.7 3.5-5.1 mmoL/L CL 97 98-107 mmol/L CO2 34 22.0-30.0 mmol/L GAP 9.7 5-15 mEq/L BUN 19 9-20 mg/dl CREATT 1.00 0.66-1.25 mg/dl GFRAA 93 >60 ML/MIN EGFR 76 >60 ml/min GLU 216 74-100 mg/dl CA 8.7 8.4-10.2 mg/dl BILIT 0.3 0.2-1.3 mg/dl AST 29 17-59 U/L ALT 45 12-78 U/L TP 6.5 6.3-8.2 g/dl ALB 4.0 3.5-5.0 g/dl GLOB 2.5 1.3-3.2 g/dL AGRATIO 1.6 1.1-1.8 ALP 94 38-126 U/L H-Lipid Panel Reviewed date:12/05/2024 08:27:41 AM Interpretation:chol 118, dldl 59 Performing Lab: Notes/Report: Patient Fasting? Y TRIG 110 30-150 mg/dl CHOL 118 140-200 mg/dl DLDL 59.45 100-129 mg/dL VLDL 22 0-40 mg/dL HDL 38 40-60 mg/dl CHLHDL 3.1 1-3.5 H-Glycohemoglobin A1C Reviewed date:12/02/2024 11:17:24 AM Interpretation: Performing Lab: Notes/Report: H-CMP Reviewed date:12/01/2024 08:58:38 AM Interpretation: Performing Lab: Notes/Report: H-Lipid Panel Reviewed date:12/01/2024 08:58:13 AM Interpretation: Performing Lab: Notes/Report: Glycohemoglobin A1c (in hous e) Reviewed date:08/17/2024 05:03:17 PM Interpretation:9.8% Performing Lab: Notes/Report: 9.8% glycohemoglobin 9.8% 5 - 6.5 % Reason For Referral No Information Medications Medication SIG (Take, Route, Frequency, Duration) Notes Start Date End Date Status Metoprolol Tartrate 50 MG 1 tab(s) Orall y 2 times a day Active Aspirin 81 81 MG 1 tablet Orally Once a day Active Sildenafil Citrate 20 MG 1-2 tab(s) oral ly as directed 07/14/2021 Active Mounjaro 5 MG/0.5ML INJECT 1 PEN-INJECTO R SUBCUTANEOUSLY ONCE A WEEK; Duration: 28 Active Keppra 500 MG 1 tab(s) Orally ever y 12 hrs Active metFORMIN HCl ER 750 MG 1 tab(s) Orally Two times a day Active Glimepiride 2 MG 1 tablet with breakf ast or the first main meal of the day Orally Once a day; Duration: 30 day(s) 11/09/2024 Active Rosuvastatin Calcium 5 MG 1 tablet Orall y At Bed Time Active levETIRAcetam 500 MG TAKE 1 TABLET BY [facility] EVERY 12 HOURS; Duration: 30 Active amLODIPine Besylate-Valsartan 5-160 MG 1 tablet Orally Once a day; Duration: 30 day(s) 11/09/2024 Active Immunizations Vaccine Route Administration Date Status Comme nts COVID 19 Moderna Unknown 02/17/2021 Administered COVID 19 Moderna Unknown 03/21/2021 Administered COVID 19 Moderna Unknown 11/28/2021 Administered DT, 7 YEARS OR OLDER Unknown 12/13/1996 Administered Fluzone Quad (6months&older) IM Intramuscular 07/03/2019 Administered Fluzone Quad (6months&older) IM Intramuscular 06/22/2020 Administered Fluzone Quad (6months&older) IM Intramuscular 07/14/2021 Administered Fluzone Quad (6months&older) IM Intramuscular 07/02/2022 Administered Hepatitis B (20 and more) Unknown 11/12/2020 Administer ed IPV Unknown 11/12/2020 Administered MMR Unknown 11/10/2021 Administered pediarix Unknown 04/17/2021 Administered PNEUMOVAX 23 VACCINE Unknown 07/03/2021 Administered Prevnar (PCV13) IM Intramuscular 07/03/2019 Administered Prevnar (PCV13) Unknown 11/12/2020 Administered Prevnar (PCV13) Unknown 01/20/2021 Administered Prevnar (PCV13) Unknown 04/17/2021 Administered Prevnar (PCV20) IM Intramuscular 08/17/2024 Administered Shingrix IM Intramuscular 01/03/2022 Administered Shingrix IM Intramuscular 06/04/2022 Administered Tetanus Tdap-Adacel (over 7yrs) Unknown 11/12/2020 Administered Problems Problem Type SNOMED Code ICD Code Onset Dates Problem Status W/U Status Risk Notes Problem Type 2 diabetes mellitus (81283948) Type 2 diabetes mellitus (E11.9) Active confirmed Problem Essential hypertension (31486102) Essential hypertension (I10) Active confirmed Problem Paroxysmal atrial fibrillation (233261351) Paroxysmal atrial fibrillation (I48.0) Active confirmed Problem Memory loss (76027839) Memory loss (R41.3) Active confirmed Problem Seizure disorder (472429797) Seizure disorder (G40.909) Active confirmed Problem Male erectile disorder (123774153) Male erectile disorder (N52.9) Active confirmed Problem Hyperlipidemia due to type 2 diabetes mellitus (disorder) (502068152817302) Hyperlipidemia associated with type 2 diabetes mellitus (E11.69) Active confirmed Problem Hyperglycemia due to type 2 diabetes mellitus (707619427296450) Diabetes mellitus with hyperglycemia (E11.65) Active confirmed Problem History of pulmonary embolus (229310970) History of pulmonary embolus (PE) (Z86.711) Active confirmed Problem Dyslipidemia (799498978) Dyslipidemia (E78.5) Active confirmed Problem Peripheral circulatory disorder associated with diabetes mellitus (604625208) Type 2 diabetes mellitus with other circulatory complication (E11.59) Active confirmed Problem Elevated PSA (787968090) Elevated PSA (R97.20) Active confirmed Problem Primary CARDIOPULMONARY TECHNICIAN AND EEG TECH lymphoma (831343327) Primary CARDIOPULMONARY TECHNICIAN AND EEG TECH lymphoma (C85.89) Active confirmed Problem Disorder of immune function (060350880) Immunocompromised state (D89.9) Active confirmed Problem History of bone marrow transplant (8853865703693) 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 Vital Signs Heart Rate 101 /min 12/08/2024 Blood pressure diastolic 92 mm Hg 12/08/2024 Height 72 in 12/08/2024 Blood pressure systolic 148 mm Hg 12/08/2024 Weight 248 lbs 12/08/2024 BMI 33.63 kg/m2 12/08/2024 Encounters Encounter Location Date Provider [facility] [address] [id number] 05/09/2024 R Tru Pearson Essential hypertensi on I10 ; Type 2 diabetes mellitus E11.9 ; History of pulmonary embolus (PE) Z86.711 ; Primary CARDIOPULMONARY TECHNICIAN AND EEG TECH lymphoma C85.89 and Dyslipidemia E78.5 [facility] [address] [id number] 08/17/2024 R Tru Perason Type 2 diabetes mellitus with other circulatory complication E11.59 ; Seizure disorder G40.909 and Encounter for immunization Z23 [facility] [address] [place] [phone] 11/09/2024 R Tru Pearson Essential hypertensi on I10 ; Type 2 diabetes mellitus E11.9 ; Seizure disorder G40.909 ; History of pulmonary embolus (PE) Z86.711 ; Primary CARDIOPULMONARY TECHNICIAN AND EEG TECH lymphoma C85.89 and Dyslipidemia E78.5 [facility] [address] [place], [place] [phone] 12/08/2024 David Kingston Influenza A J10.1 [facility] [address] [place], [place] [id number] 05/04/2024 R Tru Pearson History of pulmonary embolus (PE) Z86.711 [facility] [address] [facility] [address] [place], [place] [id number] 06/29/2024 R Tru Alvaradofleet Essential hypertensi on I10 ; Dyslipidemia E78.5 and Type 2 diabetes mellitus E11.9 [facility] [address] [place] [facility] [address] [place], [place] [id number] 2024 R Tru [facility]leet [facility] [facility] [address] [place], [place] [id number] 12/05/2024 R Tru [facility]varadofleet [facility] [address] [facility] [address] [place], [place] [phone] 04/25/2025 R Tru Lili Essential hypertensi on I10 ; Dyslipidemia E78.5 ; Type 2 diabetes mellitus E11.9 and Elevated PSA R97.20 Assessments Encounter Date Diagnosis (ICD Code) Assessment Notes Treatment Notes Treatment Clinical Notes Section Notes 05/04/2024 History of pulmonary embolus (PE) (ICD-10 - Z86.711) 05/09/2024 Essential hypertension (ICD-10 - I10) 06/29/2024 Essential hypertension (ICD-10 - I10) 08/17/2024 Seizure disorder (ICD-10 - G40.909) Keep follow-up appointment with neurology as scheduled 08/17/2024 Type 2 diabetes mellitus with other circulatory complication (ICD-10 - E11.59) Reinforced diet and weight loss 11/09/2024 Type 2 diabetes mellitus (ICD-10 - E11.9) Reinforced diet, exercise, and weight loss Reinforced diet, exercise and weight loss 11/09/2024 Essential hypertension (ICD-10 - I10) 12/08/2024 Influenza A (ICD-10 - J10.1) fluids, rest, supportive measures for fever/symptom relief 04/25/2025 Essential hypertension (ICD-10 - I10) 04/25/2025 Dyslipidemia (ICD-10 - E78.5) 11/09/2024 Seizure disorder (ICD-10 - G40.909) Keep follow-up appointment with neurology as scheduled 08/17/2024 Encounter for immunization (ICD-10 - Z23) 06/29/2024 Dyslipidemia (ICD-10 - E78.5) 05/09/2024 History of pulmonary embolus (PE) (ICD-10 - Z86.711) 05/09/2024 Type 2 diabetes mellitus (ICD-10 - E11.9) Reinforced diet, exercise and weight loss 05/09/2024 Primary CARDIOPULMONARY TECHNICIAN AND EEG TECH lymphoma (ICD-10 - C85.89) Continue f/u with oncology 06/29/2024 Type 2 diabetes mellitus (ICD-10 - E11.9) 11/09/2024 History of pulmonary embolus (PE) (ICD-10 - Z86.711) 04/25/2025 Type 2 diabetes mellitus (ICD-10 - E11.9) 04/25/2025 Elevated PSA (ICD-10 - R97.20) 11/09/2024 Primary CARDIOPULMONARY TECHNICIAN AND EEG TECH lymphoma (ICD-10 - C85.89) Continue f/u with oncology 05/09/2024 Dyslipidemia (ICD-10 - E78.5) 11/09/2024 Dyslipidemia (ICD-10 - E78.5) Plan Of Treatment Pending Test Test Name Order Date H-Lipid Panel 04/25/2025 H-CMP 04/25/2025 H-Glycohemoglobin A1C 04/25/2025 H-PSA 04/25/2025 Next Appt Details Provider Name:Andreea Silva, 05/08/2025 04:30:00 PM, [address], [address], [place], [place], [id number], Insurance Providers Payer Name Payer Address Payer Phone Subscriber Number Group Number Insured Name Patient Relationship to Insured Coverage Start Date Coverage End Date [employer] [address] [place] [address] [id number] DARRICK PITTS Self - patient is the insured Medical (General) History Medical History History ICD Code CARDIOPULMONARY TECHNICIAN AND EEG TECH-primary brain [id number] Lymphoma -Followed by Leilani @ Pulmonary embolus Paroxysmal atrial fibrillation Hypertension ED Type 2 diabetes Seizure disorder - onset 08/16/2024 Surgical History Surgery Date(Month/Year) Left Shoulder - Rotator Cuff Repair Nov 2016 Colonoscopy -reported as normal 2016 Brain biopsy 2018 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
--- OUTSIDE RECORDS SUMMARY | 2025-04-27 08:35 | XMS_ITS | Clinical Summary ---
Author Organization [facility] Address [address] [place] [place] [address] Care Team Providers Care Overlock Waistline Joiner Name Role Phone Nahid Pearson MD Primary Care Provider +1- [phone] Allergies Active Allergy Reactions Criticality Noted Date Comments Penicillin G Other - please docum ent in the comment field Low 06/19/2019 Reaction occured when he was a child (~age 6). Unknown reaction, but pt says his legs were affected and he couldn't walk. Patient confirms he has tolerated other antibiotics in the past without issues and believes he has tolerated amoxicillin. Medications metFORMIN XR (Glucophage-XR) 500 MG 24 hr tablet Take 1 tablet (500 mg) by mouth 2 (two) times a day. 3 Active glimepiride (Amaryl) 2 MG tablet Take 1 tablet (2 mg) by mouth 1 (one) time each day before breakfast. 3 Active metoprolol tartrate (Lopressor) 50 MG tablet Take 1 tablet (50 mg) by mouth 2 (two) times a day. 3 Active levETIRAcetam (Keppra) 500 MG tablet Take 1 tablet (500 mg) by mouth 2 (two) times a day. Active rosuvastatin (Crestor) 5 MG tablet Take 1 tablet (5 mg) by mouth every night. Active ASPIRIN 81 MG chewable tablet Chew 1 tablet (81 mg) 1 (one) time each day. Active Mounjaro 2.5 MG/0.5ML solution auto-injector solution pen-injector Inject 0.5 mL (2.5 mg) under the skin 1 (one) time per week. 4 Active metFORMIN XR (Glucophage-XR) 750 MG 24 hr tablet 5 Active losartan (Cozaar) 100 MG tablet Take 1 tablet (100 mg) by mouth 1 (one) time each day. 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 03/18/2021 Cancer Staging:Clinical stage from 06/22/2019: Histology: Diffuse large B cell lymphoma - Unsigned Encounters Date Type Department Care Team Description 04/24/2025 11:30 AM EDT Office Visit [facility] [address], [address] [place] [address] Yash Bartlett MD Single unprovoked seizure (CMS/HCC) (Primary Dx); Symptomatic localization-relate d epilepsy 04/24/2025 Travel 03/27/2025 Travel 03/20/2025 Telephone [facility] [address], [address] [place] [address] Peyton Harrison 03/14/2025 7:30 AM EDT - 03/14/2025 11:59 PM EDT Hospital Encounter [facility] [address] [place] [address] Discharge Disposition: Home or Self Care 03/14/2025 Travel 03/13/2025 Travel 03/12/2025 8:00 AM EDT - 03/12/2025 11:59 PM EDT Hospital Encounter [facility] [address] [place] [address] Symptomatic localization-relate d epilepsy Discharge Disposition: Home or Self Care 03/12/2025 Travel 03/07/2025 Travel 02/09/2025 Results Follow-Up [facility] Hematology/BMT and Cellular Therapy Program [address] [place] [address] Kwan Dempsey MD 02/07/2025 7:15 AM EDT - 02/07/2025 11:59 PM EDT Hospital Encounter [facility] [address], 1[address] [place] [address] Primary TWISTING OPERATOR lymphoma; History of seizure Discharge Disposition: Home or Self Care 02/07/2025 Travel 02/06/2025 Travel from Last 3 Months Immunizations Immunization Administration Dates Next Due DTaP / Hep B / IPV 04/17/2021,01/20/2021 Hep B, adult 11/12/2020 Hib (PRP-T) 04/17/2021,01/20/2021,11/12/2020 IPV 11/12/2020 Influenza, injectable, quadrivalent 07/14/2021,0 06/22/2020,07/03/2019 MMR 11/10/2021 Pneumococcal Conjugate PCV 13 04/17/2021 ,01/20/2021,11/12/2020,07/03 Pneumococcal Polysaccharide PPV23 07/03/2021 TD (adult), 2 Lf tetanus tox oid, preservative free, adsorbed 12/13/1996 Tdap 11/12/2020 Zoster, Recombinant 06/04/2022,01/03/2022 Family History Medical History Relation Name Comments colorectal cancer Father 83yo Stroke Mother Kellie Pitts 87yo Relation Name Status Comments Daughter Alive Father Mother Kellie Pitts Sister Alive Son Alive Social History Tobacco Use Types Packs/Day Years [...] Industry 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[place] [address] Not on file Not on file Not on file Last Filed Vital Signs Vital Sign Reading Time Taken Comments Blood Pressure 166/100 11/07/2024 2:59 PM EST Pulse 94 11/07/2024 2:59 PM EST Temperature 37.1 C (98.8 F) 08/21/2024 2:47 PM EST Respiratory Rate 20 08/21/2024 2:47 PM EST Oxygen Saturation 94% 08/21/2024 2:47 PM EST Inhaled Oxygen Concentration - - Weight 109 kg (240 lb) 04/24/2025 11:25 AM EDT Height 182.9 cm (6') 04/24/2025 11:25 AM EDT Body Mass Index 32.55 04/24/2025 11:25 AM EDT Plan of Treatment Upcoming Encounters Date Type Department Care Team (Late st Contact Info) Description 11/01/2025 3:00 PM EST Office Visit [facility] [address], [address] [place] [phone] Yash Bartlett MD [address] [place] [address] 12/03/2025 11:30 AM EST Appointment [facility] [address] [place] [address] 12/03/2025 3:00 PM EST Clinical Support [facility]BMT and Cellular Therapy Program [address] [address] 12/03/2025 3:30 PM EST Office Visit [facility] Cellular Therapy Program [address] [address] Kwan Dempsey MD [facility] [address] [place] [phone] Health Maintenance Due Date Last Done Comments [facility]-Diabetes: Hemoglobin A1C 1965 [facility]-/Child/Adol SDOH Screenings 1965 Diabetes: Dental Exam 1975 [facility]- SDOH Screenings 1983 [facility]-Adult SDOH Screenings 1983 CT Colonography 2010 Colonoscopy 2010 FIT-DNA 2010 FIT 2010 FOBT 2010 Sigmoidoscopy 2010 [facility]-Colorectal Cancer Screening 2010 [facility]-IPV Vaccines (3 of 3 - Adult catch-up series) 10/18/2021 04/17/2021, 01/20/2021, 11/12/2020 XRF-AOVSE-01 Vaccine (4 - season) 2024 11/28/2021, 03/21/2021, 02/17/2021 [facility]-Influenza Vaccine (#1) 06/11/202507/14, 06/22/2020, 07/03/2019 [facility]-Depression Screening 04/24/2026 04/24/2025, 10/12 [facility]-Pneumococcal Vaccine: 50+ Years (3 of 3 - PPSV23, PCV20 or PCV21) 07/03/2026 07/03/2021, 04/17/2021, 01/20/2021, Additional history exists [facility]-DTaP,Tdap,and Td Vaccines (4 - Td or Tdap) 04/17/2031 04/17/2021, 01/20/2021, 11/12/2020, Additional history exists [facility]-Hepatitis C Screening Completed 06/20/2019 [facility]-HIV Screening Completed 07/03/2019 [facility]-HIB Vaccines Aged Out 04/17/2021, 09/2021, 11/12/2020 No longer eligible based on patient's age to complete this topic [facility]-Hepatitis B Vaccines Completed 021, 01/20/2021, 11/12/2020 [facility]-Zoster Vaccines Completed 06/04/2022, [facility]-Obesity Intervention Completed 025, 11/07/2024, 09/15/2024 HPV Vaccines Aged Out No longer eligi ble based on patient's age to complete this topic [facility]-Hepatitis A Vaccines Aged Out No longer eligible based on patient's age to complete this topic [facility]-Rotavirus Vaccines Aged Out No lo nger eligible based on patient's age to complete this topic Procedures Procedure Name Priority Date/Time Associated Diagnosis Comments HC VEEG SET UP TAKEDOWN EDUCATION Routine 03/13/2025 7:40 AM EDT Symptomatic localization-relat ed epilepsy MR HEAD W AND WO IV CONTRAST Routine 02/07/2025 8:06 AM EDT Primary TWISTING OPERATOR lymphoma History of seizure HIV 1/2 ANTIBODY/ANTIGEN SCREEN WITH REFLEX TO HIV I/II DIFFERENTIATION Routine 07/03/2019 10:21 PM EDT HEPATITIS C ANTIBODY - ED W/REFLEX TO HCV QUANT PCR Routine 06/20/2019 3:22 AM EDT from Last 3 Months or Most Recently Relevant to Health Maintenance Results * Home-Based Ambulatory EEG (03/13/2025 7:40 [...] male with a past medical history of TWISTING OPERATOR Diffuse Large B-cell Lymphoma status post chemotherapy [...] first 23 hours being recorded. JONAH Matute Manager Mall [facility] us Yash Bartlett MD NEUROLOGY ORDERABLES Final Re sult * MR Head w and wo IV Contrast (02/07/2025 8:06 AM EDT) Anatomical Region Laterality Modality Head Magnetic Resonan ce Impressions 02/07/2025 7:26 PM EDT Since prior dated 08/27/2024, no evidence of new or residual disease. Clive Bah M.D. This report has been electronically signed and verified by the Radiologist whose name is printed above. This report contains privileged and confidential information and is intended solely for the use of the individual or entity to which it is addressed. If you are not the intended recipient of this report, you are hereby notified that any copying, distribution, dissemination or action taken in relation to the contents of this report is strictly prohibited and may be unlawful. If you have received this report in error, please notify the sender immediately at [phone] and permanently delete the original report and destroy any copies or printouts. 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 Active surveillance .. 4 yrs out from auto-HCI and CR1 .. With new seizures, MRI performed 08/27/24 with NO EVIDENCE OF LYMPHOMA. Will plan for MRI to follow up on seizure and TWISTING OPERATOR lymphoma monitoring. Plan to transition to annual scans and follow ups after this MRI and visit. Additional History (per [facility]): 3D Image Post Processing, including MIPs when applicable, was performed EXAMINATION: MR BRAIN WITH and WITHOUT CONTRAST CLINICAL HISTORY: Seizure COMPARISON: MRI dated 08/27/2024 TECHNIQUE: Multiple sequences through the brain were acquired at 3 [place] with and without contrast CONSTRAST: Gadolinium was administered. FINDINGS: No acute hemorrhage. No herniation. Again seen is left frontal encephalomalacia and gliosis with associated susceptibility artifact.. Similar periventricular T2/FLAIR signal hyperintensity predominantly surrounding the frontal horns. No reduced diffusion. No abnormal parenchymal, leptomeningeal, or dural enhancement. 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 Activesurveillance .. 4 yrs out from auto-HCI and CR1 .. With new seizures, MRIperformed 08/27/24 with NO EVIDENCE OF LYMPHOMA. Will plan for MRI tofollow up on seizure and TWISTING OPERATOR lymphoma monitoring. Plan to transition toannual scans and follow ups after this MRI and visit. Additional History (per [facility]): 3D Image Post Processing, including MIPs when applicable, was performed EXAMINATION: MR BRAIN WITH and WITHOUT CONTRAST CLINICAL HISTORY: Seizure COMPARISON: MRI dated 08/27/2024 TECHNIQUE: Multiple sequences through the brain were acquired at 3 [place] and without contrast CONSTRAST: Gadolinium was administered. FINDINGS: No acute hemorrhage. No herniation. Again seen is left frontalencephalomalacia and gliosis with associated susceptibility artifact..Similar periventricular T2/FLAIR signal hyperintensity predominantlysurrounding the frontal horns. No reduced diffusion. No abnormal parenchymal, leptomeningeal, or dural enhancement. 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 IMPRESSION: Since prior dated 08/27/2024, no evidence of new or residual disease. Clive Bah M.D. This report has been electronically signed and verified by the Radiologistwhose name is printed above. This report contains privileged and confidential information and isintended solely for the use of the individual or entity to which it isaddressed. If you are not the intended recipient of this report, you arehereby notified that any copying, distribution, dissemination or actiontaken in relation to the contents of this report is strictly prohibitedand may be unlawful. If you have received this report in error, pleasenotify the sender immediately at [phone] and permanently delete theoriginal report and destroy any copies or printouts. us Sakina SANTILLAN IMG MRI PROCEDURES Final Re sult * HIV 1 & 2 Antibody/Antigen Screen (07/03/2019 10:21 PM EDT) HIV 1 Result NONREACTIVE Screening for HIV 1 and 2 antibodies is NONREACTIVE. No confirmatory testing is required. SUNQUEST 07/03/2019 10:2 1 PM EDT 07/03/2019 10:21 PM EDT us Kwan Dempsey MD LAB BLOOD ORDERABLES Final Result SUNQUEST * [place] Hepatitis C Antibody (06/20/2019 3:22 AM EDT) [place] Hepatitis C Ab NEGATIVE Reference Range: Negative SUNQUEST 06/20/2019 3:22 AM EDT 06/20/2019 3:25 AM EDT us Noam Ruth MD LAB BLOOD ORDERABLES Final Res ult Performing Organization Address City/[facility] Co de Phone Number SUNQUEST from Last 3 Months or Most Recently Relevant to Health Maintenance Insurance HAYDEN Care Teams Overlock Waistline Joiner Relationship Specialty Start Date End Date Nahid Pearson MD [address] [place] [address] PCP - General 02/21/21
--- OUTSIDE RECORDS SUMMARY | 2025-04-27 08:35 | XMS_ITS | Encounter Summary ---
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[place] [address] Not on file Not on file Not on file documented as of this encounter Plan of Treatment Upcoming Encounters Date Type Department Care Team (Late st Contact Info) Description 11/01/2025 3:00 PM EST Office Visit [facility] [address], [address] [place] [address] Yash Bartlett MD [address] [place] [phone] 12/03/2025 11:30 AM EST Appointment [facility] [address] 1st [place] [address] 12/03/2025 3:00 PM EST Clinical Support [facility]BMT and Cellular Therapy Program [address] [place] [address] 12/03/2025 3:30 PM EST Office Visit [facility]MT [facility] Cellular Therapy Program [address] [place] [address] Kwan Dempsey MD 800 [facility] [address] [place] [phone] documented as of this encounter Visit Diagnoses [...] documented as of this encounter Care Teams Boil Off Machine Operator Cloth Relationship Specialty Start Date End Date Nahid Pearson MD [address] [place] [phone] PCP - General 02/21/21 documented as of this encounter
--- OUTSIDE RECORDS SUMMARY | 2025-04-27 08:35 | XMS_ITS | Encounter Summary ---
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 on file Not on file Not on file documented as of this encounter Plan of Treatment Upcoming Encounters Date Type Department Care Team (Late st Contact Info) Description 11/01/2025 3:00 PM EST Office Visit [facility] [address] [facility], [address] [place] [address] Yash Bartlett MD [address] [place] [address] 12/03/2025 11:30 AM EST Appointment [facility] [address] 1st [place] [address] 12/03/2025 3:00 PM EST Clinical Support [facility]/BMT and Cellular Therapy Program [address] [place] [address] 12/03/2025 3:30 PM EST Office Visit [facility]BMT [facility] Cellular Therapy Program [address] [place] [address] Kwan Dempsey MD 800 [facility] [address] [place] [address] documented as of this encounter Visit Diagnoses [...] documented as of this encounter Care Teams Consumer Services Advisor Relationship Specialty Start Date End Date Nahid Pearson MD [address] [place] [address] PCP - General 02/21/21 documented as of this encounter
--- OUTSIDE RECORDS SUMMARY | 2025-04-27 08:35 | XMS_ITS | Encounter Summary ---
Author Organization [facility] Address [address] 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[place] [address] Not on file Not on file Not on file documented as of this encounter Miscellaneous Notes * Telephone Encounter - Peyton Harrison - 03/20/2025 2:58 PM EDT Called pt to confirm appt, left VM documented in this encounter Plan of Treatment Upcoming Encounters Date Type Department Care Team (Late Contact Info) Description 11/01/2025 3:00 PM EST Office Visit [facility] [address], [address] [place] [address] Yash Bartlett MD [address] [place] [address] 12/03/2025 11:30 AM EST Appointment [facility] [address] 1st [place] [address] 12/03/2025 3:00 PM EST Clinical Support [facility]BMT [facility] Cellular Therapy Program [address] [address] 12/03/2025 3:30 PM EST Office Visit [facility]BMT [facility] Cellular Therapy Program [address] [phone] Kwan Dempsey MD 800 [facility] [address] [place] [phone] documented as of this encounter Visit Diagnoses [...] documented as of this encounter Care Teams Manager Location Relationship Specialty Start Date End Date Nahid Pearson MD [address] [place] [address] PCP - General 02/21/21 documented as of this encounter
--- OUTSIDE RECORDS SUMMARY | 2025-04-27 08:35 | XMS_ITS | Encounter Summary ---
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[place] [address] Not on file Not on file Not on file documented as of this encounter Plan of Treatment Upcoming Encounters Date Type Department Care Team (Late st Contact Info) Description 11/01/2025 3:00 PM EST Office Visit [facility] [address] [facility], [address] [place] [address] Yash Bartlett MD [address] [place] [phone] 12/03/2025 11:30 AM EST Appointment [facility] [address] [place] [address] 12/03/2025 3:00 PM EST Clinical Support [facility] Cellular Therapy [facility] [address] [place] [address] 12/03/2025 3:30 PM EST Office Visit [facility] Cellular Therapy [facility] [address] [place] [address] Kwan Dempsey MD 800 [facility] [address] [place] [phone] documented as of this encounter Visit Diagnoses [...] documented as of this encounter Care Teams Logistics Director Relationship Specialty Start Date End Date Nahid Pearson MD [address] [place] [address] PCP - General 02/21/21 documented as of this encounter
--- OUTSIDE RECORDS SUMMARY | 2025-04-27 08:35 | XMS_ITS ---
Author Organization [facility] Address [address] 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 Past Treatment and Therapy Plans Supportive Care & Immunization Plan Plan Name Start Date Discontinue Date Treatment Medications Discontinue Reason Plan Provider Cycles (BMT) Immunization Post AUTO HCT 1 07/27/2022 No medications scheduled. 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
--- OUTSIDE RECORDS SUMMARY | 2025-04-27 08:35 | XMS_ITS | Encounter Summary ---
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[place] [address] Not on file Not on file Not on file documented as of this encounter Plan of Treatment Upcoming Encounters Date Type Department Care Team (Late st Contact Info) Description 11/01/2025 3:00 PM EST Office Visit [facility] [address], [address] [place] [address] Yash Bartlett MD [address] [place] [id number] 12/03/2025 11:30 AM EST Appointment [facility] [address], [address] [place] [address] 12/03/2025 3:00 PM EST Clinical Support [facility] [address] [place] [phone] 12/03/2025 3:30 PM EST Office Visit [facility] [address] [place] [phone] Kwan Dempsey MD [address] [facility] [address] [place] [phone] documented as of this encounter Visit Diagnoses [...] documented as of this encounter Care Teams Reconnaissance Crewmember Relationship Specialty Start Date End Date Nahid Pearson MD [address] [place] [address] PCP - General 02/21/21 documented as of this encounter
--- OUTSIDE RECORDS SUMMARY | 2025-04-27 08:35 | XMS_ITS | Clinical Summary ---
Author Organization [facility] Address [address] [address] [place] [address] Care Team Providers Care Snorkelling Instructor Name Role Phone Unavailable Primary Care Provider Unavailabl e Social History Tobacco Use Types Packs/Day Years Used Date Smoking Tobacco: Never Assessed Sex and Gender Information Value Date Recorded Sex Assigned at Not on file Legal Sex Male 9:38 PM EDT Gender Identity Not on file Sexual Orientation Not on file Plan of Treatment Health Maintenance Due Date Last Done Comments CT Colonography 1965 Colonoscopy 1965 Colorectal Cancer Screening 1965 FIT-DNA (Cologuard) 1965 FIT 1965 FOBT 1965 HIV Screening 1965 Hepatitis C Screening 1965 Lipid Panel 1965 Sigmoidoscopy 1965 MMR Vaccines (1 of 1 - Stand juli series) 1966 Hepatitis B Screening 1983 DTaP/Tdap/Td Vaccines (1 - Tdap) 1984 Hepatitis B Vaccines (1 of 3 - 19+ 3-dose series) 1984 Pneumococcal Vaccine: 50+ Ye ars (1 of 1 - PCV) 2015 Zoster Vaccines (1 of 2) 2015 COVID-19 Vaccine (1 - 2023-2 5 season) 2024 Depression Risk Screening 10/11/2024 SDOH Screening 10/11/2024 Influenza Vaccine (#1) 2025 HIB Vaccines Aged Out No longer eligi ble based on patient's age to complete this topic HPV Vaccines Aged Out No longer eligi ble based on patient's age to complete this topic Hepatitis A Vaccines Aged Out No long er eligible based on patient's age to complete this topic IPV Vaccines Aged Out No longer eligi ble based on patient's age to complete this topic Meningococcal B Vaccine Aged Out No l onger eligible based on patient's age to complete this topic Meningococcal Vaccine Aged Out No vivian jefry eligible based on patient's age to complete this topic Rotavirus Vaccines Aged Out No longer eligible based on patient's age to complete this topic Insurance [facility]
[2025-04-27 09:29] LABS: Alanine Aminotransferase 36 U/L (12-78); Albumin Level 4.0 g/dl (3.5-5.0); Albumin/Globulin Ratio 1.5 (1.1-1.8); Alkaline Phosphatase 89 U/L (38-126); Anion Gap 13.9 mEq/L (5-15); Aspartate Amino Transferase 25 U/L (17-59); Bilirubin,Total 0.3 mg/dl (0.2-1.3); Blood Urea Nitrogen 18 mg/dl (9-20); Calcium 9.1 mg/dl (8.4-10.2); Carbon Dioxide 32 mmol/L (22.0-30.0); Chloride 95 mmol/L (98-107); Cholesterol 131 mg/dl (140-200); Creatinine,Serum 1.00 mg/dl (0.66-1.25); Estimated Glomerular Filt Rate 76 ml/min (>60); GFR (African American) 93 ML/MIN (>60); Globulin 2.7 g/dL (1.3-3.2); Glucose 191 mg/dl (74-100); HDL Cholesterol 43 mg/dl (40-60); Potassium 3.9 mmoL/L (3.5-5.1); Sodium 137 mmol/L (136-145); Total Protein,Serum 6.7 g/dl (6.3-8.2); Triglycerides 117 mg/dl (30-150)
[2025-04-27 09:32] LABS: Hemoglobin A1C 11.1 % (4.0-6.0)
== END 2025-04-27 23:59 | disposition home or self-care (01) ==
LOC: LAB 08:33
PROVIDERS: PCP Family Medicine; Visit Provider Family Medicine
DX: E78.5 Hyperlipidemia, unspecified (principal); R97.20 Elevated prostate specific antigen [PSA]; I10 Essential (primary) hypertension; E11.9 Type 2 diabetes mellitus without complications
CPT/HCPCS: 36415; 80053; 80061; 83036; G0103